=== PATIENT | female | born 1930 | race Caucasian/White ===

== ENCOUNTER 2016-10-28 16:36 | Inpatient (IN) ==
[2016-10-28] MEDS ORDERED: *HR* Morphine 2 MG/ML SYRINGE IVP ONE ×2 (16:44→17:18)
[2016-10-28] MEDS ORDERED: Ondansetron 4 MG/2 ML VIAL IVP ONE (16:45)
--- NOTE | 2016-10-28 17:52 | Emergency Department Note ---
Disposition Clinical Impression: Hip fracture Qualifiers: Encounter type: initial encounter Fracture type: closed Laterality: left Qualified Code(s): S72.002A - Fracture of unspecified part of neck of left femur , initial encounter for closed fracture Disposition: Admitted As Inpatient Condition: Fair Time of Disposition: 20:00 Lower Extremity Injury HPI - General Chief Complaint: ED Extremity Injury, Lower Stated Complaint: fall, left hip pain Time Seen by Provider: 10/28/16 16:38 Source: patient, EMS Mode of arrival: EMS Limitations: no limitations Nursing Notes Reviewed: Yes Vital Signs Reviewed: Yes - History of Present Illness HPI Narrative: 86 yo F on blood thinners with prior falls, s/p CABG x 2, Afib, fell earlier this afternoon from standing when picking somthing up from floor. Pt states she lost her balance and felt landing on her Left hip. She was in immediate 10/10 throbbing constant pain. She called for her daughter who she lives with to come help her, and was unable to stand or get up until EMS came and lifted her from the ground. Pt states she is unable to bear weight and cannot move Left hip in nay direction secondary to severe pain. Pt states she did not have any chest pain, dyspnea, palpitations, lightheaded or dizziness prior to falling and did not have any symptoms besides severe pain after falling. Pt denies LOC, syncope, current CP,SOB, palpitations, lightheaded, dizziness, headache, numbness/tingling. Pt Subjective Complaint: hip injury Injury location: Left hip Onset (ago): minute(s) Mechanism of Injury: fall Context: fall Place: home Pain Severity: severe Pain Scale: 9 Improves with: nothing Worsens with: weight bearing, movement, palpation Associated symptoms: Reports: unable to bear weight, deformity Treatments prior to arrival: other - Related Data Home Medications Medication Instructions Recorded Confirmed Aspirin 81 mg PO DAILY 08/23/15 10/28/16 Clopidogrel [Plavix] 75 mg PO DAILY 08/23/15 10/28/16 Isosorbide MONOnitrate (24 HR) 180 mg PO DAILY 08/23/15 10/28/16 [Imdur] Pantoprazole Sodium [Protonix] 40 mg PO DAILY #0 08/23/15 10/28/16 Potassium Chloride [K-Tab ER] 10 meq PO BID 08/23/15 10/28/16 Pravastatin Sodium [Pravachol] 80 mg PO DAILY 08/23/15 10/28/16 Carvedilol [Coreg] 12.5 mg PO BID 03/14/16 10/28/16 Cyanocobalamin (Vitamin B-12) 100 mcg PO DAILY 03/14/16 10/28/16 [Vitamin B-12] Docusate [Colace] 100 mg PO BID PRN 03/14/16 10/28/16 Ergocalciferol (VITAMIN D2) 800 unit PO DAILY 03/14/16 10/28/16 [Vitamin D] Loratadine [Claritin] 10 mg PO DAILY 03/14/16 10/28/16 Losartan/Hydrochlorothiazide 1 tab PO DAILY 03/14/16 10/28/16 [Losartan-Hctz 100-12.5 mg Tab] Nitroglycerin [Nitrostat] 0.4 mg SL AD PRN 03/31/16 10/28/16 Ranolazine [Ranexa] 1,000 mg PO BID 03/31/16 10/28/16 FluocinoLONE Acet 0.025% CRM 1 appl TP BID PRN 10/28/16 10/28/16 [Fluocinolone Acet 0.025% CRM] Sertraline [Zoloft] 50 mg PO DAILY 10/28/16 10/28/16 Allergies Allergy/AdvReac Type Severity Reaction Status Date / Time simvastatin [From Zocor] Allergy Anaphylaxis Verified 04/18/16 10:03 atorvastatin [From Lipitor] AdvReac Anxiety Verified 04/18/16 10:03 enalaprilat [From Vasotec] AdvReac Hives Verified 04/18/16 10:03 All systems ED: reviewed and negative except as stated. Constitutional: Denies: fever, chills, weakness, weight change Eyes: Denies: eye pain, eye discharge, vision change ENT ED: Denies: ear pain, throat pain, dental pain, hearing loss, epistaxis, congestion, dysphagia Cardiovascular: Denies: chest pain, palpitations, dyspnea on exertion, edema, syncope Respiratory: Denies: cough, dyspnea, wheezes, hemoptysis, stridor Gastrointestinal: Denies: abdominal pain, nausea, vomiting, diarrhea, constipation, hematemesis, melena, hematochezia Musculoskeletal: Reports: arthralgia. Denies: back pain, neck pain Integumentary: Denies: rash, abrasion, lesions Neurological: Denies: headache, weakness, numbness, confusion Psychiatric: Denies: anxiety, depression, suicidal thoughts, homicidal thoughts , auditory hallucinations, visual hallucinations Past Medical History - Past Medical History Attestation: Yes The following information was validated with the patient. 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 Absent: tenderness - Chest Chest inspection: Present: normal inspection, symmetric chest wall rise. Absent : tenderness - Respiratory Respiratory exam: Present: normal lung sounds bilaterally. Absent: respiratory distress, accessory muscle use - Cardiovascular Cardiovascular exam: Present: regular rate, normal rhythm, normal heart sounds, +S1, +S2 - Abdominal Exam Abdominal exam: Present: soft, Non-Tender. Absent: tenderness, distention, guarding, rebound, rigidity - Rectal Exam Rectal exam: Present: deferred - Extremities Exam Extremities exam: Present: tenderness, normal capillary refill. Absent: pedal edema, calf tenderness - Expanded Lower Extremity Exam Hip/Pelvis exam: Present: tenderness, swelling, deformity (Lhip), external rotation. Absent: abrasion, laceration, ecchymosis Knee exam: Present: knee extension intact. Absent: tenderness, swelling, abrasion, laceration, ecchymosis Lower leg exam: Present: full ROM, Achilles tendon intact. Absent: tenderness, swelling, abrasion, laceration, ecchymosis Ankle exam: Present: full ROM. Absent: tenderness, swelling, abrasion, laceration Foot/toe exam: Present: normal inspection, full ROM. Absent: tenderness, swelling, abrasion Neurovascular/Tendon exam: Present: normal capillary refill, significant pain with passive ROM of distal joint. Absent: pulse deficit, sensory deficit, extremity cold to touch, pallor Gait: not tested/not observed, unable to bear weight - Back Exam Back exam: Present: normal inspection, full ROM. Absent: tenderness - Neurological Exam Neurological exam: Present: alert, oriented X3, CN II-XII intact - Skin Skin exam: Present: warm, dry, intact, normal color Course Course Narrative: pt post fall with trauma to head hypertensive and tachycardic significant pain control pain and prevent nausea head CT L hip XR EKG electrolytes - Reevaluation(s) Reevaluation #1: pt remains in 04/15 pain after 4 of morphine tachycardic and hypertensive will give 4 more morphine ortho consulted Time: 18:30 Vital Signs Temperature 97.9 F 10/28/16 16:37 Pulse Rate 67 10/28/16 16:37 Respiratory Rate 18 10/28/16 16:37 Blood Pressure 192/93 10/28/16 16:37 O2 Sat by Pulse Oximetry 97 10/28/16 16:37 Temperature 98.5 F 10/29/16 06:32 Pulse Rate 60 10/29/16 06:32 Respiratory Rate 20 10/29/16 06:32 Blood Pressure 151/76 10/29/16 06:32 O2 Sat by Pulse Oximetry 94 10/29/16 06:32 Oxygen Delivery Oxygen Delivery Nasal Cannula Extremity Injury, Lower - MDM Narrative Medical decision making narrative: L hip XR with displaced transcervical femoral neck fracture without dislocation head CT with chronic small vessel changes, no acute process Left femur xr orthopedics consulted and plan for surgery jessee control pain and nausea NPO at MD for surgery will need admission - Differential Diagnosis Likely: acute internal derangement of knee, fracture, dislocation - Medical Records Medical records reviewed: Yes I reviewed the patient's medical records. - Lab Data Lab results reviewed: Yes I reviewed the patient's lab results. Result diagrams: 10/29/16 04:58 10/29/16 04:58 Lab Results 10/28/16 10/28/16 10/28/16 Range/Units 18:26 18:26 18:26 WBC 7.6 (4.3-11.1) K/mcL RBC 3.80 L (3.82-4.97) M/mcL Hgb 12.9 (11.5-15.4) g/dL Hct 37.5 (35.3-44.9) % MCV 98.7 (83.0-100.0) fL MCH 33.9 H (28.0-33.3) pg MCHC 34.4 (31.6-35.5) g/dL RDW 12.3 (11.5-14.5) % Plt Count 171 (140-400) K/mcL MPV 9.2 L (9.4-12.4) fL Immature Gran % 0.5 (0-4) % Seg Neutrophils % 69.0 % Lymphocytes % 23.8 % Monocytes % 4.9 % Eosinophils % 1.4 % Basophils % 0.4 % Neutrophils # 5.3 (1.6-8.9) K/mcL Lymphocytes # 1.8 (0.6-4.6) K/mcL Monocytes # 0.4 (0.0-1.3) K/mcL Eosinophils # 0.1 (0.0-0.6) K/mcL Basophils # 0.0 (0.0-0.2) K/mcL PT 10.8 (9.4-12.1) Seconds INR 1.0 APTT 29.9 (26.0-36.0) Seconds Sodium 139 (136-145) mEq/L Potassium 4.3 (3.5-4.5) mEq/L Chloride 106 (98-109) mEq/L Carbon Dioxide 22 (19-29) mEq/L BUN 15 (7-20) mg/dL Creatinine 0.96 (0.57-1.11) mg/dL Est GFR ( Amer) > 60 (> 60) Est GFR (Non-Af Amer) 55 L (> 60) BUN/Creatinine Ratio 16 (6-26) Glucose 99 (70-99) mg/dL Calculated Osmolality 289 (280-300) Calcium 9.4 (8.6-10.8) mg/dL Magnesium (1.6-2.6) mg/dL 10/28/16 Range/Units 18:26 WBC (4.3-11.1) K/mcL RBC (3.82-4.97) M/mcL Hgb (11.5-15.4) g/dL Hct (35.3-44.9) % MCV (83.0-100.0) fL MCH (28.0-33.3) pg MCHC (31.6-35.5) g/dL RDW (11.5-14.5) % Plt Count (140-400) K/mcL MPV (9.4-12.4) fL Immature Gran % (0-4) % Seg Neutrophils % % Lymphocytes % % Monocytes % % Eosinophils % % Basophils % % Neutrophils # (1.6-8.9) K/mcL Lymphocytes # (0.6-4.6) K/mcL Monocytes # (0.0-1.3) K/mcL Eosinophils # (0.0-0.6) K/mcL Basophils # (0.0-0.2) K/mcL PT (9.4-12.1) Seconds INR APTT (26.0-36.0) Seconds Sodium (136-145) mEq/L Potassium (3.5-4.5) mEq/L Chloride (98-109) mEq/L Carbon Dioxide (19-29) mEq/L BUN (7-20) mg/dL Creatinine (0.57-1.11) mg/dL Est GFR ( Amer) (> 60) Est GFR (Non-Af Amer) (> 60) BUN/Creatinine Ratio (6-26) Glucose (70-99) mg/dL Calculated Osmolality (280-300) Calcium (8.6-10.8) mg/dL Magnesium 1.8 (1.6-2.6) mg/dL - Radiology Data Radiology results reviewed: Yes I reviewed the patient's radiology results. - EKG Data EKG attestation: Yes I reviewed and interpreted this EKG. - Core Measures AMI Core Measures Followed: Yes Critical Care Time Critical Care Time: No Attestation Statement - Attestation Attestation: I examined this patient and my medical decision-making was reviewed with the DEFECT CUTTER/PA/Advanced Practice Nurse/Resident Physician. I agree with the documented findings, disposition and treatment plan as described except to the extent set forth below. Patient presents from home with a fall pain to the hip she denied any syncopal episode she completed a 10 out of 10 pain. She has shortened leg deformity on exam patient is in obvious pain. Her pain was controlled Dr. Martinez was consult at admitted to the hospitalist service
[2016-10-28] MEDS ORDERED: *HR* Morphine 2 MG/ML SYRINGE IV ONE (18:08)
[2016-10-28 18:47] LABS: Basophils % 0.4 %; Eosinophils # 0.1 K/mcL (0.0-0.6); Eosinophils % 1.4 %; Hematocrit 37.5 % (35.3-44.9); Hemoglobin 12.9 g/dL (11.5-15.4); Immature Granulocytes % 0.5 % (0-4); Lymphocytes # 1.8 K/mcL (0.6-4.6); Lymphocytes % 23.8 %; Mean Corpuscular HGB Conc 34.4 g/dL (31.6-35.5); Mean Corpuscular Hemoglobin 33.9 pg (28.0-33.3); Mean Corpuscular Volume 98.7 fL (83.0-100.0); Mean Platelet Volume 9.2 fL (9.4-12.4); Monocytes # 0.4 K/mcL (0.0-1.3); Monocytes % 4.9 %; Neutrophils # 5.3 K/mcL (1.6-8.9); Platelet Count 171 K/mcL (140-400); Red Cell Distribution Width 12.3 % (11.5-14.5)
[2016-10-28 18:53] LABS: Prothrombin Time 10.8 Seconds (9.4-12.1)
[2016-10-28 18:56] LABS: Activated Partial Thrombo Time 29.9 Seconds (26.0-36.0)
[2016-10-28 19:00] LABS: BUN/Creatinine Ratio 16 (6-26); Blood Urea Nitrogen 15 mg/dL (7-20); Calcium 9.4 mg/dL (8.6-10.8); Carbon Dioxide 22 mEq/L (19-29); Chloride 106 mEq/L (98-109); Glucose 99 mg/dL (70-99); Osmolality,Calculated 289 (280-300); Potassium 4.3 mEq/L (3.5-4.5); Sodium 139 mEq/L (136-145); eGFR For African Americans > 60 (> 60); eGFR For Non-African Americans 55 (> 60)
[2016-10-28] MEDS ORDERED: Naloxone 0.4 MG/ML INJ IVP PRN (21:20)
[2016-10-28] MEDS ORDERED: Nitroglycerin 0.4 MG TAB.SUBL SL PRN (21:26)
[2016-10-28 21:34] LABS: Bilirubin,Urine Negative (Negative); Blood,Urine Negative (Negative); Clarity,Urine Clear (Clear); Color,Urine Yellow (Yellow); Glucose,Urine (UA) Normal (Normal); Ketones,Urine Negative (Negative); Leukocyte Esterase,Urine Negative (Negative); Nitrite,Urine Negative (Negative); Protein,Urine Negative (Neg-Trace); Specific Gravity,Urine 1.017 (1.010-1.025); Urobilinogen,Urine Normal (Normal)
[2016-10-28] MEDS: 0.9 % Sodium Chloride 1,000 ML IVC SCH (23:03)
--- NOTE | 2016-10-28 23:17 | Internal Med History&Physical ---
<Talisha Ramirez - Last Filed: 10/28/16 23:45> Date of Encounter: 10/28/16 Time of Encounter: 23:12 Assessment and Plan (1) Hip fracture Current visit: Yes Status: Acute Patient with left hip pain s/p fall at home. Left hip xray shos displaced transcervical femoral neck fracture. Left femoral xray showed impacted femoral neck fracture. Orthopedic surgery consulted and plan surgery tomorrow. bed rest NPO after midnight for surgery Morphine IVP PRN for pain Zofran PRN for nausea Narcan PRN for respiratory depression. Qualifiers: Encounter type: initial encounter Fracture type: closed Laterality: left Qualified Code(s): S72.002A - Fracture of unspecified part of neck of left femur, initial encounter for closed fracture (2) CAD (coronary artery disease) Current visit: No Status: Chronic Patient with Coronary artery disease s/p CABG X 2 in 2000 and total of 8 stent placements. Most recent cardiac cath was 04/16/16 at [facility] and report is scanned into her record. She follows with [facility] as an outpatient. Holding aspirin and plavix for planned surgery. Continue home doses of Ranexa, Imdur, coreg. Cardiac cath 04/16/16 Impression reads: EDP 17, severe hypertension with SBP 170-180 despite sedation, patent stents in the distal RCA and mid circumflex, Patent stent in the proximal LAD, Patent BURTON to the distal LAD, overall unchanged from previous cath in 2014. Cardiac cath 09/10/14 Impression reads: estimated LVEF 55% with EVEDP of 12. BUROTN to LAD is widely patent. LMCA has 30% stenosis in the distal segment. LAD has 10% in stent stenosis in the proximal segment and 70% stenosis in the mid segment. LCX has minor atherosclerosis. OM1 has 85% stenosis in the proximal segment. RCA has 50% ostial stenosis and 40% in the mid segment. Two SVG grafts site occluded at the proximal segments. Successful PCI stent of proximal OM1 stenosis with BMS. Qualifiers: Coronary Disease-Associated Artery/Lesion type: [place] artery [place] vs. transplanted heart: [place] heart Associated angina: with stable angina Qualified Code(s): I25.118 - Atherosclerotic heart disease of [place] coronary artery with other forms of angina pectoris (3) HTN (hypertension) Current visit: No Status: Chronic Qualifiers: Hypertension type: essential hypertension Qualified Code(s): I10 - Essential (primary) hypertension (4) Pacemaker Current visit: No Status: Acute Patient with history of atrial fibrillation, now with pacemaker. EKG shows electronic atrial pacemaker with nonspecific ST and t-wave abnormality. (5) COPD (chronic obstructive pulmonary disease) Current visit: No Status: Chronic Patient denies any increased shortness of breath or cough titrate Oxygen to maintain O2 saturation > 92%. Qualifiers: COPD type: emphysema Emphysema type: unspecified Qualified Code(s): J43.9 - Emphysema, unspecified (6) DVT prophylaxis Current visit: Yes Status: Acute Sequential compression devices. Start Lovenox post op. Internal Medicine - H&P: HPI Chief complaint: leg pain Admitted From: Emergency Dept Plans for Post Hospital Care: [facility] History of present illness: Ms. Duke is a 86 year old female with COPD, hypertension, GERD, coronary artery disease status post CABG and stent placements, atrial fibrillation status post pacemaker who presented to emergency department today after suffering a fall at home and with left hip pain. 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 Patient does report that she hit her head as well. She denies any lightheadedness, dizziness , chest pain, palpitations, shortness of breath, nausea, vomiting, abdominal pain, numbness or tingling. Evaluation in emergency department included a CT of the head which showed no acute intercranial abnormality consistent with chronic small vessel ischemic disease. Left hip x-ray showed displaced transcervical femoral neck fracture, left femoral x-ray showed impacted femoral neck fracture. Chest x-ray showed no acute process. Labs are grossly normal. On exam, patient is alert and oriented, in no acute distress. She reports her pain was relieved with pain medicine given in the emergency department. Heart has regular rate and rhythm, lungs are clear bilaterally to auscultation. Left leg is shortened, she has good peripheral pulses bilaterally. Past Med Surg Social Fam HX - Past Medical History Medical history: arthritis, atrial fibrillation, COPD, coronary artery disease, GERD, hyperlipidemia, hypertension, myocardial infarction, syncope Psychiatric history: anxiety - Past Surgical History Surgical History: angioplasty/stent, appendectomy, cataract, cholecystectomy, coronary bypass (CABG), pacemaker - Social History Smoking Status: Former smoker Smokeless Tobacco Status: No Alcohol use: none Drug use: none - Family History Father History Unknown: Yes Living Status: Hx Family Cardiac Disorders: Yes (HEART PROBEMS, [place]) Mother History Unknown: Yes Living Status: Hx Family Respiratory Disorders: Yes ( of pneumonia) Internal Medicine - H&P: Meds Aspirin 81 mg PO DAILY 08/23/15 [History] Clopidogrel [Plavix] 75 mg PO DAILY 08/23/15 [History] Isosorbide MONOnitrate (24 HR) [Imdur] 180 mg PO DAILY 08/23/15 [History] Pantoprazole Sodium [Protonix] 40 mg PO DAILY #0 08/23/15 [History] Potassium Chloride [K-Tab ER] 10 meq PO BID 08/23/15 [History] Pravastatin Sodium [Pravachol] 80 mg PO DAILY 08/23/15 [History] Carvedilol [Coreg] 12.5 mg PO BID 03/14/16 [History] Cyanocobalamin (Vitamin B-12) [Vitamin B-12] 100 mcg PO DAILY 03/14/16 [History] Docusate [Colace] 100 mg PO BID PRN 03/14/16 [History] Ergocalciferol (VITAMIN D2) [Vitamin D] 800 unit PO DAILY 03/14/16 [History] Loratadine [Claritin] 10 mg PO DAILY 03/14/16 [History] Losartan/Hydrochlorothiazide [Losartan-Hctz 100-12.5 mg Tab] 1 tab PO DAILY 02/19 [History] Nitroglycerin [Nitrostat] 0.4 mg SL AD PRN 03/31/16 [History] Ranolazine [Ranexa] 1,000 mg PO BID 03/31/16 [History] FluocinoLONE Acet 0.025% CRM [Fluocinolone Acet 0.025% CRM] 1 appl TP BID PRN [History] Sertraline [Zoloft] 50 mg PO DAILY 10/28/16 [History] Allergies simvastatin [From Zocor] Allergy (Verified 04/18/16 10:03) Anaphylaxis atorvastatin [From Lipitor] Adverse Reaction (Verified 04/18/16 10:03) Anxiety enalaprilat [From Vasotec] Adverse Reaction (Verified 04/18/16 10:03) Hives All Systems PM: A 10-system review of systems was performed and is negative for pertinent findings except as documented above in the HPI. - Constitutional Vitals: Temp Pulse Resp BP Pulse Ox 99.0 F 59 16 124/59 97 10/28/16 21:08 10/28/16 21:08 10/28/16 21:08 10/28/16 21:08 10/28/16 21:08 General appearance: Present: A&O X 3, pleasant, no acute distress - Head Head exam: Present: atraumatic, normocephalic - Eye Eye exam: Present: PERRL, conjuntiva pink, sclera anicteric Pupils: Present: PERRL - Neck Neck exam general surgery: Present: supple, trachea midline. Absent: lymphadenopathy - Respiratory Respiratory exam: Present: CTAB. Absent: accessory muscle use, rales, rhonchi, wheezes - Cardiovascular Cardiovascular exam: Present: RRR, +S1, +S2. Absent: diastolic murmur, gallop, rubs, systolic murmur - GI/Abdominal GI/Abdominal exam: Present: normal bowel sounds, soft, no peritoneal signs. Absent: distended, tenderness - Extremities Exam Extremities exam: Present: warm, radial pulses palpable and symetrical. Absent : calf tenderness, cyanotic, pedal edema Additional comments: shortened left leg, Left hip tender to palpation. - Neurological Exam Neurological exam: Present: CN II-XII intact, oriented X3, no focal deficits. Absent: facial droop, speech deficit - Skin Skin exam: Present: dry, intact Internal Med - H&P Results - Labs CBC & Chem 7: 10/28/16 18:26 10/28/16 18:26 Labs: All Lab Results (24 Hours) 10/28/16 10/28/16 10/28/16 Range/Units 18:26 18:26 18:26 WBC 7.6 (4.3-11.1) K/mcL RBC 3.80 L (3.82-4.97) M/mcL Hgb 12.9 (11.5-15.4) g/dL Hct 37.5 (35.3-44.9) % MCV 98.7 (83.0-100.0) fL MCH 33.9 H (28.0-33.3) pg MCHC 34.4 (31.6-35.5) g/dL RDW 12.3 (11.5-14.5) % Plt Count 171 (140-400) K/mcL MPV 9.2 L (9.4-12.4) fL Immature Gran % 0.5 (0-4) % Seg Neutrophils % 69.0 % Lymphocytes % 23.8 % Monocytes % 4.9 % Eosinophils % 1.4 % Basophils % 0.4 % Neutrophils # 5.3 (1.6-8.9) K/mcL Lymphocytes # 1.8 (0.6-4.6) K/mcL Monocytes # 0.4 (0.0-1.3) K/mcL Eosinophils # 0.1 (0.0-0.6) K/mcL Basophils # 0.0 (0.0-0.2) K/mcL PT 10.8 (9.4-12.1) Seconds INR 1.0 APTT 29.9 (26.0-36.0) Seconds Sodium 139 (136-145) mEq/L Potassium 4.3 (3.5-4.5) mEq/L Chloride 106 (98-109) mEq/L Carbon Dioxide 22 (19-29) mEq/L BUN 15 (7-20) mg/dL Creatinine 0.96 (0.57-1.11) mg/dL Est GFR ( Amer) > 60 (> 60) Est GFR (Non-Af Amer) 55 L (> 60) BUN/Creatinine Ratio 16 (6-26) Glucose 99 (70-99) mg/dL Calculated Osmolality 289 (280-300) Calcium 9.4 (8.6-10.8) mg/dL Magnesium (1.6-2.6) mg/dL Urine Color (Yellow) Urine Clarity (Clear) Urine pH (5.0-8.0) pH Units Ur Specific Colon (1.010-1.025) Urine Protein (Neg-Trace) mg/dL Urine Glucose (UA) (Normal) mg/dL Urine Ketones (Negative) mg/dL Urine Blood (Negative) Urine Nitrite (Negative) Urine Bilirubin (Negative) Urine Urobilinogen (Normal) mg/dL Ur Leukocyte Esterase (Negative) 10/28/16 10/28/16 Range/Units 18:26 21:20 WBC (4.3-11.1) K/mcL RBC (3.82-4.97) M/mcL Hgb (11.5-15.4) g/dL Hct (35.3-44.9) % MCV (83.0-100.0) fL MCH (28.0-33.3) pg MCHC (31.6-35.5) g/dL RDW (11.5-14.5) % Plt Count (140-400) K/mcL MPV (9.4-12.4) fL Immature Gran % (0-4) % Seg Neutrophils % % Lymphocytes % % Monocytes % % Eosinophils % % Basophils % % Neutrophils # (1.6-8.9) K/mcL Lymphocytes # (0.6-4.6) K/mcL Monocytes # (0.0-1.3) K/mcL Eosinophils # (0.0-0.6) K/mcL Basophils # (0.0-0.2) K/mcL PT (9.4-12.1) Seconds INR APTT (26.0-36.0) Seconds Sodium (136-145) mEq/L Potassium (3.5-4.5) mEq/L Chloride (98-109) mEq/L Carbon Dioxide (19-29) mEq/L BUN (7-20) mg/dL Creatinine (0.57-1.11) mg/dL Est GFR ( Amer) (> 60) Est GFR (Non-Af Amer) (> 60) BUN/Creatinine Ratio (6-26) Glucose (70-99) mg/dL Calculated Osmolality (280-300) Calcium (8.6-10.8) mg/dL Magnesium 1.8 (1.6-2.6) mg/dL Urine Color Yellow (Yellow) Urine Clarity Clear (Clear) Urine pH 6.0 (5.0-8.0) pH Units Ur Specific Colon 1.017 (1.010-1.025) Urine Protein Negative (Neg-Trace) mg/dL Urine Glucose (UA) Normal (Normal) mg/dL Urine Ketones Negative (Negative) mg/dL Urine Blood Negative (Negative) Urine Nitrite Negative (Negative) Urine Bilirubin Negative (Negative) Urine Urobilinogen Normal (Normal) mg/dL Ur Leukocyte Esterase Negative (Negative) - Diagnostic Studies Chest x-ray Additional comments: Chest X-Ray 10/28/16 19:57 IMPRESSION: No acute process. D/ / Abdirizak Hoover MD / Abdirizak Hoover MD Interpreting Provider: Abdiirzak Hoover MD CT scan - head Additional comments: Head CT 10/28/16 17:24 IMPRESSION: No acute intracranial abnormality. Chronic small vessel ischemic disease. D/ / Griffin Stein MD / Griffin Stein MD Interpreting Provider: Griffin Stein MD Other Images Additional comments: Hip X-Ray 10/28/16 17:12 IMPRESSION: Displaced left transcervical femoral neck fracture. No evidence of dislocation. D/ / 10/28/2016 18:16:11 Chely Estrella MD / jose Interpreting Provider: Chely Estrella MD Femur X-Ray 10/28/16 18:41 IMPRESSION: Impacted left femoral neck fracture. Otherwise no acute osseous abnormality of the left femur. D/ / Earnest Page MD / Earnest Page MD Interpreting Provider: Earnest Page MD <Usha Goldstein R - Last Filed: 10/29/16 05:13> Date of Encounter: 10/28/16 Internal Medicine - H&P: HPI History of present illness: Ms. Duke is a 86 year old female All Systems PM: A 10-system review of systems was performed and is negative for pertinent findings except as documented above in the HPI. - Constitutional Vitals: Temp Pulse Resp BP Pulse Ox 98.3 F 50 15 113/55 97 10/29/16 04:15 10/29/16 04:15 10/29/16 04:15 10/29/16 04:15 10/29/16 04:15 Internal Med - H&P Results - Labs CBC & Chem 7: 10/28/16 18:26 10/28/16 18:26 - Attending Attestation I performed history and physical examination of the patient and discussed management with the ORDAINED MINISTER / ANP. I reviewed the ORDAINED MINISTER / ANPs note and agree with documented findings and plan of care. 86 year old female with COPD, hypertension, GERD, coronary artery disease status post CABG and stent placements, atrial fibrillation status post pacemaker - positive history of fall and was noted to have left femoral neck fracture. O/E: Not in acute distress at the time of my evaluation. Cardiac regular rate and rhythm. Lungs clear to auscultation. EKG personally reviewed by me shows paced rhythm. Reviewed imaging results. A/P: Left femoral neck fracture: Analgesia; Orthopedic consult. Will consult mold sheet cleaner for presurgical evaluation due to her cardiac premorbidities.
[2016-10-29 05:16] LABS: Basophils % 0.6 %; Eosinophils # 0.1 K/mcL (0.0-0.6); Eosinophils % 2.6 %; Hematocrit 34.4 % (35.3-44.9); Hemoglobin 11.9 g/dL (11.5-15.4); Immature Granulocytes % 0.4 % (0-4); Lymphocytes # 1.5 K/mcL (0.6-4.6); Lymphocytes % 28.2 %; Mean Corpuscular HGB Conc 34.6 g/dL (31.6-35.5); Mean Corpuscular Hemoglobin 34.5 pg (28.0-33.3); Mean Corpuscular Volume 99.7 fL (83.0-100.0); Mean Platelet Volume 9.8 fL (9.4-12.4); Monocytes # 0.4 K/mcL (0.0-1.3); Monocytes % 6.7 %; Neutrophils # 3.3 K/mcL (1.6-8.9); Platelet Count 126 K/mcL (140-400); Red Blood Count 3.45 M/mcL (3.82-4.97); Red Cell Distribution Width 12.6 % (11.5-14.5); Segmented Neutrophils % 61.5 %
[2016-10-29 05:35] LABS: BUN/Creatinine Ratio 13 (6-26); Blood Urea Nitrogen 11 mg/dL (7-20); Calcium 8.4 mg/dL (8.6-10.8); Carbon Dioxide 22 mEq/L (19-29); Chloride 105 mEq/L (98-109); Glucose 111 mg/dL (70-99); Osmolality,Calculated 280 (280-300); Potassium 3.4 mEq/L (3.5-4.5); Sodium 135 mEq/L (136-145); eGFR For African Americans > 60 (> 60); eGFR For Non-African Americans > 60 (> 60)
[2016-10-29] MEDS: *HR* Morphine 2 MG/ML SYRINGE IVP PRN ×4 (07:34→18:13)
[2016-10-29] MEDS: Isosorbide MONOnitrate (24 HR) 60 MG TAB.ER.24H PO SCH (07:41)
[2016-10-29] MEDS: Ranolazine 500 MG TAB.ER.12H PO SCH ×2 (07:41→21:36)
[2016-10-29] MEDS: Losartan/HCTZ 50-12.5 TABLET PO SCH (07:41)
--- NOTE | 2016-10-29 08:23 | Orthopedic Consult Note ---
Date of Encounter: 10/29/16 Time of Encounter: 08:21 Assessment and Plan (1) Hip fracture Current Visit: Yes Status: Acute I did explain the diagnosis in detail with the patient. She has a displaced left femoral neck fracture. I did discuss treatment options and my recommendation was for left hip hemiarthroplasty to provide pain control and help facilitate nursing care. The risks discussed included but were not limited to bleeding, infection, anesthesia risks, damage to neurovascular structures, tendons, ligaments, and bone. Also discussed was the risk of continued symptoms and possible need for further procedures. Also discussed were the risks of periprosthetic fracture, prosthetic loosening, prosthetic infection, and prosthetic dislocation. I did discuss the anesthesia risks with the patient including stroke, heart attack, and . I did discuss the reasonable forseeable postoperative course with the patient. The patient did wish to proceed and we will go ahead with surgery once medically cleared. Qualifiers: Encounter type: initial encounter Fracture type: closed Laterality: left Qualified Code(s): S72.002A - Fracture of unspecified part of neck of left femur, initial encounter for closed fracture History of Present Illness HPI: Ms. Duke is a 86 year old female with COPD, hypertension, GERD, coronary artery disease status post CABG and stent placements, atrial fibrillation status post pacemaker who presented to emergency department today after suffering a fall at home and with left hip pain. She was admitted to the hospitalist after being found to have a displaced left femoral neck fracture. The patient indicates she had an injury when leaning over to pick pulling machine tender her glasses. She did fall and land on her left hip but also thinks she did hit her head. CT scan of the brain did not show any intracranial abnormalities. The patient currently is complaining of isolated pain to the left groin. She denies any headaches, neck pain, chest pain, abdominal pain. She denies bilateral upper extremity pain and right lower extremity pain. She denies any numbness, tingling, or any other associated signs or symptoms. Pain is worse with movement and better at rest. No other modifying factors. The patient does live independently with her daughter and is a cane and walker assisted community ambulator. Past Med Surg Social Fam HX - Past Medical History Medical history: arthritis, atrial fibrillation, COPD, coronary artery disease, GERD, hyperlipidemia, hypertension, myocardial infarction, syncope Psychiatric history: anxiety - Past Surgical History Surgical History: angioplasty/stent, appendectomy, cataract, cholecystectomy, coronary bypass (CABG), pacemaker - Social History Smoking Status: Former smoker Smokeless Tobacco Status: No Alcohol use: none Drug use: none - Family History Father History Unknown: Yes Living Status: Hx Family Cardiac Disorders: Yes (HEART PROBEMS, [place]) Mother History Unknown: Yes Living Status: Hx Family Respiratory Disorders: Yes ( of pneumonia) Medications and Allergies Aspirin 81 mg PO DAILY 08/23/15 [History] Clopidogrel [Plavix] 75 mg PO DAILY 08/23/15 [History] Isosorbide MONOnitrate (24 HR) [Imdur] 180 mg PO DAILY 08/23/15 [History] Pantoprazole Sodium [Protonix] 40 mg PO DAILY #0 08/23/15 [History] Potassium Chloride [K-Tab ER] 10 meq PO BID 08/23/15 [History] Pravastatin Sodium [Pravachol] 80 mg PO DAILY 08/23/15 [History] Carvedilol [Coreg] 12.5 mg PO BID 03/14/16 [History] Cyanocobalamin (Vitamin B-12) [Vitamin B-12] 100 mcg PO DAILY 03/14/16 [History] Docusate [Colace] 100 mg PO BID PRN 03/14/16 [History] Ergocalciferol (VITAMIN D2) [Vitamin D] 800 unit PO DAILY 03/14/16 [History] Loratadine [Claritin] 10 mg PO DAILY 03/14/16 [History] Losartan/Hydrochlorothiazide [Losartan-Hctz 100-12.5 mg Tab] 1 tab PO DAILY 02/19 [History] Nitroglycerin [Nitrostat] 0.4 mg SL AD PRN 03/31/16 [History] Ranolazine [Ranexa] 1,000 mg PO BID 03/31/16 [History] FluocinoLONE Acet 0.025% CRM [Fluocinolone Acet 0.025% CRM] 1 appl TP BID PRN [History] Sertraline [Zoloft] 50 mg PO DAILY 10/28/16 [History] Allergies simvastatin [From Zocor] Allergy (Verified 04/18/16 10:03) Anaphylaxis atorvastatin [From Lipitor] Adverse Reaction (Verified 04/18/16 10:03) Anxiety enalaprilat [From Vasotec] Adverse Reaction (Verified 04/18/16 10:03) Hives All Systems Reviewed: Constitutional and musculoskeletal systems were reviewed and are negative unless otherwise stated in history of present illness. Physical Exam - Constitutional Vitals: Temp Pulse Resp BP Pulse Ox 98.5 F 60 20 151/76 94 10/29/16 06:32 10/29/16 06:32 10/29/16 06:32 10/29/16 06:32 10/29/16 06:32 Constitutional -Vitals reviewed -The patient is well developed and well nourished. -Mood is pleasant. -The patient is well groomed. Psychiatric -The patient is fully alert and oriented x 3. Respiratory: -Respiratory effort normal Abdomen: -Soft abdomen -Non tender -Non distended: Left upper extremity: -No deformities. The overlying skin is intact. No obvious signs of acute trauma. -No tenderness to palpation throughout. -No significant pain with passive motion of the shoulder, elbow, wrist, and fingers within the limits of the bed. -Able to make an "OK" sign, cross the index and long fingers, and extend the thumb. -Sensation grossly intact to light touch throughout the median, radial, and ulnar distributions. -Radial pulse is present; Fingers have good capillary refill. Right upper extremity: -No deformities. The overlying skin is intact. No obvious signs of acute trauma. -No tenderness to palpation throughout. -No significant pain with passive motion of the shoulder, elbow, wrist, and fingers within the limits of the bed. -Able to make an "OK" sign, cross the index and long fingers, and extend the thumb. -Sensation grossly intact to light touch throughout the median, radial, and ulnar distributions. -Radial pulse is present; Fingers have good capillary refill. Left lower extremity: -The extremity is shortened and externally rotated. The overlying skin is intact. -There is tenderness in the groin region as well as the proximal lateral thigh. -I did not range the hip due to the known fracture. -And a movement of the thigh does cause significant pain in the groin. -No tenderness along the distal thigh, leg, ankle, foot, or toes. -Able to dorsiflex and plantarflex the ankle and toes. -Sensation is grossly intact to light touch throughout the sural, saphenous, superficial peroneal, and deep peroneal distributions. -Toes have good capillary refill. Right lower extremity: -No deformities. The overlying skin is intact. No obvious signs of acute trauma. -No tenderness to palpation throughout. -No pain with passive motion of the hip, knee, ankle, and toes within the limits of the bed. -No pain with axial loading of the thigh. -Able to dorsiflex and plantarflex the ankle and toes. -Sensation is grossly intact to light touch throughout the sural, saphenous, superficial peroneal, and deep peroneal distributions. -Toes have good capillary refill. Diagnostic Imaging: I did personally review and interpret x-rays of the left hip and femur which show a displaced femoral neck fracture. CT scan of the brain does not show any intracranial abnormalities that are acute. Results - Labs Result Diagrams: 10/29/16 04:58 10/29/16 04:58 Labs: Abnormal lab results RBC 3.45 M/mcL (3.82-4.97) L 10/29/16 04:58 Hct 34.4 % (35.3-44.9) L 10/29/16 04:58 MCH 34.5 pg (28.0-33.3) H 10/29/16 04:58 Plt Count 126 K/mcL (140-400) L 10/29/16 04:58 Sodium 135 mEq/L (136-145) L 10/29/16 04:58 Potassium 3.4 mEq/L (3.5-4.5) L 10/29/16 04:58 Glucose 111 mg/dL (70-99) H 10/29/16 04:58 Calcium 8.4 mg/dL (8.6-10.8) L 10/29/16 04:58 H & H 10/29/16 Range/Units 04:58 Hgb 11.9 (11.5-15.4) g/dL Hct 34.4 L (35.3-44.9) % All other labs normal. Consult Discharge Plan - Plan Referrals: Chris Cooley CNP [Advanced Practice Nurse] - 11/14/16 3:15 pm Sukhi Prakash MD [Primary Care Provider] - 11/26/16 9:45 am
--- NOTE | 2016-10-29 08:30 | Cardiology Consult Note ---
Date of Encounter: 10/29/16 Time of Encounter: 08:29 Assessment and Plan Discussion w patient/family: The assessment and plan as outlined above was discussed with the patient and/or family members who expressed understanding and agreement. All questions were answered. Thank you for involving us in the care of your patient. Please call with any questions. History of Present Illness Consult date: 10/29/16 History of present illness: Ms. Duke is a 86 year old female Past Med Surg Social Fam HX - Past Medical History Medical history: arthritis, atrial fibrillation, COPD, coronary artery disease, GERD, hyperlipidemia, hypertension, myocardial infarction, syncope Psychiatric history: anxiety - Past Surgical History Surgical History: angioplasty/stent, appendectomy, cataract, cholecystectomy, coronary bypass (CABG), pacemaker - Social History Smoking Status: Former smoker Smokeless Tobacco Status: No Alcohol use: none Drug use: none - Family History Father History Unknown: Yes Living Status: Hx Family Cardiac Disorders: Yes (HEART PROBEMS, [place]) Mother History Unknown: Yes Living Status: Hx Family Respiratory Disorders: Yes ( of pneumonia) Medications and Allergies Aspirin 81 mg PO DAILY 08/23/15 [History] Clopidogrel [Plavix] 75 mg PO DAILY 08/23/15 [History] Isosorbide MONOnitrate (24 HR) [Imdur] 180 mg PO DAILY 08/23/15 [History] Pantoprazole Sodium [Protonix] 40 mg PO DAILY #0 08/23/15 [History] Potassium Chloride [K-Tab ER] 10 meq PO BID 08/23/15 [History] Pravastatin Sodium [Pravachol] 80 mg PO DAILY 08/23/15 [History] Carvedilol [Coreg] 12.5 mg PO BID 03/14/16 [History] Cyanocobalamin (Vitamin B-12) [Vitamin B-12] 100 mcg PO DAILY 03/14/16 [History] Docusate [Colace] 100 mg PO BID PRN 03/14/16 [History] Ergocalciferol (VITAMIN D2) [Vitamin D] 800 unit PO DAILY 03/14/16 [History] Loratadine [Claritin] 10 mg PO DAILY 03/14/16 [History] Losartan/Hydrochlorothiazide [Losartan-Hctz 100-12.5 mg Tab] 1 tab PO DAILY 02/19 [History] Nitroglycerin [Nitrostat] 0.4 mg SL AD PRN 03/31/16 [History] Ranolazine [Ranexa] 1,000 mg PO BID 03/31/16 [History] FluocinoLONE Acet 0.025% CRM [Fluocinolone Acet 0.025% CRM] 1 appl TP BID PRN [History] Sertraline [Zoloft] 50 mg PO DAILY 10/28/16 [History] Allergies simvastatin [From Zocor] Allergy (Verified 04/18/16 10:03) Anaphylaxis atorvastatin [From Lipitor] Adverse Reaction (Verified 04/18/16 10:03) Anxiety enalaprilat [From Vasotec] Adverse Reaction (Verified 04/18/16 10:03) Hives All Systems Review: A 10-system review of systems was performed and is negative for pertinent findings except as documented above in the HPI. Physical Examination Vital Signs, Last 4 Hours Temp Pulse Resp BP Pulse Ox 10/29/16 06:32 98.5 F 60 20 151/76 94 Results 10/29/16 04:58 10/29/16 04:58 Lab Results 10/29/16 10/29/16 04:58 04:58 WBC 5.4 Hgb 11.9 Hct 34.4 L Plt Count 126 L Sodium 135 L Potassium 3.4 L Chloride 105 Carbon Dioxide 22 BUN 11 Creatinine 0.83 Glucose 111 H Calcium 8.4 L Consult Discharge Plan - Plan Referrals: Chris Cooley CNP [Advanced Practice Nurse] - 11/14/16 3:15 pm Sukhi Prakash MD [Primary Care Provider] - 11/26/16 9:45 am
[2016-10-29] MEDS ORDERED: NON-FORMULARY MEDICATION 1 EACH EACH (Losartan/Hydrochlorothiazide [Losartan-Hctz 100-12.5 PO SCH (09:00)
[2016-10-29] MEDS ORDERED: Acetaminophen 325 MG TABLET PO PRN (11:28)
--- NOTE | 2016-10-29 11:28 | Internal Med Progress Note ---
Date of Encounter: 10/29/16 Time of Encounter: 11:24 - Assessment and plan (1) COPD (chronic obstructive pulmonary disease) Current Visit: Yes Status: Chronic Assessment and plan: Patient denies any increased shortness of breath or cough titrate Oxygen to maintain O2 saturation > 92%. Qualifiers: COPD type: emphysema Emphysema type: unspecified Qualified Code(s): J43.9 - Emphysema, unspecified (2) HTN (hypertension) Current Visit: Yes Status: Chronic Assessment and plan: Chronic, stable, controlled Qualifiers: Hypertension type: essential hypertension Qualified Code(s): I10 - Essential (primary) hypertension (3) Hyperlipemia Current Visit: Yes Status: Chronic Assessment and plan: Continue home meds Qualifiers: Hyperlipidemia type: unspecified Qualified Code(s): E78.5 - Hyperlipidemia , unspecified (4) CAD (coronary artery disease) Current Visit: Yes Status: Chronic Assessment and plan: Patient with Coronary artery disease s/p CABG X 2 in 2000 and total of 8 stent placements. Most recent cardiac cath was 04/16/16 at [facility] and report is scanned into her record. She follows with [place] [facility] as an outpatient. Holding aspirin and plavix for planned surgery. Continue home doses of Ranexa, Imdur, coreg. Cardiac cath 04/16/16 Impression reads: EDP 17, severe hypertension with SBP 170-180 despite sedation, patent stents in the distal RCA and mid circumflex, Patent stent in the proximal LAD, Patent BURTON to the distal LAD, overall unchanged from previous cath in 2015. Cardiac cath 09/10/14 Impression reads: estimated LVEF 55% with EVEDP of 12. BURTON to LAD is widely patent. LMCA has 30% stenosis in the distal segment. LAD has 10% in stent stenosis in the proximal segment and 70% stenosis in the mid segment. LCX has minor atherosclerosis. OM1 has 85% stenosis in the proximal segment. RCA has 50% ostial stenosis and 40% in the mid segment. Two SVG grafts site occluded at the proximal segments. Successful PCI stent of proximal OM1 stenosis with BMS. Patient with history of atrial fibrillation, now with pacemaker. EKG shows electronic atrial pacemaker with nonspecific ST and t-wave abnormality. Await cardiology clearance for surgery Qualifiers: Coronary Disease-Associated Artery/Lesion type: [place] artery [place] vs. transplanted heart: [place] heart Associated angina: with stable angina Qualified Code(s): I25.118 - Atherosclerotic heart disease of [place] coronary artery with other forms of angina pectoris (5) Hip fracture Current Visit: Yes Status: Acute Assessment and plan: management per ortho Ensure pain control and DVT prophylaxis Qualifiers: Encounter type: initial encounter Fracture type: closed Laterality: left Qualified Code(s): S72.002A - Fracture of unspecified part of neck of left femur, initial encounter for closed fracture - Subjective Interval history: 86 F with atrial fibrillation, COPD, coronary artery disease, GERD, hyperlipidemia, hypertension, myocardial infarction, syncope Seen at bedside with daughter Complains of breakthrough pains Awaiting cardiology clearance for surgery - Constitutional Vitals: Temp Pulse Resp BP Pulse Ox 99.0 F 60 18 128/79 95 10/29/16 10:34 10/29/16 10:34 10/29/16 10:34 10/29/16 10:34 10/29/16 10:34 General appearance: Present: A&O X 3, pleasant, no acute distress - Head Head exam: Present: atraumatic, normocephalic - Eye Eye exam: Present: PERRL, conjuntiva pink, sclera anicteric Pupils: Present: PERRL - Neck Neck exam general surgery: Present: supple, trachea midline. Absent: lymphadenopathy - Respiratory Respiratory exam: Present: CTAB. Absent: accessory muscle use, rales, rhonchi, wheezes Additional comments: PCM on left chest wall, not tender - Cardiovascular Cardiovascular exam: Present: RRR, +S1, +S2. Absent: diastolic murmur, gallop, rubs, systolic murmur - GI/Abdominal GI/Abdominal exam: Present: normal bowel sounds, soft, no peritoneal signs. Absent: distended, tenderness - Extremities Exam Extremities exam: Present: warm, radial pulses palpable and symetrical. Absent : calf tenderness, cyanotic, pedal edema - Neurological Exam Neurological exam: Present: alert, CN II-XII intact, oriented X3, no focal deficits. Absent: pronater drift, facial droop, speech deficit - Skin Skin exam: Present: dry, intact Internal Medicine: Result - Labs CBC & Chem 7: 10/29/16 04:58 10/29/16 04:58 Labs: Short CBC 10/29/16 Range/Units 04:58 WBC 5.4 (4.3-11.1) K/mcL Hgb 11.9 (11.5-15.4) g/dL Hct 34.4 L (35.3-44.9) % Plt Count 126 L (140-400) K/mcL Neutrophils # 3.3 (1.6-8.9) K/mcL BMP 10/29/16 04:58 Sodium 135 L Potassium 3.4 L Chloride 105 Carbon Dioxide 22 BUN 11 Creatinine 0.83 Glucose 111 H Calcium 8.4 L - ABG Interpretation ABG results: PT/INR, D-dimer PT 10.8 Seconds (9.4-12.1) 10/28/16 18:26 - VTE Documentation of Mechanical Device: Intermittent pneumatic compression device Consult Discharge Plan - Plan Referrals: Chris Cooley CNP [Advanced Practice Nurse] - 11/14/16 3:15 pm Sukhi Prakash MD [Primary Care Provider] - 11/26/16 9:45 am
[2016-10-29] MEDS: 0.9 % Sodium Chloride 1,000 ML IVC SCH (12:19)
--- NOTE | 2016-10-29 15:11 | Cardiology Consult Note ---
Date of Encounter: 10/29/16 Time of Encounter: 15:04 Assessment and Plan (1) Pre-operative cardiovascular examination Current Visit: Yes Status: Acute Known history of CAD. Describes chronic chest pain symptoms. Currently pain free and without heart failure symptoms. EKG with no concerning changes. Echocardiogram December 2015 showed EF 55-60%, mild diastolic dysfunction, mild to moderate RV hypokinesis, mild MR, moderate TR. Acceptable risk for surgery. No indication to do further cardiac testing that would delay surgery. Please call with questions. Continue asa, statin, and bb. Ok to hold pavix. Last PCI in 2014. (2) CAD (coronary artery disease) Current Visit: No Status: Chronic Catheterization from April 16, 2016 at [facility]-showed patent stents to distal RCA , mid circumflex, proximal LAD, and patent BURTON to distal LAD-- overall unchanged from previous catheterization in 2014. Continue asa, statin, and bb. Qualifiers: Coronary Disease-Associated Artery/Lesion type: [place] artery [place] vs. transplanted heart: [place] heart Associated angina: with stable angina Qualified Code(s): I25.118 - Atherosclerotic heart disease of [place] coronary artery with other forms of angina pectoris (3) Pacemaker Current Visit: No Status: Chronic PPM in place. Last device check 07/13/16. Normal functioning device. Battery longevity greater than 5 years. Discussion w patient/family: The assessment and plan as outlined above was discussed with the patient and/or family members who expressed understanding and agreement. All questions were answered. Thank you for involving us in the care of your patient. Please call with any questions. History of Present Illness Consult date: 10/29/16 Requesting physician: Usha Goldstein Consult reason: Pre-op Chief complaint: fall History of present illness: Ms. Duke is a 86 year old female with history of CAD s/p CABG and multiple PCI, paroxysmal atrial fibrillation, hypertension, PPM, and questionable COPD. She presents after fall at home and fractured her hip. Cardiology consulted for pre-operative eval. C/o intermittent chest pain that occurs at rest or with activity. Denies recent Use of NTG. Unable to tell me if symptoms increased from baseline. Reports chronic chest pain symptoms. Denies increased SOB or edema. Denies dizziness or syncope. C/o mechanical fall when trying to picket [employer] glasses off of her floor. Previous cardiac testing: Last catheterization at [facility] in September 2014 showed patent wanted to bypass grafts with occluded SVG to PDA and BURTON to LAD patent, however atretic. At that time had proximal LAD 95% torturous stenosis and 85% circumflex stenosis with unsuccessful PCI attempts. Received bare metal stenting to OM1 stenosis at [facility] after referral. Sent to [facility] for PCI. Negative stress test August 2015. Echocardiogram December 2015 showed EF 55-60%, mild diastolic dysfunction, mild to moderate RV hypokinesis, mild MR, moderate TR. Catheterization from April 16, 2016 at [facility]-showed patent stents to distal RCA , mid circumflex, proximal LAD, and patent BURTON to distal LAD-- overall unchanged from previous catheterization in 2014. Past Med Surg Social Fam HX - Past Medical History Medical history: arthritis, atrial fibrillation, COPD, coronary artery disease, GERD, hypertension, myocardial infarction, syncope Psychiatric history: anxiety - Past Surgical History Surgical History: angioplasty/stent, appendectomy, cataract, cholecystectomy, coronary bypass (CABG), pacemaker/AICD - Social History Smoking Status: Former smoker Smokeless Tobacco Status: No Alcohol use: none Drug use: none - Family History Father History Unknown: Yes Living Status: Hx Family Cardiac Disorders: Yes (HEART PROBEMS, [place]) Mother History Unknown: Yes Living Status: Hx Family Respiratory Disorders: Yes ( of pneumonia) Medications and Allergies Aspirin 81 mg PO DAILY 08/23/15 [History] Clopidogrel [Plavix] 75 mg PO DAILY 08/23/15 [History] Isosorbide MONOnitrate (24 HR) [Imdur] 180 mg PO DAILY 08/23/15 [History] Pantoprazole Sodium [Protonix] 40 mg PO DAILY #0 08/23/15 [History] Potassium Chloride [K-Tab ER] 10 meq PO BID 08/23/15 [History] Pravastatin Sodium [Pravachol] 80 mg PO DAILY 08/23/15 [History] Carvedilol [Coreg] 12.5 mg PO BID 03/14/16 [History] Cyanocobalamin (Vitamin B-12) [Vitamin B-12] 100 mcg PO DAILY 03/14/16 [History] Docusate [Colace] 100 mg PO BID PRN 03/14/16 [History] Ergocalciferol (VITAMIN D2) [Vitamin D] 800 unit PO DAILY 03/14/16 [History] Loratadine [Claritin] 10 mg PO DAILY 03/14/16 [History] Losartan/Hydrochlorothiazide [Losartan-Hctz 100-12.5 mg Tab] 1 tab PO DAILY 02/19 [History] Nitroglycerin [Nitrostat] 0.4 mg SL AD PRN 03/31/16 [History] Ranolazine [Ranexa] 1,000 mg PO BID 03/31/16 [History] FluocinoLONE Acet 0.025% CRM [Fluocinolone Acet 0.025% CRM] 1 appl TP BID PRN [History] Sertraline [Zoloft] 50 mg PO DAILY 10/28/16 [History] Allergies simvastatin [From Zocor] Allergy (Verified 04/18/16 10:03) Anaphylaxis atorvastatin [From Lipitor] Adverse Reaction (Verified 04/18/16 10:03) Anxiety enalaprilat [From Vasotec] Adverse Reaction (Verified 04/18/16 10:03) Hives All Systems Review: A 10-system review of systems was performed and is negative for pertinent findings except as documented above in the HPI. Physical Examination Vital Signs, Last 4 Hours Temp Pulse Resp BP Pulse Ox 10/29/16 15:01 98.7 F 64 20 150/59 94 General: Conversant, No Apparent Distress, Other (moaning and grimacing d/t pain ) HEENT: Atraumatic, Normocephaly, Mucus Membranes Moist Neck: No JVD, Normal carotid pulses Cardiac: Reg Rate and Rhythm, Normal S1 and S2, No Murmur, Other (PPM IVAN.) Lungs: Normal Breath Sounds, No Wheeze, Rales, Rhonchi Neuro: Alert and responsive, No focal deficits noted Abdomen: Soft, Non-Tender Skin: No rashes noted on visualized skin Musculoskeletal: No Chest Wall Tenderness Extremities: No Clubbing, No Cyanosis, No Edema, Normal Pulses Results 10/29/16 04:58 10/29/16 04:58 Lab Results 10/29/16 10/29/16 04:58 04:58 WBC 5.4 Hgb 11.9 Hct 34.4 L Plt Count 126 L Sodium 135 L Potassium 3.4 L Chloride 105 Carbon Dioxide 22 BUN 11 Creatinine 0.83 Glucose 111 H Calcium 8.4 L - EKG Interpretation EKG results cardiology: personally reviewed (atrial paced) Consult Discharge Plan - Plan Referrals: Chris Coloey CNP [Advanced Practice Nurse] - 11/14/16 3:15 pm Sukhi Prakash MD [Primary Care Provider] - 11/26/16 9:45 am
[2016-10-29] MEDS ORDERED: *HR* Heparin 5,000 UNIT/ML VIAL SQ ONE (16:49)
[2016-10-29] MEDS ORDERED: Naloxone 0.4 MG/ML INJ IVP ONE (17:09)
--- NOTE | 2016-10-29 18:57 | Orthopedics Progress Note ---
Date of Encounter: 10/29/16 Time of Encounter: 16:30 - Assessment and Plan (1) Hip fracture Current Visit: Yes Status: Acute Qualifiers: Encounter type: initial encounter Fracture type: closed Laterality: left Qualified Code(s): S72.002A - Fracture of unspecified part of neck of left femur, initial encounter for closed fracture Subjective Interval history: S: Resting in bed. Pain controlled at this time. O: Afebrile, VSS Left leg is shortened and externally rotated. Grossly motors toes. Foot is sensate and well perfused. A: Left displaced femoral neck fracture P: Recommend left hip hemiarthroplasty for pain control and to facilitate nursing care. She is medically cleared. Due to OR availability, the patient will not be able to have her surgery until late this evening/early in the morning. I did discuss this with her, and the patient wishes to proceed with surgery tomorrow during a scheduled time so that she can eat. Will plan on surgery tomorrow for left hip hemiarthroplasty. Objective Vital signs: Vital Signs Temp Pulse Resp BP Pulse Ox 10/29/16 15:01 98.7 F 64 20 150/59 94 10/29/16 10:34 99.0 F 60 18 128/79 95 10/29/16 06:32 98.5 F 60 20 151/76 94 10/29/16 04:15 98.3 F 50 15 113/55 97 10/28/16 23:51 99.0 F 61 16 121/59 97 Intake and Output 10/29/16 10/29/16 10/29/16 07:59 15:59 23:59 Intake Total 1000 / 1000 Output Total 500 / 500 Balance 500 / 500 Intake: IV Fluids 1000 / 1000 0.9 % Sodium Chloride 1, 1000 / 1000 000 ML @ 75 mls/hr IVC . [id number] ZAHRA Rx#: [id number] Output: Catheter 500 / 500 - Labs CBC & BMP: 10/29/16 04:58 10/29/16 04:58 Labs: Abnormal lab results RBC 3.45 M/mcL (3.82-4.97) L 10/29/16 04:58 Hct 34.4 % (35.3-44.9) L 10/29/16 04:58 MCH 34.5 pg (28.0-33.3) H 10/29/16 04:58 Plt Count 126 K/mcL (140-400) L 10/29/16 04:58 Sodium 135 mEq/L (136-145) L 10/29/16 04:58 Potassium 3.4 mEq/L (3.5-4.5) L 10/29/16 04:58 Glucose 111 mg/dL (70-99) H 10/29/16 04:58 Calcium 8.4 mg/dL (8.6-10.8) L 10/29/16 04:58 - VTE Documentation of Mechanical Device: Intermittent pneumatic compression device Consult Discharge Plan - Plan Referrals: Chris Cooley CNP [Advanced Practice Nurse] - 11/14/16 3:15 pm Sukhi Prakash MD [Primary Care Provider] - 11/26/16 9:45 am
[2016-10-29] MEDS: PRAVASTATIN 80 MG PO SCH (21:35)
[2016-10-30 00:26] LABS: Bilirubin,Urine Small (Negative); Blood,Urine Large (Negative); Clarity,Urine Cloudy (Clear); Color,Urine Dark Yellow (Yellow); Glucose,Urine (UA) Normal (Normal); Ketones,Urine Trace mg/dL (Negative); Leukocyte Esterase,Urine Trace (Negative); Nitrite,Urine Negative (Negative); Protein,Urine 30 mg/dL (Neg-Trace); Specific Gravity,Urine 1.022 (1.010-1.025); Urobilinogen,Urine Normal (Normal)
[2016-10-30 00:28] LABS: Hyaline Casts,Urine None Seen per lpf (None-Few); RBC,Urine 15-30 per hpf (0-3); Squamous Epithelial Cell,Urine Moderate per lpf (None-Few)
[2016-10-30] MEDS: 0.9 % Sodium Chloride 1,000 ML IVC SCH (00:36)
[2016-10-30] MEDS: *HR* Morphine 2 MG/ML SYRINGE IVP PRN ×2 (00:37→13:39)
[2016-10-30 00:38] LABS: Bacteria,Urine Few per hpf (None-Few); Calcium Oxalate Crystals,Urine Present; Mucus,Urine Few (Few)
[2016-10-30 01:21] LABS: Basophils % 0.3 %; Eosinophils # 0.2 K/mcL (0.0-0.6); Eosinophils % 3.4 %; Hematocrit 35.5 % (35.3-44.9); Hemoglobin 11.8 g/dL (11.5-15.4); Immature Granulocytes % 0.3 % (0-4); Immature Platelets 2.4 % (1.1-6.1); Lymphocytes # 1.6 K/mcL (0.6-4.6); Lymphocytes % 26.9 %; Mean Corpuscular HGB Conc 33.2 g/dL (31.6-35.5); Mean Corpuscular Hemoglobin 33.7 pg (28.0-33.3); Mean Corpuscular Volume 101.4 fL (83.0-100.0); Monocytes # 0.4 K/mcL (0.0-1.3); Monocytes % 7.2 %; Neutrophils # 3.7 K/mcL (1.6-8.9); Platelet Count 134 K/mcL (140-400); Red Cell Distribution Width 12.4 % (11.5-14.5); Segmented Neutrophils % 61.9 %
[2016-10-30 01:26] LABS: INR 1.2; Prothrombin Time 12.5 Seconds (9.4-12.1)
[2016-10-30 01:29] LABS: Activated Partial Thrombo Time 30.7 Seconds (26.0-36.0)
[2016-10-30 01:37] LABS: Alanine Aminotransferase 10 Units/L (0-55); Albumin 2.9 g/dL (3.5-5.0); Albumin/Globulin Ratio 1.2 (1.1-2.2); Alkaline Phosphatase 33 Units/L (38-126); Aspartate Amino Transferase 15 Units/L (5-34); BUN/Creatinine Ratio 12 (6-26); Bilirubin,Total 0.9 mg/dL (0.2-1.2); Blood Urea Nitrogen 10 mg/dL (7-20); Calcium 8.5 mg/dL (8.6-10.8); Carbon Dioxide 21 mEq/L (19-29); Chloride 107 mEq/L (98-109); Globulin 2.5 g/dL (2.4-3.5); Glucose 115 mg/dL (70-99); Magnesium 1.4 mg/dL (1.6-2.6); Osmolality,Calculated 280 (280-300); Phosphorous 2.6 mg/dL (2.3-4.7); Potassium 3.5 mEq/L (3.5-4.5); Sodium 135 mEq/L (136-145); Total Protein 5.4 g/dL (6.0-8.3); eGFR For African Americans > 60 (> 60); eGFR For Non-African Americans > 60 (> 60)
[2016-10-30] MEDS ORDERED: Magnesium Sulfate 2 GM in D5% in Water 100 ML IVPB ONE (01:53)
[2016-10-30] MEDS ORDERED: Calcium Gluconate 1,000 MG in D5% in Water 100 ML IVPB ONE (01:53)
[2016-10-30] MEDS ORDERED: Bumetanide 1 MG/4 ML VIAL IVP ONE (01:54)
[2016-10-30] MEDS ORDERED: *HR* Metoprolol 5 MG/5 ML VIAL IVP PRN (01:55)
[2016-10-30] MEDS ORDERED: Nitroglycerin 0.4 MG TAB.SUBL SL PRN (01:55)
[2016-10-30] MEDS ORDERED: Albuterol 2.5 MG/3 ML NEBULIZER IH PRN (01:55)
[2016-10-30 02:05] LABS: BUN/Creatinine Ratio 12 (6-26); Blood Urea Nitrogen 10 mg/dL (7-20); Calcium 8.4 mg/dL (8.6-10.8); Carbon Dioxide 17 mEq/L (19-29); Chloride 108 mEq/L (98-109); Glucose 113 mg/dL (70-99); Osmolality,Calculated 278 (280-300); Potassium 3.8 mEq/L (3.5-4.5); Sodium 134 mEq/L (136-145); eGFR For African Americans > 60 (> 60); eGFR For Non-African Americans > 60 (> 60)
[2016-10-30] MEDS: Ipratropium/Albuterol Neb 3 ML IH SCH ×4 (04:16→23:04)
[2016-10-30] MEDS ORDERED: Aspirin 81 MG TAB.CHEW PO SCH (09:00)
[2016-10-30] MEDS: Losartan/HCTZ 50-12.5 TABLET PO SCH (09:06)
[2016-10-30] MEDS: Isosorbide MONOnitrate (24 HR) 60 MG TAB.ER.24H PO SCH (09:06)
[2016-10-30] MEDS: Ranolazine 500 MG TAB.ER.12H PO SCH ×2 (09:06→21:25)
--- NOTE | 2016-10-30 11:39 | Cardiology Progress Note ---
Date of Encounter: 10/30/16 Time of Encounter: 11:39 Assessment and Plan (1) Pre-operative cardiovascular examination Current Visit: Yes Status: Acute Known history of CAD. Describes chronic chest pain symptoms. Currently pain free and without heart failure symptoms. EKG with no concerning changes. Echocardiogram December 2015 showed EF 55-60%, mild diastolic dysfunction, mild to moderate RV hypokinesis, mild MR, moderate TR. Acceptable risk for surgery. No indication to do further cardiac testing that would delay surgery. Please call with questions. Continue asa, statin, and bb. Ok to hold pavix. Last PCI in 2014. Asked to re-evaluate by hospitalist. Evaluated patient. No change in symptoms overnight. No change from assessment competed yesterday. Troponin ordered by hospitalist. Mild elevation at 0.05. EKG shows stral pacing with non-specific ST changes. Troponin elevation likely d/t demand ischemia d/t trauma to hip with known CAD. No acute CHF on exam. Pt laying flat and SPO2 100% on 2L. No distress noted. Euvolemic on exam. No indication for further cardiac testing prior to surgery. Discussed with Dr. Mcnulty. (2) CAD (coronary artery disease) Current Visit: No Status: Chronic Catheterization from April 16, 2016 at [facility]-showed patent stents to distal RCA , mid circumflex, proximal LAD, and patent BURTON to distal LAD-- overall unchanged from previous catheterization in 2014. Continue asa, statin, and bb. Qualifiers: Coronary Disease-Associated Artery/Lesion type: [place] artery [place] vs. transplanted heart: [place] heart Associated angina: with stable angina Qualified Code(s): I25.118 - Atherosclerotic heart disease of [place] coronary artery with other forms of angina pectoris (3) Pacemaker Current Visit: No Status: Chronic PPM in place. Last device check 07/13/16. Normal functioning device. Battery longevity greater than 5 years. Discussion w patient/family: The assessment and plan as outlined above was discussed with the patient and/or family members who expressed understanding and agreement. All questions were answered. Thank you for involving us in the care of your patient. Please call with any questions. Objective Vital Signs, Last 4 Hours Resp Pulse Ox 10/30/16 10:54 16 97 Results 10/30/16 01:12 10/30/16 01:12 Lab Results 10/30/16 10/30/16 10/30/16 01:12 01:12 01:12 WBC 6.0 Hgb 11.8 Hct 35.5 Plt Count 134 L INR APTT Sodium 134 L 135 L Potassium 3.8 3.5 Chloride 108 107 Carbon Dioxide 17 L 21 BUN 10 10 Creatinine 0.82 0.85 Glucose 113 H 115 H Calcium 8.4 L 8.5 L Magnesium 1.4 L Total Bilirubin 0.9 AST 15 ALT 10 Alkaline Phosphatase 33 L Troponin I B-Natriuretic Peptide 10/30/16 10/30/16 10/30/16 01:12 01:12 01:12 WBC Hgb Hct Plt Count INR 1.2 APTT 30.7 Sodium Potassium Chloride Carbon Dioxide BUN Creatinine Glucose Calcium Magnesium Total Bilirubin AST ALT Alkaline Phosphatase Troponin I 0.05 H* B-Natriuretic Peptide 542 H - VTE Documentation of Mechanical Device: Intermittent pneumatic compression device Consult Discharge Plan - Plan Referrals: Chris Cooley CNP [Advanced Practice Nurse] - 11/14/16 3:15 pm Sukhi Prakash MD [Primary Care Provider] - 11/26/16 9:45 am
--- NOTE | 2016-10-30 12:00 | Internal Med Progress Note ---
Date of Encounter: 10/30/16 Time of Encounter: 12:00 - Assessment and plan (1) COPD (chronic obstructive pulmonary disease) Current Visit: Yes Status: Chronic Assessment and plan: Patient denies any increased shortness of breath or cough titrate Oxygen to maintain O2 saturation > 92%. No wheezing at this time Qualifiers: COPD type: emphysema Emphysema type: unspecified Qualified Code(s): J43.9 - Emphysema, unspecified (2) HTN (hypertension) Current Visit: Yes Status: Chronic Assessment and plan: Chronic, stable, controlled Qualifiers: Hypertension type: essential hypertension Qualified Code(s): I10 - Essential (primary) hypertension (3) Hyperlipemia Current Visit: Yes Status: Chronic Assessment and plan: Continue home meds Qualifiers: Hyperlipidemia type: unspecified Qualified Code(s): E78.5 - Hyperlipidemia , unspecified (4) CAD (coronary artery disease) Current Visit: Yes Status: Chronic Assessment and plan: Patient with Coronary artery disease s/p CABG X 2 in 2000 and total of 8 stent placements. Most recent cardiac cath was 04/16/16 at [facility] and report is scanned into her record. She follows with [facility]ology as an outpatient. Continue Holding aspirin and plavix for planned surgery. Continue home doses of Ranexa, Imdur, coreg. Mild troponin elevation overnight without symptoms, possibly from fall, elevated BP Cardiology input appreciated Continue home meds, resume Plavix/ASA a.m after surgery Qualifiers: Coronary Disease-Associated Artery/Lesion type: [place] artery [place] vs. transplanted heart: hopi heart Associated angina: with stable angina Qualified Code(s): I25.118 - Atherosclerotic heart disease of [place] coronary artery with other forms of angina pectoris (5) Hip fracture Current Visit: Yes Status: Acute Assessment and plan: management per ortho Ensure pain control and DVT prophylaxis Qualifiers: Encounter type: initial encounter Fracture type: closed Laterality: left Qualified Code(s): S72.002A - Fracture of unspecified part of neck of left femur, initial encounter for closed fracture (6) Atrial fibrillation Current Visit: Yes Status: Chronic Assessment and plan: HR controlled Not on A/C Qualifiers: Atrial fibrillation type: chronic Qualified Code(s): I48.2 - Chronic atrial fibrillation (7) Abnormal urinalysis Current Visit: Yes Status: Acute Assessment and plan: Initial UA on admission-dipstic only Rpt UA done overnight with ketones, hematuria, LE, no nitrites Repeat UA this afternoon with urine bacteria, many casts, +LE Will continue patient on ceftriaxone empirically and discontinue if cultures return negative - Subjective Interval history: 86 F with atrial fibrillation, COPD, coronary artery disease, GERD, hyperlipidemia, hypertension, myocardial infarction, syncope Seen at bedside Denies new complains Patient denies any events overnight Blood work with some abnormalities, UA dirty, possibly contaminated - Constitutional Vitals: Temp Pulse Resp BP Pulse Ox 97.9 F 61 16 123/70 97 10/30/16 06:54 10/30/16 06:54 10/30/16 10:54 10/30/16 06:54 10/30/16 10:54 General appearance: Present: A&O X 3, pleasant, no acute distress - Head Head exam: Present: atraumatic, normocephalic - Eye Eye exam: Present: PERRL, conjuntiva pink, sclera anicteric Pupils: Present: PERRL - Neck Neck exam general surgery: Present: supple, trachea midline. Absent: lymphadenopathy - Respiratory Respiratory exam: Present: CTAB. Absent: accessory muscle use, rales, rhonchi, wheezes Additional comments: PCM on chest wall, not tender - Cardiovascular Cardiovascular exam: Present: irregular rhythm, +S1, +S2. Absent: diastolic murmur, gallop, rubs, systolic murmur - GI/Abdominal GI/Abdominal exam: Present: normal bowel sounds, soft, no peritoneal signs. Absent: distended, tenderness - Extremities Exam Extremities exam: Present: warm, radial pulses palpable and symetrical. Absent : calf tenderness, cyanotic, pedal edema - Neurological Exam Neurological exam: Present: alert, CN II-XII intact, oriented X3, no focal deficits. Absent: pronater drift, facial droop, speech deficit - Skin Skin exam: Present: dry, intact Internal Medicine: Result - Labs CBC & Chem 7: 10/30/16 01:12 10/30/16 01:12 Labs: Short CBC 10/30/16 Range/Units 01:12 WBC 6.0 (4.3-11.1) K/mcL Hgb 11.8 (11.5-15.4) g/dL Hct 35.5 (35.3-44.9) % Plt Count 134 L (140-400) K/mcL Neutrophils # 3.7 (1.6-8.9) K/mcL BMP 10/30/16 10/30/16 01:12 01:12 Sodium 134 L 135 L Potassium 3.8 3.5 Chloride 108 107 Carbon Dioxide 17 L 21 BUN 10 10 Creatinine 0.82 0.85 Glucose 113 H 115 H Calcium 8.4 L 8.5 L Cardiac Enzymes 10/30/16 Range/Units 01:12 Troponin I 0.05 H* (0-0.03) ng/mL Liver Function 10/30/16 Range/Units 01:12 Total Bilirubin 0.9 (0.2-1.2) mg/dL AST 15 (5-34) Units/L ALT 10 (0-55) Units/L Alkaline Phosphatase 33 L (38-126) Units/L Albumin 2.9 L (3.5-5.0) g/dL Urine 10/30/16 Range/Units 00:10 Urine Color Dark Yellow (Yellow) Urine Clarity Cloudy A (Clear) Urine pH 6.0 (5.0-8.0) pH Units Ur Specific [place] 1.022 (1.010-1.025) Urine Protein 30 H (Neg-Trace) mg/dL Urine Glucose (UA) Normal (Normal) mg/dL - ABG Interpretation ABG results: PT/INR, D-dimer PT 12.5 Seconds (9.4-12.1) H 10/30/16 01:12 - VTE Documentation of Mechanical Device: Intermittent pneumatic compression device Consult Discharge Plan - Plan Referrals: Chris Cooley CNP [Advanced Practice Nurse] - 11/14/16 3:15 pm Sukhi Prakash MD [Primary Care Provider] - 11/26/16 9:45 am
[2016-10-30 12:15] LABS: Bilirubin,Urine Negative (Negative); Blood,Urine Negative (Negative); Clarity,Urine Cloudy (Clear); Color,Urine Dark Yellow (Yellow); Glucose,Urine (UA) Normal (Normal); Ketones,Urine Negative (Negative); Leukocyte Esterase,Urine Trace (Negative); Nitrite,Urine Negative (Negative); Protein,Urine Trace mg/dL (Neg-Trace); Urobilinogen,Urine Normal (Normal)
[2016-10-30 12:17] LABS: Squamous Epithelial Cell,Urine Many per lpf (None-Few)
[2016-10-30 12:32] LABS: Hyaline Casts,Urine Many per lpf (None-Few)
[2016-10-30 12:34] LABS: Bacteria,Urine Moderate per hpf (None-Few)
--- NOTE | 2016-10-30 14:02 | Orthopedics Progress Note ---
Date of Encounter: 10/30/16 Time of Encounter: 14:00 - Assessment and Plan (1) Hip fracture Current Visit: Yes Status: Acute Qualifiers: Encounter type: initial encounter Fracture type: closed Laterality: left Qualified Code(s): S72.002A - Fracture of unspecified part of neck of left femur, initial encounter for closed fracture Subjective Interval history: S: Resting in bed. Pain controlled at this time. No new complaints. O: Afebrile, VSS Left leg is shortened and externally rotated. Grossly motors toes. Foot is sensate and well perfused. A: Left displaced femoral neck fracture P: Recommend left hip hemiarthroplasty for pain control and to facilitate nursing care. She is cleared by cardiology and medicine. Appreciate their input. Will proceed with surgery later today.. Objective Vital signs: Vital Signs Temp Pulse Resp BP Pulse Ox 10/30/16 12:24 99.1 F 60 16 133/56 99 10/30/16 10:54 16 97 10/30/16 06:54 97.9 F 61 16 123/70 96 10/30/16 06:50 95 10/30/16 04:46 98.7 F 64 16 123/57 96 10/30/16 04:19 18 93 10/30/16 01:13 98.8 F 60 16 158/72 94 10/29/16 21:22 99.3 F 61 15 148/83 94 10/29/16 15:01 98.7 F 64 20 150/59 94 Intake and Output 10/29/16 10/30/16 10/30/16 23:59 07:59 15:59 Intake Total 1204 / 1204 0 / 0 Output Total 250 / 250 1800 / 1800 Balance -250 / -250 1204 / 1204 -1800 / -1800 Intake: IV Fluids 1204 / 1204 0.9 % Sodium Chloride 1, 1000 / 1000 000 ML @ 75 mls/hr IVC . [id number] ZAHRA Rx#: [id number] Rocephin 1,000 MG In 100 / 100 Dextrose 5% (Minibag+) 100 ML 100 ML @ 200 mls/ hr IVPB Q12HR ZAHRA Rx#: [id number] Magnesium Sulfate 2 GM In 104 / 104 Dextrose 5% 100 ML @ 100 mls/hr IVPB ONCE ONE Rx# :[id number] Oral 0 / 0 Output: Urine 250 / 250 Catheter 1800 / 1800 - Labs CBC & BMP: 10/30/16 01:12 10/30/16 01:12 Labs: Abnormal lab results RBC 3.50 M/mcL (3.82-4.97) L 10/30/16 01:12 MCV 101.4 fL (83.0-100.0) H 10/30/16 01:12 MCH 33.7 pg (28.0-33.3) H 10/30/16 01:12 Plt Count 134 K/mcL (140-400) L 10/30/16 01:12 MPV 9.0 fL (9.4-12.4) L 10/30/16 01:12 PT 12.5 Seconds (9.4-12.1) H 10/30/16 01:12 Sodium 134 mEq/L (136-145) L 10/30/16 01:12 Carbon Dioxide 17 mEq/L (19-29) L 10/30/16 01:12 Glucose 113 mg/dL (70-99) H 10/30/16 01:12 Calculated Osmolality 278 (280-300) L 10/30/16 01:12 Calcium 8.4 mg/dL (8.6-10.8) L 10/30/16 01:12 Ionized Calcium 1.04 mmol/L (1.15-1.35) L 10/30/16 01:12 Magnesium 1.4 mg/dL (1.6-2.6) L 10/30/16 01:12 Alkaline Phosphatase 33 Units/L (38-126) L 10/30/16 01:12 Troponin I 0.05 ng/mL (0-0.03) H* 10/30/16 01:12 B-Natriuretic Peptide 542 pg/mL (0-100) H 10/30/16 01:12 Serum Total Protein 5.4 g/dL (6.0-8.3) L 10/30/16 01:12 Albumin 2.9 g/dL (3.5-5.0) L 10/30/16 01:12 Urine Clarity Cloudy (Clear) A 10/30/16 12:00 Ur Leukocyte Esterase Trace (Negative) H 10/30/16 12:00 Urine Microscopic RBC 5-15 per hpf (0-3) H 10/30/16 12:00 Urine Microscopic WBC 3-5 per hpf (0-3) H 10/30/16 12:00 Ur Squamous Epith Cells Many per lpf (None-Few) H 10/30/16 12:00 Urine Bacteria Moderate per hpf (None-Few) H 10/30/16 12:00 Hyaline Casts Many per lpf (None-Few) H 10/30/16 12:00 Ur Culture Indicated? YES (NO) A 10/30/16 00:10 - VTE Documentation of Mechanical Device: Intermittent pneumatic compression device Consult Discharge Plan - Plan Referrals: Chris Cooley CNP [Advanced Practice Nurse] - 11/14/16 3:15 pm uSkhi Prakash MD [Primary Care Provider] - 11/26/16 9:45 am
[2016-10-30] MEDS ORDERED: Vancomycin 1,000 MG VIAL ONE (15:49)
--- NOTE | 2016-10-30 16:22 | Anesthesia Evaluation PreOp ---
Date of Encounter: 10/30/16 Time of Encounter: 16:19 - Past History Planned Operation: Left Hip Hemiarthroplasty Cardiac History: [place], HTN, Arrhythmia (paroxysmal A-Fib), Cardiac Surgery (CABG x 2), Cardiac Stent (cath from 04/16/2016 at [facility] per cardiology note: patent stents to distal RCA, mid CX, proximal LAD and Patent BURTON to distal LAD, overall unchanged from previous cath in 2014), Pacemaker/ICD Pulmonary History: Former smoker, COPD FASHION MODEL History: Denies Any Significant HX Other Medical History: GERD Anesthesia History: No Prior Anesthetic Complications, Past Anesthesia Alcohol Use: none Drug use: none Medications and Allergies Aspirin 81 mg PO DAILY 08/23/15 [History] Clopidogrel [Plavix] 75 mg PO DAILY 08/23/15 [History] Isosorbide MONOnitrate (24 HR) [Imdur] 180 mg PO DAILY 08/23/15 [History] Pantoprazole Sodium [Protonix] 40 mg PO DAILY #0 08/23/15 [History] Potassium Chloride [K-Tab ER] 10 meq PO BID 08/23/15 [History] Pravastatin Sodium [Pravachol] 80 mg PO DAILY 08/23/15 [History] Carvedilol [Coreg] 12.5 mg PO BID 03/14/16 [History] Cyanocobalamin (Vitamin B-12) [Vitamin B-12] 100 mcg PO DAILY 03/14/16 [History] Docusate [Colace] 100 mg PO BID PRN 03/14/16 [History] Ergocalciferol (VITAMIN D2) [Vitamin D] 800 unit PO DAILY 03/14/16 [History] Loratadine [Claritin] 10 mg PO DAILY 03/14/16 [History] Losartan/Hydrochlorothiazide [Losartan-Hctz 100-12.5 mg Tab] 1 tab PO DAILY 02/19 [History] Nitroglycerin [Nitrostat] 0.4 mg SL AD PRN 03/31/16 [History] Ranolazine [Ranexa] 1,000 mg PO BID 03/31/16 [History] FluocinoLONE Acet 0.025% CRM [Fluocinolone Acet 0.025% CRM] 1 appl TP BID PRN [History] Sertraline [Zoloft] 50 mg PO DAILY 04/24/17 [History] Allergies simvastatin [From Zocor] Allergy (Verified 04/18/16 10:03) Anaphylaxis atorvastatin [From Lipitor] Adverse Reaction (Verified 04/18/16 10:03) Anxiety enalaprilat [From Vasotec] Adverse Reaction (Verified 04/18/16 10:03) Hives - Meds/Allergy Pre-op Review Medications Reviewed: Yes Allergies Reviewed: Yes Beta Blockers on Current Med List: Yes If Beta Blockers taken, Date/Time (Last Dose taken): 10/30/2016 at 0905 Anesthesia Results - Labs 10/30/16 01:12 10/30/16 01:12 - Imaging EKG: image reviewed (electronic atrial pacemaker, NSST abnormality) Additional studies: 03/15/2016 Echo LVEF 55-60% atypical septal motion c/w paced rhythm this was a limited study for LV function 12/07/2015 Echo LVEF 55-60% atypical septal motion c/w prior cardiac surgery mildly dilated LA aneurysmal interatrial septum is noted with intermittent bowing of the septum into the LA 08/24/2015 Stress perfusion imaging was negative for ischemia or infarct EF 69% 09/07/2014 Echo Impressions: Normal LV systolic function, LVEF 60%. There is atypical septal motion consistent with prior cardiac surgery. Mild left ventricular diastolic dysfunction. Normal right ventricular structure and function. There is a device lead seen in the right atrium and right ventricle. Mildly dilated left atrium. Mildly dilated right atrium. Severe tricuspid regurgitation. Mild pulmonary hypertension. Estimated RVSP = 41 mmHg. Anesthesia Exam Vital Signs/O2 Sat/Glucose, Most Recent Temp Pulse Resp BP Pulse Ox 98.0 F 61 16 150/58 98 10/30/16 16:17 10/30/16 16:17 10/30/16 16:17 10/30/16 16:17 10/30/16 16:17 Height: 5'2''/1.57 m Weight: 139 lbs/63.418 kg NPO (# of Hours): 8 Pain Scale: 0 (at rest) Pain Scale Used: Numeric (1 - 10) - HEENT Pupil (Motor): EOMI Mallampati: III Teeth: Normal Oral Opening: Greater than 3 - FASHION MODEL LOC: Oriented FASHION MODEL Motor: Normal RUE, Normal LUE, Normal RLE, Normal LLE, Normal Face FASHION MODEL Sensory: Normal: RUE, LUE, RLE, LLE, Face - Cardiac Rhythm: Regular Murmur: None - Pulmonary Breath Sounds: bilateral Clear Respiratory Effort: Symmetrical Anesthesia Assess/Plan ASA Score: 4 Modified Deyan[place] Scale for Level of Consciousness: Cooperative, oriented, and tranquil Anesthetic Plan: General Monitoring Plan: Standard Monitors Recovery Plan: PACU
[2016-10-30] MEDS ORDERED: *HR* Propofol 200 MG/20 ML VIAL IVP ONE (16:37)
[2016-10-30] MEDS ORDERED: *HR* FentaNYL (PF) 100 MCG/2 ML VIAL ONE (16:37)
[2016-10-30] MEDS ORDERED: Lidocaine -MPF 2% 2 ML VIAL ONE (16:38)
[2016-10-30] MEDS ORDERED: *HR* Phenylephrine 10 MG/ML VIAL ONE (16:38)
--- NOTE | 2016-10-30 18:05 | Electrocardiograph Report ---
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
[2016-10-30] MEDS ORDERED: *HR* Succinylcholine 200 MG/10 ML VIAL IVP ONE (18:33)
[2016-10-30] MEDS ORDERED: *HR* Labetalol 100 MG/20 ML MDV IVP PRN (18:38)
[2016-10-30] MEDS ORDERED: Ondansetron 4 MG/2 ML VIAL IVP PRN (18:38)
[2016-10-30] MEDS ORDERED: MOM Conc 10 ML UD.LIQ PO PRN (19:57)
[2016-10-30] MEDS ORDERED: Sennosides 8.6 MG TABLET PO PRN (19:57)
--- NOTE | 2016-10-30 20:05 | Orthopedic Operative Note ---
Date of procedure: 10/30/16 Procedure: OPERATIVE REPORT DATE OF PROCEDURE: 10/30/2016 SURGEON: Javier Mcnulty MD CALL CENTER RECRUITER(S): There were no assistants PREOPERATIVE DIAGNOSIS: Left displaced femoral neck fracture POSTOPERATIVE DIAGNOSIS: Left displaced femoral neck fracture PROCEDURE: Left hip hemiarthroplasty ANESTHESIA: General anesthesia PREOPERATIVE ANTIBIOTICS: 2 g of Ancef ESTIMATED BLOOD LOSS: 100 milliliters FLUIDS: 1000 mL URINE OUTPUT: 50 mL IMPLANTS: Biomet Echo Fracture Collared Stem, Standard Offset, 11m x 140 mm; 42 mm monopolar head; 0 taper PREOPERATIVE NOTE AND INDICATIONS: Martha is an 86-year-old female who sustained a left displaced femoral neck fracture. My recommendation was to proceed with a hip hemiarthroplasty. The goal of the procedure is for pain control in order to help facilitate nursing care. The surgical plan was discussed with the patient. The risks, benefits, alternatives, and potential complications of this procedure were discussed with the patient and power of energy attorney including injury to veins, arteries, nerves, tendons, ligaments, and bone. Also discussed were the risks of infection, bleeding, pain, blood clots, the possible need for a blood transfusion, the possible need for further procedures, heart attack, stroke, and . Specific risks for this surgery include prosthetic infection, periprosthetic fracture, and dislocation. All of this was explained in simple terms, and the patient verbalized understanding and wished to proceed. Consent was given to proceed with surgery. PROCEDURE: The patient was seen in the preoperative holding area where the identify and the consent were confirmed. The left hip was marked. Final questions were answered. The patient was brought back to the operating room and placed supine on the operating room table. A huddle was performed with the patient and all vital surgical team members confirming patient identity, the correct procedure, and the correct operative site. General anesthesia was administered. The patient was placed in the right lateral decubitus position. The left hip was prepped and draped in the usual sterile fashion. A surgical time out was performed immediately preceding the incision with all personnel in the operating room to confirm patient identity, the correct operative site and extremity, correct radiographic studies, availability of appropriate surgical equipment, and agreement on the planned procedure. A curvilinear incision was made and dissection proceeded through the subcutaneous tissue. The fascia was exposed and incised longitudinally in line with the femur curling back proximally and posteriorly while splitting the fibers of the gluteus brandon. The greater trochanteric bursa was debrided and the loose areolar tissue was dissected off the femur. A retractor was placed under the abductor musculature. The piriformis was taken down and tagged. The capsule and short external rotators were elevated in a full-thickness flap and tagged for later repair. The fracture was identified and a revision neck osteotomy performed 1 cm proximal to the lesser trochanter. Using a corkscrew, the fractured head was taken out and this did measure 42 mm in size. The acetabulum was debrided of pulvinar and the round ligament. There was good acetabular cartilage. The size 42 mm trial fit nicely within the acetabulum and had good suction. Attention was directed to the proximal femur. A box osteotome was used for lateralization followed by a canal finder and lateralizing reamer. The canal was reamed up to 11 mm. Broaching was performed starting with a size 7 and proceeding up to an 11 mm broach which felt to be quite stable rotationally though the stem was slightly proud. The calcar was planed. A standard offset trial neck and size 42 head trial were placed and the hip was articulated. The leg length felt to be excellent. The hip was taken through a functional range of motion and was felt to be quite stable throughout. The hip was then disarticulated and the trial components removed. 3 L of saline were irrigated through the joint and the definitive stem was impacted into the proximal femur. The definitive 42 mm femoral head was placed and impacted onto the trunnion of the stem. The hip was articulated and again leg lengths felt to be excellent and the hip was stable through a functional range of motion. The wound was irrigated a final time, dried, and 1 g of vancomycin powder was placed in the joint. The capsule was closed over this using drill tunnels through the greater trochanter and the piriformis was tied to the abductor insertion. The deep layer was closed with interrupted #1 Vicryl stitches and the skin was closed with 0 Vicryl, 3-0 Vicryl, and saeed. A sterile dressing was placed and the patient was placed in an abduction pillow supine on her regular bed. The instrument, sponge, and needle counts were correct after wound closure. POST OPERATIVE PLAN: Weight Bearing: As tolerated to the bilateral lower extremities. DVT Prophylaxis: Aspirin 325 mg PO BID Activity: As tolerated with assistance Wound Care: Daily dressing changes on postoperative day 2. Perioperative antibiotic prophylaxis: 2 doses of Ancef Social work for discharge planning Follow Up: 2 weeks
[2016-10-30] MEDS: *HR* HYDROmorphone (PF) 1 MG/ML SYRINGE IVP PRN ×2 (20:23→20:32)
--- NOTE | 2016-10-30 21:05 | Anesthesia Evaluation Post Op ---
Date of Encounter: 10/30/16 Time of Encounter: 21:04 - Vital Signs Vital Signs: Last Vital Signs Temp 99.2 F 10/30/16 20:50 Pulse 59 10/30/16 20:50 Resp 12 10/30/16 20:50 BP 126/49 10/30/16 20:50 Pulse Ox 94 10/30/16 20:50 - Lungs Lungs: Clear Ascult./Percussion - Airway Airway: Non-obstructed - Cardiovascular Regular Rate - Mental Status Mental Status: Alert & Oriented, Answers Appropriately - Pain Pain Scale: 2 - Nausea Vomiting Nausea Vomiting: Not Present - Hydration Hydration: Ice chips, Castillo catheter - Discharge PostOp Status: Transfer Patient to floor
[2016-10-30] MEDS: PRAVASTATIN 80 MG PO SCH (21:25)
[2016-10-31] MEDS: ceFAZolin 2,000 MG in D5% in Water 100 ML IVPB SCH ×2 (00:18→08:50)
[2016-10-31] MEDS: Ipratropium/Albuterol Neb 3 ML IH SCH ×4 (04:35→22:15)
[2016-10-31 06:58] LABS: BUN/Creatinine Ratio 16 (6-26); Blood Urea Nitrogen 12 mg/dL (7-20); Calcium 8.1 mg/dL (8.6-10.8); Carbon Dioxide 24 mEq/L (19-29); Chloride 103 mEq/L (98-109); Glucose 194 mg/dL (70-99); Magnesium 1.4 mg/dL (1.6-2.6); Osmolality,Calculated 285 (280-300); Potassium 3.4 mEq/L (3.5-4.5); Sodium 135 mEq/L (136-145); eGFR For African Americans > 60 (> 60); eGFR For Non-African Americans > 60 (> 60)
[2016-10-31 07:06] LABS: Hematocrit 30.6 % (35.3-44.9); Hemoglobin 10.5 g/dL (11.5-15.4)
[2016-10-31] MEDS ORDERED: Potassium Chloride Elixir 20 MEQ/15 ML UDC PO ONE (08:25)
[2016-10-31] MEDS: Isosorbide MONOnitrate (24 HR) 60 MG TAB.ER.24H PO SCH (08:50)
[2016-10-31] MEDS: Losartan/HCTZ 50-12.5 TABLET PO SCH (08:50)
[2016-10-31] MEDS: Ranolazine 500 MG TAB.ER.12H PO SCH ×2 (08:50→23:14)
[2016-10-31] MEDS: *HR* Morphine 2 MG/ML SYRINGE IVP PRN (09:52)
--- NOTE | 2016-10-31 12:16 | Internal Med Progress Note ---
Date of Encounter: 10/31/16 Time of Encounter: 12:16 - Assessment and plan (1) Hypotension Current Visit: Yes Status: Acute Assessment and plan: Possibly orthostatic, unlikley due to pain meds or bleed 2L IVF bolus stat Check HB, type and screen Monitor closely Hold BP meds Qualifiers: Hypotension type: unspecified hypotension type Qualified Code(s): I95.9 - Hypotension, unspecified (2) COPD (chronic obstructive pulmonary disease) Current Visit: Yes Status: Chronic Assessment and plan: Patient denies any increased shortness of breath or cough titrate Oxygen to maintain O2 saturation > 92%. No wheezing at this time Qualifiers: COPD type: emphysema Emphysema type: unspecified Qualified Code(s): J43.9 - Emphysema, unspecified (3) HTN (hypertension) Current Visit: Yes Status: Chronic Assessment and plan: Chronic, hypotensive now, hold BP meds Qualifiers: Hypertension type: essential hypertension Qualified Code(s): I10 - Essential (primary) hypertension (4) Hyperlipemia Current Visit: Yes Status: Chronic Assessment and plan: Continue home meds Qualifiers: Hyperlipidemia type: unspecified Qualified Code(s): E78.5 - Hyperlipidemia , unspecified (5) CAD (coronary artery disease) Current Visit: Yes Status: Chronic Assessment and plan: Patient with Coronary artery disease s/p CABG X 2 in 2000 and total of 8 stent placements. Most recent cardiac cath was 04/16/16 at [facility] and report is scanned into her record. She follows with [facility] as an outpatient. Continue Holding aspirin and plavix for planned surgery. Continue home doses of Ranexa, Imdur, coreg. Mild troponin elevation overnight without symptoms, possibly from fall, elevated BP Cardiology input appreciated Continue home meds, resume Plavix/ASA Qualifiers: Coronary Disease-Associated Artery/Lesion type: [place] artery [place] vs. transplanted heart: [place] heart Associated angina: with stable angina Qualified Code(s): I25.118 - Atherosclerotic heart disease of [place] coronary artery with other forms of angina pectoris (6) Hip fracture Current Visit: Yes Status: Acute Assessment and plan: management per ortho Ensure pain control and DVT prophylaxis Qualifiers: Encounter type: initial encounter Fracture type: closed Laterality: left Qualified Code(s): S72.002A - Fracture of unspecified part of neck of left femur, initial encounter for closed fracture (7) Atrial fibrillation Current Visit: Yes Status: Chronic Assessment and plan: HR controlled Not on A/C Qualifiers: Atrial fibrillation type: chronic Qualified Code(s): I48.2 - Chronic atrial fibrillation (8) Abnormal urinalysis Current Visit: Yes Status: Acute Assessment and plan: Initial UA on admission-dipstic only Rpt UA done overnight with ketones, hematuria, LE, no nitrites Repeat UA this afternoon with urine bacteria, many casts, +LE Will continue patient on ceftriaxone empirically and discontinue if cultures return negative - Subjective Interval history: POD1 86 F with atrial fibrillation, COPD, coronary artery disease, CHFpEF GERD, hyperlipidemia, hypertension, myocardial infarction, syncope Seen at bedside Complains of pain at op-site Patient deeloped hypotension while sitting in chair this afternoon second line established , IVF boluses 2L started BP medications held STAT Hb and type and screen ordered High risk for respiratory failure , patient made herself DNR-CC-A today - Constitutional Vitals: Temp Pulse Resp BP Pulse Ox 98.3 F 66 16 91/60 99 10/31/16 11:13 10/31/16 11:13 10/31/16 11:13 10/31/16 11:13 10/31/16 11:13 General appearance: Present: A&O X 3, pleasant, no acute distress - Head Head exam: Present: atraumatic, normocephalic - Eye Eye exam: Present: PERRL, conjuntiva pink, sclera anicteric Pupils: Present: PERRL - Neck Neck exam general surgery: Present: supple, trachea midline. Absent: lymphadenopathy - Respiratory Respiratory exam: Present: CTAB. Absent: accessory muscle use, rales, rhonchi, wheezes - Cardiovascular Cardiovascular exam: Present: irregular rhythm, +S1, +S2, systolic murmur. Absent: diastolic murmur, gallop, rubs - GI/Abdominal GI/Abdominal exam: Present: normal bowel sounds, soft, no peritoneal signs. Absent: distended, tenderness - Extremities Exam Extremities exam: Present: warm, radial pulses palpable and symetrical. Absent : calf tenderness, cyanotic, pedal edema Additional comments: Left hip wound dressing clean and dry, neurovascularly intact - Neurological Exam Neurological exam: Present: alert, CN II-XII intact, oriented X3, no focal deficits. Absent: pronater drift, facial droop, speech deficit - Skin Skin exam: Present: dry Internal Medicine: Result - Labs CBC & Chem 7: 10/31/16 06:20 10/31/16 06:20 Labs: Short CBC 10/31/16 Range/Units 06:20 Hgb 10.5 L (11.5-15.4) g/dL Hct 30.6 L (35.3-44.9) % BMP 10/31/16 06:20 Sodium 135 L Potassium 3.4 L Chloride 103 Carbon Dioxide 24 BUN 12 Creatinine 0.75 Glucose 194 H Calcium 8.1 L Urine 10/30/16 Range/Units 12:00 Urine Color Dark Yellow (Yellow) Urine Clarity Cloudy A (Clear) Urine pH 6.0 (5.0-8.0) pH Units Ur Specific [place] 1.020 (1.010-1.025) Urine Protein Trace (Neg-Trace) mg/dL Urine Glucose (UA) Normal (Normal) mg/dL - ABG Interpretation ABG results: PT/INR, D-dimer PT 12.5 Seconds (9.4-12.1) H 10/30/16 01:12 - Impressions Impressions Hip X-Ray 10/30/16 19:59 IMPRESSION: Baseline radiographs status post interval left hip bipolar hemiarthroplasty without complication. D/ / Abdirizak Hoover MD / Abdirizak Hoover MD Interpreting Provider: Abdirizak Hoover MD - VTE Documentation of Mechanical Device: Intermittent pneumatic compression device Consult Discharge Plan - Plan Referrals: Chris Cooley CNP [Advanced Practice Nurse] - 11/14/16 3:15 pm Sukhi Prakash MD [Primary Care Provider] - 11/26/16 9:45 am
[2016-10-31] MEDS: *HR* OxyCODONE/APAP 7.5/325 TABLET PO PRN (12:39)
[2016-10-31] MEDS ORDERED: 0.9 % Sodium Chloride 1,000 ML ONE (15:28)
[2016-10-31] MEDS: 0.9 % Sodium Chloride 1,000 ML ONE ×2 (15:43→18:56)
[2016-10-31 16:32] LABS: Hematocrit 25.4 % (35.3-44.9)
[2016-10-31 16:33] LABS: Hemoglobin 8.8 g/dL (11.5-15.4)
--- NOTE | 2016-10-31 17:14 | Orthopedics Progress Note ---
Date of Encounter: 10/31/16 Time of Encounter: 17:08 - Assessment and Plan (1) Hip fracture Current Visit: Yes Status: Acute Qualifiers: Encounter type: initial encounter Fracture type: closed Laterality: left Qualified Code(s): S72.002A - Fracture of unspecified part of neck of left femur, initial encounter for closed fracture Subjective Interval history: S: Resting in bed. Pain controlled. Low BPs earlier, received bolus of fluids and esteves replaced for monitoring of Is and Os, especially given her history of CHF. Being treated presumptively for UTI by hospitalist; O: Afebrile Leg lengths equal. No significant pain with passive hip motion on left. Grossly motors toes. Foot is sensate and well perfused. Dressing on left thigh is clean, dry, and intact. X-rays shows left hip hemiarthroplasty in good alignment. A: Post op day 1 after left hip hemiarthroplasty; Acute blood loss anemia from surgery P: Up with therapy when able. WBAT B/L LE Posterior hip precautions ASA 325 PO BID/ B/L Knee high teds and SCDs Esteves out when able per hospitalist Dressing change tomorrow. Discussed with hospitalist and will receive 1 unit transfusion due to low BPs and acute blood loss anemia. Urine cultures negative. Anticipate stopping ceftriaxone. Objective Vital signs: Vital Signs Temp Pulse Resp BP Pulse Ox 10/31/16 16:55 14 95 10/31/16 16:17 97.7 F 60 14 87/42 95 10/31/16 11:13 98.3 F 66 16 91/60 99 10/31/16 11:04 20 98 10/31/16 06:55 97.7 F 63 16 119/67 96 10/31/16 06:00 96 10/31/16 04:23 97.8 F 61 15 114/67 96 10/31/16 00:23 98.1 F 60 14 107/51 94 10/30/16 23:30 98 F 60 14 103/62 92 10/30/16 23:04 14 94 10/30/16 22:21 97.8 F 61 15 112/64 92 10/30/16 21:55 97.6 F 60 14 107/47 93 10/30/16 21:48 98.2 F 60 15 85/45 95 10/30/16 21:30 98.4 F 59 14 97/53 94 10/30/16 21:15 98.3 F 62 15 142/54 95 10/30/16 21:00 98 F 60 15 135/81 94 10/30/16 20:50 99.2 F 59 12 126/49 94 10/30/16 20:40 60 12 130/55 95 10/30/16 20:30 99.2 F 60 12 154/58 95 10/30/16 20:20 60 12 146/76 96 10/30/16 20:10 60 12 131/73 97 10/30/16 20:00 98.7 F 61 12 150/60 97 Intake and Output 10/31/16 10/31/16 10/31/16 07:59 15:59 23:59 Intake Total 300 / 300 580 / 580 Output Total 200 / 200 Balance 100 / 100 580 / 580 Intake: IV Fluids 200 / 200 Ancef 2,000 MG In 100 / 100 Dextrose 5% 100 ML @ 200 mls/hr IVPB Q8HR [facility] Rx#: [id number] Rocephin 1,000 MG In 100 / 100 Dextrose 5% (Minibag+) 100 ML 100 ML @ 200 mls/ hr IVPB Q12HR [facility] Rx#: [id number] Oral 100 / 100 580 / 580 Output: Catheter 200 / 200 Other: Meal Lunch Percent of Meal Consumed 45% - Labs CBC & BMP: 10/31/16 16:14 10/31/16 06:20 Labs: Abnormal lab results RBC 3.50 M/mcL (3.82-4.97) L 10/30/16 01:12 Hgb 8.8 g/dL (11.5-15.4) L D 10/31/16 16:14 Hct 25.4 % (35.3-44.9) L 10/31/16 16:14 MCV 101.4 fL (83.0-100.0) H 10/30/16 01:12 MCH 33.7 pg (28.0-33.3) H 10/30/16 01:12 Plt Count 134 K/mcL (140-400) L 10/30/16 01:12 MPV 9.0 fL (9.4-12.4) L 10/30/16 01:12 PT 12.5 Seconds (9.4-12.1) H 10/30/16 01:12 Sodium 135 mEq/L (136-145) L 10/31/16 06:20 Potassium 3.4 mEq/L (3.5-4.5) L 10/31/16 06:20 Glucose 194 mg/dL (70-99) H 10/31/16 06:20 Calcium 8.1 mg/dL (8.6-10.8) L 10/31/16 06:20 Ionized Calcium 1.04 mmol/L (1.15-1.35) L 10/30/16 01:12 Magnesium 1.4 mg/dL (1.6-2.6) L 10/31/16 06:20 Alkaline Phosphatase 33 Units/L (38-126) L 10/30/16 01:12 Troponin I 0.05 ng/mL (0-0.03) H* 10/30/16 01:12 B-Natriuretic Peptide 542 pg/mL (0-100) H 10/30/16 01:12 Serum Total Protein 5.4 g/dL (6.0-8.3) L 10/30/16 01:12 Albumin 2.9 g/dL (3.5-5.0) L 10/30/16 01:12 Urine Clarity Cloudy (Clear) A 10/30/16 12:00 Ur Leukocyte Esterase Trace (Negative) H 10/30/16 12:00 Urine Microscopic RBC 5-15 per hpf (0-3) H 10/30/16 12:00 Urine Microscopic WBC 3-5 per hpf (0-3) H 10/30/16 12:00 Ur Squamous Epith Cells Many per lpf (None-Few) H 10/30/16 12:00 Urine Bacteria Moderate per hpf (None-Few) H 10/30/16 12:00 Hyaline Casts Many per lpf (None-Few) H 10/30/16 12:00 Ur Culture Indicated? YES (NO) A 10/30/16 00:10 - VTE Documentation of Mechanical Device: Intermittent pneumatic compression device Consult Discharge Plan - Plan Referrals: Chris Cooley CNP [Advanced Practice Nurse] - 11/14/16 3:15 pm Sukhi Prakash MD [Primary Care Provider] - 11/26/16 9:45 am
--- NOTE | 2016-10-31 19:19 | Electrocardiograph Report ---
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
[2016-10-31] MEDS ORDERED: 0.9 % Sodium Chloride 250 ML ONE (20:25)
[2016-10-31] MEDS: Aspirin Enteric Coated 325 MG Tablet PO SCH (23:14)
[2016-10-31] MEDS: PRAVASTATIN 80 MG PO SCH (23:15)
[2016-11-01] MEDS: Aspirin Enteric Coated 325 MG Tablet PO SCH ×3 (00:22→21:34)
[2016-11-01] MEDS: Ipratropium/Albuterol Neb 3 ML IH SCH ×4 (03:50→22:37)
[2016-11-01] MEDS: *HR* OxyCODONE/APAP 7.5/325 TABLET PO PRN ×2 (05:24→21:34)
[2016-11-01 06:09] LABS: Basophils % 0.1 %; Hematocrit 30.3 % (35.3-44.9); Immature Granulocytes % 0.9 % (0-4); Immature Platelets 4.7 % (1.1-6.1); Lymphocytes # 1.1 K/mcL (0.6-4.6); Lymphocytes % 14.2 %; Mean Corpuscular HGB Conc 34.3 g/dL (31.6-35.5); Mean Corpuscular Hemoglobin 33.7 pg (28.0-33.3); Mean Corpuscular Volume 98.1 fL (83.0-100.0); Mean Platelet Volume 10.8 fL (9.4-12.4); Monocytes # 0.3 K/mcL (0.0-1.3); Monocytes % 4.3 %; Neutrophils # 6.1 K/mcL (1.6-8.9); Platelet Count 109 K/mcL (140-400); Red Blood Count 3.09 M/mcL (3.82-4.97); Red Cell Distribution Width 13.5 % (11.5-14.5); Segmented Neutrophils % 80.5 %
[2016-11-01 06:10] LABS: Hemoglobin 10.4 g/dL (11.5-15.4)
[2016-11-01 06:39] LABS: BUN/Creatinine Ratio 23 (6-26); Blood Urea Nitrogen 21 mg/dL (7-20); Calcium 8.1 mg/dL (8.6-10.8); Carbon Dioxide 20 mEq/L (19-29); Chloride 109 mEq/L (98-109); Glucose 115 mg/dL (70-99); Osmolality,Calculated 288 (280-300); Sodium 137 mEq/L (136-145); eGFR For African Americans > 60 (> 60); eGFR For Non-African Americans 59 (> 60)
[2016-11-01 06:40] LABS: Potassium 4.7 mEq/L (3.5-4.5)
[2016-11-01] MEDS: Losartan/HCTZ 50-12.5 TABLET PO SCH (09:09)
[2016-11-01] MEDS: Ranolazine 500 MG TAB.ER.12H PO SCH ×2 (09:09→21:33)
--- NOTE | 2016-11-01 13:47 | Internal Med Progress Note ---
Date of Encounter: 11/01/16 Time of Encounter: 13:39 - Assessment and plan (1) Fracture of femoral neck, left, closed Current Visit: Yes Status: Acute Assessment and plan: Continue physical therapy, pain control with oral analgesics. DVT prophylaxis. Qualifiers: Encounter type: subsequent encounter Fracture healing: with routine healing Qualified Code(s): S72.002D - Fracture of unspecified part of neck of left femur, subsequent encounter for closed fracture with routine healing (2) Anemia due to acute blood loss Current Visit: Yes Status: Acute Assessment and plan: Monitor hemoglobin and hematocrit. Currently not symptomatic. We will transfuse if hemoglobin below 7.0. (3) COPD (chronic obstructive pulmonary disease) Current Visit: Yes Status: Chronic Assessment and plan: Patient denies any increased shortness of breath or cough titrate Oxygen to maintain O2 saturation > 92%. No wheezing at this time Qualifiers: COPD type: emphysema Emphysema type: unspecified Qualified Code(s): J43.9 - Emphysema, unspecified (4) HTN (hypertension) Current Visit: Yes Status: Chronic Assessment and plan: Hold antihypertensive medication due to hypotension yesterday. Qualifiers: Hypertension type: essential hypertension Qualified Code(s): I10 - Essential (primary) hypertension (5) DVT prophylaxis Current Visit: Yes Status: Acute Assessment and plan: Orthopedic service aspirin 325 mg oral twice a day. (6) Pacemaker Current Visit: No Status: Chronic (7) Atrial fibrillation Current Visit: Yes Status: Chronic Assessment and plan: HR controlled Not on A/C Qualifiers: Atrial fibrillation type: chronic Qualified Code(s): I48.2 - Chronic atrial fibrillation - Subjective Interval history: Reports 0/10 L hip pain, was mild earlier today w/ mobilization by PT. no associated weakness. no fever chills abd pain cough or SOB - Constitutional Vitals: Temp Pulse Resp BP Pulse Ox 98.7 F 64 16 147/83 97 11/01/16 10:38 11/01/16 10:38 11/01/16 11:46 11/01/16 10:38 11/01/16 11:46 General appearance: Present: A&O X 3, pleasant, no acute distress - Eye Eye exam: Present: PERRL, conjuntiva pink, sclera anicteric Pupils: Present: PERRL - Neck Neck exam general surgery: Present: supple, trachea midline. Absent: lymphadenopathy - Respiratory Respiratory exam: Present: CTAB. Absent: accessory muscle use, rales, rhonchi, wheezes Additional comments: fine bibasilar crackles - Cardiovascular Cardiovascular exam: Present: RRR, +S1, +S2. Absent: diastolic murmur, gallop, rubs, systolic murmur - GI/Abdominal GI/Abdominal exam: Present: normal bowel sounds, soft, no peritoneal signs. Absent: distended, tenderness - Extremities Exam Extremities exam: Present: warm, radial pulses palpable and symetrical. Absent : calf tenderness, cyanotic, pedal edema - Neurological Exam Neurological exam: Present: CN II-XII intact, oriented X3, no focal deficits. Absent: pronater drift, facial droop, speech deficit - Skin Skin exam: Present: dry, intact Internal Medicine: Result - Labs CBC & Chem 7: 11/01/16 05:32 11/01/16 05:32 Labs: Short CBC 10/31/16 11/01/16 Range/Units 16:14 05:32 WBC 7.6 (4.3-11.1) K/mcL Hgb 8.8 L D 10.4 L D (11.5-15.4) g/dL Hct 25.4 L 30.3 L (35.3-44.9) % Plt Count 109 L (140-400) K/mcL Neutrophils # 6.1 (1.6-8.9) K/mcL BMP 11/01/16 05:32 Sodium 137 Potassium 4.7 H D Chloride 109 Carbon Dioxide 20 BUN 21 H Creatinine 0.90 Glucose 115 H Calcium 8.1 L - ABG Interpretation ABG results: PT/INR, D-dimer PT 12.5 Seconds (9.4-12.1) H 10/30/16 01:12 - VTE Documentation of Mechanical Device: Intermittent pneumatic compression device Consult Discharge Plan - Plan Additional Instructions: DISCHARGE INSTRUCTIONS Dr. Mcnulty Total Hip Replacement/Hip Hemiarthroplasty Wound Care -Keep wound / incision area clean and dry. -Dressing to remain in place until post-operative day 7, then change dressing daily with dry gauze and paper tape. -No baths or swimming until otherwise instructed. -After 14 days, you may begin to shower only if no drainage is present. No submerging the wound under standing water until cleared by your physician (no baths, hot tubs, swimming pools, etc). Sponge baths are the best way to perform personal hygiene while at the same time protecting the wound from moisture. -No scrubbing the wound. You may "pad dry" the wound, but do not rub, as this may open up he wound and pre-dispose to wound infection. -Do not apply lotions or creams to incision site, unless instructed otherwise. -Observe for redness, swelling, or drainage. Please call the clinic immediately if you have fevers, chills with warmth/redness surrounding wound site or if you notice pus drainage from the wound site Activity -No heavy lifting objects greater than 10 pounds. -No driving while on narcotic pain medication. -You may be weight-bear as tolerated on both of your lower extremities. -Use crutches or a walker for ambulation. -Posterior hip precautions for 6 weeks: No bending the hip past 90 degrees. Do not allow the leg to cross the midline of your body (adduction). No twisting motions. Ask your physical therapist to review these precautions with you. Reducing the Risk of Blood Clots -You will need to complete a total 4 week course of enteric coated aspirin 325 mg twice daily. -Wear knee high compression hose 23 hours per day. Discharge Pain Medications -You will be given a prescription for pain medication. Wean off as tolerated. Do not wait to take the pain medication until the pain is severe, as it will be difficult to "catch up" once this occurs. The pain medication usually reaches its full effect ~1 hour after ingesting. -Your prescribed pain medication may contain Tylenol. You must be careful not to exceed 4,000 mg (4 g) of Tylenol (or generic equivalent), from all sources, within a single 24-hour period. -Some common side effects of the narcotic pain medications (Percocet, Oxycodone , Vicodin, etc) include nausea and itching. Benadryl is a great over the counter medication that helps calm your stomach, decreases your anxiety levels, and minimizes the itching. You can easily purchase this at your local pharmacy as an [id number] medication. Please abide by the instructions as printed on t-he bottle. If your nausea persists, make sure to take small amounts of crackers or other door puller foods. Follow-Up -Follow-up with Dr. Mcnulty office in 2 weeks from the surgery date for a post- operative evaluation. -Call the office at [phone] to schedule or confirm your appointment. -Follow up with your primary care physician to discuss testing for bone mineral density. Referrals: Chris Cooley CNP [Advanced Practice Nurse] - 11/14/16 3:15 pm Sukhi Prakash MD [Primary Care Provider] - 11/26/16 9:45 am
--- NOTE | 2016-11-01 18:44 | Orthopedics Progress Note ---
Date of Encounter: 11/01/16 Time of Encounter: 18:42 - Assessment and Plan (1) Hip fracture Current Visit: Yes Status: Acute I did explain the diagnosis in detail with the patient. She has a displaced left femoral neck fracture. I did discuss treatment options and my recommendation was for left hip hemiarthroplasty to provide pain control and help facilitate nursing care. The risks discussed included but were not limited to bleeding, infection, anesthesia risks, damage to neurovascular structures, tendons, ligaments, and bone. Also discussed was the risk of continued symptoms and possible need for further procedures. Also discussed were the risks of periprosthetic fracture, prosthetic loosening, prosthetic infection, and prosthetic dislocation. I did discuss the anesthesia risks with the patient including stroke, heart attack, and . I did discuss the reasonable forseeable postoperative course with the patient. The patient did wish to proceed and we will go ahead with surgery once medically cleared. Qualifiers: Encounter type: initial encounter Fracture type: closed Laterality: left Qualified Code(s): S72.002A - Fracture of unspecified part of neck of left femur, initial encounter for closed fracture Subjective Interval history: S: Pain very well controlled to the left hip. Slow to mobilize with therapy; O: Afebrile Leg lengths equal. No significant pain with passive hip motion on left. Grossly motors toes. Foot is sensate and well perfused. Dressing changed. Wound is clean, dry, and intact. X-rays shows left hip hemiarthroplasty in good alignment. A: Post op day 2 after left hip hemiarthroplasty P: PT/OT WBAT B/L LE Posterior hip precautions ASA 325 PO BID/ B/L Knee high teds and SCDs Orthpoedically stable. Follow up in the office in 2 weeks. Objective Vital signs: Vital Signs Temp Pulse Resp BP Pulse Ox 11/01/16 16:56 61 111/52 97 11/01/16 16:36 16 97 11/01/16 11:46 16 97 11/01/16 10:38 98.7 F 64 16 147/83 95 11/01/16 09:08 60 162/89 97 11/01/16 06:44 98.3 F 64 16 129/68 95 11/01/16 04:00 98.4 F 59 17 131/66 98 11/01/16 02:13 61 122/72 11/01/16 00:03 60 112/65 10/31/16 23:08 97.8 F 61 16 94/54 95 10/31/16 22:17 18 94 10/31/16 20:55 97.8 F 64 16 93/55 95 10/31/16 20:51 98.3 F 64 16 79/45 94 10/31/16 20:36 97.8 F 70 16 61/30 94 10/31/16 19:05 97.9 F 107 16 74/38 98 Intake and Output 11/01/16 11/01/16 11/01/16 07:59 15:59 23:59 Intake Total 200 / 200 100 / 100 100 / 100 Output Total 450 / 450 400 / 400 Balance -250 / -250 -300 / -300 100 / 100 Intake: IV Fluids 100 / 100 100 / 100 Rocephin 1,000 MG In 100 / 100 100 / 100 Dextrose 5% (Minibag+) 100 ML 100 ML @ 200 mls/ hr IVPB Q12HR [facility] Rx#: [id number] Oral 200 / 200 Output: Catheter 450 / 450 400 / 400 - Labs CBC & BMP: 11/01/16 05:32 11/01/16 05:32 Labs: Abnormal lab results RBC 3.09 M/mcL (3.82-4.97) L 11/01/16 05:32 Hgb 10.4 g/dL (11.5-15.4) L D 11/01/16 05:32 Hct 30.3 % (35.3-44.9) L 11/01/16 05:32 MCH 33.7 pg (28.0-33.3) H 11/01/16 05:32 Plt Count 109 K/mcL (140-400) L 11/01/16 05:32 PT 12.5 Seconds (9.4-12.1) H 10/30/16 01:12 Potassium 4.7 mEq/L (3.5-4.5) H D 11/01/16 05:32 BUN 21 mg/dL (7-20) H 11/01/16 05:32 Est GFR (Non-Af Amer) 59 (> 60) L 11/01/16 05:32 Glucose 115 mg/dL (70-99) H 11/01/16 05:32 Calcium 8.1 mg/dL (8.6-10.8) L 11/01/16 05:32 Ionized Calcium 1.04 mmol/L (1.15-1.35) L 10/30/16 01:12 Magnesium 1.4 mg/dL (1.6-2.6) L 10/31/16 06:20 Alkaline Phosphatase 33 Units/L (38-126) L 10/30/16 01:12 Troponin I 0.05 ng/mL (0-0.03) H* 10/30/16 01:12 B-Natriuretic Peptide 542 pg/mL (0-100) H 10/30/16 01:12 Serum Total Protein 5.4 g/dL (6.0-8.3) L 10/30/16 01:12 Albumin 2.9 g/dL (3.5-5.0) L 10/30/16 01:12 Urine Clarity Cloudy (Clear) A 10/30/16 12:00 Ur Leukocyte Esterase Trace (Negative) H 10/30/16 12:00 Urine Microscopic RBC 5-15 per hpf (0-3) H 10/30/16 12:00 Urine Microscopic WBC 3-5 per hpf (0-3) H 10/30/16 12:00 Ur Squamous Epith Cells Many per lpf (None-Few) H 10/30/16 12:00 Urine Bacteria Moderate per hpf (None-Few) H 10/30/16 12:00 Hyaline Casts Many per lpf (None-Few) H 10/30/16 12:00 Ur Culture Indicated? YES (NO) A 10/30/16 00:10 - VTE Documentation of Mechanical Device: Intermittent pneumatic compression device Consult Discharge Plan - Plan Additional Instructions: DISCHARGE INSTRUCTIONS Dr. Mcnulty Total Hip Replacement/Hip Hemiarthroplasty Wound Care -Keep wound / incision area clean and dry. -Dressing to remain in place until post-operative day 7, then change dressing daily with dry gauze and paper tape. -No baths or swimming until otherwise instructed. -After 14 days, you may begin to shower only if no drainage is present. No submerging the wound under standing water until cleared by your physician (no baths, hot tubs, swimming pools, etc). Sponge baths are the best way to perform personal hygiene while at the same time protecting the wound from moisture. -No scrubbing the wound. You may "pad dry" the wound, but do not rub, as this may open up he wound and pre-dispose to wound infection. -Do not apply lotions or creams to incision site, unless instructed otherwise. -Observe for redness, swelling, or drainage. Please call the clinic immediately if you have fevers, chills with warmth/redness surrounding wound site or if you notice pus drainage from the wound site Activity -No heavy lifting objects greater than 10 pounds. -No driving while on narcotic pain medication. -You may be weight-bear as tolerated on both of your lower extremities. -Use crutches or a walker for ambulation. -Posterior hip precautions for 6 weeks: No bending the hip past 90 degrees. Do not allow the leg to cross the midline of your body (adduction). No twisting motions. Ask your physical therapist to review these precautions with you. Reducing the Risk of Blood Clots -You will need to complete a total 4 week course of enteric coated aspirin 325 mg twice daily. -Wear knee high compression hose 23 hours per day. Discharge Pain Medications -You will be given a prescription for pain medication. Wean off as tolerated. Do not wait to take the pain medication until the pain is severe, as it will be difficult to "catch up" once this occurs. The pain medication usually reaches its full effect ~1 hour after ingesting. -Your prescribed pain medication may contain Tylenol. You must be careful not to exceed 4,000 mg (4 g) of Tylenol (or generic equivalent), from all sources, within a single 24-hour period. -Some common side effects of the narcotic pain medications (Percocet, Oxycodone , Vicodin, etc) include nausea and itching. Benadryl is a great over the counter medication that helps calm your stomach, decreases your anxiety levels, and minimizes the itching. You can easily purchase this at your local pharmacy as an zkwu-uad-nhzohvz medication. Please abide by the instructions as printed on t-he bottle. If your nausea persists, make sure to take small amounts of crackers or other oil winterizer foods. Follow-Up -Follow-up with Dr. Mcnulty office in 2 weeks from the surgery date for a post- operative evaluation. -Call the office at [phone] to schedule or confirm your appointment. -Follow up with your primary care physician to discuss testing for bone mineral density. Referrals: Chris Cooley CNP [Advanced Practice Nurse] - 11/14/16 3:15 pm Sukhi Prakash MD [Primary Care Provider] - 11/26/16 9:45 am
[2016-11-01] MEDS: PRAVASTATIN 80 MG PO SCH (21:34)
[2016-11-02 03:25] LABS: Basophils % 0.3 %; Eosinophils # 0.3 K/mcL (0.0-0.6); Eosinophils % 4.1 %; Hematocrit 29.8 % (35.3-44.9); Hemoglobin 10.4 g/dL (11.5-15.4); Immature Granulocytes % 0.7 % (0-4); Immature Platelets 3.4 % (1.1-6.1); Lymphocytes # 1.3 K/mcL (0.6-4.6); Lymphocytes % 20.8 %; Mean Corpuscular HGB Conc 34.9 g/dL (31.6-35.5); Mean Corpuscular Hemoglobin 33.4 pg (28.0-33.3); Mean Corpuscular Volume 95.8 fL (83.0-100.0); Monocytes # 0.5 K/mcL (0.0-1.3); Monocytes % 7.9 %; Platelet Count 123 K/mcL (140-400); Red Blood Count 3.11 M/mcL (3.82-4.97); Red Cell Distribution Width 13.5 % (11.5-14.5); Segmented Neutrophils % 66.2 %
[2016-11-02 03:36] LABS: BUN/Creatinine Ratio 32 (6-26); Blood Urea Nitrogen 28 mg/dL (7-20); Calcium 8.5 mg/dL (8.6-10.8); Carbon Dioxide 23 mEq/L (19-29); Chloride 107 mEq/L (98-109); Glucose 109 mg/dL (70-99); Osmolality,Calculated 288 (280-300); Potassium 4.3 mEq/L (3.5-4.5); Sodium 136 mEq/L (136-145); eGFR For African Americans > 60 (> 60); eGFR For Non-African Americans > 60 (> 60)
[2016-11-02] MEDS: Ipratropium/Albuterol Neb 3 ML IH SCH ×2 (04:59→11:29)
[2016-11-02] MEDS: Losartan/HCTZ 50-12.5 TABLET PO SCH (08:49)
[2016-11-02] MEDS: Ranolazine 500 MG TAB.ER.12H PO SCH (08:49)
[2016-11-02] MEDS: Aspirin Enteric Coated 325 MG Tablet PO SCH (08:50)
--- NOTE | 2016-11-02 11:02 | Discharge Summary ---
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: unspecified Qualified Code(s): J43.9 - Emphysema, unspecified (3) HTN (hypertension) Priority: Secondary Status: Chronic Qualifiers: Hypertension type: essential hypertension Qualified Code(s): I10 - Essential (primary) hypertension (4) History of coronary artery bypass graft x 2 Priority: Secondary Status: Chronic (5) Pacemaker Priority: Secondary Status: Acute - Discharge Medications Prescriptions: OxyCODONE/APAP 7.5/325 [Percocet 7.5/325 MG] 1 each PO Q4HR PRN #20 tablet PRN Reason: Moderate Pain Home Medications: Aspirin 81 mg PO DAILY 08/23/15 [History] Clopidogrel [Plavix] 75 mg PO DAILY 08/23/15 [History] Isosorbide MONOnitrate (24 HR) [Imdur] 180 mg PO DAILY 08/23/15 [History] Pantoprazole Sodium [Protonix] 40 mg PO DAILY #0 08/23/15 [History] Potassium Chloride [K-Tab ER] 10 meq PO BID 08/23/15 [History] Pravastatin Sodium [Pravachol] 80 mg PO DAILY 08/23/15 [History] Carvedilol [Coreg] 12.5 mg PO BID 03/14/16 [History] Cyanocobalamin (Vitamin B-12) [Vitamin B-12] 100 mcg PO DAILY 03/14/16 [History] Docusate [Colace] 100 mg PO BID PRN 03/14/16 [History] Ergocalciferol (VITAMIN D2) [Vitamin D] 800 unit PO DAILY 03/14/16 [History] Loratadine [Claritin] 10 mg PO DAILY 03/14/16 [History] Losartan/Hydrochlorothiazide [Losartan-Hctz 100-12.5 mg Tab] 1 tab PO DAILY 02/19 [History] Nitroglycerin [Nitrostat] 0.4 mg SL AD PRN 03/31/16 [History] Ranolazine [Ranexa] 1,000 mg PO BID 03/31/16 [History] FluocinoLONE Acet 0.025% CRM [Fluocinolone Acet 0.025% CRM] 1 appl TP BID PRN [History] Sertraline [Zoloft] 50 mg PO DAILY 10/28/16 [History] Aspirin Enteric Coated [Aspirin EC] 325 mg PO BID tablet. 11/02/16 [Rx] OxyCODONE/APAP 7.5/325 [Percocet 7.5/325 MG] 1 each PO Q4HR PRN #20 tablet 11/02 [Rx] Allergies/Adverse Reactions: Allergies simvastatin [From Zocor] Allergy (Verified 04/18/16 10:03) Anaphylaxis atorvastatin [From Lipitor] Adverse Reaction (Verified 04/18/16 10:03) Anxiety enalaprilat [From Vasotec] Adverse Reaction (Verified 04/18/16 10:03) Hives Date of admission: 10/28/16 21:20 Primary care physician: Sukhi Prakash MD Consults: 10/29/16 05:08 Consult to Cardiology [CONS] Routine Comment: Consulting Provider: Angelica Ansari Reason for Consult: Presurgical evaluation Call Completed: No 10/29/16 11:[address] Control Technician [CONS] Routine Reason for SW Consult: D/C planning 10/30/16 01:56 Consult to Nurse Navigator [CONS] Routine Comment: Consult to Nurse Navigator [CONS] Routine Comment: 10/30/16 07:00 Consult to Cardiology [CONS] Routine Comment: Consulting Provider: Angelica Ansari Reason for Consult: Preoperative clearance: ACS type II NSTEMI +CHF exac in patient w/CAD/PTCAstents x8 and acute hip fracture. Please eval and advise.... Time Notified: 01:59 Call Completed: No 10/30/16 19:57 Consult to Occupational Therapy [CONS] Routine Comment: Evaluate, develop and implement POC Consult to Physical Therapy [CONS] Routine Comment: Evaluate, develop and implement POC RT Post Op Consult [CONS] Routine - Patient Status Disposition: Transfer SNF Condition: Fair Overall status at discharge: patient is back to baseline - Discharge Instructions Follow Up With: Chris Cooley CNP [Advanced Practice Nurse] - 11/14/16 3:15 pm Sukhi Prakash MD [Primary Care Provider] - 11/26/16 9:45 am Additional Instructions: Follow with primary care physician in [address] Mcnulty Total Hip Replacement/Hip Hemiarthroplasty Wound Care -Keep wound / incision area clean and dry. -Dressing to remain in place until post-operative day 7, then change dressing daily with dry gauze and paper tape. -No baths or swimming until otherwise instructed. -After 14 days, you may begin to shower only if no drainage is present. No submerging the wound under standing water until cleared by your physician (no baths, hot tubs, swimming pools, etc). Sponge baths are the best way to perform personal hygiene while at the same time protecting the wound from moisture. -No scrubbing the wound. You may "pad dry" the wound, but do not rub, as this may open up he wound and pre-dispose to wound infection. -Do not apply lotions or creams to incision site, unless instructed otherwise. -Observe for redness, swelling, or drainage. Please call the clinic immediately if you have fevers, chills with warmth/redness surrounding wound site or if you notice pus drainage from the wound site Activity -No heavy lifting objects greater than 10 pounds. -No driving while on narcotic pain medication. -You may be weight-bear as tolerated on both of your lower extremities. -Use crutches or a walker for ambulation. -Posterior hip precautions for 6 weeks: No bending the hip past 90 degrees. Do not allow the leg to cross the midline of your body (adduction). No twisting motions. Ask your physical therapist to review these precautions with you. Reducing the Risk of Blood Clots -You will need to complete a total 4 week course of enteric coated aspirin 325 mg twice daily. -Wear knee high compression hose 23 hours per day. Discharge Pain Medications -You will be given a prescription for pain medication. Wean off as tolerated. Do not wait to take the pain medication until the pain is severe, as it will be difficult to "catch up" once this occurs. The pain medication usually reaches its full effect ~1 hour after ingesting. -Your prescribed pain medication may contain Tylenol. You must be careful not to exceed 4,000 mg (4 g) of Tylenol (or generic equivalent), from all sources, within a single 24-hour period. -Some common side effects of the narcotic pain medications (Percocet, Oxycodone , Vicodin, etc) include nausea and itching. Benadryl is a great over the counter medication that helps calm your stomach, decreases your anxiety levels, and minimizes the itching. You can easily purchase this at your local pharmacy as an clfz-ygo-miiwesg medication. Please abide by the instructions as printed on t-he bottle. If your nausea persists, make sure to take small amounts of crackers or other fast food restaurant manager foods. Follow-Up -Follow-up with Dr. Mcnulty office in 2 weeks from the surgery date for a post- operative evaluation. -Call the office at [phone] to schedule or confirm your appointment. -Follow up with your primary care physician to discuss testing for bone mineral density. - Diet and Activity Activity: as per physical therapy Diet: low fat, low cholesterol Hospital course: Ms. Duke is a 86 year old female with COPD, hypertension, GERD, Coronary artery disease s/p CABG X 2 in 2000 and total of 8 stent placements, atrial fibrillation on ASA, status post pacemaker who presented to emergency department after suffering a fall at home and with left hip pain. 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 She denied any lightheadedness, dizziness, chest pain, palpitations, shortness of breath, nausea, vomiting, abdominal pain, numbness or tingling. CT of the head which showed no acute intercranial abnormality consistent with chronic small vessel ischemic disease. Left hip x-ray showed displaced transcervical femoral neck fracture, left femoral x-ray showed impacted femoral neck fracture. received Rocephin for 3 days , discontinued as there was no growth on culture , the patient is not symptomatic. Underwent left hip hemiarthroplasty on 10/30/16. - Time Spent with Patient Total time spent providing and/or coordinating discharge services: Greater than 30 minutes (40 min) - Constitutional Vitals: Temp Pulse Resp BP Pulse Ox 98.2 F 72 18 148/75 94 11/02/16 07:02 11/02/16 07:02 11/02/16 07:02 11/02/16 07:02 11/02/16 08:20 General appearance: Present: A&O X 3, pleasant, no acute distress - Head Head exam: Present: atraumatic, normocephalic - Eye Eye exam: Present: PERRL, conjuntiva pink, sclera anicteric Pupils: Present: PERRL - Neck Neck exam general surgery: Present: supple, trachea midline. Absent: lymphadenopathy - Respiratory Respiratory exam: Present: CTAB. Absent: accessory muscle use, rales, rhonchi, wheezes - Cardiovascular Cardiovascular exam: Present: RRR, +S1, +S2. Absent: diastolic murmur, gallop, rubs, systolic murmur - GI/Abdominal GI/Abdominal exam: Present: normal bowel sounds, soft, no peritoneal signs. Absent: distended, tenderness - Extremities Exam Extremities exam: Present: warm, radial pulses palpable and symetrical. Absent : calf tenderness, cyanotic, pedal edema - Neurological Exam Neurological exam: Present: CN II-XII intact, oriented X3, no focal deficits. Absent: pronater drift, facial droop, speech deficit - Skin Skin exam: Present: dry. Absent: intact (left hip surgical wound without signs of infection ) - VTE Documentation of Mechanical Device: Intermittent pneumatic compression device
--- NOTE | 2016-11-02 11:13 | Physician Discharge Referral ---
[facility] Referral Info Provider in Charge after Transfer: PCP Institutional Level of Care: Skilled - Diagnosis (1) Hip fracture Status: Acute (2) COPD (chronic obstructive pulmonary disease) Status: Chronic (3) HTN (hypertension) Status: Chronic (4) History of coronary artery bypass graft x 2 Status: Chronic (5) Pacemaker Status: Acute - Transfer Medications Prescriptions: OxyCODONE/APAP 7.5/325 [Percocet 7.5/325 MG] 1 each PO Q4HR PRN #20 tablet PRN Reason: Moderate Pain Home Medications: Aspirin 81 mg PO DAILY 08/23/15 [History] Clopidogrel [Plavix] 75 mg PO DAILY 08/23/15 [History] Isosorbide MONOnitrate (24 HR) [Imdur] 180 mg PO DAILY 08/23/15 [History] Pantoprazole Sodium [Protonix] 40 mg PO DAILY #0 08/23/15 [History] Potassium Chloride [K-Tab ER] 10 meq PO BID 08/23/15 [History] Pravastatin Sodium [Pravachol] 80 mg PO DAILY 08/23/15 [History] Carvedilol [Coreg] 12.5 mg PO BID 03/14/16 [History] Cyanocobalamin (Vitamin B-12) [Vitamin B-12] 100 mcg PO DAILY 03/14/16 [History] Docusate [Colace] 100 mg PO BID PRN 03/14/16 [History] Ergocalciferol (VITAMIN D2) [Vitamin D] 800 unit PO DAILY 03/14/16 [History] Loratadine [Claritin] 10 mg PO DAILY 03/14/16 [History] Losartan/Hydrochlorothiazide [Losartan-Hctz 100-12.5 mg Tab] 1 tab PO DAILY 02/19 [History] Nitroglycerin [Nitrostat] 0.4 mg SL AD PRN 03/31/16 [History] Ranolazine [Ranexa] 1,000 mg PO BID 03/31/16 [History] FluocinoLONE Acet 0.025% CRM [Fluocinolone Acet 0.025% CRM] 1 appl TP BID PRN [History] Sertraline [Zoloft] 50 mg PO DAILY 10/28/16 [History] Aspirin Enteric Coated [Aspirin EC] 325 mg PO BID tablet. 11/02/16 [Rx] OxyCODONE/APAP 7.5/325 [Percocet 7.5/325 MG] 1 each PO Q4HR PRN #20 tablet 11/02 [Rx] Allergies/Adverse Reactions: Allergies simvastatin [From Zocor] Allergy (Verified 04/18/16 10:03) Anaphylaxis atorvastatin [From Lipitor] Adverse Reaction (Verified 04/18/16 10:03) Anxiety enalaprilat [From Vasotec] Adverse Reaction (Verified 04/18/16 10:03) Hives - Respiratory Orders Smoking Cessation: Smoking cessation has been advised. For more information, call the [place] Tobacco Quit Line at 4-558-UITB-NOW. - Advance Directives Code Status: DNR-Arrest - Treatments List/Other: Follow with primary care physician in [address] Mcnulty Total Hip Replacement/Hip Hemiarthroplasty Wound Care -Keep wound / incision area clean and dry. -Dressing to remain in place until post-operative day 7, then change dressing daily with dry gauze and paper tape. -No baths or swimming until otherwise instructed. -After 14 days, you may begin to shower only if no drainage is present. No submerging the wound under standing water until cleared by your physician (no baths, hot tubs, swimming pools, etc). Sponge baths are the best way to perform personal hygiene while at the same time protecting the wound from moisture. -No scrubbing the wound. You may "pad dry" the wound, but do not rub, as this may open up he wound and pre-dispose to wound infection. -Do not apply lotions or creams to incision site, unless instructed otherwise. -Observe for redness, swelling, or drainage. Please call the clinic immediately if you have fevers, chills with warmth/redness surrounding wound site or if you notice pus drainage from the wound site Activity -No heavy lifting objects greater than 10 pounds. -No driving while on narcotic pain medication. -You may be weight-bear as tolerated on both of your lower extremities. -Use crutches or a walker for ambulation. -Posterior hip precautions for 6 weeks: No bending the hip past 90 degrees. Do not allow the leg to cross the midline of your body (adduction). No twisting motions. Ask your physical therapist to review these precautions with you. Reducing the Risk of Blood Clots -You will need to complete a total 4 week course of enteric coated aspirin 325 mg twice daily. -Wear knee high compression hose 23 hours per day. Discharge Pain Medications -You will be given a prescription for pain medication. Wean off as tolerated. Do not wait to take the pain medication until the pain is severe, as it will be difficult to "catch up" once this occurs. The pain medication usually reaches its full effect ~1 hour after ingesting. -Your prescribed pain medication may contain Tylenol. You must be careful not to exceed 4,000 mg (4 g) of Tylenol (or generic equivalent), from all sources, within a single 24-hour period. -Some common side effects of the narcotic pain medications (Percocet, Oxycodone , Vicodin, etc) include nausea and itching. Benadryl is a great over the counter medication that helps calm your stomach, decreases your anxiety levels, and minimizes the itching. You can easily purchase this at your local pharmacy as an paul-fwe-pefnmay medication. Please abide by the instructions as printed on t-he bottle. If your nausea persists, make sure to take small amounts of crackers or other city sanitarian foods. Follow-Up -Follow-up with Dr. Mcnulty office in 2 weeks from the surgery date for a post- operative evaluation. -Call the office at [phone] to schedule or confirm your appointment. -Follow up with your primary care physician to discuss testing for bone mineral density. - Diet Orders No Added Salt (CHIOMA) CERTIFICATION: I certify that the transfer of the above named patient to an Extended Care Facility is necessary for the continuing treatment of the diagnosis listed. The above information is true and accurate reflection of patient's current condition. Confidential - Redisclosure prohibited without a patient's written consent.
[2016-11-02 11:42] VITALS: BP 140/76
== END 2016-11-02 13:14 | DRG 470 ==
LOC: EMEROO 16:36 → 3NENU 16:36 → SUATTDRO 21:20
PROVIDERS: ADMIT Internal Medicine; ATTEND Internal Medicine

== ENCOUNTER 2016-11-16 04:38 | Observation (INO) ==
--- NOTE | 2016-11-16 04:56 | Emergency Department Note ---
Disposition Clinical Impression: Tremor Altered mental status Qualifiers: Altered mental status type: somnolence Qualified Code(s): R40.0 - Somnolence Disposition: Admitted As Inpatient Condition: Fair Referrals: Joe Berkowitz MD [Primary Care Provider] - Forms: ED Satisfaction Letter Altered Mental Status HPI - General Chief Complaint: ED Altered Mental Status Stated Complaint: AMS Time Seen by Provider: 11/16/16 04:40 Source: patient, EMS, other (prison) Limitations: altered mental status Nursing Notes Reviewed: Yes Vital Signs Reviewed: Yes - History of Present Illness HPI Narrative: Patient is an 86-year-old female who is currently in a alf for rehabilitation after her hip surgery. prison staff reports that at 4 AM they checked on the patient and she was clenching both fists with some twitching and jerking of both upper extremities and would not talk. She was less alert than usual. Her last known normal was about 10 PM last evening. On arrival here the patient is still having some twitching and jerking of both upper extremities with no involvement of the lower extremities. She does open eyes to verbal and follows commands. She talks and answers questions appropriately but her speech is very weak and soft. She denies any headache or chest pain or shortness of breath and states that she feels fine. complaint: altered mental status, decreased responsiveness Onset (ago): unknown Consistency of Symptoms: constant Associated symptoms: Denies: chest pain, cough, headaches, nausea/vomiting - Related Data Home Medications Medication Instructions Recorded Confirmed Aspirin 81 mg PO DAILY 08/23/15 10/28/16 Clopidogrel [Plavix] 75 mg PO DAILY 08/23/15 10/28/16 Isosorbide MONOnitrate (24 HR) 180 mg PO DAILY 08/23/15 10/28/16 [Imdur] Pantoprazole Sodium [Protonix] 40 mg PO DAILY #0 08/23/15 10/28/16 Potassium Chloride [K-Tab ER] 10 meq PO BID 08/23/15 10/28/16 Pravastatin Sodium [Pravachol] 80 mg PO DAILY 08/23/15 10/28/16 Carvedilol [Coreg] 12.5 mg PO BID 03/14/16 10/28/16 Cyanocobalamin (Vitamin B-12) 100 mcg PO DAILY 03/14/16 10/28/16 [Vitamin B-12] Docusate [Colace] 100 mg PO BID PRN 03/14/16 10/28/16 Ergocalciferol (VITAMIN D2) 800 unit PO DAILY 03/14/16 10/28/16 [Vitamin D] Loratadine [Claritin] 10 mg PO DAILY 03/14/16 10/28/16 Losartan/Hydrochlorothiazide 1 tab PO DAILY 03/14/16 10/28/16 [Losartan-Hctz 100-12.5 mg Tab] Nitroglycerin [Nitrostat] 0.4 mg SL AD PRN 03/31/16 10/28/16 Ranolazine [Ranexa] 1,000 mg PO BID 03/31/16 10/28/16 FluocinoLONE Acet 0.025% CRM 1 appl TP BID PRN 10/28/16 10/28/16 [Fluocinolone Acet 0.025% CRM] Sertraline [Zoloft] 50 mg PO DAILY 10/28/16 10/28/16 Previous Rx's Medication Instructions Recorded Aspirin Enteric Coated [Aspirin EC] 325 mg PO BID tablet. 11/02/16 OxyCODONE/APAP 7.5/325 [Percocet 1 each PO Q4HR PRN #20 tablet 11/02/16 7.5/325 MG] Allergies Allergy/AdvReac Type Severity Reaction Status Date / Time simvastatin [From Zocor] Allergy Anaphylaxis Verified 04/18/16 10:03 atorvastatin [From Lipitor] AdvReac Anxiety Verified 04/18/16 10:03 enalaprilat [From Vasotec] AdvReac Hives Verified 04/18/16 10:03 Constitutional: Denies: fever Cardiovascular: Denies: chest pain Respiratory: Denies: cough, dyspnea Gastrointestinal: Denies: abdominal pain, nausea, vomiting Musculoskeletal: Denies: back pain Neurological: Denies: headache Past Medical History - Past Medical History Medical history: Reports: arthritis, atrial fibrillation, COPD, coronary artery disease, DVT, GERD, hyperlipidemia, hypertension, myocardial infarction, syncope Surgical history: Reports: angioplasty/stent, appendectomy, cataract, cholecystectomy, coronary bypass (CABG), pacemaker/AICD Psychiatric history: Reports: anxiety, depression [employer] history: Reports: non-contributory - Social History Smoking Status: Unknown if ever smoked Smokeless Tobacco Status: No Alcohol use: Reports: none Drug use: Reports: none Physical Exam - General Limitations: altered mental status General appearance: alert, in no apparent distress - Head Head exam: atraumatic, normocephalic, normal inspection - Eye Eye exam: Present: normal appearance, PERRL, EOMI. Absent: scleral icterus, conjunctival injection, nystagmus - ENT ENT exam: normal exam, normal oropharynx, mucous membranes moist, TM's normal bilaterally, normal external ear exam - Neck Neck exam: Present: normal inspection, trachea midline. Absent: tenderness, meningismus, lymphadenopathy - Chest Chest inspection: Present: normal inspection, symmetric chest wall rise. Absent : tenderness - Respiratory Respiratory exam: Present: normal lung sounds bilaterally. Absent: respiratory distress, wheezes, stridor, accessory muscle use - Cardiovascular Cardiovascular exam: Present: regular rate, normal rhythm, normal heart sounds - Abdominal Exam Abdominal exam: Present: soft, Non-Tender, normal bowel sounds - Extremities Exam Extremities exam: Present: other (There is some spasticity of both upper extremities with a slowed jerky-like tremor. No tremor of the lower extremities. Patient is clutching her hands however will open them and has equal broom stitcher strengths.) - Back Exam Back exam: Present: normal inspection. Absent: CVA tenderness (R), CVA tenderness (L) - Neurological Exam Neurological exam: Absent: motor sensory deficit - Skin Skin exam: Present: warm, dry, intact, normal color. Absent: cyanosis, diaphoresis Course - Consultations Consultation #1: The hospitalist was consulted and Dr. Osei accepted admission of the patient. Time: 06:45 Vital Signs Temperature 98.9 F 11/16/16 04:41 Pulse Rate 61 11/16/16 04:41 Respiratory Rate 19 11/16/16 04:41 Blood Pressure 140/74 11/16/16 04:41 O2 Sat by Pulse Oximetry 100 11/16/16 04:41 Temperature 98.9 F 11/16/16 04:41 Pulse Rate 61 11/16/16 07:16 Respiratory Rate 16 11/16/16 07:16 Blood Pressure 112/86 11/16/16 07:16 O2 Sat by Pulse Oximetry 98 11/16/16 07:16 Oxygen Delivery Oxygen Delivery Room Air Altered Mental Status - Medical Records Medical records reviewed: Yes I reviewed the patient's medical records. - Lab Data Lab results reviewed: Yes I reviewed the patient's lab results. Result diagrams: 11/16/16 04:59 11/16/16 04:59 Lab Results 11/16/16 11/16/16 11/16/16 Range/Units 04:59 04:59 04:59 WBC 8.9 D (4.3-11.1) K/mcL RBC 3.41 L (3.82-4.97) M/mcL Hgb 11.3 L D (11.5-15.4) g/dL Hct 33.9 L (35.3-44.9) % MCV 99.4 (83.0-100.0) fL MCH 33.1 (28.0-33.3) pg MCHC 33.3 (31.6-35.5) g/dL RDW 13.8 (11.5-14.5) % Plt Count 271 (140-400) K/mcL MPV 8.8 L (9.4-12.4) fL Immature Gran % 0.7 (0-4) % Seg Neutrophils % 75.6 % Lymphocytes % 15.2 % Monocytes % 5.4 % Eosinophils % 2.7 % Basophils % 0.4 % Neutrophils # 6.7 (1.6-8.9) K/mcL Lymphocytes # 1.4 (0.6-4.6) K/mcL Monocytes # 0.5 (0.0-1.3) K/mcL Eosinophils # 0.2 (0.0-0.6) K/mcL Basophils # 0.0 (0.0-0.2) K/mcL PT 11.0 (9.4-12.1) Seconds INR 1.0 APTT 29.2 (26.0-36.0) Seconds Sodium 135 L (136-145) mEq/L Potassium 5.3 H D (3.5-4.5) mEq/L Chloride 101 (98-109) mEq/L Carbon Dioxide 25 (19-29) mEq/L BUN 22 H (7-20) mg/dL Creatinine 0.91 (0.57-1.11) mg/dL Est GFR ( Amer) > 60 (> 60) Est GFR (Non-Af Amer) 59 L (> 60) BUN/Creatinine Ratio 24 (6-26) Glucose 116 H (70-99) mg/dL Calculated Osmolality 284 (280-300) Calcium 9.2 (8.6-10.8) mg/dL Total Bilirubin 0.8 (0.2-1.2) mg/dL Direct Bilirubin 0.4 (0.0-0.5) mg/dL Indirect Bilirubin 0.4 (0.0-1.2) mg/dL AST 21 (5-34) Units/L ALT 21 (0-55) Units/L Alkaline Phosphatase 81 (38-126) Units/L Troponin I (0-0.03) ng/mL Serum Total Protein 5.6 L (6.0-8.3) g/dL Albumin 2.8 L (3.5-5.0) g/dL Globulin 2.8 (2.4-3.5) g/dL Albumin/Globulin Ratio 1.0 L (1.1-2.2) Urine Color (Yellow) Urine Clarity (Clear) Urine pH (5.0-8.0) pH Units Ur Specific [place] (1.010-1.025) Urine Protein (Neg-Trace) mg/dL Urine Glucose (UA) (Normal) mg/dL Urine Ketones (Negative) mg/dL Urine Blood (Negative) Urine Nitrite (Negative) Urine Bilirubin (Negative) Urine Urobilinogen (Normal) mg/dL Ur Leukocyte Esterase (Negative) Ur Culture Indicated? (NO) Urine Opiates Screen (Jjecyg=273) ng/mL Ur Barbiturates Screen (Npztoe=390) ng/mL Ur Phencyclidine Scrn (Cutoff=25) ng/mL Ur Amphetamines Screen (Xcrbaf=7149) ng/mL U Benzodiazepines Scrn (Loaitk=242) ng/mL Urine Cocaine Screen (Cutoff= 300) ng/mL U Marijuana (THC) Screen (Cutoff = 50) ng/mL 11/16/16 11/16/16 11/16/16 Range/Units 04:59 05:51 05:51 WBC (4.3-11.1) K/mcL RBC (3.82-4.97) M/mcL Hgb (11.5-15.4) g/dL Hct (35.3-44.9) % MCV (83.0-100.0) fL MCH (28.0-33.3) pg MCHC (31.6-35.5) g/dL RDW (11.5-14.5) % Plt Count (140-400) K/mcL MPV (9.4-12.4) fL Immature Gran % (0-4) % Seg Neutrophils % % Lymphocytes % % Monocytes % % Eosinophils % % Basophils % % Neutrophils # (1.6-8.9) K/mcL Lymphocytes # (0.6-4.6) K/mcL Monocytes # (0.0-1.3) K/mcL Eosinophils # (0.0-0.6) K/mcL Basophils # (0.0-0.2) K/mcL PT (9.4-12.1) Seconds INR APTT (26.0-36.0) Seconds Sodium (136-145) mEq/L Potassium (3.5-4.5) mEq/L Chloride (98-109) mEq/L Carbon Dioxide (19-29) mEq/L BUN (7-20) mg/dL Creatinine (0.57-1.11) mg/dL Est GFR ( Amer) (> 60) Est GFR (Non-Af Amer) (> 60) BUN/Creatinine Ratio (6-26) Glucose (70-99) mg/dL Calculated Osmolality (280-300) Calcium (8.6-10.8) mg/dL Total Bilirubin (0.2-1.2) mg/dL Direct Bilirubin (0.0-0.5) mg/dL Indirect Bilirubin (0.0-1.2) mg/dL AST (5-34) Units/L ALT (0-55) Units/L Alkaline Phosphatase (38-126) Units/L Troponin I 0.00 (0-0.03) ng/mL Serum Total Protein (6.0-8.3) g/dL Albumin (3.5-5.0) g/dL Globulin (2.4-3.5) g/dL Albumin/Globulin Ratio (1.1-2.2) Urine Color Dark Yellow (Yellow) Urine Clarity Clear (Clear) Urine pH 6.5 (5.0-8.0) pH Units Ur Specific [place] 1.016 (1.010-1.025) Urine Protein Negative (Neg-Trace) mg/dL Urine Glucose (UA) Normal (Normal) mg/dL Urine Ketones Negative (Negative) mg/dL Urine Blood Negative (Negative) Urine Nitrite Negative (Negative) Urine Bilirubin Small H (Negative) Urine Urobilinogen 2.0 H (Normal) mg/dL Ur Leukocyte Esterase Negative (Negative) Ur Culture Indicated? NO (NO) Urine Opiates Screen Positive H (Rwsdmo=137) ng/mL Ur Barbiturates Screen Negative (Lbtbvb=180) ng/mL Ur Phencyclidine Scrn Negative (Cutoff=25) ng/mL Ur Amphetamines Screen Negative (Xewrnm=7981) ng/mL U Benzodiazepines Scrn Negative (Wcnmwl=414) ng/mL Urine Cocaine Screen Negative (Cutoff= 300) ng/mL U Marijuana (THC) Screen Negative (Cutoff = 50) ng/mL - Radiology Data Radiology results reviewed: Yes I reviewed the patient's radiology results. Chest X-Ray 11/16/16 04:53 IMPRESSION: Left basilar atelectasis versus pneumonia. D/ / Edmundo Martini MD / Edmundo Martini MD Interpreting Provider: Edmundo Martini MD Head CT 11/16/16 04:54 IMPRESSION: No acute intracranial abnormality. D/ / Kat Coe MD / Kat Coe MD Interpreting Provider: Kat Coe MD - EKG Data EKG attestation: Yes I reviewed and interpreted this EKG. EKG results narrative: Electronic atrial pacemaker with a heart rate of 60. TPA Checklist - LKW: 3-4.5 hrs Add. Contraindications Patient/family understanding: The patient/family members have been counseled and understood the risk, benefit , and alternatives of treatment. Critical Care Time Critical Care Time: Yes Total Critical Care Time: 45 Attestation: Critical care performed: Time is exclusive of separately billable procedures. Time includes: direct patient care, patient reassessment, coordination of patient care, interpretation of data (laboratory data, radiology data, and respiratory data), review of patient's medical records, medical consultation and documentation of patient care. Procedures included in critical care time: Procedures excluded from critical care time:
[2016-11-16 05:09] LABS: Basophils % 0.4 %; Eosinophils # 0.2 K/mcL (0.0-0.6); Eosinophils % 2.7 %; Hematocrit 33.9 % (35.3-44.9); Immature Granulocytes % 0.7 % (0-4); Lymphocytes # 1.4 K/mcL (0.6-4.6); Lymphocytes % 15.2 %; Mean Corpuscular HGB Conc 33.3 g/dL (31.6-35.5); Mean Corpuscular Hemoglobin 33.1 pg (28.0-33.3); Mean Corpuscular Volume 99.4 fL (83.0-100.0); Mean Platelet Volume 8.8 fL (9.4-12.4); Monocytes # 0.5 K/mcL (0.0-1.3); Monocytes % 5.4 %; Neutrophils # 6.7 K/mcL (1.6-8.9); Platelet Count 271 K/mcL (140-400); Red Blood Count 3.41 M/mcL (3.82-4.97); Red Cell Distribution Width 13.8 % (11.5-14.5); Segmented Neutrophils % 75.6 %
[2016-11-16 05:16] LABS: Hemoglobin 11.3 g/dL (11.5-15.4)
[2016-11-16 05:17] LABS: Activated Partial Thrombo Time 29.2 Seconds (26.0-36.0)
[2016-11-16 05:23] LABS: Alanine Aminotransferase 21 Units/L (0-55); Albumin 2.8 g/dL (3.5-5.0); Alkaline Phosphatase 81 Units/L (38-126); Aspartate Amino Transferase 21 Units/L (5-34); BUN/Creatinine Ratio 24 (6-26); Bilirubin,Direct 0.4 mg/dL (0.0-0.5); Bilirubin,Indirect 0.4 mg/dL (0.0-1.2); Bilirubin,Total 0.8 mg/dL (0.2-1.2); Blood Urea Nitrogen 22 mg/dL (7-20); Calcium 9.2 mg/dL (8.6-10.8); Carbon Dioxide 25 mEq/L (19-29); Chloride 101 mEq/L (98-109); Globulin 2.8 g/dL (2.4-3.5); Glucose 116 mg/dL (70-99); Osmolality,Calculated 284 (280-300); Sodium 135 mEq/L (136-145); Total Protein 5.6 g/dL (6.0-8.3); eGFR For African Americans > 60 (> 60); eGFR For Non-African Americans 59 (> 60)
[2016-11-16 05:25] LABS: Potassium 5.3 mEq/L (3.5-4.5)
[2016-11-16 06:04] LABS: Bilirubin,Urine Small (Negative); Blood,Urine Negative (Negative); Clarity,Urine Clear (Clear); Color,Urine Dark Yellow (Yellow); Glucose,Urine (UA) Normal (Normal); Ketones,Urine Negative (Negative); Leukocyte Esterase,Urine Negative (Negative); Nitrite,Urine Negative (Negative); PH,Urine 6.5 pH Units (5.0-8.0); Protein,Urine Negative (Neg-Trace); Specific Gravity,Urine 1.016 (1.010-1.025)
[2016-11-16 06:12] LABS: Amphetamine Screen,Urine Negative ng/mL (Cutoff=1000); Barbiturate Screen,Urine Negative ng/mL (Cutoff=200); Benzodiazepines Screen,Urine Negative ng/mL (Cutoff=200); Cannabinoid Screen,Urine Negative ng/mL (Cutoff = 50); Cocaine Screen,Urine Negative ng/mL (Cutoff= 300); Opiate Screen,Urine Positive ng/mL (Cutoff=300); Phencyclidine Screen,Urine Negative ng/mL (Cutoff=25)
[2016-11-16] MEDS ORDERED: Naloxone 0.4 MG/ML INJ IVP PRN (07:37)
[2016-11-16] MEDS ORDERED: Acetaminophen 325 MG TABLET PO PRN (07:37)
--- NOTE | 2016-11-16 09:09 | Internal Med History&Physical ---
Date of Encounter: 11/16/16 Time of Encounter: 09:00 Assessment and Plan (1) Altered mental status Current visit: Yes Status: Acute Patient with altered mental status that is now improving. Likely related to opiate use. Will monitor overnight in the hospital. Reevaluate in the morning and patient may be discharged if she continues to improve. Does not have any underlying signs of infection. Chest x-ray shows left basilar atelectasis versus pneumonia. However patient does not have any fever or chills or cough. Will hold off on starting antibiotics at this time. If she does develop fever, or other signs of infection we will start antibiotics to cover for pneumonia. Qualifiers: Altered mental status type: somnolence Qualified Code(s): R40.0 - Somnolence (2) Chronic hyponatremia Current visit: Yes Status: Chronic Stable chronic hyponatremia. Will follow sodium levels. (3) Atrial fibrillation Current visit: No Status: Chronic rate controlled and with atrial pacemaker. Not on anticoagulation Qualifiers: Atrial fibrillation type: chronic Qualified Code(s): I48.2 - Chronic atrial fibrillation (4) CAD (coronary artery disease) Current visit: No Status: Chronic No chest pain and this time. Continue home medications for this condition. Qualifiers: Coronary Disease-Associated Artery/Lesion type: [place] artery [place] vs. transplanted heart: [place] heart Associated angina: without angina Qualified Code(s): I25.10 - Atherosclerotic heart disease of [place] coronary artery without angina pectoris (5) COPD (chronic obstructive pulmonary disease) Current visit: No Status: Chronic We will use bronchodilator nebs as needed. Not in acute exacerbation. Qualifiers: COPD type: emphysema Emphysema type: unspecified Qualified Code(s): J43.9 - Emphysema, unspecified (6) HTN (hypertension) Current visit: No Status: Chronic Continue home medications. Monitor blood pressure closely. Qualifiers: Hypertension type: essential hypertension Qualified Code(s): I10 - Essential (primary) hypertension Internal Medicine - H&P: HPI Chief complaint: Conclusion Admitted From: Emergency Dept Plans for Post Hospital Care: Transfer [facility] History of present illness: Ms. Duke is a 86 year old female patient who is attentive care home for skilled rehabilitation following recent left hip fracture status post hemiarthroplasty, coronary artery disease, hypertension was brought into the ER after she was found to be confused and drowsy this morning that was unusual for her. Patient is currently awake and alert and does not remember the events prior to her being brought in. She does report eating breakfast afterwards. She remembers that she did Friday today and she is at [facility]. Denies any pain anywhere. No nausea or vomiting. No fever or chills reported. Denies any weakness or numbness. According to the ED records, patient has some slowed speech earlier. She also has tremors which are chronic bilaterally in upper extremities. Past Med Surg Social Fam HX - Past Medical History Attestation: Yes The following information was validated with the patient. Source: old records reviewed, obtained from family Medical history: arthritis, atrial fibrillation, COPD, coronary artery disease, DVT, GERD, hyperlipidemia, hypertension, myocardial infarction, syncope Psychiatric history: anxiety, depression - Past Surgical History Surgical History: angioplasty/stent, appendectomy, cataract, cholecystectomy, coronary bypass (CABG), pacemaker/AICD - Social History Smoking Status: Unknown if ever smoked Smokeless Tobacco Status: No Alcohol use: none Drug use: none - Family History Father Living Status: Hx Family Cardiac Disorders: Yes (HEART PROBEMS, [place]) Mother Living Status: Hx Family Respiratory Disorders: Yes ( of pneumonia) Internal Medicine - H&P: Meds Aspirin 81 mg PO DAILY 08/23/15 [History] Clopidogrel [Plavix] 75 mg PO DAILY 08/23/15 [History] Isosorbide MONOnitrate (24 HR) [Imdur] 180 mg PO DAILY 08/23/15 [History] Pantoprazole Sodium [Protonix] 40 mg PO DAILY #0 08/23/15 [History] Potassium Chloride [K-Tab ER] 10 meq PO BID 08/23/15 [History] Pravastatin Sodium [Pravachol] 80 mg PO DAILY 08/23/15 [History] Carvedilol [Coreg] 12.5 mg PO BID 03/14/16 [History] Cyanocobalamin (Vitamin B-12) [Vitamin B-12] 100 mcg PO DAILY 03/14/16 [History] Docusate [Colace] 100 mg PO BID PRN 03/14/16 [History] Ergocalciferol (VITAMIN D2) [Vitamin D] 800 unit PO DAILY 03/14/16 [History] Loratadine [Claritin] 10 mg PO DAILY 03/14/16 [History] Losartan/Hydrochlorothiazide [Losartan-Hctz 100-12.5 mg Tab] 1 tab PO DAILY 02/19 [History] Nitroglycerin [Nitrostat] 0.4 mg SL AD PRN 03/31/16 [History] Ranolazine [Ranexa] 1,000 mg PO BID 03/31/16 [History] FluocinoLONE Acet 0.025% CRM [Fluocinolone Acet 0.025% CRM] 1 appl TP BID PRN [History] Sertraline [Zoloft] 50 mg PO DAILY 10/28/16 [History] Aspirin Enteric Coated [Aspirin EC] 325 mg PO BID tablet. 11/02/16 [Rx] OxyCODONE/APAP 7.5/325 [Percocet 7.5/325 MG] 1 each PO Q4HR PRN #20 tablet 11/02 [Rx] Allergies simvastatin [From Zocor] Allergy (Verified 04/18/16 10:03) Anaphylaxis atorvastatin [From Lipitor] Adverse Reaction (Verified 04/18/16 10:03) Anxiety enalaprilat [From Vasotec] Adverse Reaction (Verified 04/18/16 10:03) Hives All Systems PM: A 10-system review of systems was performed and is negative for pertinent findings except as documented above in the HPI. - Constitutional Constitutional: no chills, no fever(s), no night sweats - EENT Eyes: no change in vision, no discharge, no pain, no photophobia Ears: no ear discharge, no ear pain, no tinnitus Nose, mouth and throat: no dysphagia, no nasal discharge, no neck pain, no sore throat - Cardiovascular Cardiovascular ROS IM: no chest pain, no diaphoresis, no dyspnea, no lightheadedness, no palpitations, no syncope - Respiratory Respiratory: no cough, no dyspnea, no wheezing, no excessive phlegm production - Gastrointestinal Gastrointestinal: no abdominal pain, no diarrhea, no hematemesis, no hematochezia, no melena, no nausea, no vomiting - Genitourinary Genitourinary: no change in urinary stream, no dysuria, no flank pain, no hematuria - Musculoskeletal Musculoskeletal ROS IM: no numbness, no tingling - Integumentary Integumentary IM: no rash, no unusual bruising - Neurological Neurological ROS: confusion, no convulsions, no focal weakness, no numbness, no tingling, no tremor(s) - Hematologic/Lymphatic Hematologic/Lymphatic: no easy bruising - Constitutional Vitals: Temp Pulse Resp BP Pulse Ox 98.9 F 61 16 114/51 98 11/16/16 04:41 11/16/16 07:16 11/16/16 08:12 11/16/16 08:12 11/16/16 07:16 General appearance: Present: cooperative, A&O X 2, pleasant, no acute distress, answers questions appropriately - Eye Eye exam: Present: EOMI, PERRL, conjuntiva pink, sclera anicteric - Neck Neck exam general surgery: Present: supple, trachea midline. Absent: lymphadenopathy - Respiratory Respiratory exam: Present: CTAB. Absent: accessory muscle use, rales, rhonchi, wheezes - Cardiovascular Cardiovascular exam: Present: RRR, +S1, +S2. Absent: diastolic murmur, gallop, rubs, systolic murmur - GI/Abdominal GI/Abdominal exam: Present: normal bowel sounds, soft, no peritoneal signs. Absent: distended, tenderness - Extremities Exam Extremities exam: Present: warm, radial pulses palpable and symetrical. Absent : calf tenderness, cyanotic, pedal edema - Neurological Exam Neurological exam: Present: alert, CN II-XII intact, no focal deficits, strengths equal and symetr throughout. Absent: facial droop, speech deficit - Skin Skin exam: Present: dry, intact Internal Med - H&P Results - Labs CBC & Chem 7: 11/16/16 04:59 11/16/16 04:59 - Impressions Impressions Chest X-Ray 11/16/16 04:53 IMPRESSION: Left basilar atelectasis versus pneumonia. D/ / Edmundo Martini MD / Edmundo Martini MD Interpreting Provider: Edmundo Martini MD Head CT 11/16/16 04:54 IMPRESSION: No acute intracranial abnormality. D/ / Kat Coe MD / Kat Coe MD Interpreting Provider: Kat Coe MD - Attending Attestation This document has been at least partially created by [email or web address] recognition technology by Dr. Osei. Errors in grammar, wording or other phrases may exist. If errors are found after the documentation is signed, they will be addressed individually in the addendum section of this document when appropriate.
[2016-11-16] MEDS ORDERED: Ipratropium/Albuterol Neb 3 ML IH PRN (09:18)
[2016-11-16] MEDS ORDERED: 0.9 % Sodium Chloride 1,000 ML IVC SCH (09:30)
[2016-11-16] MEDS ORDERED: Nitroglycerin 0.4 MG TAB.SUBL SL PRN (17:37)
[2016-11-16] MEDS ORDERED: FluocinoLONE Acet 0.025% CRM 15 GM TUBE TP PRN (17:37)
[2016-11-16] MEDS: *HR* Heparin 5,000 UNIT/ML VIAL SQ SCH (18:33)
[2016-11-16] MEDS: Ranolazine 500 MG TAB.ER.12H PO SCH (20:06)
[2016-11-16] MEDS: Aspirin Enteric Coated 325 MG Tablet PO SCH (20:07)
[2016-11-17 01:48] LABS: Adenovirus Not Detected (Not Detect); Coronavirus 229E Not Detected (Not Detect); Coronavirus HKU1 Not Detected (Not Detect); Coronavirus NL63 Not Detected (Not Detect); Coronavirus OC43 Not Detected (Not Detect); Human Metapneumovirus Not Detected (Not Detect); Human Rhinovirus/Enterovirus Not Detected (Not Detect); Influenza A Subtype 2009 H1 Not Detected (Not Detect); Influenza A Untypeable Not Detected (Not Detect); Influenza B Not Detected (Not Detect); Parainfluenza Virus 1 Not Detected (Not Detect); Parainfluenza Virus 2 Not Detected (Not Detect); Parainfluenza Virus 3 Not Detected (Not Detect); Parainfluenza Virus 4 Not Detected (Not Detect); Respiratory Syncytial Virus Not Detected (Not Detect)
[2016-11-17 01:49] LABS: Bordetella Pertussis Not Detected (Not Detect); Chlamydophila pneumoniae Not Detected (Not Detect); Mycoplasma pneumoniae Not Detected (Not Detect)
[2016-11-17] MEDS: *HR* Heparin 5,000 UNIT/ML VIAL SQ SCH ×2 (05:37→17:16)
[2016-11-17 05:43] LABS: Basophils % 0.6 %; Eosinophils # 0.1 K/mcL (0.0-0.6); Eosinophils % 2.6 %; Hematocrit 30.4 % (35.3-44.9); Immature Granulocytes % 0.6 % (0-4); Lymphocytes # 1.4 K/mcL (0.6-4.6); Lymphocytes % 25.8 %; Mean Corpuscular HGB Conc 32.9 g/dL (31.6-35.5); Mean Corpuscular Hemoglobin 32.1 pg (28.0-33.3); Mean Corpuscular Volume 97.4 fL (83.0-100.0); Mean Platelet Volume 9.2 fL (9.4-12.4); Monocytes # 0.3 K/mcL (0.0-1.3); Monocytes % 5.6 %; Neutrophils # 3.5 K/mcL (1.6-8.9); Platelet Count 222 K/mcL (140-400); Red Blood Count 3.12 M/mcL (3.82-4.97); Red Cell Distribution Width 13.7 % (11.5-14.5); Segmented Neutrophils % 64.8 %
[2016-11-17 05:56] LABS: BUN/Creatinine Ratio 22 (6-26); Blood Urea Nitrogen 17 mg/dL (7-20); Calcium 8.7 mg/dL (8.6-10.8); Carbon Dioxide 22 mEq/L (19-29); Chloride 105 mEq/L (98-109); Glucose 102 mg/dL (70-99); Osmolality,Calculated 282 (280-300); Sodium 135 mEq/L (136-145); eGFR For African Americans > 60 (> 60); eGFR For Non-African Americans > 60 (> 60)
[2016-11-17] MEDS: Losartan/HCTZ 50-12.5 TABLET PO SCH (07:35)
[2016-11-17] MEDS: Ranolazine 500 MG TAB.ER.12H PO SCH ×2 (07:36→21:35)
[2016-11-17] MEDS: Isosorbide MONOnitrate (24 HR) 60 MG TAB.ER.24H PO SCH (07:36)
[2016-11-17] MEDS: Aspirin Enteric Coated 325 MG Tablet PO SCH ×2 (07:36→21:35)
[2016-11-17] MEDS: Cyanocobalamin (B-12) 1,000 MCG TABLET PO SCH (07:36)
[2016-11-17] MEDS: Loratadine 10 MG TABLET PO SCH (07:37)
[2016-11-17] MEDS: Cholecalciferol (D-3) 1,000 UNIT TABLET PO SCH (07:37)
[2016-11-17] MEDS: (Pravastatin Sodium [Pravachol] 80 MG) PO SCH (07:44)
--- NOTE | 2016-11-17 12:40 | Electrocardiograph Report ---
[address] [address] Test Date: 2016-11-16 Pat Name: Martha Duke Department: 102 Room: 3A13 Gender: F Behavioral Health Technician: : 1930 Requested By: Nathaniel Scruggs Order Number: [id number] Reading MD: Gold Pritchard Measurements Intervals [place] Rate: 60 P: -79 NM: 257 QRS: 17 QRSD: 98 T: -6 QT: 429 QTc: 429 Interpretive Statements ELECTRONIC ATRIAL PACEMAKER POSSIBLE INFERIOR MYOCARDIAL INFARCTION, PROBABLY OLD ABNORMAL RHYTHM ECG Electronically Signed On 11-17-2016 12:38:55 EDT by Gold Pritchard
--- NOTE | 2016-11-17 16:25 | Internal Med Progress Note ---
Date of Encounter: 11/17/16 Time of Encounter: 10:45 - Assessment and plan (1) COPD (chronic obstructive pulmonary disease) Current Visit: No Status: Chronic Assessment and plan: No acute exacerbation. Will continue home medications. Qualifiers: COPD type: emphysema Emphysema type: unspecified Qualified Code(s): J43.9 - Emphysema, unspecified (2) HTN (hypertension) Current Visit: No Status: Chronic Assessment and plan: Chronic. Continue home medications. Qualifiers: Hypertension type: essential hypertension Qualified Code(s): I10 - Essential (primary) hypertension (3) CAD (coronary artery disease) Current Visit: No Status: Chronic Assessment and plan: Chronic. Continue home medications. Patient takes statin, aspirin, beta miranda. Qualifiers: Coronary Disease-Associated Artery/Lesion type: [place] artery [place] vs. transplanted heart: [place] heart Associated angina: without angina Qualified Code(s): I25.10 - Atherosclerotic heart disease of [place] coronary artery without angina pectoris (4) Atrial fibrillation Current Visit: No Status: Chronic Assessment and plan: Patient has atrial pacemaker. Is not on anticoagulation. Qualifiers: Atrial fibrillation type: chronic Qualified Code(s): I48.2 - Chronic atrial fibrillation (5) Altered mental status Current Visit: Yes Status: Acute Assessment and plan: Patient lives in a long term and is therefore rehabilitation for hip surgery. She was brought in last night her altered mental status, jerking and twitching of her upper extremities. There is no jerking or twitching today. There is little change this morning in what was described in the ER note. Patient does arouse easily to verbal, however, she does not open her eyes. She does answer questions appropriately but then tells me very faintly in a soft voice that she is too sleepy and needs to go to sleep. Chest x-ray shows left basilar atelectasis versus pneumonia. She does have COPD. She has no fever or tachycardia, no leukocytosis, no hypoxia. Legionella and strep pneumo are negative, RIP is also negative. Urine is negative as well. Head CT shows no acute intracranial abnormality. EKG shows a paced rhythm. Rate of 60, AK interval 257, QTC 429. Primary nurse states the patient is alert and awake for her, however, patient makes inappropriate comments after appearing to be alert and oriented. She has conversations with people who are not in the room and makes comments about pretty flags on the wall when there is nothing there. I will order an MRI and we will continue to monitor the patient. Qualifiers: Altered mental status type: somnolence Qualified Code(s): R40.0 - Somnolence (6) Chronic hyponatremia Current Visit: Yes Status: Chronic Assessment and plan: Chronic. Sodium 135 today. We will continue to monitor. - Time Spent With Patient less than 15 minutes - Constitutional Vitals: Temp Pulse Resp BP Pulse Ox 98.2 F 60 14 114/57 97 11/17/16 14:51 11/17/16 14:51 11/17/16 14:51 11/17/16 14:51 11/17/16 14:51 General appearance: Present: pleasant, no acute distress, answers questions appropriately - Head Head exam: Present: normal inspection - Eye Eye exam: Present: normal appearance, conjuntiva pink - ENT ENT exam: Present: mucous membranes moist, normal exam, normal external ear exam - Neck Neck exam general surgery: Present: normal inspection. Absent: lymphadenopathy , tenderness - Respiratory Respiratory exam: Present: CTAB. Absent: rhonchi, wheezes - Cardiovascular Cardiovascular exam: Present: RRR, +S1, +S2. Absent: diastolic murmur, systolic murmur - GI/Abdominal GI/Abdominal exam: Present: normal bowel sounds, soft. Absent: hepatomegaly, tenderness - Neurological Exam Neurological exam: Present: alert, altered, no focal deficits. Absent: facial droop, speech deficit Internal Medicine: Result - Labs CBC & Chem 7: 11/17/16 05:02 11/17/16 05:02 Labs: Short CBC 11/17/16 Range/Units 05:02 WBC 5.4 (4.3-11.1) K/mcL Hgb 10.0 L (11.5-15.4) g/dL Hct 30.4 L (35.3-44.9) % Plt Count 222 (140-400) K/mcL Neutrophils # 3.5 (1.6-8.9) K/mcL BMP 11/17/16 05:02 Sodium 135 L Potassium 4.0 D Chloride 105 Carbon Dioxide 22 BUN 17 Creatinine 0.77 Glucose 102 H Calcium 8.7 - ABG Interpretation ABG results: PT/INR, D-dimer PT 11.0 Seconds (9.4-12.1) 11/16/16 04:59 Consult Discharge Plan - Plan Referrals: Joe Berkowitz MD [Primary Care Provider] -
[2016-11-18 03:31] LABS: Basophils % 0.4 %; Eosinophils # 0.1 K/mcL (0.0-0.6); Hematocrit 25.5 % (35.3-44.9); Hemoglobin 8.5 g/dL (11.5-15.4); Immature Granulocytes % 0.3 % (0-4); Lymphocytes # 1.7 K/mcL (0.6-4.6); Lymphocytes % 24.2 %; Mean Corpuscular HGB Conc 33.3 g/dL (31.6-35.5); Mean Corpuscular Hemoglobin 32.1 pg (28.0-33.3); Mean Corpuscular Volume 96.2 fL (83.0-100.0); Mean Platelet Volume 9.2 fL (9.4-12.4); Monocytes # 0.4 K/mcL (0.0-1.3); Monocytes % 5.6 %; Neutrophils # 4.7 K/mcL (1.6-8.9); Platelet Count 220 K/mcL (140-400); Red Blood Count 2.65 M/mcL (3.82-4.97); Red Cell Distribution Width 13.9 % (11.5-14.5); Segmented Neutrophils % 68.5 %
[2016-11-18 03:43] LABS: BUN/Creatinine Ratio 23 (6-26); Blood Urea Nitrogen 16 mg/dL (7-20); Calcium 8.5 mg/dL (8.6-10.8); Carbon Dioxide 22 mEq/L (19-29); Chloride 104 mEq/L (98-109); Glucose 111 mg/dL (70-99); Osmolality,Calculated 282 (280-300); Potassium 3.1 mEq/L (3.5-4.5); Sodium 135 mEq/L (136-145); eGFR For African Americans > 60 (> 60); eGFR For Non-African Americans > 60 (> 60)
[2016-11-18] MEDS: *HR* Heparin 5,000 UNIT/ML VIAL SQ SCH ×2 (06:07→17:16)
[2016-11-18] MEDS: Aspirin Enteric Coated 325 MG Tablet PO SCH ×2 (07:32→20:57)
[2016-11-18] MEDS: Loratadine 10 MG TABLET PO SCH (07:32)
[2016-11-18] MEDS: Isosorbide MONOnitrate (24 HR) 60 MG TAB.ER.24H PO SCH (07:33)
[2016-11-18] MEDS: Cyanocobalamin (B-12) 1,000 MCG TABLET PO SCH (07:33)
[2016-11-18] MEDS: Ranolazine 500 MG TAB.ER.12H PO SCH ×2 (07:33→20:57)
[2016-11-18] MEDS: Losartan/HCTZ 50-12.5 TABLET PO SCH (07:33)
[2016-11-18] MEDS: (Pravastatin Sodium [Pravachol] 80 MG) PO SCH (07:33)
[2016-11-18] MEDS: Cholecalciferol (D-3) 1,000 UNIT TABLET PO SCH (07:34)
[2016-11-18 11:49] LABS: % Iron Saturation 48 % (15-50); Iron 106 mcg/dL (50-170); Transferrin 157 mg/dL (180-382)
[2016-11-18] MEDS: 0.9 % Sodium Chloride 1,000 ML IVC SCH (11:51)
[2016-11-18 12:29] LABS: Folate 14.1 ng/mL (7.0-31.4)
--- NOTE | 2016-11-18 15:34 | Internal Med History&Physical ---
Date of Encounter: 11/18/16 Assessment and Plan (1) COPD (chronic obstructive pulmonary disease) Current visit: No Status: Chronic Qualifiers: COPD type: emphysema Emphysema type: unspecified Qualified Code(s): J43.9 - Emphysema, unspecified (2) HTN (hypertension) Current visit: No Status: Chronic Qualifiers: Hypertension type: essential hypertension Qualified Code(s): I10 - Essential (primary) hypertension (3) CAD (coronary artery disease) Current visit: No Status: Chronic Qualifiers: Coronary Disease-Associated Artery/Lesion type: [place] artery [place] vs. transplanted heart: [place] heart Associated angina: without angina Qualified Code(s): I25.10 - Atherosclerotic heart disease of [place] coronary artery without angina pectoris (4) Atrial fibrillation Current visit: No Status: Chronic Qualifiers: Atrial fibrillation type: chronic Qualified Code(s): I48.2 - Chronic atrial fibrillation (5) Altered mental status Current visit: Yes Status: Acute Qualifiers: Altered mental status type: somnolence Qualified Code(s): R40.0 - Somnolence (6) Chronic hyponatremia Current visit: Yes Status: Chronic Internal Medicine - H&P: HPI History of present illness: Ms. Duke is a 86 year old female Past Med Surg Social Fam HX - Past Medical History Medical history: arthritis, atrial fibrillation, COPD, coronary artery disease, DVT, GERD, hyperlipidemia, hypertension, myocardial infarction, syncope Psychiatric history: anxiety, depression - Past Surgical History Surgical History: angioplasty/stent, appendectomy, cataract, cholecystectomy, coronary bypass (CABG), pacemaker/AICD - Social History Smoking Status: Unknown if ever smoked Smokeless Tobacco Status: No Alcohol use: none Drug use: none - Family History Father Living Status: Hx Family Cardiac Disorders: Yes (HEART PROBEMS, [place]) Mother Living Status: Hx Family Respiratory Disorders: Yes ( of pneumonia) Internal Medicine - H&P: Meds Clopidogrel [Plavix] 75 mg PO DAILY 08/23/15 [History] Isosorbide MONOnitrate (24 HR) [Imdur] 180 mg PO DAILY 08/23/15 [History] Pantoprazole Sodium [Protonix] 40 mg PO DAILY #0 08/23/15 [History] Potassium Chloride [K-Tab ER] 10 meq PO BID 08/23/15 [History] Pravastatin Sodium [Pravachol] 80 mg PO DAILY 08/23/15 [History] Carvedilol [Coreg] 12.5 mg PO BID 03/14/16 [History] Cyanocobalamin (Vitamin B-12) [Vitamin B-12] 100 mcg PO DAILY 03/14/16 [History] Docusate [Colace] 100 mg PO BID PRN 03/14/16 [History] Ergocalciferol (VITAMIN D2) [Vitamin D] 800 unit PO DAILY 03/14/16 [History] Loratadine [Claritin] 10 mg PO DAILY 03/14/16 [History] Losartan/Hydrochlorothiazide [Losartan-Hctz 100-12.5 mg Tab] 1 tab PO DAILY 02/19 [History] Nitroglycerin [Nitrostat] 0.4 mg SL AD PRN 03/31/16 [History] Ranolazine [Ranexa] 1,000 mg PO BID 03/31/16 [History] FluocinoLONE Acet 0.025% CRM [Fluocinolone Acet 0.025% CRM] 1 appl TP BID PRN [History] Sertraline [Zoloft] 75 mg PO DAILY 10/28/16 [History] Aspirin Enteric Coated [Aspirin EC] 325 mg PO BID tablet. 11/02/16 [Rx] OxyCODONE/APAP 7.5/325 [Percocet 7.5/325 MG] 1 tab PO Q4HR PRN 11/16/16 [History ] Allergies simvastatin [From Zocor] Allergy (Verified 04/18/16 10:03) Anaphylaxis atorvastatin [From Lipitor] Adverse Reaction (Verified 04/18/16 10:03) Anxiety enalaprilat [From Vasotec] Adverse Reaction (Verified 04/18/16 10:03) Hives All Systems PM: A 10-system review of systems was performed and is negative for pertinent findings except as documented above in the HPI. - Constitutional Vitals: Temp Pulse Resp BP Pulse Ox 99.8 F H 61 14 112/59 97 11/18/16 14:40 11/18/16 14:40 11/18/16 14:40 11/18/16 14:40 11/18/16 14:40 General appearance: Present: pleasant, no acute distress, answers questions appropriately Internal Med - H&P Results - Labs CBC & Chem 7: 05/15/17 02:32 11/18/16 02:32 Labs: Short CBC 11/18/16 Range/Units 02:32 WBC 6.8 (4.3-11.1) K/mcL Hgb 8.5 L D (11.5-15.4) g/dL Hct 25.5 L (35.3-44.9) % Plt Count 220 (140-400) K/mcL Neutrophils # 4.7 (1.6-8.9) K/mcL BMP 11/18/16 02:32 Sodium 135 L Potassium 3.1 L Chloride 104 Carbon Dioxide 22 BUN 16 Creatinine 0.71 Glucose 111 H Calcium 8.5 L
--- NOTE | 2016-11-18 15:44 | Internal Med Progress Note ---
Date of Encounter: 11/18/16 Time of Encounter: 11:00 - Assessment and plan (1) Altered mental status Current Visit: Yes Status: Acute Assessment and plan: Pt is alert today and oriented to name and place, but states that she lives with her daughter and does not live in an ECF. Pt is still drowsy today, but is considerably better than yesterday. There is no jerking or twitching today. Her speech is clear. She answers questions appropriately. I had ordered an MRI brain, which I cancelled this a.m. due to her improvement. She does have a pacer that will require a [employer] player services representative to set if it needs to be reordered. construction technician has the settings that were set by Dr. Pritchard. Patient is not taking any sedating medications. Chest x-ray shows left basilar atelectasis versus pneumonia. She does have COPD. She has no fever or tachycardia, no leukocytosis, no hypoxia. Legionella and strep pneumo are negative, RIP is also negative. Urine is negative as well. Head CT shows no acute intracranial abnormality. EKG shows a paced rhythm. Rate of 60, ME interval 257, QTC 429. Primary nurse states the patient is alert and awake for her, however, patient makes inappropriate comments after appearing to be alert and oriented. She has conversations with people who are not in the room and makes comments about pretty flags on the wall when there is nothing there. I will order an MRI and we will continue to monitor the patient. Qualifiers: Altered mental status type: somnolence Qualified Code(s): R40.0 - Somnolence (2) COPD (chronic obstructive pulmonary disease) Current Visit: No Status: Chronic Assessment and plan: No acute exacerbation. Will continue home medications. Qualifiers: COPD type: emphysema Emphysema type: unspecified Qualified Code(s): J43.9 - Emphysema, unspecified (3) HTN (hypertension) Current Visit: No Status: Chronic Assessment and plan: Chronic. Continue home medications. Well controlled in inpt setting. Qualifiers: Hypertension type: essential hypertension Qualified Code(s): I10 - Essential (primary) hypertension (4) CAD (coronary artery disease) Current Visit: No Status: Chronic Assessment and plan: Chronic. Continue home medications. Patient takes statin, aspirin, beta miranda. Continue at discharge. Pt denies pain. Qualifiers: Coronary Disease-Associated Artery/Lesion type: [place] artery [place] vs. transplanted heart: [place] heart Associated angina: without angina Qualified Code(s): I25.10 - Atherosclerotic heart disease of [place] coronary artery without angina pectoris (5) Atrial fibrillation Current Visit: No Status: Chronic Assessment and plan: Patient has atrial pacemaker. Is not on anticoagulation. Telemetry. Monitor Pt and vitals Qualifiers: Atrial fibrillation type: chronic Qualified Code(s): I48.2 - Chronic atrial fibrillation (6) Chronic hyponatremia Current Visit: Yes Status: Chronic Assessment and plan: Remains stable at 135. Continue to monitor. - Constitutional Vitals: Temp Pulse Resp BP Pulse Ox 99.8 F H 61 14 112/59 97 11/18/16 14:40 11/18/16 14:40 11/18/16 14:40 11/18/16 14:40 11/18/16 14:40 General appearance: Present: A&O X 2, pleasant, no acute distress, answers questions appropriately - Head Head exam: Present: normal inspection - Eye Eye exam: Present: normal appearance, conjuntiva pink - ENT ENT exam: Present: mucous membranes moist, normal exam, normal external ear exam - Neck Neck exam general surgery: Present: normal inspection. Absent: lymphadenopathy , tenderness - Respiratory Respiratory exam: Present: decreased breath sounds, CTAB. Absent: rales, respiratory distress, rhonchi, wheezes - Cardiovascular Cardiovascular exam: Present: RRR, +S1, +S2. Absent: diastolic murmur, systolic murmur - GI/Abdominal GI/Abdominal exam: Present: normal bowel sounds, soft. Absent: distended, firm , hepatomegaly, tenderness - Extremities Exam Extremities exam: Present: normal capillary refill, normal inspection, warm, radial pulses palpable and symetrical. Absent: mottling, pedal edema, tenderness - Neurological Exam Neurological exam: Present: alert, altered, no focal deficits, strengths equal and symetr throughout. Absent: pronater drift, facial droop, speech deficit Internal Medicine: Result - Labs CBC & Chem 7: 11/18/16 02:32 11/18/16 02:32 Labs: Short CBC 11/18/16 Range/Units 02:32 WBC 6.8 (4.3-11.1) K/mcL Hgb 8.5 L D (11.5-15.4) g/dL Hct 25.5 L (35.3-44.9) % Plt Count 220 (140-400) K/mcL Neutrophils # 4.7 (1.6-8.9) K/mcL BMP 11/18/16 02:32 Sodium 135 L Potassium 3.1 L Chloride 104 Carbon Dioxide 22 BUN 16 Creatinine 0.71 Glucose 111 H Calcium 8.5 L - ABG Interpretation ABG results: PT/INR, D-dimer PT 11.0 Seconds (9.4-12.1) 11/16/16 04:59 Consult Discharge Plan - Plan Referrals: Joe Berkowitz MD [Primary Care Provider] -
[2016-11-18 17:35] LABS: Basophils % 0.4 %; Eosinophils # 0.1 K/mcL (0.0-0.6); Eosinophils % 2.1 %; Hematocrit 23.1 % (35.3-44.9); Immature Granulocytes % 0.4 % (0-4); Lymphocytes # 1.2 K/mcL (0.6-4.6); Lymphocytes % 26.1 %; Mean Corpuscular HGB Conc 34.6 g/dL (31.6-35.5); Mean Corpuscular Hemoglobin 33.2 pg (28.0-33.3); Mean Corpuscular Volume 95.9 fL (83.0-100.0); Mean Platelet Volume 9.1 fL (9.4-12.4); Monocytes # 0.3 K/mcL (0.0-1.3); Monocytes % 6.6 %; Platelet Count 203 K/mcL (140-400); Red Blood Count 2.41 M/mcL (3.82-4.97); Red Cell Distribution Width 14.1 % (11.5-14.5); Segmented Neutrophils % 64.4 %
[2016-11-18 17:46] LABS: BUN/Creatinine Ratio 21 (6-26); Blood Urea Nitrogen 15 mg/dL (7-20); Calcium 8.2 mg/dL (8.6-10.8); Carbon Dioxide 19 mEq/L (19-29); Chloride 106 mEq/L (98-109); Glucose 109 mg/dL (70-99); Osmolality,Calculated 281 (280-300); Potassium 3.3 mEq/L (3.5-4.5); Sodium 135 mEq/L (136-145); eGFR For African Americans > 60 (> 60); eGFR For Non-African Americans > 60 (> 60)
[2016-11-19] MEDS: *HR* Heparin 5,000 UNIT/ML VIAL SQ SCH ×2 (05:50→17:27)
[2016-11-19] MEDS: 0.9 % Sodium Chloride 1,000 ML IVC SCH (07:00)
[2016-11-19] MEDS: Loratadine 10 MG TABLET PO SCH (07:36)
[2016-11-19] MEDS: Aspirin Enteric Coated 325 MG Tablet PO SCH (07:36)
[2016-11-19] MEDS: Losartan/HCTZ 50-12.5 TABLET PO SCH (07:37)
[2016-11-19] MEDS: Ranolazine 500 MG TAB.ER.12H PO SCH ×2 (07:37→22:43)
[2016-11-19] MEDS: Isosorbide MONOnitrate (24 HR) 60 MG TAB.ER.24H PO SCH (07:37)
[2016-11-19] MEDS: (Pravastatin Sodium [Pravachol] 80 MG) PO SCH (07:37)
[2016-11-19] MEDS: Cyanocobalamin (B-12) 1,000 MCG TABLET PO SCH (07:38)
[2016-11-19] MEDS: Cholecalciferol (D-3) 1,000 UNIT TABLET PO SCH (07:38)
[2016-11-19] MEDS: Ondansetron 4 MG/2 ML VIAL IVP PRN ×2 (08:15→23:02)
[2016-11-19 09:33] LABS: Hematocrit 25.7 % (35.3-44.9); Hemoglobin 8.6 g/dL (11.5-15.4); Mean Corpuscular HGB Conc 33.5 g/dL (31.6-35.5); Mean Corpuscular Volume 98.5 fL (83.0-100.0); Mean Platelet Volume 8.8 fL (9.4-12.4); Platelet Count 182 K/mcL (140-400); Red Blood Count 2.61 M/mcL (3.82-4.97); Red Cell Distribution Width 14.5 % (11.5-14.5)
--- NOTE | 2016-11-19 12:15 | Gastroenterology Consult Note ---
<Fransisco Thorne - Last Filed: 11/19/16 12:13> Date of Encounter: 11/19/16 Time of Encounter: 11:00 - Assessment and plan (1) Anemia Current Visit: Yes Status: Acute Assessment and plan: Continue to monitor CBC and transfuse PRBC as needed. Hgb 11.3 on admission and 8 yesterday and today is Hgb 8.6. Iron is 106. EGD today to r/o esophagitis, gastritis, duodenitis, PUD, MW tear, or AVM. Qualifiers: Anemia type: unspecified type Qualified Code(s): D64.9 - Anemia, unspecified (2) Atrial fibrillation Current Visit: No Status: Chronic Assessment and plan: Management per primary team. Qualifiers: Atrial fibrillation type: chronic Qualified Code(s): I48.2 - Chronic atrial fibrillation (3) Altered mental status Current Visit: Yes Status: Acute Assessment and plan: Resolved. Qualifiers: Altered mental status type: somnolence Qualified Code(s): R40.0 - Somnolence - Time Spent With Patient Total time spent is greater than 50% in coordination of care (as documented) at patient's floor/unit and/or counseling patient: GI History of Present Illness - Data of Consult Patient: known to practice within the last 3 years Consult date: 11/19/16 Requesting Physician: Forrest Osei MD - Consult Narrative Reason for consult: anemia History of present illness: Ms. Duke is a 86 year old female with PMHx of Afib on Plavix, pacemaker, COPD, CAD, DVT, GERD, HLD, HTN, [place], and syncope who was brought to the ED from SNF after she was found confused and drowsy. Her mental status has improved since admission. We have been consulted for her anemia. Hgb 11.3 on admission and dropped to 8 yesterday. Iron WNL and FOBT ordered yesterday. She denies fever, chills, chest pain, abdominal pain, nausea, vomiting, melena, or hematochezia. Today, the patient is alert and oriented x3. She answers all my questions appropriately. Procedures: Colonoscopy 08/10/2014 Dr. Porter: Diverticulosis and hyperplastic polyp. ERCP 10/16/2011 Dr. Porter: Choledocholithiasis NSAIDs: ASA Anticoagulation: Plavix Past Med Surg Social Fam HX - Past Medical History Medical history: arthritis, atrial fibrillation, COPD, coronary artery disease, DVT, GERD, hyperlipidemia, hypertension, myocardial infarction, syncope Psychiatric history: anxiety, depression - Past Surgical History Surgical History: angioplasty/stent, appendectomy, cataract, cholecystectomy, coronary bypass (CABG), pacemaker/AICD - Social History Smoking Status: Unknown if ever smoked Smokeless Tobacco Status: No Alcohol use: none Drug use: none - Family History Father Living Status: Hx Family Cardiac Disorders: Yes (HEART PROBEMS, [place]) Mother Living Status: Hx Family Respiratory Disorders: Yes ( of pneumonia) - Gastrointestinal Gastrointestinal: Present: as per HPI - Constitutional Constitutional: as per HPI - EENT Eyes: as per HPI Ears: Present: as per HPI Nose, mouth and throat: Present: as per HPI - Cardiovascular Cardiovascular ROS: Present: as per HPI - Respiratory Respiratory IM: Present: as per HPI - Genitourinary Genitourinary: Absent: change in color, Urinary frequency - Neurological ROS Neurological GI: Present: as per HPI - Hematologic/Lymphatic Hematologic/Lymphatic pediatric: Present: as per HPI - Musculoskeletal Musculoskeletal ROS GI: Present: as per HPI - Integumentary Integumentary GI: Present: as per HPI - Psychiatric ROS Psychiatric GI: Present: as per HPI - Endocrine Endocrine IM: Present: as per HPI - Constitutional Vitals: Temp Pulse Resp BP Pulse Ox 97.8 F 65 14 111/64 96 11/19/16 11:17 11/19/16 11:17 11/19/16 11:17 11/19/16 11:17 11/19/16 11:17 General appearance: Present: cooperative, A&O X 3, no acute distress, answers questions appropriately - Head Head exam: Present: atraumatic, normocephalic - Eye Eye exam: Present: normal appearance, sclera anicteric - ENT ENT exam: Present: mucous membranes dry - Neck Neck exam general surgery: Present: normal inspection, trachea midline - Respiratory Respiratory exam: Present: decreased breath sounds, CTAB. Absent: rales, rhonchi - Cardiovascular Cardiovascular exam: Present: RRR, +S1, +S2 - GI/Abdominal GI/Abdominal exam: Present: soft, no peritoneal signs. Absent: distended, firm , guarding, tenderness - Rectal Rectal exam: Present: deferred - Extremities Exam Extremities exam: Present: warm - Neurological Exam Neurological exam: Present: no focal deficits - Psychiatric Psychiatric exam: Present: normal affect, normal mood - Skin Skin exam: Present: dry, intact, normal color, warm Results - Labs CBC & Chem 7: 11/19/16 09:26 11/18/16 17:12 Labs: Last Result Calcium 8.2 mg/dL (8.6-10.8) L 11/18/16 17:12 Iron 106 mcg/dL (50-170) 11/18/16 11:28 % Saturation 48 % (15-50) 11/18/16 11:28 Transferrin 157 mg/dL (180-382) L 11/18/16 11:28 Troponin I 0.00 ng/mL (0-0.03) 11/16/16 04:59 Vitamin B12 1485 pg/mL (213-816) H 11/18/16 11:28 Folate 14.1 ng/mL (7.0-31.4) 11/18/16 11:28 Urine Opiates Screen Positive ng/mL (Gofwcq=874) H 11/16/16 05:51 Entire Visit Hgb 8.6 g/dL (11.5-15.4) L 11/19/16 09:26 Hct 25.7 % (35.3-44.9) L 11/19/16 09:26 PT 11.0 Seconds (9.4-12.1) 11/16/16 04:59 Total Bilirubin 0.8 mg/dL (0.2-1.2) 11/16/16 04:59 AST 21 Units/L (5-34) 11/16/16 04:59 ALT 21 Units/L (0-55) 11/16/16 04:59 Folate 14.1 ng/mL (7.0-31.4) 11/18/16 11:28 - ABG ABG results: PT/INR, D-dimer PT 11.0 Seconds (9.4-12.1) 11/16/16 04:59 Consult Discharge Plan - Plan Referrals: Joe Berkowitz MD [Primary Care Provider] - <Solitario Porter - Last Filed: 11/19/16 14:48> Date of Encounter: 11/19/16 Time of Encounter: 14:30 - Time Spent With Patient Total time spent is greater than 50% in coordination of care (as documented) at patient's floor/unit and/or counseling patient: GI History of Present Illness - Data of Consult Requesting Physician: Forrest Osei MD - Consult Narrative History of present illness: Ms. Duke is a 86 year old female - Constitutional Vitals: Temp Pulse Resp BP Pulse Ox 98.7 F 61 14 148/58 93 11/19/16 14:44 11/19/16 14:44 11/19/16 11:17 11/19/16 14:44 11/19/16 14:44 Results - Labs CBC & Chem 7: 11/19/16 09:26 11/18/16 17:12 Labs: Last Result Calcium 8.2 mg/dL (8.6-10.8) L 11/18/16 17:12 Iron 106 mcg/dL (50-170) 11/18/16 11:28 % Saturation 48 % (15-50) 11/18/16 11:28 Transferrin 157 mg/dL (180-382) L 11/18/16 11:28 Troponin I 0.00 ng/mL (0-0.03) 11/16/16 04:59 Vitamin B12 1485 pg/mL (213-816) H 11/18/16 11:28 Folate 14.1 ng/mL (7.0-31.4) 11/18/16 11:28 Urine Opiates Screen Positive ng/mL (Bzmncl=130) H 11/16/16 05:51 Entire Visit Hgb 8.6 g/dL (11.5-15.4) L 11/19/16 09:26 Hct 25.7 % (35.3-44.9) L 11/19/16 09:26 PT 11.0 Seconds (9.4-12.1) 11/16/16 04:59 Total Bilirubin 0.8 mg/dL (0.2-1.2) 11/16/16 04:59 AST 21 Units/L (5-34) 11/16/16 04:59 ALT 21 Units/L (0-55) 11/16/16 04:59 Folate 14.1 ng/mL (7.0-31.4) 11/18/16 11:28 - ABG ABG results: PT/INR, D-dimer PT 11.0 Seconds (9.4-12.1) 11/16/16 04:59 - Attending Attestation I examined this patient and my medical decision-making was reviewed with the ONLINE PROJECT MANAGER/PA/Advanced Practice Nurse/Resident Physician. I agree with the documented findings, disposition and treatment plan as described except to the extent set forth below. Pt with anemia but no overt GI bleeding. Did have a significant drop in hemoglobin while in the hospital. Had last colonoscopy in 2013. Recommendation is an EGD to rule out peptic ulcer disease and other reason for her anemia and if negative then she will need a colonoscopy
--- NOTE | 2016-11-19 14:05 | Internal Med Progress Note ---
Date of Encounter: 11/19/16 Time of Encounter: 09:15 - Assessment and plan (1) Anemia Current Visit: Yes Status: Acute Assessment and plan: Hold aspirin, Plavix. Hemoglobin levels have stabilized compared to yesterday. GI has been consulted. Plan for upper GI endoscopy today. Moderate risk for complications. Qualifiers: Anemia type: unspecified type Qualified Code(s): D64.9 - Anemia, unspecified (2) Altered mental status Current Visit: Yes Status: Resolved Assessment and plan: This has now resolved. We will continue to monitor closely. Likely due to multi-factors including narcotic medication use Qualifiers: Altered mental status type: somnolence Qualified Code(s): R40.0 - Somnolence (3) Chronic hyponatremia Current Visit: Yes Status: Chronic Assessment and plan: This is chronic and stable (4) Atrial fibrillation Current Visit: No Status: Chronic Assessment and plan: Rate controlled. On aspirin twice daily for anticoagulation. Also having anemia with possible GI source of bleeding. We will hold aspirin for now. Awaiting upper GI endoscopy today. Qualifiers: Atrial fibrillation type: chronic Qualified Code(s): I48.2 - Chronic atrial fibrillation (5) CAD (coronary artery disease) Current Visit: No Status: Chronic Assessment and plan: Continue home medications but hold aspirin and Plavix for now. Qualifiers: Coronary Disease-Associated Artery/Lesion type: [place] artery [place] vs. transplanted heart: [place] heart Associated angina: without angina Qualified Code(s): I25.10 - Atherosclerotic heart disease of [place] coronary artery without angina pectoris (6) COPD (chronic obstructive pulmonary disease) Current Visit: No Status: Chronic Assessment and plan: Continue bronchodilator nebs as needed. Qualifiers: COPD type: emphysema Emphysema type: unspecified Qualified Code(s): J43.9 - Emphysema, unspecified (7) HTN (hypertension) Current Visit: No Status: Chronic Assessment and plan: Well-controlled. Qualifiers: Hypertension type: essential hypertension Qualified Code(s): I10 - Essential (primary) hypertension - Subjective Interval history: Patient is awake and alert. Feels nauseated. Denies any cough or shortness of breath at this time. No chest pain. - Constitutional Vitals: Temp Pulse Resp BP Pulse Ox 97.8 F 65 14 111/64 96 11/19/16 11:17 11/19/16 11:17 11/19/16 11:17 11/19/16 11:17 11/19/16 11:17 General appearance: Present: A&O X 2, pleasant, no acute distress, answers questions appropriately - Respiratory Respiratory exam: Present: CTAB. Absent: accessory muscle use, rales, rhonchi, wheezes - Cardiovascular Cardiovascular exam: Present: RRR, +S1, +S2. Absent: diastolic murmur, gallop, rubs, systolic murmur - GI/Abdominal GI/Abdominal exam: Present: normal bowel sounds, soft, no peritoneal signs. Absent: distended, tenderness - Extremities Exam Extremities exam: Present: warm, radial pulses palpable and symetrical. Absent : calf tenderness, cyanotic, pedal edema - Neurological Exam Neurological exam: Present: alert, oriented X3, no focal deficits. Absent: facial droop, speech deficit Internal Medicine: Result - Labs CBC & Chem 7: 11/19/16 09:26 11/18/16 17:12 Labs: Short CBC 11/18/16 11/19/16 Range/Units 17:12 09:26 WBC 4.7 4.4 (4.3-11.1) K/mcL Hgb 8.0 L 8.6 L (11.5-15.4) g/dL Hct 23.1 L 25.7 L (35.3-44.9) % Plt Count 203 182 (140-400) K/mcL Neutrophils # 3.0 (1.6-8.9) K/mcL BMP 11/18/16 17:12 Sodium 135 L Potassium 3.3 L Chloride 106 Carbon Dioxide 19 BUN 15 Creatinine 0.73 Glucose 109 H Calcium 8.2 L - ABG Interpretation ABG results: PT/INR, D-dimer PT 11.0 Seconds (9.4-12.1) 11/16/16 04:59 Consult Discharge Plan - Plan Referrals: Joe Berkowitz MD [Primary Care Provider] - - Attending Attestation This document has been at least partially created by adicate timeads recognition technology by Dr. Osei. Errors in grammar, wording or other phrases may exist. If errors are found after the documentation is signed, they will be addressed individually in the addendum section of this document when appropriate.
[2016-11-19] MEDS ORDERED: *HR* Midazolam HCl 5 MG/5 ML VIAL IVP ONE (14:21)
[2016-11-19] MEDS ORDERED: *HR* FentaNYL (PF) 100 MCG/2 ML VIAL ONE (14:21)
[2016-11-19] MEDS ORDERED: Simethicone 40 MG/0.6 ML MLS IR ONE (14:50)
[2016-11-19] MEDS ORDERED: Tetracaine/Benzocaine/Butamben 200MG/SPRAY (100SPY/BOT) MM ONE (14:50)
--- NOTE | 2016-11-19 14:51 | Pre-Sedation Evaluation ---
Pre-sedation evaluation - Pre-sedation checklist Date of procedure: 11/19/16 Recent Vitals: Last Vital Signs Temp 98.7 F 11/19/16 14:44 Pulse 60 11/19/16 14:45 Resp 16 11/19/16 14:45 BP 145/66 11/19/16 14:45 Pulse Ox 97 11/19/16 14:45 H&P (including ROS) documented in medical record: Yes Previous reaction to sedatives/anesthetics: No Dietary Status: Clear fluids after Midnight Dentition: No loose teeth or bridges ASA Classification *see protocol: CLASS III-Severe systemic disease Plan of Care: Pt appropriate candidate for procedure/moderate/conscious sedation , Risks/benefits of procedure/sedation discussed w/ patient/family
[2016-11-19] MEDS: *HR* FentaNYL (PF) 100 MCG/2 ML VIAL IVP PRN ×2 (14:59→15:02)
[2016-11-19] MEDS: *HR* Midazolam HCl 5 MG/5 ML VIAL IVP PRN ×2 (15:00→15:03)
[2016-11-19] MEDS: Sucralfate 1 GM TABLET PO SCH ×2 (16:57→22:42)
[2016-11-20] MEDS: 0.9 % Sodium Chloride 1,000 ML IVC SCH (05:09)
[2016-11-20] MEDS: *HR* Heparin 5,000 UNIT/ML VIAL SQ SCH ×2 (05:09→18:24)
[2016-11-20] MEDS: Pantoprazole 40 MG VIAL IVP SCH (08:07)
[2016-11-20] MEDS: Ranolazine 500 MG TAB.ER.12H PO SCH ×2 (08:08→21:06)
[2016-11-20] MEDS: Cyanocobalamin (B-12) 1,000 MCG TABLET PO SCH (08:08)
[2016-11-20] MEDS: Sucralfate 1 GM TABLET PO SCH ×4 (08:09→21:07)
[2016-11-20] MEDS: Cholecalciferol (D-3) 1,000 UNIT TABLET PO SCH (08:09)
[2016-11-20] MEDS: Isosorbide MONOnitrate (24 HR) 60 MG TAB.ER.24H PO SCH (08:09)
[2016-11-20] MEDS: Losartan/HCTZ 50-12.5 TABLET PO SCH (08:09)
[2016-11-20] MEDS: Loratadine 10 MG TABLET PO SCH (08:10)
[2016-11-20] MEDS: (Pravastatin Sodium [Pravachol] 80 MG) PO SCH (08:10)
--- NOTE | 2016-11-20 12:02 | Discharge Summary ---
Date of Encounter: 11/20/16 Time of Encounter: 12:02 - Discharge Medications Home Medications: Clopidogrel [Plavix] 75 mg PO DAILY 08/23/15 [History] Isosorbide MONOnitrate (24 HR) [Imdur] 180 mg PO DAILY 08/23/15 [History] Pantoprazole Sodium [Protonix] 40 mg PO DAILY #0 08/23/15 [History] Potassium Chloride [K-Tab ER] 10 meq PO BID 08/23/15 [History] Pravastatin Sodium [Pravachol] 80 mg PO DAILY 08/23/15 [History] Carvedilol [Coreg] 12.5 mg PO BID 03/14/16 [History] Cyanocobalamin (Vitamin B-12) [Vitamin B-12] 100 mcg PO DAILY 03/14/16 [History] Docusate [Colace] 100 mg PO BID PRN 03/14/16 [History] Ergocalciferol (VITAMIN D2) [Vitamin D] 800 unit PO DAILY 03/14/16 [History] Loratadine [Claritin] 10 mg PO DAILY 03/14/16 [History] Losartan/Hydrochlorothiazide [Losartan-Hctz 100-12.5 mg Tab] 1 tab PO DAILY 02/19 [History] Nitroglycerin [Nitrostat] 0.4 mg SL AD PRN 03/31/16 [History] Ranolazine [Ranexa] 1,000 mg PO BID 03/31/16 [History] FluocinoLONE Acet 0.025% CRM [Fluocinolone Acet 0.025% CRM] 1 appl TP BID PRN [History] Sertraline [Zoloft] 75 mg PO DAILY 10/28/16 [History] Aspirin Enteric Coated [Aspirin EC] 325 mg PO BID tablet. 11/02/16 [Rx] OxyCODONE/APAP 7.5/325 [Percocet 7.5/325 MG] 1 tab PO Q4HR PRN 11/16/16 [History ] Allergies/Adverse Reactions: Allergies simvastatin [From Zocor] Allergy (Verified 04/18/16 10:03) Anaphylaxis atorvastatin [From Lipitor] Adverse Reaction (Verified 04/18/16 10:03) Anxiety enalaprilat [From Vasotec] Adverse Reaction (Verified 04/18/16 10:03) Hives Date of admission: 11/16/16 07:45 Primary care physician: Joe Berkowitz MD Consults: 11/16/16 08:47 Consult to Package Drier [CONS] Routine Reason for SW Consult: From [facility], discharge planning 11/16/16 09:18 Consult to Occupational Therapy [CONS] Routine Comment: Evaluate, develop and implement POC Reason for Consult: Recent left hip fracture 11/16/16 09:19 Consult to Physical Therapy [CONS] Routine Comment: Evaluate, develop and implement POC Reason for Consult: Recent left hip fracture 11/18/16 11:10 Consult to Gastroenterology [CONS] Routine Consulting Provider: [facility] [place] Reason for Consult: Anemia, recurrent. Urine negative for blood, stool ordered. Call Completed: No - Patient Status Condition: Fair - Discharge Instructions Follow Up With: Joe Berkowitz MD [Primary Care Provider] - Hospital course: Ms. Duke is a 86 year old female - Time Spent with Patient Total time spent providing and/or coordinating discharge services: - Constitutional Vitals: Temp Pulse Resp BP Pulse Ox 98.1 F 60 16 115/62 97 11/20/16 11:15 11/20/16 11:15 11/20/16 11:15 11/20/16 11:15 11/20/16 11:15 General appearance: Present: A&O X 2, pleasant, no acute distress, answers questions appropriately
[2016-11-20 12:29] LABS: Basophils % 0.5 %; Eosinophils # 0.1 K/mcL (0.0-0.6); Eosinophils % 2.2 %; Hematocrit 23.3 % (35.3-44.9); Hemoglobin 7.8 g/dL (11.5-15.4); Immature Granulocytes % 0.5 % (0-4); Lymphocytes # 1.1 K/mcL (0.6-4.6); Lymphocytes % 27.3 %; Mean Corpuscular HGB Conc 33.5 g/dL (31.6-35.5); Mean Corpuscular Hemoglobin 33.3 pg (28.0-33.3); Mean Corpuscular Volume 99.6 fL (83.0-100.0); Monocytes # 0.3 K/mcL (0.0-1.3); Monocytes % 7.3 %; Neutrophils # 2.6 K/mcL (1.6-8.9); Platelet Count 169 K/mcL (140-400); Red Blood Count 2.34 M/mcL (3.82-4.97); Red Cell Distribution Width 14.7 % (11.5-14.5); Segmented Neutrophils % 62.2 %
[2016-11-20 12:41] LABS: Blood Urea Nitrogen 13 mg/dL (7-20); Carbon Dioxide 21 mEq/L (19-29); Chloride 108 mEq/L (98-109); Potassium 3.6 mEq/L (3.5-4.5); Sodium 136 mEq/L (136-145)
[2016-11-20 12:42] LABS: BUN/Creatinine Ratio 16 (6-26); Calcium 8.3 mg/dL (8.6-10.8); Glucose 107 mg/dL (70-99); Osmolality,Calculated 283 (280-300); eGFR For African Americans > 60 (> 60); eGFR For Non-African Americans > 60 (> 60)
--- NOTE | 2016-11-20 14:10 | Internal Med Progress Note ---
Date of Encounter: 11/20/16 Time of Encounter: 14:10 - Assessment and plan (1) COPD (chronic obstructive pulmonary disease) Current Visit: Yes Status: Chronic Assessment and plan: Continue bronchodilator nebs as needed. Qualifiers: COPD type: emphysema Emphysema type: unspecified Qualified Code(s): J43.9 - Emphysema, unspecified (2) HTN (hypertension) Current Visit: Yes Status: Chronic Assessment and plan: Well-controlled., continue current meds Qualifiers: Hypertension type: essential hypertension Qualified Code(s): I10 - Essential (primary) hypertension (3) Hyperlipemia Current Visit: Yes Status: Chronic Assessment and plan: Resume home meds Qualifiers: Hyperlipidemia type: unspecified Qualified Code(s): E78.5 - Hyperlipidemia , unspecified (4) CAD (coronary artery disease) Current Visit: Yes Status: Chronic Assessment and plan: Continue home medications , continue ASA, hold Plavix. Monitor Hb patient has no CP Qualifiers: Coronary Disease-Associated Artery/Lesion type: [place] artery [place] vs. transplanted heart: [place] heart Associated angina: without angina Qualified Code(s): I25.10 - Atherosclerotic heart disease of [place] coronary artery without angina pectoris (5) Atrial fibrillation Current Visit: Yes Status: Chronic Assessment and plan: with PCM, Rate controlled. Continue ASA at 81mg daily until HB stable Qualifiers: Atrial fibrillation type: chronic Qualified Code(s): I48.2 - Chronic atrial fibrillation (6) Altered mental status Current Visit: Yes Status: Resolved Assessment and plan: This has now resolved. We will continue to monitor closely. Likely due to multi-factors including narcotic medication use Qualifiers: Altered mental status type: somnolence Qualified Code(s): R40.0 - Somnolence (7) Chronic hyponatremia Current Visit: Yes Status: Resolved Assessment and plan: This is chronic and stable (8) Anemia Current Visit: Yes Status: Acute Assessment and plan: Suspected chair platelet EGD with gastric ulcer, nonbleeding. Hemoglobin today is her lower done yesterday. Patient is hemodynamically stable , nonreactive leukocytosis or thrombocytosis. Repeat hemoglobin in the morning if hemoglobin continues to drop patient may need repeat EGD. GI following. Qualifiers: Anemia type: unspecified type Qualified Code(s): D64.9 - Anemia, unspecified - Subjective Interval history: 86-year-old female was admitted for altered mental status. She is seen and evaluated at the bedside with no new complaints. Hospital stay reveals patient with acute on chronic anemia, she status post EGD which shows crated gastric ulcer, nonbleeding. Hemoglobin today noted to be lower at 7.8. Patient's baseline ranges around 9- 10. Patient is having bowel movement Brown per chart She has no hematemesis or hematochezia she is hemodynamically stable. We will monitor hemoglobin patient may require repeat EGD if hemoglobin continues to drop. Meanwhile, Iron, Vit B12 and Folate are WNL - Constitutional Vitals: Temp Pulse Resp BP Pulse Ox 98.1 F 60 16 115/62 97 11/20/16 11:15 11/20/16 11:15 11/20/16 11:15 11/20/16 11:15 11/20/16 11:15 General appearance: Present: A&O X 2, pleasant, no acute distress, answers questions appropriately - Head Head exam: Present: atraumatic, normocephalic - Eye Eye exam: Present: PERRL, conjuntiva pink, sclera anicteric Pupils: Present: PERRL - Neck Neck exam general surgery: Present: supple, trachea midline. Absent: lymphadenopathy - Respiratory Respiratory exam: Present: CTAB. Absent: accessory muscle use, rales, rhonchi, wheezes - Cardiovascular Cardiovascular exam: Present: RRR, +S1, +S2. Absent: diastolic murmur, gallop, rubs, systolic murmur - GI/Abdominal GI/Abdominal exam: Present: normal bowel sounds, soft, no peritoneal signs. Absent: distended, tenderness - Extremities Exam Extremities exam: Present: warm, radial pulses palpable and symetrical. Absent : calf tenderness, cyanotic, pedal edema - Neurological Exam Neurological exam: Present: alert, CN II-XII intact, no focal deficits. Absent : oriented X3, pronater drift, facial droop, speech deficit - Skin Skin exam: Present: dry, intact Internal Medicine: Result - Labs CBC & Chem 7: 11/20/16 12:15 11/20/16 12:15 Labs: Short CBC 11/20/16 Range/Units 12:15 WBC 4.1 L (4.3-11.1) K/mcL Hgb 7.8 L (11.5-15.4) g/dL Hct 23.3 L (35.3-44.9) % Plt Count 169 (140-400) K/mcL Neutrophils # 2.6 (1.6-8.9) K/mcL BMP 11/20/16 12:15 Sodium 136 Potassium 3.6 Chloride 108 Carbon Dioxide 21 BUN 13 Creatinine 0.80 Glucose 107 H Calcium 8.3 L - ABG Interpretation ABG results: PT/INR, D-dimer PT 11.0 Seconds (9.4-12.1) 11/16/16 04:59 Consult Discharge Plan - Plan Referrals: Joe Berkowitz MD [Primary Care Provider] -
[2016-11-21] MEDS: *HR* Heparin 5,000 UNIT/ML VIAL SQ SCH (06:00)
[2016-11-21 06:47] LABS: Basophils % 0.7 %; Eosinophils # 0.2 K/mcL (0.0-0.6); Eosinophils % 4.5 %; Hematocrit 24.9 % (35.3-44.9); Hemoglobin 8.3 g/dL (11.5-15.4); Immature Granulocytes % 0.2 % (0-4); Lymphocytes # 1.6 K/mcL (0.6-4.6); Lymphocytes % 37.4 %; Mean Corpuscular HGB Conc 33.3 g/dL (31.6-35.5); Mean Corpuscular Hemoglobin 32.4 pg (28.0-33.3); Mean Corpuscular Volume 97.3 fL (83.0-100.0); Mean Platelet Volume 8.9 fL (9.4-12.4); Monocytes # 0.3 K/mcL (0.0-1.3); Monocytes % 7.6 %; Neutrophils # 2.1 K/mcL (1.6-8.9); Platelet Count 190 K/mcL (140-400); Red Blood Count 2.56 M/mcL (3.82-4.97); Red Cell Distribution Width 14.7 % (11.5-14.5); Segmented Neutrophils % 49.6 %
[2016-11-21 07:29] LABS: Platelet Estimate Normal (Normal)
[2016-11-21] MEDS: Losartan/HCTZ 50-12.5 TABLET PO SCH (08:07)
[2016-11-21] MEDS: Ranolazine 500 MG TAB.ER.12H PO SCH (08:08)
[2016-11-21] MEDS: Sucralfate 1 GM TABLET PO SCH ×2 (08:09→12:36)
[2016-11-21] MEDS: Isosorbide MONOnitrate (24 HR) 60 MG TAB.ER.24H PO SCH (08:09)
[2016-11-21] MEDS: Pantoprazole 40 MG VIAL IVP SCH (08:09)
[2016-11-21] MEDS: Cyanocobalamin (B-12) 1,000 MCG TABLET PO SCH (08:10)
[2016-11-21] MEDS: Loratadine 10 MG TABLET PO SCH (08:10)
[2016-11-21] MEDS: Cholecalciferol (D-3) 1,000 UNIT TABLET PO SCH (08:10)
[2016-11-21] MEDS: (Pravastatin Sodium [Pravachol] 80 MG) PO SCH (08:12)
[2016-11-21] MEDS ORDERED: Aspirin Enteric Coated 81 MG Tablet PO SCH (09:00)
--- NOTE | 2016-11-21 09:40 | Discharge Summary ---
Date of Encounter: 11/21/16 Time of Encounter: 09:40 - Discharge Diagnosis (1) COPD (chronic obstructive pulmonary disease) Priority: Secondary Status: Chronic Qualifiers: COPD type: emphysema Emphysema type: unspecified Qualified Code(s): J43.9 - Emphysema, unspecified (2) HTN (hypertension) Priority: Secondary Status: Chronic Qualifiers: Hypertension type: essential hypertension Qualified Code(s): I10 - Essential (primary) hypertension (3) Hyperlipemia Priority: Secondary Status: Chronic Qualifiers: Hyperlipidemia type: unspecified Qualified Code(s): E78.5 - Hyperlipidemia , unspecified (4) CAD (coronary artery disease) Priority: Secondary Status: Chronic Qualifiers: Coronary Disease-Associated Artery/Lesion type: [place] artery [place] vs. transplanted heart: [place] heart Associated angina: without angina Qualified Code(s): I25.10 - Atherosclerotic heart disease of [place] coronary artery without angina pectoris (5) Atrial fibrillation Priority: Secondary Status: Chronic Qualifiers: Atrial fibrillation type: chronic Qualified Code(s): I48.2 - Chronic atrial fibrillation (6) Altered mental status Priority: Primary Status: Resolved Qualifiers: Altered mental status type: somnolence Qualified Code(s): R40.0 - Somnolence (7) Chronic hyponatremia Priority: Primary Status: Resolved (8) Anemia Priority: Primary Status: Acute Qualifiers: Anemia type: unspecified type Qualified Code(s): D64.9 - Anemia, unspecified - Discharge Medications Home Medications: Clopidogrel [Plavix] 75 mg PO DAILY 08/23/15 [History] Isosorbide MONOnitrate (24 HR) [Imdur] 180 mg PO DAILY 08/23/15 [History] Potassium Chloride [K-Tab ER] 10 meq PO BID 08/23/15 [History] Pravastatin Sodium [Pravachol] 80 mg PO DAILY 08/23/15 [History] Carvedilol [Coreg] 12.5 mg PO BID 03/14/16 [History] Cyanocobalamin (Vitamin B-12) [Vitamin B-12] 100 mcg PO DAILY 03/14/16 [History] Docusate [Colace] 100 mg PO BID PRN 03/14/16 [History] Ergocalciferol (VITAMIN D2) [Vitamin D] 800 unit PO DAILY 03/14/16 [History] Loratadine [Claritin] 10 mg PO DAILY 03/14/16 [History] Losartan/Hydrochlorothiazide [Losartan-Hctz 100-12.5 mg Tab] 1 tab PO DAILY 02/19 [History] Nitroglycerin [Nitrostat] 0.4 mg SL AD PRN 03/31/16 [History] Ranolazine [Ranexa] 1,000 mg PO BID 03/31/16 [History] FluocinoLONE Acet 0.025% CRM [Fluocinolone Acet 0.025% CRM] 1 appl TP BID PRN [History] Sertraline [Zoloft] 75 mg PO DAILY 10/28/16 [History] Aspirin Enteric Coated [Aspirin EC] 325 mg PO BID tablet. 11/02/16 [Rx] Pantoprazole Sodium [Protonix] 40 mg PO BID #0 11/21/16 [Rx] Sucralfate [Carafate] 1 gm PO QIDAC #0 tablet 11/21/16 [Rx] Allergies/Adverse Reactions: Allergies simvastatin [From Zocor] Allergy (Verified 04/18/16 10:03) Anaphylaxis atorvastatin [From Lipitor] Adverse Reaction (Verified 04/18/16 10:03) Anxiety enalaprilat [From Vasotec] Adverse Reaction (Verified 04/18/16 10:03) Hives Date of admission: 11/16/16 07:45 Primary care physician: Joe Berkowitz MD Consults: 11/16/16 08:47 Consult to Bill Recapitulation Clerk [CONS] Routine Reason for SW Consult: From [facility], discharge planning 11/16/16 09:18 Consult to Occupational Therapy [CONS] Routine Comment: Evaluate, develop and implement POC Reason for Consult: Recent left hip fracture 11/16/16 09:19 Consult to Physical Therapy [CONS] Routine Comment: Evaluate, develop and implement POC Reason for Consult: Recent left hip fracture 11/18/16 11:10 Consult to Gastroenterology [CONS] Routine Consulting Provider: [facility] [place] Reason for Consult: Anemia, recurrent. Urine negative for blood, stool ordered. Call Completed: No Discharging clinician: Flo Boles Anticipated date of discharge: 11/21/16 - Patient Status Disposition: Transfer SNF Condition: Fair Functional capacity at discharge: independent ambulation Overall status at discharge: patient is back to baseline - Discharge Instructions Follow Up With: Solitario Porter MD [Partnered Physician] - - Diet and Activity Activity: resume usual activities as tolerated Diet: low fat, low cholesterol, low salt diet Interval History: Ms. Duke is a 86 year old female patient who is attentive fci for skilled rehabilitation following recent left hip fracture status post hemiarthroplasty, coronary artery disease, hypertension was brought into the ER after she was found to be confused and drowsy on the day of admission. Patient was awake and alert at time of evaluation on admission and does not remember the events prior to her being brought in. She does report eating breakfast afterwards. Physical examination and workup during was unremarkable except for acute on chronic anemia. FOBT was positive.Chest x-ray shows left basilar atelectasis versus pneumonia. She does have COPD. She has no fever or tachycardia, no leukocytosis, no hypoxia. Legionella and strep pneumo are negative, RIP is also negative. Urine is negative as well. Head CT shows no acute intracranial abnormality. EKG shows a paced rhythm. since also administer status was tr to be possibly due to use of opiates Patient was scheduled for EGD which revealed cratered gastric ulcer, non- bleeding. Patient's baseline hemoglobin ranges from 9-10 Patient's hemoglobin today 8.4. Patient is hemodynamically stable. Anemia workup including iron, vits B12 and Folate were WNL Patient with coronary artery disease on ASA and Plavix, these medications have been resumed and patient has been started on PPI twice a day and sucralfate 4 times a day. It is recommended that patient continues this lifelong and or until she has gastroenterology follow-up for the biopsies that were taken. Patient is clinically stable for d Her opiates were not required thr have been discontinued. Her chronic medical conditions remained stable. Hospital course: Ms. Duke is a 86 year old female - Time Spent with Patient Total time spent providing and/or coordinating discharge services: Less than 30 minutes - Constitutional Vitals: Temp Pulse Resp BP Pulse Ox 98.0 F 60 16 143/63 95 11/21/16 07:26 11/21/16 07:26 11/21/16 07:26 11/21/16 07:26 11/21/16 07:26 General appearance: Present: A&O X 2, pleasant, no acute distress, answers questions appropriately - Head Head exam: Present: atraumatic, normocephalic - Eye Eye exam: Present: PERRL, conjuntiva pink, sclera anicteric Pupils: Present: PERRL - Neck Neck exam general surgery: Present: supple, trachea midline. Absent: lymphadenopathy - Respiratory Respiratory exam: Present: CTAB. Absent: accessory muscle use, rales, rhonchi, wheezes - Cardiovascular Cardiovascular exam: Present: RRR, +S1, +S2. Absent: diastolic murmur, gallop, rubs, systolic murmur - GI/Abdominal GI/Abdominal exam: Present: normal bowel sounds, soft, no peritoneal signs. Absent: distended, tenderness - Extremities Exam Extremities exam: Present: warm, radial pulses palpable and symetrical. Absent : calf tenderness, cyanotic, pedal edema - Neurological Exam Neurological exam: Present: alert, CN II-XII intact, no focal deficits. Absent : oriented X3, pronater drift, facial droop, speech deficit - Skin Skin exam: Present: dry, intact
--- NOTE | 2016-11-21 09:40 | Physician Discharge Referral ---
[facility] Referral Info Transfer To: [facility] Provider in Charge: Dr. Boles Provider in Charge after Transfer: PCP Institutional Level of Care: Skilled - Diagnosis (1) COPD (chronic obstructive pulmonary disease) Priority: Secondary Status: Chronic (2) HTN (hypertension) Priority: Secondary Status: Chronic (3) Hyperlipemia Priority: Secondary Status: Chronic (4) CAD (coronary artery disease) Priority: Secondary Status: Chronic (5) Atrial fibrillation Priority: Secondary Status: Chronic (6) Altered mental status Priority: Primary Status: Resolved (7) Chronic hyponatremia Priority: Primary Status: Resolved (8) Anemia Priority: Primary Status: Acute Prognosis: Fair Aware of Diagnosis: Patient Aware of Prognosis: Patient - Transfer Medications Home Medications: Clopidogrel [Plavix] 75 mg PO DAILY 08/23/15 [History] Isosorbide MONOnitrate (24 HR) [Imdur] 180 mg PO DAILY 08/23/15 [History] Potassium Chloride [K-Tab ER] 10 meq PO BID 08/23/15 [History] Pravastatin Sodium [Pravachol] 80 mg PO DAILY 08/23/15 [History] Carvedilol [Coreg] 12.5 mg PO BID 03/14/16 [History] Cyanocobalamin (Vitamin B-12) [Vitamin B-12] 100 mcg PO DAILY 03/14/16 [History] Docusate [Colace] 100 mg PO BID PRN 03/14/16 [History] Ergocalciferol (VITAMIN D2) [Vitamin D] 800 unit PO DAILY 03/14/16 [History] Loratadine [Claritin] 10 mg PO DAILY 03/14/16 [History] Losartan/Hydrochlorothiazide [Losartan-Hctz 100-12.5 mg Tab] 1 tab PO DAILY 02/19 [History] Nitroglycerin [Nitrostat] 0.4 mg SL AD PRN 03/31/16 [History] Ranolazine [Ranexa] 1,000 mg PO BID 03/31/16 [History] FluocinoLONE Acet 0.025% CRM [Fluocinolone Acet 0.025% CRM] 1 appl TP BID PRN [History] Sertraline [Zoloft] 75 mg PO DAILY 10/28/16 [History] Aspirin Enteric Coated [Aspirin EC] 325 mg PO BID tablet. 11/02/16 [Rx] Pantoprazole Sodium [Protonix] 40 mg PO BID #0 11/21/16 [Rx] Sucralfate [Carafate] 1 gm PO QIDAC #0 tablet 11/21/16 [Rx] Allergies/Adverse Reactions: Allergies simvastatin [From Zocor] Allergy (Verified 04/18/16 10:03) Anaphylaxis atorvastatin [From Lipitor] Adverse Reaction (Verified 04/18/16 10:03) Anxiety enalaprilat [From Vasotec] Adverse Reaction (Verified 04/18/16 10:03) Hives - Respiratory Orders Smoking Cessation: Smoking cessation has been advised. For more information, call the [employer] Quit Line at 7-406-KTFR-NOW. - Lab Orders Lab Orders: CBC (in one week, monitor Hb) - Advance Directives Code Status: DNR-Arrest/Don't Intubate - Mobility Orders Ambulate - Rehabiliation Orders Rehab Potential: Fair - Diet Orders Cardiac CERTIFICATION: I certify that the transfer of the above named patient to an Extended Care Facility is necessary for the continuing treatment of the diagnosis listed. The above information is true and accurate reflection of patient's current condition. Confidential - Redisclosure prohibited without a patient's written consent.
[2016-11-21 11:07] VITALS: BP 122/56
== END 2016-11-21 12:58 ==
LOC: EMEROO 04:38 → 3ANU 04:38 → SUATTDRO 07:45 → 3ANU 08:25
PROVIDERS: ADMIT Internal Medicine; ATTEND Internal Medicine
PROC: ENDOEBX (2016-11-19 14:00)

== ENCOUNTER 2017-01-10 16:32 | Observation (INO) ==
--- NOTE | 2017-01-10 18:12 | Emergency Department Note ---
Disposition Clinical Impression: Fall, Chest pain Disposition: Still a Patient Condition: Fair Forms: ED Satisfaction Letter Time of Disposition: 18:48 Lower Extremity Injury HPI - General Chief Complaint: ED Extremity Injury, Lower Stated Complaint: L hip pain Time Seen by Provider: 01/10/17 16:59 Source: patient Mode of arrival: private vehicle Limitations: no limitations Nursing Notes Reviewed: Yes Vital Signs Reviewed: Yes - History of Present Illness HPI Narrative: 86-year-old female presents to the emergency department with complaint of left hip and leg pain. Patient states that she had a fall while at the correction earlier today. Patient was being released from the correction today and states that while she was "washing out" and she tripped and fell. She denies any head injury or loss of consciousness. She denies any neck pain. Patient states that she did not have any chest pain, shortness of breath, dizziness or lightheadedness prior to the fall. She denies any recent fever, chills, nausea or vomiting. Pt Subjective Complaint: hip injury Injury location: Left hip, Left Leg Onset (ago): hour(s) Mechanism of Injury: fall Context: fall Place: other (SNF) Improves with: rest Worsens with: weight bearing, movement, palpation Associated symptoms: Reports: able to partially bear weight Treatments prior to arrival: cold therapy, other (Percocet) - Related Data Home Medications Medication Instructions Recorded Confirmed Clopidogrel [Plavix] 75 mg PO DAILY 08/23/15 11/16/16 Isosorbide MONOnitrate (24 HR) 180 mg PO DAILY 08/23/15 11/16/16 [Imdur] Potassium Chloride [K-Tab ER] 10 meq PO BID 08/23/15 11/16/16 Pravastatin Sodium [Pravachol] 80 mg PO DAILY 08/23/15 11/16/16 Carvedilol [Coreg] 12.5 mg PO BID 03/14/16 11/16/16 Cyanocobalamin (Vitamin B-12) 100 mcg PO DAILY 03/14/16 11/16/16 [Vitamin B-12] Docusate [Colace] 100 mg PO BID PRN 03/14/16 11/16/16 Ergocalciferol (VITAMIN D2) 800 unit PO DAILY 03/14/16 11/16/16 [Vitamin D] Loratadine [Claritin] 10 mg PO DAILY 03/14/16 11/16/16 Losartan/Hydrochlorothiazide 1 tab PO DAILY 03/14/16 11/16/16 [Losartan-Hctz 100-12.5 mg Tab] Nitroglycerin [Nitrostat] 0.4 mg SL AD PRN 03/31/16 11/16/16 Ranolazine [Ranexa] 1,000 mg PO BID 03/31/16 11/16/16 FluocinoLONE Acet 0.025% CRM 1 appl TP BID PRN 10/28/16 11/16/16 [Fluocinolone Acet 0.025% CRM] Sertraline [Zoloft] 75 mg PO DAILY 10/28/16 11/16/16 Previous Rx's Medication Instructions Recorded Aspirin Enteric Coated [Aspirin EC] 325 mg PO BID tablet. 11/02/16 Pantoprazole Sodium [Protonix] 40 mg PO BID #0 11/21/16 Sucralfate [Carafate] 1 gm PO QIDAC #0 tablet 11/21/16 Allergies Allergy/AdvReac Type Severity Reaction Status Date / Time simvastatin [From Zocor] Allergy Anaphylaxis Verified 01/10/17 16:51 atorvastatin [From Lipitor] AdvReac Anxiety Verified 01/10/17 16:51 enalaprilat [From Vasotec] AdvReac Hives Verified 01/10/17 16:51 All systems ED: reviewed and negative except as stated. Constitutional: Denies: fever, chills Cardiovascular: Denies: chest pain Respiratory: Denies: dyspnea Gastrointestinal: Denies: abdominal pain, nausea, vomiting Musculoskeletal: Reports: arthralgia. 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 Patient was initially seen in fast track but was moved to a medical bed. ACS orders and chest pain rule out were put in. Aspirin, morphine and Zofran were ordered. Additionally patient had distal femur discomfort that was not seen on the initial left hip x-ray so an additional x- ray was ordered. Report was given to Dr. Hays, patient was moved from bed 22 bed 10 for further evaluation and cardiac monitoring. Time: 18:46 Vital Signs Temperature 98.2 F 01/10/17 16:46 Pulse Rate 62 01/10/17 16:46 Respiratory Rate 16 01/10/17 16:46 Blood Pressure 109/66 01/10/17 16:46 O2 Sat by Pulse Oximetry 93 01/10/17 16:46 Temperature 98.2 F 01/10/17 16:46 Pulse Rate 62 01/10/17 16:46 Respiratory Rate 16 01/10/17 16:46 Blood Pressure 109/66 01/10/17 16:46 O2 Sat by Pulse Oximetry 93 01/10/17 16:46 Oxygen Delivery Oxygen Delivery Room Air
[2017-01-10] MEDS ORDERED: 0.9 % Sodium Chloride 500 ML IVC ONE (18:38)
[2017-01-10] MEDS ORDERED: Aspirin 81 MG TAB.CHEW PO ONE (18:38)
[2017-01-10] MEDS ORDERED: Ondansetron 4 MG/2 ML VIAL IVP ONE (18:39)
[2017-01-10] MEDS ORDERED: *HR* Morphine 2 MG/ML SYRINGE IVP ONE (18:39)
[2017-01-10 19:47] LABS: Basophils % 0.4 %; Eosinophils # 0.1 K/mcL (0.0-0.6); Eosinophils % 1.9 %; Hematocrit 31.6 % (35.3-44.9); Hemoglobin 10.9 g/dL (11.5-15.4); Immature Granulocytes % 0.3 % (0-4); Lymphocytes # 2.4 K/mcL (0.6-4.6); Lymphocytes % 33.5 %; Mean Corpuscular HGB Conc 34.5 g/dL (31.6-35.5); Mean Corpuscular Hemoglobin 33.9 pg (28.0-33.3); Mean Corpuscular Volume 98.1 fL (83.0-100.0); Mean Platelet Volume 9.3 fL (9.4-12.4); Monocytes # 0.6 K/mcL (0.0-1.3); Monocytes % 7.9 %; Neutrophils # 4.1 K/mcL (1.6-8.9); Platelet Count 179 K/mcL (140-400); Red Blood Count 3.22 M/mcL (3.82-4.97); Red Cell Distribution Width 13.3 % (11.5-14.5)
[2017-01-10 19:52] LABS: INR 1.1; Prothrombin Time 11.8 Seconds (9.4-12.1)
[2017-01-10 19:55] LABS: Activated Partial Thrombo Time 29.6 Seconds (26.0-36.0)
[2017-01-10 20:08] LABS: Alanine Aminotransferase 20 Units/L (0-55); Albumin 3.1 g/dL (3.5-5.0); Albumin/Globulin Ratio 1.1 (1.1-2.2); Alkaline Phosphatase 64 Units/L (38-126); Aspartate Amino Transferase 19 Units/L (5-34); BUN/Creatinine Ratio 22 (6-26); Bilirubin,Direct 0.2 mg/dL (0.0-0.5); Bilirubin,Indirect 0.3 mg/dL (0.0-1.2); Bilirubin,Total 0.5 mg/dL (0.2-1.2); Blood Urea Nitrogen 19 mg/dL (7-20); Calcium 9.1 mg/dL (8.6-10.8); Carbon Dioxide 24 mEq/L (19-29); Chloride 102 mEq/L (98-109); Globulin 2.9 g/dL (2.4-3.5); Glucose 112 mg/dL (70-99); Osmolality,Calculated 277 (280-300); Sodium 132 mEq/L (136-145); eGFR For African Americans > 60 (> 60); eGFR For Non-African Americans > 60 (> 60)
--- NOTE | 2017-01-10 21:08 | Emergency Department Note ---
Disposition Clinical Impression: Left hip pain, Chest pain, rule out acute myocardial infarction Fall Qualifiers: Encounter type: initial encounter Qualified Code(s): W19.XXXA - Unspecified fall, initial encounter Chest pain Qualifiers: Chest pain type: unspecified Qualified Code(s): R07.9 - Chest pain, unspecified Disposition: Admitted As Inpatient Condition: Fair Time of Disposition: 21:15 General Adult HPI - General Chief complaint: ED Extremity Injury, Lower Stated complaint: L hip pain Time Seen by Provider: 01/10/17 16:59 Source: patient Mode of arrival: private vehicle Limitations: no limitations Nursing Notes Reviewed: Yes Vital Signs Reviewed: Yes - History of Present Illness HPI Narrative: 86-year-old female received in sign out pending further evaluation of chest pain after a fall. Pain Scale: 4 - Related Data Home Medications Medication Instructions Recorded Confirmed Clopidogrel [Plavix] 75 mg PO DAILY 08/23/15 01/10/17 Isosorbide MONOnitrate (24 HR) 180 mg PO DAILY 08/23/15 01/10/17 [Imdur] Potassium Chloride [K-Tab ER] 10 meq PO BID 08/23/15 01/10/17 Pravastatin Sodium [Pravachol] 80 mg PO HS 08/23/15 01/10/17 Cyanocobalamin (Vitamin B-12) 100 mcg PO DAILY 03/14/16 01/10/17 [Vitamin B-12] Docusate [Colace] 100 mg PO BID PRN 03/14/16 01/10/17 Ergocalciferol (VITAMIN D2) 800 unit PO DAILY 03/14/16 01/10/17 [Vitamin D] Loratadine [Claritin] 10 mg PO DAILY 03/14/16 01/10/17 Losartan/Hydrochlorothiazide 1 tab PO DAILY 03/14/16 01/10/17 [Losartan-Hctz 100-12.5 mg Tab] Nitroglycerin [Nitrostat] 0.4 mg SL Q5M PRN 03/31/16 01/10/17 Ranolazine [Ranexa] 1,000 mg PO BID 03/31/16 01/10/17 FluocinoLONE Acet 0.025% CRM 1 appl TP BID PRN 10/28/16 01/10/17 [Fluocinolone Acet 0.025% CRM] Sertraline [Zoloft] 75 mg PO DAILY 10/28/16 01/10/17 Carvedilol 12.5 mg PO BID 01/10/17 01/10/17 Loperamide [Imodium] 2 mg PO QID PRN 01/10/17 01/10/17 Mag Hydrox/Al Hydrox/Simeth 30 ml PO ACHS 01/10/17 01/10/17 [Antacid Suspension] Oxycodone HCl/Acetaminophen 1 each PO Q4H PRN 01/10/17 01/10/17 [Percocet 5-325 mg Tablet] Pantoprazole Sodium [Protonix] 40 mg PO DAILY 01/10/17 01/10/17 Ranitidine HCl [Zantac] 150 mg PO HS 01/10/17 01/10/17 Sucralfate [Carafate] 1 gm PO BID 01/10/17 01/10/17 Previous Rx's Medication Instructions Recorded Aspirin Enteric Coated [Aspirin EC] 325 mg PO BID tablet. 11/02/16 Allergies Allergy/AdvReac Type Severity Reaction Status Date / Time simvastatin [From Zocor] Allergy Anaphylaxis Verified 01/10/17 16:51 atorvastatin [From Lipitor] AdvReac Anxiety Verified 01/10/17 16:51 enalaprilat [From Vasotec] AdvReac Hives Verified 01/10/17 16:51 Constitutional: Denies: fever, chills Cardiovascular: Denies: chest pain Respiratory: Denies: dyspnea Gastrointestinal: Denies: abdominal pain, nausea, vomiting Musculoskeletal: Reports: arthralgia. 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 - Social History Smoking Status: Former smoker Smokeless Tobacco Status: No Alcohol use: Reports: none Drug use: Reports: none Physical Exam - General Limitations: no limitations General appearance: alert, in no apparent distress Course Vital Signs Temperature 98.2 F 01/10/17 16:46 Pulse Rate 62 01/10/17 16:46 Respiratory Rate 16 01/10/17 16:46 Blood Pressure 109/66 01/10/17 16:46 O2 Sat by Pulse Oximetry 93 01/10/17 16:46 Temperature 98.2 F 01/10/17 16:46 Pulse Rate 60 01/10/17 20:41 Respiratory Rate 16 01/10/17 22:33 Blood Pressure 152/62 01/10/17 22:33 O2 Sat by Pulse Oximetry 99 01/10/17 18:52 Oxygen Delivery Oxygen Delivery Room Air Medical Decision Making - MDM Narrative Medical decision making narrative: Patient received in sign out pending further evaluation of chest pain. Patient apparently sustained a mechanical fall after using the restroom as she tried to turn around and was unable to grab support structure. Patient had pain to the left hip however x-rays of the hip and chest were negative. Patient denies hitting her head or having loss of consciousness. While in the emergency Department she developed acute onset of chest pain which was in the left sided chest and radiated to the left shoulder. She states it was associated with nausea and mild shortness of breath. This lasted about 5-10 minutes before improving. Initial EKG showed a rate of 60 and was atrially paced without evidence of ischemia. Initial troponin was negative. Patient states that this felt like her previous [place]. She has a history of CABG 2 [address] Colon. Unable to recall when her last stress test to place. Family states the patient has had increasing episodes of chest pain similar to today over the past 2-3 weeks. Patient will be admitted to the hospital for further care and evaluation of acute chest pain to rule out ACS. - Medical Records Medical records reviewed: Yes I reviewed the patient's medical records. - Lab Data Lab results reviewed: Yes I reviewed the patient's lab results. Result diagrams: 01/10/17 19:43 01/10/17 19:43 Lab Results 01/10/17 01/10/17 01/10/17 Range/Units 19:43 19:43 19:43 WBC 7.3 (4.3-11.1) K/mcL RBC 3.22 L (3.82-4.97) M/mcL Hgb 10.9 L (11.5-15.4) g/dL Hct 31.6 L (35.3-44.9) % MCV 98.1 (83.0-100.0) fL MCH 33.9 H (28.0-33.3) pg MCHC 34.5 (31.6-35.5) g/dL RDW 13.3 (11.5-14.5) % Plt Count 179 (140-400) K/mcL MPV 9.3 L (9.4-12.4) fL Immature Gran % 0.3 (0-4) % Seg Neutrophils % 56.0 % Lymphocytes % 33.5 % Monocytes % 7.9 % Eosinophils % 1.9 % Basophils % 0.4 % Neutrophils # 4.1 (1.6-8.9) K/mcL Lymphocytes # 2.4 (0.6-4.6) K/mcL Monocytes # 0.6 (0.0-1.3) K/mcL Eosinophils # 0.1 (0.0-0.6) K/mcL Basophils # 0.0 (0.0-0.2) K/mcL PT 11.8 (9.4-12.1) Seconds INR 1.1 APTT 29.6 (26.0-36.0) Seconds Sodium (136-145) mEq/L Potassium (3.5-4.5) mEq/L Chloride (98-109) mEq/L Carbon Dioxide (19-29) mEq/L BUN (7-20) mg/dL Creatinine (0.57-1.11) mg/dL Est GFR ( Amer) (> 60) Est GFR (Non-Af Amer) (> 60) BUN/Creatinine Ratio (6-26) Glucose (70-99) mg/dL Calculated Osmolality (280-300) Calcium (8.6-10.8) mg/dL Total Bilirubin (0.2-1.2) mg/dL Direct Bilirubin (0.0-0.5) mg/dL Indirect Bilirubin (0.0-1.2) mg/dL AST (5-34) Units/L ALT (0-55) Units/L Alkaline Phosphatase (38-126) Units/L Troponin I (0-0.03) ng/mL B-Natriuretic Peptide 856 H (0-100) pg/mL Serum Total Protein (6.0-8.3) g/dL Albumin (3.5-5.0) g/dL Globulin (2.4-3.5) g/dL Albumin/Globulin Ratio (1.1-2.2) 01/10/17 01/10/17 Range/Units 19:43 19:43 WBC (4.3-11.1) K/mcL RBC (3.82-4.97) M/mcL Hgb (11.5-15.4) g/dL Hct (35.3-44.9) % MCV (83.0-100.0) fL MCH (28.0-33.3) pg MCHC (31.6-35.5) g/dL RDW (11.5-14.5) % Plt Count (140-400) K/mcL MPV (9.4-12.4) fL Immature Gran % (0-4) % Seg Neutrophils % % Lymphocytes % % Monocytes % % Eosinophils % % Basophils % % Neutrophils # (1.6-8.9) K/mcL Lymphocytes # (0.6-4.6) K/mcL Monocytes # (0.0-1.3) K/mcL Eosinophils # (0.0-0.6) K/mcL Basophils # (0.0-0.2) K/mcL PT (9.4-12.1) Seconds INR APTT (26.0-36.0) Seconds Sodium 132 L (136-145) mEq/L Potassium 4.0 (3.5-4.5) mEq/L Chloride 102 (98-109) mEq/L Carbon Dioxide 24 (19-29) mEq/L BUN 19 (7-20) mg/dL Creatinine 0.88 (0.57-1.11) mg/dL Est GFR ( Amer) > 60 (> 60) Est GFR (Non-Af Amer) > 60 (> 60) BUN/Creatinine Ratio 22 (6-26) Glucose 112 H (70-99) mg/dL Calculated Osmolality 277 L (280-300) Calcium 9.1 (8.6-10.8) mg/dL Total Bilirubin 0.5 (0.2-1.2) mg/dL Direct Bilirubin 0.2 (0.0-0.5) mg/dL Indirect Bilirubin 0.3 (0.0-1.2) mg/dL AST 19 (5-34) Units/L ALT 20 (0-55) Units/L Alkaline Phosphatase 64 (38-126) Units/L Troponin I 0.00 (0-0.03) ng/mL B-Natriuretic Peptide (0-100) pg/mL Serum Total Protein 6.0 (6.0-8.3) g/dL Albumin 3.1 L (3.5-5.0) g/dL Globulin 2.9 (2.4-3.5) g/dL Albumin/Globulin Ratio 1.1 (1.1-2.2) - Radiology Data Radiology results reviewed: Yes I reviewed the patient's radiology results. - EKG Data EKG #1 EKG attestation: Yes I reviewed and interpreted this EKG. EKG results narrative: ECG - interpreted by ED physician. Rate 60 atrial paced. No evidence of STEMI. Attestation Statement - Attestation Attestation: I, Gold Hays, examined this patient and my medical decision-making was reviewed with the [employer] LAYOUT DESIGNER/PA/Advanced Practice Nurse/Resident Physician. I agree with the documented findings, disposition and treatment plan as described except to the extent set forth below.
--- NOTE | 2017-01-11 00:24 | Internal Med History&Physical ---
Date of Encounter: 01/11/17 Time of Encounter: 00:22 Assessment and Plan (1) Chest pain Current visit: No Status: Resolved Chest pain-free at this time. She says that it was probably anxiety related, she had brief chest pain while she was at ED however does not have any chest pain now. Initial troponin is negative, no EKG changes. Had cardiac catheter done last year with no intervention. Follows with Dr. Colon, will observe for tonight. May have a musculoskeletal component given recent fall today morning. Trending troponin 3, patient is high risk given history of CABG and 8 stents placement. monitor for chestpain, tele monitoring. Qualifiers: Chest pain type: unspecified Qualified Code(s): R07.9 - Chest pain, unspecified (2) COPD (chronic obstructive pulmonary disease) Current visit: No Status: Chronic not in exacerbation. Will continue home breathing treatments. Qualifiers: COPD type: emphysema Emphysema type: unspecified Qualified Code(s): J43.9 - Emphysema, unspecified (3) HTN (hypertension) Current visit: No Status: Chronic Blood pressure is stable. Will continue home medication Qualifiers: Hypertension type: essential hypertension Qualified Code(s): I10 - Essential (primary) hypertension (4) History of coronary artery bypass graft x 2 Current visit: No Status: Chronic (5) Hyperlipemia Current visit: No Status: Chronic Continue home medication Qualifiers: Hyperlipidemia type: unspecified Qualified Code(s): E78.5 - Hyperlipidemia , unspecified (6) CAD (coronary artery disease) Current visit: No Status: Chronic Continue home medications. Echocardiogram December 2015 showed EF 55-60%, mild diastolic dysfunction, mild to moderate RV hypokinesis, mild MR, moderate TR. Qualifiers: Coronary Disease-Associated Artery/Lesion type: sioux artery [place] vs. transplanted heart: sioux heart Associated angina: without angina Qualified Code(s): I25.10 - Atherosclerotic heart disease of sioux coronary artery without angina pectoris (7) Fall Current visit: Yes Status: Acute mechanical fall, denies LOC no fractures. Qualifiers: Encounter type: initial encounter Qualified Code(s): W19.XXXA - Unspecified fall, initial encounter Internal Medicine - H&P: HPI Chief complaint: chest pain Admitted From: Home Plans for Post Hospital Care: Home History of present illness: Ms. Duke is a 86 year old female with PMH of CAD s/p CABG and 8 stents placement. Patient apparently sustained a mechanical fall after using the restroom as she tried to turn around and was unable to grab support structure. Patient had pain to the left hip however x-rays of the hip and chest were negative. Patient denies hitting her head or having loss of consciousness. While in the emergency Department she developed acute onset of chest pain which was in the left sided chest and radiated to the left shoulder. She states it was associated with nausea and mild shortness of breath. This lasted about 5- 10 minutes before improving. Initial EKG showed a rate of 60 and was atrially paced without evidence of ischemia. Initial troponin was negative. Patient states that this felt like her previous [place]. She has a history of CABG 2 and [address] Colon. She says she had cardiac catheter done last year but did not need any intervention. Family states the patient has had increasing episodes of chest pain similar to today over the past 2-3 weeks. Past Med Surg Social Fam HX - Past Medical History Medical history: arthritis, atrial fibrillation, COPD, coronary artery disease, DVT, GERD, hyperlipidemia, hypertension, myocardial infarction, syncope Psychiatric history: anxiety, depression - Past Surgical History Surgical History: angioplasty/stent, appendectomy, cataract, cholecystectomy, coronary bypass (CABG), orthopedic, other, pacemaker/AICD - Social History Smoking Status: Former smoker Smokeless Tobacco Status: No Alcohol use: none Drug use: none - Family History Father Living Status: Hx Family Cardiac Disorders: Yes (HEART PROBEMS, OR) Mother Living Status: Hx Family Respiratory Disorders: Yes ( of pneumonia) Internal Medicine - H&P: Meds Clopidogrel [Plavix] 75 mg PO DAILY 08/23/15 [History] Isosorbide MONOnitrate (24 HR) [Imdur] 180 mg PO DAILY 08/23/15 [History] Potassium Chloride [K-Tab ER] 10 meq PO BID 08/23/15 [History] Pravastatin Sodium [Pravachol] 80 mg PO HS 08/23/15 [History] Cyanocobalamin (Vitamin B-12) [Vitamin B-12] 100 mcg PO DAILY 03/14/16 [History] Docusate [Colace] 100 mg PO BID PRN 03/14/16 [History] Ergocalciferol (VITAMIN D2) [Vitamin D] 800 unit PO DAILY 03/14/16 [History] Loratadine [Claritin] 10 mg PO DAILY 03/14/16 [History] Losartan/Hydrochlorothiazide [Losartan-Hctz 100-12.5 mg Tab] 1 tab PO DAILY 02/19 [History] Nitroglycerin [Nitrostat] 0.4 mg SL Q5M PRN 03/31/16 [History] Ranolazine [Ranexa] 1,000 mg PO BID 03/31/16 [History] FluocinoLONE Acet 0.025% CRM [Fluocinolone Acet 0.025% CRM] 1 appl TP BID PRN [History] Sertraline [Zoloft] 75 mg PO DAILY 10/28/16 [History] Aspirin Enteric Coated [Aspirin EC] 325 mg PO BID tablet. 11/02/16 [Rx] Carvedilol 12.5 mg PO BID 01/10/17 [History] Loperamide [Imodium] 2 mg PO QID PRN 01/10/17 [History] Mag Hydrox/Al Hydrox/Simeth [Antacid Suspension] 30 ml PO ACHS 01/10/17 [History ] Oxycodone HCl/Acetaminophen [Percocet 5-325 mg Tablet] 1 each PO Q4H PRN [History] Pantoprazole Sodium [Protonix] 40 mg PO DAILY 01/10/17 [History] Ranitidine HCl [Zantac] 150 mg PO HS 01/10/17 [History] Sucralfate [Carafate] 1 gm PO BID 01/10/17 [History] Allergies simvastatin [From Zocor] Allergy (Verified 01/10/17 16:51) Anaphylaxis atorvastatin [From Lipitor] Adverse Reaction (Verified 01/10/17 16:51) Anxiety enalaprilat [From Vasotec] Adverse Reaction (Verified 01/10/17 16:51) Hives All Systems PM: A 10-system review of systems was performed and is negative for pertinent findings except as documented above in the HPI. - Constitutional Constitutional: no chills, no fever(s), no night sweats - EENT Eyes: no change in vision, no discharge, no pain, no photophobia Ears: no ear discharge, no ear pain, no tinnitus Nose, mouth and throat: as per HPI - Cardiovascular Cardiovascular ROS IM: chest pain, no diaphoresis, no dyspnea, no lightheadedness, no palpitations, no syncope - Respiratory Respiratory: no cough, no dyspnea, no wheezing, no excessive phlegm production - Gastrointestinal Gastrointestinal: no abdominal pain, no diarrhea, no hematemesis, no hematochezia, no melena, no nausea, no vomiting - Constitutional Vitals: Temp Pulse Resp BP Pulse Ox 98.1 F 60 20 100/44 97 01/10/17 23:06 01/10/17 23:06 01/10/17 23:06 01/10/17 23:06 01/10/17 23:06 General appearance: Present: A&O X 3, no acute distress Exam: Neck supple. Chest bilaterally clear, no added sounds. CVS S1 and S2, no murmurs rubs or gallops. Abdomen soft, nontender bowel sounds are present. Extremities no edema. Neuro alert and awake, no focal neuro deficits Internal Med - H&P Results - Labs CBC & Chem 7: 01/11/17 01:49 01/11/17 01:49
[2017-01-11] MEDS ORDERED: *HR* OxyCODONE Immed Rel 5 MG TABLET PO PRN (00:27)
[2017-01-11] MEDS ORDERED: Naloxone 0.4 MG/ML INJ IVP PRN (00:27)
[2017-01-11 01:58] LABS: Basophils % 0.3 %; Eosinophils # 0.2 K/mcL (0.0-0.6); Eosinophils % 2.9 %; Hematocrit 31.6 % (35.3-44.9); Hemoglobin 10.6 g/dL (11.5-15.4); Immature Granulocytes % 0.2 % (0-4); Lymphocytes # 2.6 K/mcL (0.6-4.6); Lymphocytes % 44.3 %; Mean Corpuscular HGB Conc 33.5 g/dL (31.6-35.5); Mean Corpuscular Hemoglobin 33.5 pg (28.0-33.3); Mean Platelet Volume 9.4 fL (9.4-12.4); Monocytes # 0.5 K/mcL (0.0-1.3); Monocytes % 8.4 %; Neutrophils # 2.6 K/mcL (1.6-8.9); Platelet Count 164 K/mcL (140-400); Red Blood Count 3.16 M/mcL (3.82-4.97); Red Cell Distribution Width 13.4 % (11.5-14.5); Segmented Neutrophils % 43.9 %
[2017-01-11 02:10] LABS: BUN/Creatinine Ratio 19 (6-26); Blood Urea Nitrogen 18 mg/dL (7-20); Calcium 8.7 mg/dL (8.6-10.8); Carbon Dioxide 26 mEq/L (19-29); Chloride 106 mEq/L (98-109); Glucose 107 mg/dL (70-99); Magnesium 1.9 mg/dL (1.6-2.6); Osmolality,Calculated 286 (280-300); Potassium 3.9 mEq/L (3.5-4.5); Sodium 137 mEq/L (136-145); eGFR For African Americans > 60 (> 60); eGFR For Non-African Americans 55 (> 60)
[2017-01-11] MEDS: *HR* Heparin 5,000 UNIT/ML VIAL SQ SCH ×2 (06:21→18:46)
[2017-01-11] MEDS: Aspirin Enteric Coated 325 MG Tablet PO SCH ×2 (08:24→20:48)
[2017-01-11] MEDS: Sucralfate 1 GM TABLET PO SCH ×2 (08:24→20:47)
[2017-01-11] MEDS: Isosorbide MONOnitrate (24 HR) 60 MG TAB.ER.24H PO SCH (08:24)
[2017-01-11] MEDS: Ranolazine 500 MG TAB.ER.12H PO SCH ×2 (08:24→20:47)
[2017-01-11] MEDS: ERGOCALCIFEROL 800 UNIT PO SCH (08:25)
[2017-01-11] MEDS: Cyanocobalamin (B-12) 1,000 MCG TABLET PO SCH (08:25)
[2017-01-11] MEDS: hydroCHLOROthiazide 25 MG TABLET PO SCH (13:58)
[2017-01-11] MEDS ORDERED: Acetaminophen 325 MG TABLET PO PRN (14:17)
--- NOTE | 2017-01-11 17:20 | Event Note ---
Date of Encounter: 01/11/17 Time of Encounter: 09:30 Patient is exceptionally pleasant 86-year-old female here she was seen and assessed at about 9:30 AM. Patient was using the bedside commode. She is exceptionally weak and had difficulty holding herself up even with assistance to prevent to sit down on the bed. She was unable to assist with moving herself in the bed. She presented to the emergency department and was admitted today with complaint of chest pain. She has been chest pain-free since she arrived on this unit. She did however have left-sided chest pain in the emergency department. She said it radiated to her left shoulder and she had nausea, shortness of breath. It lasted about 5-10 minutes before improving spontaneously. She said it was most likely anxiety related. EKG showed a rate of 60 and was paced, no evidence of ischemia. Troponins were negative. Chest x -ray was negative. Patient had a stress test in August, was negative for ischemia or infarct. Gated EF 69%. Patient had a limited echo in March that showed LVEF 55-60% with normal LV chamber size, wall thickness and function. She had atypical septal wall motion consistent with paced rhythm. He has a history of CABG 2 with 8 stents and did see cardiology, Dr. Colon. Patient was being discharged from her rehabilitation facility when she had a mechanical fall in the bathroom, prompting her visit to the emergency room. She is complained of left hip pain, however the x-rays of the hip were negative. Since I assisted her from the bedside commode to the bed I was able to view the hip. There are no abrasions, there is no bruising or deformity noted. She does appear to have difficulty bearing weight on that extremity. Physical therapy and occupational therapy consults that most likely will not happen until Friday. She will remain on fall precautions with bed alarm. Patient has a history of COPD without exacerbation. Continue home breathing treatments and medications. We will also continue her normal home anti- hypertensive medications, as well as her statin. We will get a wound care evaluation for left foot ulcer. She also is anemic, hemoglobin is 10.6 which is the high end of her baseline. We will continue to monitor this. Patient denies nausea, vomiting, abdominal pain, headache, vision changes, shortness of breath. She does report left foot pain Physical exam revealed lower extremity weakness, difficulty bearing weight in assisting with bed mobility. Her lungs are clear anteriorly and posteriorly without wheezing, rhonchi, Rales, respiratory difficulties, S1-S2 with regular rate and rhythm without gallops, clicks, murmurs. Her abdomen is soft, and slightly rounded, nontender to palpation, bowel sounds are present. She does have a wound to her left heel that has been addressed by staff it was present prior to arrival. She does wear michele boots bilaterally. She is a patient of Dr. Cordova. Monitor labs in the morning. Patient will require social service consult on Friday for placement.
[2017-01-11] MEDS: (Pravastatin Sodium [Pravachol] 80 MG) PO SCH (20:48)
[2017-01-11] MEDS: Nitroglycerin 0.4 MG TAB.SUBL SL PRN ×3 (22:32→22:50)
[2017-01-11] MEDS ORDERED: *HR* Enoxaparin 60 MG/0.6 ML SYRINGE SQ ONE (22:53)
[2017-01-11] MEDS ORDERED: Pantoprazole 40 MG VIAL IVP ONE (23:15)
[2017-01-11] MEDS: Mag Hydrox/Al Hydrox/Simeth 30 ML UDC PO SCH (23:34)
[2017-01-12 05:23] LABS: Basophils % 0.5 %; Eosinophils # 0.2 K/mcL (0.0-0.6); Eosinophils % 3.1 %; Hematocrit 28.5 % (35.3-44.9); Hemoglobin 9.5 g/dL (11.5-15.4); Immature Granulocytes % 0.2 % (0-4); Lymphocytes # 2.6 K/mcL (0.6-4.6); Lymphocytes % 41.3 %; Mean Corpuscular HGB Conc 33.3 g/dL (31.6-35.5); Mean Corpuscular Hemoglobin 33.6 pg (28.0-33.3); Mean Corpuscular Volume 100.7 fL (83.0-100.0); Mean Platelet Volume 9.3 fL (9.4-12.4); Monocytes # 0.5 K/mcL (0.0-1.3); Monocytes % 7.7 %; Neutrophils # 2.9 K/mcL (1.6-8.9); Platelet Count 165 K/mcL (140-400); Red Blood Count 2.83 M/mcL (3.82-4.97); Red Cell Distribution Width 13.4 % (11.5-14.5); Segmented Neutrophils % 47.2 %
[2017-01-12 05:49] LABS: Calcium 8.6 mg/dL (8.6-10.8); Potassium 3.9 mEq/L (3.5-4.5)
[2017-01-12] MEDS ORDERED: 0.9 % Sodium Chloride 1,000 ML IVC SCH (07:45)
[2017-01-12] MEDS: Cyanocobalamin (B-12) 1,000 MCG TABLET PO SCH (08:47)
[2017-01-12] MEDS: Mag Hydrox/Al Hydrox/Simeth 30 ML UDC PO SCH ×3 (08:47→21:03)
[2017-01-12] MEDS: Aspirin Enteric Coated 325 MG Tablet PO SCH ×2 (08:47→21:02)
[2017-01-12] MEDS: ERGOCALCIFEROL 800 UNIT PO SCH (08:48)
[2017-01-12] MEDS: Sucralfate 1 GM TABLET PO SCH ×2 (08:49→21:02)
[2017-01-12] MEDS: Isosorbide MONOnitrate (24 HR) 60 MG TAB.ER.24H PO SCH (08:50)
[2017-01-12] MEDS: Ranolazine 500 MG TAB.ER.12H PO SCH ×2 (08:53→21:03)
--- NOTE | 2017-01-12 10:11 | Internal Med Progress Note ---
Date of Encounter: 01/12/17 Time of Encounter: 09:00 - Assessment and plan (1) Chest pain Current Visit: No Status: Resolved Assessment and plan: Patient denies chest pain today and yesterday. She reported to the admitting physician at the chest pain was probably anxiety related. Troponins were negative. EKG was normal sinus rhythm with no ST changes. Cardiac catheter was done last year with no intervention. Echocardiogram was done in December,. EF 55-60%, mild diastolic dysfunction, mild to moderate RV hypokinesis, mild MR, moderate TR. Patient sees cardiology here at this hospital. 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 D/ / 01/10/2017 21:18:52 Amadou Baker MD / maya Interpreting Provider: Amadou aBker MD Qualifiers: Chest pain type: unspecified Qualified Code(s): R07.9 - Chest pain, unspecified (2) COPD (chronic obstructive pulmonary disease) Current Visit: No Status: Chronic Assessment and plan: No acute exacerbation. Patient is wearing O2 and maintaining her sats greater than 92%. Will wean today. Continue home medications and breathing treatments. Qualifiers: COPD type: emphysema Emphysema type: unspecified Qualified Code(s): J43.9 - Emphysema, unspecified (3) HTN (hypertension) Current Visit: No Status: Chronic Assessment and plan: Remains well controlled in inpatient setting. Continue home medications. Continue monitor vitals as ordered. Qualifiers: Hypertension type: essential hypertension Qualified Code(s): I10 - Essential (primary) hypertension (4) History of coronary artery bypass graft x 2 Current Visit: Yes Status: Chronic (5) Hyperlipemia Current Visit: No Status: Chronic Assessment and plan: Chronic. Continue home medications. Qualifiers: Hyperlipidemia type: unspecified Qualified Code(s): E78.5 - Hyperlipidemia , unspecified (6) CAD (coronary artery disease) Current Visit: No Status: Chronic Assessment and plan: Patient denies chest pain. Continue home medications. Patient has pacemaker. Echocardiogram results as above. Qualifiers: Coronary Disease-Associated Artery/Lesion type: [place] artery [place] vs. transplanted heart: [place] heart Associated angina: without angina Qualified Code(s): I25.10 - Atherosclerotic heart disease of [place] coronary artery without angina pectoris (7) Fall Current Visit: Yes Status: Acute Assessment and plan: Patient fell 1 day of admission. She was being discharged from her rehabilitation facility and fell in the bathroom as she was being discharged. Patient is weak and has difficulty even pivoting from bedside commode to bed. Patient will be evaluated by physical therapy and occupational therapy tomorrow. Prior to admission to [facility], patient was going to adult day program while daughter works during the day. Patient is not stable enough nor does she have enough strength to go home. We will wait for PT OT evaluation tomorrow. X-rays in the emergency department were negative and patient has no obvious injuries or deformities. She denies pain. She is on fall precautions and has a bed alarm. Hip X-Ray 01/10/17 16:59 IMPRESSION: Stable appearance and positioning of the left hip prosthesis. Otherwise no acute fracture or subluxation. D/ / 01/10/2017 17:52:35 Louis iKtchen MD / Hemalatha Motta Interpreting Provider: Louis Kitchen MD Femur X-Ray 01/10/17 18:39 IMPRESSION: Left hip prosthesis in place, which is in near anatomic position. Otherwise no acute fracture or subluxation of the femur. D/ / 01/10/2017 19:18:48 Louis Kitchen MD / maya Interpreting Provider: Louis Kitchen MD Qualifiers: Encounter type: initial encounter Qualified Code(s): W19.XXXA - Unspecified fall, initial encounter - Time Spent With Patient less than 15 minutes - Subjective Interval history: Patient was seen and examined at 9 AM. She was sitting up in her bed taking her medications and eating breakfast. Patient states that she wants to go home. She is very weak and frail and had difficulty yesterday getting from bedside commode to bed. Physical therapy and occupational therapy have not examined her yet. Prior to admission and prior to being at [facility], patient was going to adult day program while daughter whom she lived was at work. Will wait for PT/OT evaluation and recommendation. Patient denies chest pain or difficulty breathing. She is wearing oxygen. We will try to wean. - Constitutional Vitals: Temp Pulse Resp BP Pulse Ox 98.2 F 64 17 138/74 95 01/12/17 08:17 01/12/17 08:17 01/12/17 08:17 01/12/17 08:17 01/12/17 08:17 General appearance: Present: cooperative, A&O X 3, pleasant, no acute distress - Head Head exam: Present: normal inspection - Eye Eye exam: Present: normal appearance, conjuntiva pink - ENT ENT exam: Present: mucous membranes moist, normal exam, normal external ear exam - Respiratory Respiratory exam: Present: decreased breath sounds, CTAB. Absent: rales, respiratory distress, rhonchi, stridor, wheezes - Cardiovascular Cardiovascular exam: Present: RRR, +S1, +S2. Absent: diastolic murmur, systolic murmur - GI/Abdominal GI/Abdominal exam: Present: distended, normal bowel sounds, soft. Absent: hepatomegaly, tenderness - Extremities Exam Extremities exam: Present: normal capillary refill, pedal edema, tenderness. Absent: warm, radial pulses palpable and symetrical - Neurological Exam Neurological exam: Present: alert, oriented X3, no focal deficits. Absent: facial droop, speech deficit - Skin Skin exam: Present: dry, normal color, warm. Absent: rash Internal Medicine: Result - Labs CBC & Chem 7: 01/12/17 05:12 01/12/17 05:12 Labs: Short CBC 01/12/17 Range/Units 05:12 WBC 6.2 (4.3-11.1) K/mcL Hgb 9.5 L (11.5-15.4) g/dL Hct 28.5 L (35.3-44.9) % Plt Count 165 (140-400) K/mcL Neutrophils # 2.9 (1.6-8.9) K/mcL BMP 01/12/17 05:12 Sodium 137 Potassium 3.9 Chloride 105 Carbon Dioxide 23 BUN 22 H Creatinine 1.15 H Glucose 99 Calcium 8.6 Cardiac Enzymes 01/11/17 01/12/17 Range/Units 23:25 05:12 Troponin I 0.00 0.01 (0-0.03) ng/mL - ABG Interpretation ABG results: PT/INR, D-dimer PT 11.8 Seconds (9.4-12.1) 01/10/17 19:43 Consult Discharge Plan - Plan Referrals: Sukhi Prakash MD [Primary Care Provider] -
[2017-01-12] MEDS: hydroCHLOROthiazide 25 MG TABLET PO SCH (12:52)
[2017-01-12 13:07] LABS: Bilirubin,Urine Negative (Negative); Blood,Urine Negative (Negative); Clarity,Urine Cloudy (Clear); Color,Urine Yellow (Yellow); Glucose,Urine (UA) Normal (Normal); Ketones,Urine Negative (Negative); Leukocyte Esterase,Urine Large (Negative); Nitrite,Urine Positive (Negative); Protein,Urine Negative (Neg-Trace); Specific Gravity,Urine 1.015 (1.010-1.025); Urobilinogen,Urine Normal (Normal)
[2017-01-12 13:09] LABS: Bacteria,Urine Many per hpf (None-Few); Hyaline Casts,Urine None Seen per lpf (None-Few); Squamous Epithelial Cell,Urine Moderate per lpf (None-Few); WBC,Urine 15-30 per hpf (0-3)
[2017-01-12] MEDS: (Pravastatin Sodium [Pravachol] 80 MG) PO SCH (20:58)
[2017-01-13] MEDS: Ranolazine 500 MG TAB.ER.12H PO SCH ×2 (09:24→21:08)
[2017-01-13] MEDS: Cyanocobalamin (B-12) 1,000 MCG TABLET PO SCH (09:25)
[2017-01-13] MEDS: Isosorbide MONOnitrate (24 HR) 60 MG TAB.ER.24H PO SCH (09:26)
[2017-01-13] MEDS: Sucralfate 1 GM TABLET PO SCH ×2 (09:27→21:07)
[2017-01-13] MEDS: Mag Hydrox/Al Hydrox/Simeth 30 ML UDC PO SCH ×3 (09:27→21:08)
[2017-01-13] MEDS: Aspirin Enteric Coated 325 MG Tablet PO SCH ×2 (09:27→21:07)
[2017-01-13] MEDS: ERGOCALCIFEROL 800 UNIT PO SCH (09:35)
--- NOTE | 2017-01-13 09:44 | Electrocardiograph Report ---
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
[2017-01-13 10:12] LABS: Basophils % 0.6 %; Eosinophils # 0.2 K/mcL (0.0-0.6); Eosinophils % 3.3 %; Hematocrit 30.2 % (35.3-44.9); Hemoglobin 9.8 g/dL (11.5-15.4); Immature Granulocytes % 0.4 % (0-4); Lymphocytes # 1.4 K/mcL (0.6-4.6); Lymphocytes % 29.4 %; Mean Corpuscular HGB Conc 32.5 g/dL (31.6-35.5); Mean Corpuscular Volume 101.7 fL (83.0-100.0); Mean Platelet Volume 9.7 fL (9.4-12.4); Monocytes # 0.4 K/mcL (0.0-1.3); Monocytes % 7.7 %; Neutrophils # 2.8 K/mcL (1.6-8.9); Platelet Count 168 K/mcL (140-400); Red Blood Count 2.97 M/mcL (3.82-4.97); Red Cell Distribution Width 13.4 % (11.5-14.5); Segmented Neutrophils % 58.6 %
[2017-01-13 10:13] LABS: Calcium 8.6 mg/dL (8.6-10.8); Potassium 3.7 mEq/L (3.5-4.5)
--- NOTE | 2017-01-13 12:05 | Internal Med Progress Note ---
Date of Encounter: 01/13/17 Time of Encounter: 09:40 - Assessment and plan (1) Chest pain Current Visit: Yes Status: Resolved Assessment and plan: Patient denies chest since arrival. She reported to the admitting physician at the chest pain was probably anxiety related. Troponins were negative. EKG was normal sinus rhythm with no ST changes. Cardiac catheter was done last year with no intervention. Echocardiogram was done in December,. EF 55-60%, mild diastolic dysfunction, mild to moderate RV hypokinesis, mild MR, moderate TR. Patient sees cardiology here at this hospital. Continue machine dyer labs Treat chest pain when necessary Chest X-Ray 01/10/17 18:38 IMPRESSION: No acute process. D/ / 01/10/2017 21:18:52 Amadou Baker MD / maya Interpreting Provider: Amadou Baker MD Qualifiers: Chest pain type: unspecified Qualified Code(s): R07.9 - Chest pain, unspecified (2) COPD (chronic obstructive pulmonary disease) Current Visit: No Status: Chronic Assessment and plan: No acute exacerbation. Patient maintaining 02 sats >92% without supplemental oxygen. Continue home medications and breathing treatments. Qualifiers: COPD type: emphysema Emphysema type: unspecified Qualified Code(s): J43.9 - Emphysema, unspecified (3) HTN (hypertension) Current Visit: No Status: Chronic Assessment and plan: Remains well controlled in inpatient setting. Continue home medications. Continue monitor vitals as ordered. Qualifiers: Hypertension type: essential hypertension Qualified Code(s): I10 - Essential (primary) hypertension (4) History of coronary artery bypass graft x 2 Current Visit: Yes Status: Chronic Assessment and plan: History. (5) Hyperlipemia Current Visit: No Status: Chronic Assessment and plan: Chronic. Continue home medications. Qualifiers: Hyperlipidemia type: unspecified Qualified Code(s): E78.5 - Hyperlipidemia , unspecified (6) CAD (coronary artery disease) Current Visit: No Status: Chronic Assessment and plan: Patient denies chest pain. Continue home medications. Patient has pacemaker. Echocardiogram results as above. Qualifiers: Coronary Disease-Associated Artery/Lesion type: [place] artery [place] vs. transplanted heart: [place] heart Associated angina: without angina Qualified Code(s): I25.10 - Atherosclerotic heart disease of [place] coronary artery without angina pectoris (7) Fall Current Visit: Yes Status: Acute Assessment and plan: Patient fell day of admission. She was being discharged from her rehabilitation facility and fell in the bathroom as she was being discharged. Patient is weak and has difficulty even pivoting from bedside commode to bed. Prior to admission to [facility], patient was going to adult day program while daughter works during the day. Patient is not stable enough nor does she have enough strength to go home. X-rays in the emergency department were negative and patient has no obvious injuries or deformities. She denies pain. She is on fall precautions and has a bed alarm. Physical therapy has recommended intermediate facility. Social work is on board. Hip X-Ray 01/10/17 16:59 IMPRESSION: Stable appearance and positioning of the left hip prosthesis. Otherwise no acute fracture or subluxation. D/ / 01/10/2017 17:52:35 Louis Kitchen MD / Hemalatha Motta Interpreting Provider: Louis Kitchen MD Femur X-Ray 01/10/17 18:39 IMPRESSION: Left hip prosthesis in place, which is in near anatomic position. Otherwise no acute fracture or subluxation of the femur. D/ / 01/10/2017 19:18:48 Louis Kitchen MD / bcagenoveva Interpreting Provider: Louis Kitchen MD Qualifiers: Encounter type: initial encounter Qualified Code(s): W19.XXXA - Unspecified fall, initial encounter - Time Spent With Patient less than 15 minutes - Subjective Interval history: Pt was seen and assessed about 9:40 AM. She was requiring assistance of 2 nurses to get up to scale at bedside. Patient is very weak. She has been evaluated by physical therapy and found that she needs SNF. He is alert and oriented. She is pleasant. She denies chest pain. Physical exam is unremarkable. still worker helper is on board to attempt placement. Per primary nurse, family does not want her to go back to [facility]. - Constitutional Vitals: Temp Pulse Resp BP Pulse Ox 97.5 F L 61 16 142/58 97 01/13/17 08:43 01/13/17 08:43 01/13/17 08:43 01/13/17 08:43 01/13/17 08:43 General appearance: Present: cooperative, A&O X 3, pleasant, no acute distress - Head Head exam: Present: normal inspection - Eye Eye exam: Present: normal appearance, conjuntiva pink - ENT ENT exam: Present: mucous membranes moist, normal exam - Neck Neck exam general surgery: Present: normal inspection. Absent: lymphadenopathy , tenderness - Respiratory Respiratory exam: Present: decreased breath sounds. Absent: rales, rhonchi, stridor, wheezes - Cardiovascular Cardiovascular exam: Present: RRR, +S1, +S2. Absent: diastolic murmur, systolic murmur - GI/Abdominal GI/Abdominal exam: Present: normal bowel sounds, soft. Absent: hepatomegaly, tenderness - Extremities Exam Extremities exam: Present: normal inspection, pedal edema, tenderness, warm - Neurological Exam Neurological exam: Present: alert, oriented X3. Absent: facial droop, speech deficit - Skin Skin exam: Present: dry, normal color, warm. Absent: rash Internal Medicine: Result - Labs CBC & Chem 7: 01/13/17 09:34 01/13/17 09:34 Labs: Short CBC 01/13/17 Range/Units 09:34 WBC 4.8 (4.3-11.1) K/mcL Hgb 9.8 L (11.5-15.4) g/dL Hct 30.2 L (35.3-44.9) % Plt Count 168 (140-400) K/mcL Neutrophils # 2.8 (1.6-8.9) K/mcL BMP 01/13/17 09:34 Sodium 138 Potassium 3.7 Chloride 108 Carbon Dioxide 21 BUN 18 Creatinine 1.10 Glucose 140 H Calcium 8.6 Urine 01/12/17 Range/Units 12:55 Urine Color Yellow (Yellow) Urine Clarity Cloudy A (Clear) Urine pH 7.0 (5.0-8.0) pH Units Ur Specific [place] 1.015 (1.010-1.025) Urine Protein Negative (Neg-Trace) mg/dL Urine Glucose (UA) Normal (Normal) mg/dL - ABG Interpretation ABG results: PT/INR, D-dimer PT 11.8 Seconds (9.4-12.1) 01/10/17 19:43 Consult Discharge Plan - Plan Referrals: Sukhi Prakash MD [Primary Care Provider] -
[2017-01-13] MEDS: hydroCHLOROthiazide 25 MG TABLET PO SCH (12:13)
--- NOTE | 2017-01-13 15:59 | Electrocardiograph Report ---
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
[2017-01-13] MEDS: (Pravastatin Sodium [Pravachol] 80 MG) PO SCH (21:11)
[2017-01-14 06:03] LABS: Basophils % 0.7 %; Eosinophils # 0.2 K/mcL (0.0-0.6); Eosinophils % 3.8 %; Hematocrit 27.8 % (35.3-44.9); Hemoglobin 9.2 g/dL (11.5-15.4); Immature Granulocytes % 0.2 % (0-4); Lymphocytes # 2.4 K/mcL (0.6-4.6); Lymphocytes % 38.7 %; Mean Corpuscular HGB Conc 33.1 g/dL (31.6-35.5); Mean Corpuscular Hemoglobin 32.9 pg (28.0-33.3); Mean Corpuscular Volume 99.3 fL (83.0-100.0); Mean Platelet Volume 9.7 fL (9.4-12.4); Monocytes # 0.5 K/mcL (0.0-1.3); Monocytes % 8.4 %; Neutrophils # 2.9 K/mcL (1.6-8.9); Platelet Count 185 K/mcL (140-400); Red Cell Distribution Width 13.2 % (11.5-14.5); Segmented Neutrophils % 48.2 %
[2017-01-14 06:11] LABS: BUN/Creatinine Ratio 22 (6-26); Blood Urea Nitrogen 21 mg/dL (7-20); Calcium 8.7 mg/dL (8.6-10.8); Carbon Dioxide 20 mEq/L (19-29); Chloride 107 mEq/L (98-109); Glucose 97 mg/dL (70-99); Osmolality,Calculated 285 (280-300); Potassium 4.1 mEq/L (3.5-4.5); Sodium 136 mEq/L (136-145); eGFR For African Americans > 60 (> 60); eGFR For Non-African Americans 54 (> 60)
[2017-01-14] MEDS: Aspirin Enteric Coated 325 MG Tablet PO SCH (08:05)
[2017-01-14] MEDS: Sucralfate 1 GM TABLET PO SCH (08:05)
[2017-01-14] MEDS: Mag Hydrox/Al Hydrox/Simeth 30 ML UDC PO SCH (08:05)
[2017-01-14] MEDS: Ranolazine 500 MG TAB.ER.12H PO SCH (08:05)
[2017-01-14] MEDS: Cyanocobalamin (B-12) 1,000 MCG TABLET PO SCH (08:05)
[2017-01-14] MEDS: Isosorbide MONOnitrate (24 HR) 60 MG TAB.ER.24H PO SCH (08:06)
[2017-01-14] MEDS: ERGOCALCIFEROL 800 UNIT PO SCH (09:43)
[2017-01-14 11:39] VITALS: BP 129/58
[2017-01-14] MEDS: hydroCHLOROthiazide 25 MG TABLET PO SCH (11:44)
--- NOTE | 2017-01-14 13:12 | Discharge Summary ---
Date of Encounter: 01/14/17 Time of Encounter: 10:30 - Discharge Diagnosis (1) Fall Priority: Primary Status: Acute Comments: Consistent with mechanical fall. Hip x-ray, chest x-ray, femur x-ray all unremarkable for acute processes. Sending him to inpatient rehabilitation. Qualifiers: Encounter type: initial encounter Qualified Code(s): W19.XXXA - Unspecified fall, initial encounter (2) Left hip pain Priority: Primary Status: Acute Comments: Plain films of the hip and femur negative for acute processes (3) Chest pain Priority: Primary Status: Resolved Comments: Patient had developed chest pain after her presentation while she was in the emergency department. Chest x-ray negative. Troponins negative 5. Patient stating on day of discharge and she felt as if her chest pain was secondary to anxiety. ACS ruled out. Qualifiers: Chest pain type: unspecified Qualified Code(s): R07.9 - Chest pain, unspecified (4) Klebsiella cystitis Priority: Primary Status: Acute Comments: Urine culture consistent with Klebsiella oxytoca appropriately treated with ceftriaxone and admitted, no antibiotic allergies, will send on Bactrim (5) COPD (chronic obstructive pulmonary disease) Priority: Secondary Status: Chronic Comments: No acute exacerbation. Patient denies shortness of breath above her norm. Qualifiers: COPD type: emphysema Emphysema type: unspecified Qualified Code(s): J43.9 - Emphysema, unspecified (6) HTN (hypertension) Priority: Secondary Status: Chronic Comments: Controlled, follow-up outpatient Qualifiers: Hypertension type: essential hypertension Qualified Code(s): I10 - Essential (primary) hypertension (7) History of coronary artery bypass graft x 2 Priority: Secondary Status: Chronic (8) CAD (coronary artery disease) Priority: Secondary Status: Chronic Qualifiers: Coronary Disease-Associated Artery/Lesion type: bypass graft [place] vs. 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 pectoris (9) GHADA (acute kidney injury) Priority: Primary Status: Acute Comments: Steady throughout this admission. Creatinine normal on day of discharge. Follow-up outpatient. (10) Pacemaker Priority: Secondary Status: Chronic (11) Atrial fibrillation Priority: Secondary Status: Chronic Qualifiers: Atrial fibrillation type: unspecified Qualified Code(s): I48.91 - Unspecified atrial fibrillation (12) Anemia Priority: Secondary Status: Chronic Comments: Remained stable throughout this admission, follow-up outpatient Qualifiers: Anemia type: unspecified type Qualified Code(s): D64.9 - Anemia, unspecified (13) Pressure ulcer, heel, left, unstageable Priority: Secondary Status: Chronic Comments: Present on admission, follow-up outpatient (14) DVT prophylaxis Priority: Primary Status: Acute Comments: Observation patient - Discharge Medications Prescriptions: Collagenase Oint [Santyl] 1 appl TP BID #1 tube Oxycodone HCl/Acetaminophen [Percocet 5-325 mg Tablet] 1 each PO Q4H PRN #12 tablet PRN Reason: Pain Sulfamethoxazole/Trimeth DS [Bactrim DS] 1 each PO BID #16 tablet Home Medications: Clopidogrel [Plavix] 75 mg PO DAILY 08/23/15 [History] Isosorbide MONOnitrate (24 HR) [Imdur] 180 mg PO DAILY 08/23/15 [History] Potassium Chloride [K-Tab ER] 10 meq PO BID 08/23/15 [History] Pravastatin Sodium [Pravachol] 80 mg PO HS 08/23/15 [History] Cyanocobalamin (Vitamin B-12) [Vitamin B-12] 100 mcg PO DAILY 03/14/16 [History] Docusate [Colace] 100 mg PO BID PRN 03/14/16 [History] Ergocalciferol (VITAMIN D2) [Vitamin D] 800 unit PO DAILY 03/14/16 [History] Loratadine [Claritin] 10 mg PO DAILY 03/14/16 [History] Losartan/Hydrochlorothiazide [Losartan-Hctz 100-12.5 mg Tab] 1 tab PO DAILY 02/19 [History] Nitroglycerin [Nitrostat] 0.4 mg SL Q5M PRN 03/31/16 [History] Ranolazine [Ranexa] 1,000 mg PO BID 03/31/16 [History] FluocinoLONE Acet 0.025% CRM [Fluocinolone Acet 0.025% CRM] 1 appl TP BID PRN [History] Sertraline [Zoloft] 75 mg PO DAILY 10/28/16 [History] Aspirin Enteric Coated [Aspirin EC] 325 mg PO BID tablet. 11/02/16 [Rx] Carvedilol 12.5 mg PO BID 01/10/17 [History] Loperamide [Imodium] 2 mg PO QID PRN 01/10/17 [History] Mag Hydrox/Al Hydrox/Simeth [Antacid Suspension] 30 ml PO ACHS 01/10/17 [History ] Pantoprazole Sodium [Protonix] 40 mg PO DAILY 01/10/17 [History] Ranitidine HCl [Zantac] 150 mg PO HS 01/10/17 [History] Sucralfate [Carafate] 1 gm PO BID 01/10/17 [History] Collagenase Oint [Santyl] 1 appl TP BID #1 tube 01/14/17 [Rx] Oxycodone HCl/Acetaminophen [Percocet 5-325 mg Tablet] 1 each PO Q4H PRN #12 tablet 01/14/17 [Rx] Sulfamethoxazole/Trimeth DS [Bactrim DS] 1 each PO BID #16 tablet 01/14/17 [Rx] Allergies/Adverse Reactions: Allergies simvastatin [From Zocor] Allergy (Verified 01/10/17 16:51) Anaphylaxis atorvastatin [From Lipitor] Adverse Reaction (Verified 01/10/17 16:51) Anxiety enalaprilat [From Vasotec] Adverse Reaction (Verified 01/10/17 16:51) Hives Procedures/tests Complete & Pending: Procedures Performed prior 72 hours Category Date Time Status ECG 12 lead ECG [ECG] Routine Y 01/11/17 22:45 Completed Date of admission: 01/10/17 21:57 Primary care physician: Sukhi Prakash MD Consults: 01/10/17 23:35 Consult to Tube Buffer [CONS] Routine Reason for SW Consult: Discharge planning 01/11/17 11:53 Consult to Physical Therapy [CONS] Routine Comment: Evaluate, develop and implement POC Reason for Consult: limited mobility R/T recent L hip surgery 01/11/17 11:55 Consult to Occupational Therapy [CONS] Routine Comment: Evaluate, develop and implement POC Reason for Consult: limited mobility R/T reccent L hip surgery 01/11/17 17:33 Consult to Wound Care [CONS] Routine Reason for Consult: L heel wound Call Completed: No Discharging clinician: Leslie Claire Anticipated date of discharge: 01/14/17 (approved at [place]) - Patient Status Disposition: Transfer Inpatient Rehab Fac Condition: Fair Functional capacity at discharge: uses cane/walker Overall status at discharge: patient is progressing back to baseline - Discharge Instructions Follow Up With: Sukhi Prakash MD [Primary Care Provider] - Additional Instructions: Follow-up with primary care provider in one to 2 weeks - Diet and Activity Activity: increase activity as tolerated Diet: low fat, low cholesterol, low salt diet Hospital course: Ms. Duke is a 86 year old female with past medical issues CAD status post CABG and stent 8, atrial fibrillation, COPD, DVT, GERD, hyperlipidemia, hypertension, pacemaker, former tobacco abuse. Patient was brought to the emergency department after she sustained a mechanical fall after using the bathroom and as she attempted to turn around, she was unable to grab the support structure. She complained of left hip pain. She denies hitting her head or losing consciousness. While she was in the emergency department, she developed acute onset of chest pain that was on the left side of her chest and radiated to her left shoulder and was associated with nausea and mild shortness of breath and lasted approximately 5-10 minutes before improving. No ECG changes. Plain films of her hip, chest, and femur were negative for acute processes. Patient was admitted to the hospitalist service for further evaluation and management. Troponins were trended and were negative 5. Patient had no further bouts of chest pain while admitted. She stated she felt as if it was more of an anxiety attack. Patient was noted to have a urinary tract infection. She was appropriately treated with ceftriaxone while admitted and her urine culture was consistent with Klebsiella oxytoca and she was discharged on Bactrim. She was seen and evaluated by occupational and physical therapy both of whom recommended inpatient rehabilitation. She was transferred to [facility] in stable condition with close outpatient follow-up recommended. ITS Impressions Hip X-Ray 01/10/17 16:59 IMPRESSION: Stable appearance and positioning of the left hip prosthesis. Otherwise no acute fracture or subluxation. D/ /10/2017 17:52:35 Louis Kitchen MD / Hemalatha Motta Interpreting Provider: Louis Kitchen MD Chest X-Ray 01/10/17 18:38 IMPRESSION: No acute process. D/ / 01/10/2017 21:18:52 Amadou Baker MD / maya Interpreting Provider: Amadou Baker MD Femur X-Ray 01/10/17 18:39 IMPRESSION: Left hip prosthesis in place, which is in near anatomic position. Otherwise no acute fracture or subluxation of the femur. D/ / 01/10/2017 19:18:48 Louis Kitchen MD / maya Interpreting Provider: Louis Kitchen MD - Time Spent with Patient Total time spent providing and/or coordinating discharge services: - Constitutional Vitals: Temp Pulse Resp BP Pulse Ox 98.0 F 61 16 129/58 97 01/14/17 11:37 01/14/17 11:37 01/14/17 11:37 01/14/17 11:37 01/14/17 11:37 General appearance: Present: cooperative, A&O X 3, pleasant, no acute distress, answers questions appropriately - Head Head exam: Present: atraumatic, normocephalic - Eye Eye exam: Present: PERRL, conjuntiva pink, sclera anicteric Pupils: Present: PERRL - Neck Neck exam general surgery: Present: supple, trachea midline. Absent: lymphadenopathy - Respiratory Respiratory exam: Present: CTAB. Absent: accessory muscle use, rales, respiratory distress, rhonchi, wheezes - Cardiovascular Cardiovascular exam: Present: RRR, +S1, +S2. Absent: diastolic murmur, gallop, rubs, systolic murmur - GI/Abdominal GI/Abdominal exam: Present: normal bowel sounds, soft, no peritoneal signs. Absent: distended, tenderness - Extremities Exam Extremities exam: Present: warm, radial pulses palpable and symetrical. Absent : calf tenderness, cyanotic, pedal edema - Neurological Exam Neurological exam: Present: alert, CN II-XII intact, oriented X3, no focal deficits. Absent: pronater drift, facial droop, speech deficit - Skin Skin exam: Present: dry, intact, normal color, warm
--- NOTE | 2017-01-14 13:45 | Physician Discharge Referral ---
ExtendedCare Referral Info Transfer To: [place] Provider in Charge: Laila Claire CNP Provider in Charge after Transfer: PCP Institutional Level of Care: Skilled - Diagnosis (1) Fall Priority: Primary Status: Acute (2) Left hip pain Priority: Primary Status: Acute (3) Chest pain Priority: Primary Status: Resolved (4) Klebsiella cystitis Priority: Primary Status: Acute (5) COPD (chronic obstructive pulmonary disease) Priority: Secondary Status: Chronic (6) HTN (hypertension) Priority: Secondary Status: Chronic (7) History of coronary artery bypass graft x 2 Priority: Secondary Status: Chronic (8) CAD (coronary artery disease) Priority: Secondary Status: Chronic (9) GHADA (acute kidney injury) Priority: Primary Status: Acute (10) Pacemaker Priority: Secondary Status: Chronic (11) Atrial fibrillation Priority: Secondary Status: Chronic (12) Anemia Priority: Secondary Status: Chronic (13) Pressure ulcer, heel, left, unstageable Priority: Secondary Status: Chronic (14) DVT prophylaxis Priority: Primary Status: Acute Prognosis: Good Aware of Diagnosis: Patient Aware of Prognosis: Patient - Transfer Medications Prescriptions: Collagenase Oint [Santyl] 1 appl TP BID #1 tube Oxycodone HCl/Acetaminophen [Percocet 5-325 mg Tablet] 1 each PO Q4H PRN #12 tablet PRN Reason: Pain Sulfamethoxazole/Trimeth DS [Bactrim DS] 1 each PO BID #16 tablet Home Medications: Clopidogrel [Plavix] 75 mg PO DAILY 08/23/15 [History] Isosorbide MONOnitrate (24 HR) [Imdur] 180 mg PO DAILY 08/23/15 [History] Potassium Chloride [K-Tab ER] 10 meq PO BID 08/23/15 [History] Pravastatin Sodium [Pravachol] 80 mg PO HS 08/23/15 [History] Cyanocobalamin (Vitamin B-12) [Vitamin B-12] 100 mcg PO DAILY 03/14/16 [History] Docusate [Colace] 100 mg PO BID PRN 03/14/16 [History] Ergocalciferol (VITAMIN D2) [Vitamin D] 800 unit PO DAILY 03/14/16 [History] Loratadine [Claritin] 10 mg PO DAILY 03/14/16 [History] Losartan/Hydrochlorothiazide [Losartan-Hctz 100-12.5 mg Tab] 1 tab PO DAILY 02/19 [History] Nitroglycerin [Nitrostat] 0.4 mg SL Q5M PRN 03/31/16 [History] Ranolazine [Ranexa] 1,000 mg PO BID 03/31/16 [History] FluocinoLONE Acet 0.025% CRM [Fluocinolone Acet 0.025% CRM] 1 appl TP BID PRN [History] Sertraline [Zoloft] 75 mg PO DAILY 10/28/16 [History] Aspirin Enteric Coated [Aspirin EC] 325 mg PO BID tablet. 11/02/16 [Rx] Carvedilol 12.5 mg PO BID 01/10/17 [History] Loperamide [Imodium] 2 mg PO QID PRN 01/10/17 [History] Mag Hydrox/Al Hydrox/Simeth [Antacid Suspension] 30 ml PO ACHS 01/10/17 [History ] Pantoprazole Sodium [Protonix] 40 mg PO DAILY 01/10/17 [History] Ranitidine HCl [Zantac] 150 mg PO HS 01/10/17 [History] Sucralfate [Carafate] 1 gm PO BID 01/10/17 [History] Collagenase Oint [Santyl] 1 appl TP BID #1 tube 01/14/17 [Rx] Oxycodone HCl/Acetaminophen [Percocet 5-325 mg Tablet] 1 each PO Q4H PRN #12 tablet 01/14/17 [Rx] Sulfamethoxazole/Trimeth DS [Bactrim DS] 1 each PO BID #16 tablet 01/14/17 [Rx] Allergies/Adverse Reactions: Allergies simvastatin [From Zocor] Allergy (Verified 01/10/17 16:51) Anaphylaxis atorvastatin [From Lipitor] Adverse Reaction (Verified 01/10/17 16:51) Anxiety enalaprilat [From Vasotec] Adverse Reaction (Verified 01/10/17 16:51) Hives - Respiratory Orders Smoking Cessation: Smoking cessation has been advised. For more information, call the [place] Tobacco Quit Line at 8-706-QMAC-NOW. - Ancillary Orders May use pressure relief devices daily prn, May go on KWAME w/family/respon constitution party w /meds at nurse discretion PRN, May have alcoholic beverages, May consult with Dentist, Denture Packer, Gun Profiler PRN - Advance Directives Living Will: Yes Power of Pipe Puller: Yes Code Status: Full Code - Mobility Orders Ambulate (per PT) - Rehabiliation Orders Rehab Potential: Good Rehab Orders: ROM Exercises, Evaluation for Physical Therapy, Evaluation for Occupational Therapy - Treatments Skin tear care topically daily PRN per policy, May check for fecal impaction rectally daily PRN, Fleet enema rectally every other day PRN cleansing purposes - Diet Orders No Added Salt (CHIOMA) CERTIFICATION: I certify that the transfer of the above named patient to an Extended Care Facility is necessary for the continuing treatment of the diagnosis listed. The above information is true and accurate reflection of patient's current condition. Confidential - Redisclosure prohibited without a patient's written consent.
[2017-01-15 07:52] LABS: CK Total (Ck Isoenzymes) 17 U/L (20-180)
[2017-01-15 07:53] LABS: CK Total (Ck Isoenzymes) 20 U/L (20-180)
== END 2017-01-14 15:30 ==
LOC: EDBD 16:32 → 3BNU 16:32 → EMEROO 16:32 → SUATTDRO 21:57 → 3BNU 22:37
PROVIDERS: ADMIT Internal Medicine Endocrinology, Diabetes & Metabolism; ATTEND Nurse Practitioner Family

== ENCOUNTER 2017-07-29 16:26 | Observation (INO) ==
[2017-07-29] MEDS ORDERED: Piperacillin/Tazobactam 3.375 GM in Water for inj. (sterile) 20 ML IVP ONE (16:50)
[2017-07-29] MEDS ORDERED: Vancomycin 750 MG in D5% in Water 250 ML IVPB ONE (16:50)
[2017-07-29] MEDS ORDERED: Norepinephrine 4 MG in D5% in Water 250 ML IVC SCH (17:00)
[2017-07-29] MEDS ORDERED: 0.9 % Sodium Chloride 1,000 ML ONE (17:03)
[2017-07-29] MEDS: 0.9 % Sodium Chloride 1,000 ML IVC SCH ×3 (17:11→21:49)
[2017-07-29 17:20] LABS: Basophils % 0.7 %; Hematocrit 39.4 % (35.3-44.9); Hemoglobin 13.1 g/dL (11.5-15.4); Immature Granulocytes % 0.2 % (0-4); Lymphocytes # 1.6 K/mcL (0.6-4.6); Mean Corpuscular HGB Conc 33.2 g/dL (31.6-35.5); Mean Corpuscular Hemoglobin 34.2 pg (28.0-33.3); Mean Corpuscular Volume 102.9 fL (83.0-100.0); Mean Platelet Volume 10.1 fL (9.4-12.4); Monocytes # 0.3 K/mcL (0.0-1.3); Monocytes % 6.6 %; Neutrophils # 2.3 K/mcL (1.6-8.9); Platelet Count 144 K/mcL (140-400); Red Blood Count 3.83 M/mcL (3.82-4.97); Red Cell Distribution Width 12.6 % (11.5-14.5); Segmented Neutrophils % 54.5 %
[2017-07-29 17:25] LABS: Prothrombin Time 11.2 Seconds (9.4-12.1)
[2017-07-29 17:27] LABS: Activated Partial Thrombo Time 27.2 Seconds (26.0-36.0)
[2017-07-29 17:47] LABS: Albumin 4.1 g/dL (3.5-5.7); Albumin/Globulin Ratio 1.7 (1.1-2.2); Bilirubin,Direct 0.2 mg/dL (0.0-0.2); Bilirubin,Indirect 0.6 mg/dL (0.0-1.2); Bilirubin,Total 0.8 mg/dL (0.3-1.0); Globulin 2.4 g/dL (2.4-3.5); Magnesium 2.3 mg/dL (1.6-2.6); Phosphorous 4.6 mg/dL (2.7-4.5); Potassium 4.2 mEq/L (3.5-5.1); Total Protein 6.5 g/dL (6.4-8.9)
--- NOTE | 2017-07-29 18:47 | Emergency Department Note ---
Disposition Clinical Impression: Compression fracture Altered mental status Qualifiers: Altered mental status type: unspecified Qualified Code(s): R41.82 - Altered mental status, unspecified Disposition: Admitted As Inpatient Condition: Good Referrals: Sukhi Prakash MD [Primary Care Provider] - Forms: ED Satisfaction Letter Altered Mental Status HPI - General Chief Complaint: ED Altered Mental Status Stated Complaint: generalized weakness, fall last week, confusion Time Seen by Provider: 07/29/17 16:49 Source: family Limitations: no limitations Nursing Notes Reviewed: Yes Vital Signs Reviewed: Yes - History of Present Illness HPI Narrative: This is a 86-year-old female who has had frequent falls. She presents from EMS. There is concern about fall today. She is not on anticoagulation. She is a small bruise on her left zygomatic arch. She has no neurological deficits. She was found to be hypotensive in triage and brought straight back. She has no complaints of abdominal pain or fever. She has no sick or ill contacts. Her family is concerned that she is acting somewhat confused. - Related Data Home Medications Medication Instructions Recorded Confirmed Clopidogrel [Plavix] 75 mg PO DAILY 08/23/15 01/10/17 Isosorbide MONOnitrate (24 HR) 180 mg PO DAILY 08/23/15 01/10/17 [Imdur] Potassium Chloride [K-Tab ER] 10 meq PO BID 08/23/15 01/10/17 Pravastatin Sodium [Pravachol] 80 mg PO HS 08/23/15 01/10/17 Cyanocobalamin (Vitamin B-12) 100 mcg PO DAILY 03/14/16 01/10/17 [Vitamin B-12] Docusate [Colace] 100 mg PO BID PRN 03/14/16 01/10/17 Ergocalciferol (VITAMIN D2) 800 unit PO DAILY 03/14/16 01/10/17 [Vitamin D] Loratadine [Claritin] 10 mg PO DAILY 03/14/16 01/10/17 Losartan/Hydrochlorothiazide 1 tab PO DAILY 03/14/16 01/10/17 [Losartan-Hctz 100-12.5 mg Tab] Nitroglycerin [Nitrostat] 0.4 mg SL Q5M PRN 03/31/16 01/10/17 Ranolazine [Ranexa] 1,000 mg PO BID 03/31/16 01/10/17 FluocinoLONE Acet 0.025% CRM 1 appl TP BID PRN 10/28/16 01/10/17 [Fluocinolone Acet 0.025% CRM] Sertraline [Zoloft] 75 mg PO DAILY 10/28/16 01/10/17 Carvedilol 12.5 mg PO BID 01/10/17 01/10/17 Loperamide [Imodium] 2 mg PO QID PRN 01/10/17 01/10/17 Mag Hydrox/Al Hydrox/Simeth 30 ml PO ACHS 01/10/17 01/10/17 [Antacid Suspension] Pantoprazole Sodium [Protonix] 40 mg PO DAILY 01/10/17 01/10/17 Ranitidine HCl [Zantac] 150 mg PO HS 01/10/17 01/10/17 Sucralfate [Carafate] 1 gm PO BID 01/10/17 01/10/17 Previous Rx's Medication Instructions Recorded Aspirin Enteric Coated [Aspirin EC] 325 mg PO BID tablet. 11/02/16 Collagenase Oint [Santyl] 1 appl TP BID #1 tube 01/14/17 Oxycodone HCl/Acetaminophen 1 each PO Q4H PRN #12 tablet 01/14/17 [Percocet 5-325 mg Tablet] Sulfamethoxazole/Trimeth DS 1 each PO BID #16 tablet 01/14/17 [Bactrim DS] Lidocaine Patch [Lidoderm 5% patch] 1 each TP DAILY PRN #3 adh..patch 03/25/17 Allergies Allergy/AdvReac Type Severity Reaction Status Date / Time simvastatin [From Zocor] Allergy Anaphylaxis Verified 01/10/17 16:51 atorvastatin [From Lipitor] AdvReac Anxiety Verified 01/10/17 16:51 enalaprilat [From Vasotec] AdvReac Hives Verified 01/10/17 16:51 All systems ED: reviewed and negative except as stated. Review of Systems: As Per HPI Past Medical History - Past Medical History Medical history: Reports: arthritis, atrial fibrillation, COPD, coronary artery disease, DVT, GERD, hyperlipidemia, hypertension, myocardial infarction, syncope Surgical history: Reports: angioplasty/stent, appendectomy, cataract, cholecystectomy, coronary bypass (CABG), orthopedic, other, pacemaker/AICD Psychiatric history: Reports: anxiety, depression PROCESS SAFETY SPECIALIST history: Reports: non-contributory - Social History Smoking Status: Former smoker Smokeless Tobacco Status: No Alcohol use: Reports: none Drug use: Reports: none Physical Exam Bruising over the left eye Trachea midline Regular rate and rhythm Abdomen soft and nontender Extremities are perfused Skin pink warm and dry Moves all extremities Confused to time however not to person or place - General Limitations: no limitations General appearance: alert, in no apparent distress Course Vital Signs Temperature 98.0 F 07/29/17 16:40 Pulse Rate 60 07/29/17 16:40 Respiratory Rate 16 07/29/17 16:40 Blood Pressure 64/38 07/29/17 16:40 O2 Sat by Pulse Oximetry 97 07/29/17 16:40 Temperature 98.0 F 07/29/17 16:40 Pulse Rate 59 07/29/17 18:04 Respiratory Rate 18 07/29/17 18:04 Blood Pressure 102/54 07/29/17 18:04 O2 Sat by Pulse Oximetry 96 07/29/17 18:04 Oxygen Delivery Oxygen Delivery Room Air Altered Mental Status - MDM Narrative Medical decision making narrative: The patient has had multiple falls. She has findings of T11 age-indeterminate compression fracture. I spoke with Dr. Chicas and spine surgery. He will provide inpatient consult. The patient had hypotension which is now resolved. Given her degree of hypotension I would continue with broad spectrum antibiotics until cultures are available. She has no fever. She has no tachycardia. She has no significant metabolic derangements. I am still waiting for urinalysis. I request a straight catheter. She has no other findings of acute fracture or injury. Plan to admit to the hospitalist service for further evaluation of altered mental status in the setting of hypotension and frequent falls. - Lab Data Result diagrams: 07/29/17 17:00 07/29/17 17:00 Lab Results 07/29/17 07/29/17 07/29/17 Range/Units 17:00 17:00 17:00 WBC 4.3 (4.3-11.1) K/mcL RBC 3.83 (3.82-4.97) M/mcL Hgb 13.1 (11.5-15.4) g/dL Hct 39.4 (35.3-44.9) % MCV 102.9 H (83.0-100.0) fL MCH 34.2 H (28.0-33.3) pg MCHC 33.2 (31.6-35.5) g/dL RDW 12.6 (11.5-14.5) % Plt Count 144 (140-400) K/mcL MPV 10.1 (9.4-12.4) fL Immature Gran % 0.2 (0-4) % Seg Neutrophils % 54.5 % Lymphocytes % 38.0 % Monocytes % 6.6 % Eosinophils % 0.0 % Basophils % 0.7 % Neutrophils # 2.3 (1.6-8.9) K/mcL Lymphocytes # 1.6 (0.6-4.6) K/mcL Monocytes # 0.3 (0.0-1.3) K/mcL Eosinophils # 0.0 (0.0-0.6) K/mcL Basophils # 0.0 (0.0-0.2) K/mcL PT 11.2 (9.4-12.1) Seconds INR 1.0 APTT 27.2 (26.0-36.0) Seconds Sodium 138 (136-145) mEq/L Potassium 4.2 (3.5-5.1) mEq/L Chloride 103 (98-107) mEq/L Carbon Dioxide 26 (23-29) mEq/L BUN 27 H (8-23) mg/dL Creatinine 1.81 H (0.60-1.20) mg/dL Est GFR ( Amer) 32 L (> 60) Est GFR (Non-Af Amer) 27 L (> 60) BUN/Creatinine Ratio 15 (6-26) Glucose 132 H (70-105) mg/dL Calculated Osmolality 293 (280-300) Lactic Acid (0.5-2.2) mmol/L Calcium 9.0 (8.6-10.3) mg/dL Phosphorus 4.6 H (2.7-4.5) mg/dL Magnesium 2.3 (1.6-2.6) mg/dL Total Bilirubin 0.8 (0.3-1.0) mg/dL Direct Bilirubin 0.2 (0.0-0.2) mg/dL Indirect Bilirubin 0.6 (0.0-1.2) mg/dL AST 23 (13-39) Units/L ALT 14 (7-52) Units/L Alkaline Phosphatase 41 (34-104) Units/L Troponin I (< 0.04) ng/mL B-Natriuretic Peptide (Less than 100) pg/mL Serum Total Protein 6.5 (6.4-8.9) g/dL Albumin 4.1 (3.5-5.7) g/dL Globulin 2.4 (2.4-3.5) g/dL Albumin/Globulin Ratio 1.7 (1.1-2.2) Lipase 19 (11-82) Units/L 07/29/17 07/29/17 07/29/17 Range/Units 17:00 17:00 17:00 WBC (4.3-11.1) K/mcL RBC (3.82-4.97) M/mcL Hgb (11.5-15.4) g/dL Hct (35.3-44.9) % MCV (83.0-100.0) fL MCH (28.0-33.3) pg MCHC (31.6-35.5) g/dL RDW (11.5-14.5) % Plt Count (140-400) K/mcL MPV (9.4-12.4) fL Immature Gran % (0-4) % Seg Neutrophils % % Lymphocytes % % Monocytes % % Eosinophils % % Basophils % % Neutrophils # (1.6-8.9) K/mcL Lymphocytes # (0.6-4.6) K/mcL Monocytes # (0.0-1.3) K/mcL Eosinophils # (0.0-0.6) K/mcL Basophils # (0.0-0.2) K/mcL PT (9.4-12.1) Seconds INR APTT (26.0-36.0) Seconds Sodium (136-145) mEq/L Potassium (3.5-5.1) mEq/L Chloride (98-107) mEq/L Carbon Dioxide (23-29) mEq/L BUN (8-23) mg/dL Creatinine (0.60-1.20) mg/dL Est GFR ( Amer) (> 60) Est GFR (Non-Af Amer) (> 60) BUN/Creatinine Ratio (6-26) Glucose (70-105) mg/dL Calculated Osmolality (280-300) Lactic Acid 2.0 (0.5-2.2) mmol/L Calcium (8.6-10.3) mg/dL Phosphorus (2.7-4.5) mg/dL Magnesium (1.6-2.6) mg/dL Total Bilirubin (0.3-1.0) mg/dL Direct Bilirubin (0.0-0.2) mg/dL Indirect Bilirubin (0.0-1.2) mg/dL AST (13-39) Units/L ALT (7-52) Units/L Alkaline Phosphatase (34-104) Units/L Troponin I 0.03 (< 0.04) ng/mL B-Natriuretic Peptide 837 H (Less than 100) pg/mL Serum Total Protein (6.4-8.9) g/dL Albumin (3.5-5.7) g/dL Globulin (2.4-3.5) g/dL Albumin/Globulin Ratio (1.1-2.2) Lipase (11-82) Units/L TPA Checklist - LKW: 3-4.5 hrs Add. Warnings/Precautions Patient/family understanding: The patient/family members have been counseled and understood the risk, benefit , and alternatives of treatment.
[2017-07-29 18:58] LABS: Bilirubin,Urine Small (Negative); Blood,Urine Negative (Negative); Clarity,Urine Cloudy (Clear); Color,Urine Red (Yellow); Glucose,Urine (UA) Normal (Normal); Ketones,Urine Trace mg/dL (Negative); Leukocyte Esterase,Urine Small (Negative); Nitrite,Urine Positive (Negative); PH,Urine 5.5 pH Units (5.0-8.0); Protein,Urine Trace mg/dL (Neg-Trace); Specific Gravity,Urine 1.027 (1.010-1.025); Urobilinogen,Urine Normal (Normal)
[2017-07-29 18:59] LABS: Bacteria,Urine None Seen per hpf (None-Few); Squamous Epithelial Cell,Urine Many per lpf (None-Few)
[2017-07-29 19:20] LABS: Hyaline Casts,Urine Many per lpf (None-Few)
[2017-07-29 19:21] LABS: Renal Epithelial Cells,Urine Few per hpf (None-Few)
[2017-07-29] MEDS ORDERED: *HR* FentaNYL (PF) 100 MCG/2 ML VIAL IVP STA (19:33)
[2017-07-29] MEDS ORDERED: *HR* OxyCODONE Immed Rel 5 MG TABLET PO ONE (19:38)
[2017-07-29] MEDS ORDERED: Ipratropium/Albuterol Neb 3 ML IH STA (19:58)
--- NOTE | 2017-07-29 20:10 | Emergency Department Note ---
START Narrative - START START: Patient signed out by Dr. Perrin. The patient was admitted to the hospitalist , Dr. Main. Patient has been given pain medication. Patient did not receive any Levophed during her stay. Improved with 1 L of fluids. Antibiotics have been given.
[2017-07-29] MEDS ORDERED: Nitroglycerin 0.4 MG TAB.SUBL SL PRN (20:23)
[2017-07-29] MEDS ORDERED: Naloxone 0.4 MG/ML INJ IVP PRN (20:45)
--- NOTE | 2017-07-29 20:58 | Internal Med History&Physical ---
<Mumtaz Taveras - Last Filed: 07/29/17 20:55> Date of Encounter: 07/29/17 Time of Encounter: 20:56 Assessment and Plan (1) UTI (urinary tract infection) Current visit: Yes Status: Acute Presents today s/p with c/o suprapubic pain and dysuria. Family notes she appears more confused than normal. Urinalysis reveals positive nitrates and leukocyte esterase -ATB Ceftriaxone 1gm daily -urine sent for culture; follow cultures and narrow ATB as clinically appropriate -Gentle IVF 0.9% NS at 60ml/hr -CBC, BMP in the am Qualifiers: Urinary tract infection type: acute cystitis Hematuria presence: without hematuria Qualified Code(s): N30.00 - Acute cystitis without hematuria (2) Compression fracture Current visit: Yes Status: Acute Presents today s/p fall. History of frequent falls due to bilateral extremity weakness. Patient is wheelchair-bound and unable to ambulate. Workup in the ED reveals compression fractures at T-11. Consults orthopedics-Dr. Chicas called and agreed to see the patient Maintain strict bed rest Pain management with [place] 5/325 every 6hrs PRN (3) Fall Current visit: Yes Status: Acute H/O frequent falls. Most recent fall today, resulting in T-11 compression fracture. She was noted to be hypotensive upon arrival. Etiology unclear, may be r/t medication or UTI. Dr. Lopez has been consulted. Hold off on PT/OT consult until further recommendations from Dr. Lopez. Qualifiers: Encounter type: initial encounter Qualified Code(s): W19.XXXA - Unspecified fall, initial encounter (4) Hypotension Current visit: Yes Status: Acute Initially hypotensive on arrival. Etiology unclear, improved with fluid resuscitation. Continue to closely monitor. Hold losartan/hydrachlorothiazide , continue coreg with parameters to hold for SBP less than 100 Qualifiers: Hypotension type: unspecified hypotension type Qualified Code(s): I95.9 - Hypotension, unspecified (5) GHADA (acute kidney injury) Current visit: Yes Status: Acute I suspect is secondary to hypoperfusion due to hypotension. She presented today with hypotension systolic blood pressure in the 60s. She has an underlying history of chronic kidney disease stage II. Continue to monitor serum creatinine, avoid nephrotoxins. Gentle IV hydration with 60 mL per hour 0.9% normal saline (6) Altered mental status Current visit: Yes Status: Acute Presents today with confusion. Family is concerned as it appears patient is more confused than baseline. I suspect this is secondary to UTI. Urinalysis positive for leukocyte esterase and nitrates. Qualifiers: Altered mental status type: unspecified Qualified Code(s): R41.82 - Altered mental status, unspecified (7) Hyperlipemia Current visit: Yes Status: Chronic Qualifiers: Hyperlipidemia type: unspecified Qualified Code(s): E78.5 - Hyperlipidemia , unspecified (8) CAD (coronary artery disease) Current visit: Yes Status: Chronic ASA, Statin, and BB Qualifiers: Coronary Disease-Associated Artery/Lesion type: bypass graft [place] vs. transplanted heart: [place] heart Associated angina: without angina Qualified Code(s): I25.810 - Atherosclerosis of coronary artery bypass graft(s) without angina pectoris (9) DVT prophylaxis Current visit: Yes Status: Acute heparin 5000 units SC BID Internal Medicine - H&P: HPI Chief complaint: FREQUENT FALLS, T-11 FRACTURES, UTI Admitted From: Home Plans for Post Hospital Care: Home History of present illness: Ms. Duke is a 86 year old female with PMH of arthritis, A. fib, COPD, CAD, GERD, HLD, HTN, NH, syncope, anxiety and depression. She presents today S/P fall. In triage was found to be hypotensive which I suspect is etiology of the fall. A thorough workup was obtained and found that she had a T11 fracture. The patient denies any recent fevers, chills, nausea, vomiting, diarrhea, chest pain, shortness of breath, cough. She does report some suprapubic pain as well as dysuria. Family is at bedside is concerned that she has been acting more confused than baseline. She will be noted the patient is not on any anticoagulation. Also of note, she has a history of frequent falls. Urinalysis obtained and was positive for nitrates and leukocyte esterase Past Med Surg Social Fam HX - Past Medical History Medical history: arthritis, atrial fibrillation, COPD, coronary artery disease, DVT, GERD, hyperlipidemia, hypertension, myocardial infarction, syncope Psychiatric history: anxiety, depression - Past Surgical History Surgical History: angioplasty/stent, appendectomy, cataract, cholecystectomy, coronary bypass (CABG), orthopedic, other, pacemaker/AICD - Social History Smoking Status: Former smoker Smokeless Tobacco Status: No Alcohol use: none Drug use: none - Family History Father Living Status: Hx Family Cardiac Disorders: Yes (HEART PROBEMS, NH) Mother Living Status: Hx Family Respiratory Disorders: Yes ( of pneumonia) Internal Medicine - H&P: Meds Clopidogrel [Plavix] 75 mg PO DAILY 08/23/15 [History] Isosorbide MONOnitrate (24 HR) [Imdur] 180 mg PO DAILY 08/23/15 [History] Potassium Chloride [K-Tab ER] 10 meq PO BID 08/23/15 [History] Pravastatin Sodium [Pravachol] 80 mg PO HS 08/23/15 [History] Cyanocobalamin (Vitamin B-12) [Vitamin B-12] 100 mcg PO DAILY 03/14/16 [History] Docusate [Colace] 100 mg PO BID PRN 03/14/16 [History] Ergocalciferol (VITAMIN D2) [Vitamin D] 800 unit PO DAILY 03/14/16 [History] Loratadine [Claritin] 10 mg PO DAILY 03/14/16 [History] Losartan/Hydrochlorothiazide [Losartan-Hctz 100-12.5 mg Tab] 1 tab PO DAILY 02/19 [History] Nitroglycerin [Nitrostat] 0.4 mg SL Q5M PRN 03/31/16 [History] Ranolazine [Ranexa] 1,000 mg PO BID 03/31/16 [History] Sertraline [Zoloft] 75 mg PO DAILY 10/28/16 [History] Aspirin Enteric Coated [Aspirin EC] 325 mg PO BID tablet. 11/02/16 [Rx] Carvedilol 12.5 mg PO BID 01/10/17 [History] Loperamide [Imodium] 2 mg PO QID PRN 01/10/17 [History] Mag Hydrox/Al Hydrox/Simeth [Antacid Suspension] 30 ml PO ACHS 01/10/17 [History ] Ranitidine HCl [Zantac] 150 mg PO HS 01/10/17 [History] Sucralfate [Carafate] 1 gm PO BID 01/10/17 [History] Collagenase Oint [Santyl] 1 appl TP BID #1 tube 01/14/17 [Rx] Oxycodone HCl/Acetaminophen [Percocet 5-325 mg Tablet] 1 each PO Q4H PRN #12 tablet 01/14/17 [Rx] Lidocaine Patch [Lidoderm 5% patch] 1 each TP DAILY PRN #3 adh..patch 03/25/17 [ Rx] Pantoprazole Sodium [Protonix] 20 mg PO DAILY 07/29/17 [History] 3 Allergy/AdvReac Type Severity Reaction Status Date / Time simvastatin [From Zocor] Allergy Anaphylaxis Verified 01/10/17 16:51 atorvastatin [From Lipitor] AdvReac Anxiety Verified 01/10/17 16:51 enalaprilat [From Vasotec] AdvReac Hives Verified 01/10/17 16:51 All Systems PM: A 10-system review of systems was performed and is negative for pertinent findings except as documented above in the HPI. Review of systems: ROS limited d/t confusion. She was able to somewhat participate in the exam but she is confused. Only alert to self, and place, disoriented to date, and situation. - Constitutional Constitutional: fatigue (s), falls, weakness, no chills, no fever(s) - EENT Ears: no ear discharge, no ear pain, no tinnitus Nose, mouth and throat: no dysphagia, no nasal discharge, no neck pain, no sore throat - Cardiovascular Cardiovascular ROS IM: no chest pain, no diaphoresis, no dyspnea, no lightheadedness, no palpitations, no syncope - Respiratory Respiratory: no cough, no dyspnea, no wheezing, no excessive phlegm production - Gastrointestinal Gastrointestinal: abdominal pain (suprapubic pain) - Genitourinary Genitourinary: dysuria, no flank pain - Musculoskeletal Musculoskeletal ROS IM: back pain (s/p fall; new T-11 [address]) - Integumentary Integumentary IM: no rash, no unusual bruising - Neurological Neurological ROS: confusion, frequent falls, memory loss, no dizziness - Constitutional Vitals: Temp Pulse Resp BP Pulse Ox 98.2 F 59 18 136/57 98 07/29/17 20:39 07/29/17 18:04 07/29/17 20:39 07/29/17 20:39 07/29/17 19:38 General appearance: Present: A&O X 2, no acute distress Exam: difficulty with answering questions; not able to stay on topic, pleasantly confused. - Head Head exam: Present: atraumatic, normocephalic - Eye Eye exam: Present: PERRL, conjuntiva pink, sclera anicteric Pupils: Present: PERRL - Neck Neck exam general surgery: Present: supple, trachea midline. Absent: lymphadenopathy - Respiratory Respiratory exam: Present: CTAB. Absent: accessory muscle use, rales, rhonchi, wheezes - Cardiovascular Cardiovascular exam: Present: RRR, +S1, +S2. Absent: diastolic murmur, gallop, rubs, systolic murmur - GI/Abdominal GI/Abdominal exam: Present: normal bowel sounds, soft, no peritoneal signs. Absent: distended, tenderness - Extremities Exam Extremities exam: Present: normal inspection, warm, radial pulses palpable and symmetrical. Absent: calf tenderness, cyanotic, pedal edema, tenderness - Neurological Exam Neurological exam: Present: alert (disoriented, mild confusion). Absent: oriented X3, facial droop, speech deficit - Skin Skin exam: Present: dry, intact Internal Med - H&P Results - Labs CBC & Chem 7: 07/29/17 17:00 07/29/17 17:00 - Impressions Impressions Abdomen/Pelvis CT 07/29/17 16:49 IMPRESSION: 1. No acute abnormalities seen in the abdomen or pelvis. 2. Status post cholecystectomy. 3. Colonic diverticulosis. 4. Atherosclerotic changes. 5. Previous left hip arthroplasty. D/ / 07/29/2017 17:59:50 Fransisco Sharma MD / [email or web address] Interpreting Provider: Fransisco Sharma MD Cervical Spine CT 07/29/17 16:49 IMPRESSION: No acute abnormality of the cervical spine. D/ / 07/29/2017 17:59:43 Griffin Stein MD / [email or web address] Interpreting Provider: Griffin Stein MD Chest CT 07/29/17 16:49 IMPRESSION: 1. No acute abnormality detected within the chest. D/ / Federico Kwan MD / Federico Kwan MD Interpreting Provider: Federico Kwan MD Head CT 07/29/17 16:49 IMPRESSION: Atrophy and small vessel ischemic disease. Sphenoid sinusitis. D/ / Gabriel Wall MD / Gabriel Wall MD Interpreting Provider: Gabriel Wall MD Lumbar Spine CT 07/29/17 16:49 IMPRESSION: Compression fracture T11 with loss of approximately 40% vertebral height. Findings are new since the 2011 study. D/ / Francisca Fowler MD / Francisca Fowler MD Interpreting Provider: Francisca Fowler MD Thoracic Spine CT 07/29/17 16:49 IMPRESSION: Compression fracture involving the superior endplate of T11, age indeterminate, but probably acute to subacute. No significant retropulsion. No involvement of the posterior elements. D/ / Federico Kwan MD / Federico Kwan MD Interpreting Provider: Federico Kwan MD <Forrest Osei - Last Filed: 07/29/17 22:04> Date of Encounter: 07/29/17 Time of Encounter: 21:58 Internal Medicine - H&P: HPI History of present illness: Ms. Duke is a 86 year old female All Systems PM: A 10-system review of systems was performed and is negative for pertinent findings except as documented above in the HPI. - Constitutional Vitals: Temp Pulse Resp BP Pulse Ox 97.6 F 60 16 126/74 97 07/29/17 20:55 07/29/17 20:55 07/29/17 20:55 07/29/17 20:55 07/29/17 20:55 Internal Med - H&P Results - Labs CBC & Chem 7: 07/29/17 17:00 01/23/18 17:00 - Attending Attestation I examined this patient and my medical decision-making was reviewed with the Nurse Practioner, Mumtaz Taveras. I agree with the documented findings, disposition and treatment plan as described except to the extent set forth below. 86-year-old female patient with history of atrial fibrillation, COPD, CAD, DVT, hyperlipidemia, hypertension, anxiety and depression presented to the ER after a fall. Patient does appear to have a history of dementia and is not able to recollect exactly when she fell. She reports falling 2 weeks back onto her side. She does not recollect what side. She does have a bruise over her left zygomatic arch. She also complained of suprapubic tenderness and dysuria. In the ER she underwent CT scan of her spine which showed compression fracture at T11. She was also found to be hypotensive but has responded well to IV fluids. She denies any dizziness or lightheadedness. Lab work shows normal WBC count. Patient does have acute kidney injury with creatinine of 1.81. On examination, patient is awake and alert. Disoriented. Heart sounds and breath sounds are normal. No abdominal tenderness. Neuro exam is essentially normal with no focal deficits. CT of the spine shows compression fractures involving T11 superior endplate age indeterminate. Acute urinary tract infection: Will treat with empiric ceftriaxone. Urine culture. T11 compression fracture: Spine surgery consult. Fall precautions. PT OT when cleared by spine surgery. Recurrent falls: Could be due to hypotension. Monitor blood pressure. Gentle hydration. Fall precautions. Acute kidney injury: Treat with IV hydration. Acute encephalopathy: Metabolic versus infectious etiology. May have underlying dementia. According to ED records and family, patient more confused than baseline. Will treat underlying causes. Hyperlipidemia: Patient on pravastatin at home. Listed as being allergic to simvastatin and atorvastatin. DVT prophylaxis with subcutaneous heparin
[2017-07-29] MEDS ORDERED: Famotidine 20 MG TABLET PO SCH (21:00)
[2017-07-29] MEDS ORDERED: Sucralfate 1 GM TABLET PO SCH (21:00)
[2017-07-29] MEDS: Mag Hydrox/Al Hydrox/Simeth 30 ML UDC PO SCH (21:49)
[2017-07-29] MEDS: Aspirin Enteric Coated 325 MG Tablet PO SCH (21:50)
[2017-07-29] MEDS: Ranolazine 500 MG TAB.ER.12H PO SCH (21:51)
[2017-07-30] MEDS ORDERED: *HR* LORazepam 2 MG/ML VIAL IVP ONE (04:01)
[2017-07-30 05:31] LABS: Eosinophils % 0.3 %; Hematocrit 30.9 % (35.3-44.9); Lymphocytes % 27.7 %; Mean Corpuscular HGB Conc 32.7 g/dL (31.6-35.5); Mean Corpuscular Hemoglobin 33.6 pg (28.0-33.3); Mean Corpuscular Volume 102.7 fL (83.0-100.0); Mean Platelet Volume 10.1 fL (9.4-12.4); Monocytes % 5.8 %; Platelet Count 106 K/mcL (140-400); Red Blood Count 3.01 M/mcL (3.82-4.97); Red Cell Distribution Width 12.6 % (11.5-14.5); Segmented Neutrophils % 65.6 %
[2017-07-30 05:32] LABS: Basophils % 0.6 %; Lymphocytes # 0.9 K/mcL (0.6-4.6); Monocytes # 0.2 K/mcL (0.0-1.3); Neutrophils # 2.1 K/mcL (1.6-8.9)
[2017-07-30 05:35] LABS: Hemoglobin 10.1 g/dL (11.5-15.4)
[2017-07-30 05:59] LABS: Calcium 7.8 mg/dL (8.6-10.3); Potassium 3.2 mEq/L (3.5-5.1)
[2017-07-30] MEDS: *HR* Heparin 5,000 UNIT/ML VIAL SQ SCH ×2 (06:05→17:24)
[2017-07-30] MEDS ORDERED: Potassium Chloride Elixir 20 MEQ/15 ML UDC PO ONE (08:23)
--- NOTE | 2017-07-30 08:24 | Electrocardiograph Report ---
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
[2017-07-30] MEDS ORDERED: (Cyanocobalamin (Vitamin B-12) [Vitamin B-12] 100 MCG PO SCH (09:00)
[2017-07-30 09:01] LABS: Magnesium 1.8 mg/dL (1.6-2.6)
[2017-07-30] MEDS: Aspirin Enteric Coated 325 MG Tablet PO SCH ×2 (09:05→22:05)
[2017-07-30] MEDS: Loratadine 10 MG TABLET PO SCH (09:05)
[2017-07-30] MEDS: Ranolazine 500 MG TAB.ER.12H PO SCH ×2 (09:05→22:05)
[2017-07-30] MEDS: Cholecalciferol (D-3) 1,000 UNIT TABLET PO SCH (09:05)
[2017-07-30] MEDS: Cyanocobalamin (B-12) 1,000 MCG TABLET PO SCH (09:05)
[2017-07-30] MEDS: Mag Hydrox/Al Hydrox/Simeth 30 ML UDC PO SCH ×4 (09:06→22:05)
[2017-07-30] MEDS: cefTRIAXone 1,000 MG in Water for inj. (sterile) 20 ML 10 ML IVP SCH (09:06)
[2017-07-30] MEDS: Isosorbide MONOnitrate (24 HR) 60 MG TAB.ER.24H PO SCH (09:06)
[2017-07-30] MEDS: Sucralfate 1 GM TABLET PO SCH ×2 (10:45→17:23)
[2017-07-30] MEDS: 0.9 % Sodium Chloride 1,000 ML IVC SCH (14:12)
--- NOTE | 2017-07-30 16:36 | Internal Med Progress Note ---
Date of Encounter: 07/30/17 Time of Encounter: 09:10 - Assessment and plan (1) Fall Current Visit: Yes Status: Acute Assessment and plan: Patient with recurrent falls. Likely deconditioning. Physical and occupational therapy evaluation. Supportive care, fall precautions. Qualifiers: Encounter type: initial encounter Qualified Code(s): W19.XXXA - Unspecified fall, initial encounter (2) Compression fracture Current Visit: Yes Status: Acute Assessment and plan: CT thoracic and lumbar spine shows superior endplate fracture of T11. Case discussed with . patient will be seen by , who is health information managers; continue pain control, supportive care, P evaluation when stable; (3) UTI (urinary tract infection) Current Visit: Yes Status: Acute Assessment and plan: Urinalysis does not show any bacteria, does show pyuria with positive nitrite. Continue IV Rocephin and follow up final urine culture. Qualifiers: Urinary tract infection type: acute cystitis Hematuria presence: without hematuria Qualified Code(s): N30.00 - Acute cystitis without hematuria (4) [id number] renal failure Current Visit: Yes Status: Acute Assessment and plan: Likely related to dehydration. Serum creatinine improved to 1.37 with IV hydration. Continue to monitor closely, avoid nephrotoxic agents. Noted to have hypokalemia, supplement with oral potassium chloride. Check magnesium level. Qualifiers: Acute renal failure type: unspecified Chronic kidney disease stage: stage 3 (moderate) Qualified Code(s): N17.9 - Acute kidney failure, unspecified; N18.3 - Chronic kidney disease, stage 3 (moderate); N18.3 - Chronic kidney disease, stage 3 (moderate) (5) Acute encephalopathy Current Visit: Yes Status: Resolved Assessment and plan: Probably metabolic, related to dehydration and underlying UTI. Currently at baseline mental status, alert and oriented. (6) COPD (chronic obstructive pulmonary disease) Current Visit: Yes Status: Chronic Assessment and plan: Not in acute exacerbation. Continue when necessary bronchodilators and supplemental oxygen. Qualifiers: COPD type: emphysema Emphysema type: unspecified Qualified Code(s): J43.9 - Emphysema, unspecified (7) HTN (hypertension) Current Visit: Yes Status: Chronic Qualifiers: Hypertension type: essential hypertension Qualified Code(s): I10 - Essential (primary) hypertension (8) CAD (coronary artery disease) Current Visit: Yes Status: Chronic Qualifiers: Coronary Disease-Associated Artery/Lesion type: bypass graft [place] vs. transplanted heart: [place] heart Associated angina: without angina Qualified Code(s): I25.810 - Atherosclerosis of coronary artery bypass graft(s) without angina pectoris (9) Atrial fibrillation Current Visit: Yes Status: Chronic Assessment and plan: Not noted to be on anticoagulation as outpatient, probably due to fall risk. Continue full dose aspirin. Currently rate controlled. Qualifiers: Atrial fibrillation type: unspecified Qualified Code(s): I48.91 - Unspecified atrial fibrillation - Subjective Interval history: Reports feeling well. Has been having recurrent falls at home, lives with her daughter. No fever, chills, chest pain, dyspnea, vomiting or diarrhea. Reports dark-colored urine, denies suprapubic pain, dysuria. - Constitutional Vitals: Temp Pulse Resp BP Pulse Ox 99.2 F 61 14 112/55 95 07/30/17 15:43 07/30/17 15:43 07/30/17 15:43 07/30/17 15:43 07/30/17 15:43 General appearance: Present: A&O X 2, answers questions appropriately - Respiratory Respiratory exam: Present: CTAB. Absent: accessory muscle use, rales, rhonchi, wheezes - Cardiovascular Cardiovascular exam: Present: irregular rhythm, +S1, +S2. Absent: diastolic murmur, gallop, rubs, systolic murmur - GI/Abdominal GI/Abdominal exam: Present: normal bowel sounds, soft, no peritoneal signs. Absent: distended, tenderness - Extremities Exam Extremities exam: Present: full ROM, pedal edema, warm, radial pulses palpable and symmetrical. Absent: calf tenderness, cyanotic - Neurological Exam Neurological exam: Present: CN II-XII intact, oriented X3, no focal deficits. Absent: pronater drift, facial droop, speech deficit Internal Medicine: Result - Labs CBC & Chem 7: 07/30/17 05:12 07/30/17 05:12 Labs: Short CBC 07/30/17 Range/Units 05:12 WBC 3.3 L (4.3-11.1) K/mcL Hgb 10.1 L D (11.5-15.4) g/dL Hct 30.9 L (35.3-44.9) % Plt Count 106 L (140-400) K/mcL Neutrophils # 2.1 (1.6-8.9) K/mcL BMP 07/30/17 05:12 Sodium 139 Potassium 3.2 L Chloride 111 H Carbon Dioxide 21 L BUN 21 Creatinine 1.37 H Glucose 96 Calcium 7.8 L - ABG Interpretation ABG results: PT/INR, D-dimer PT 11.2 Seconds (9.4-12.1) 07/29/17 17:00 Consult Discharge Plan - Plan Referrals: Sukhi Prakash MD [Primary Care Provider] - 08/04/17 10:00 am ([phone] follow up as schedule...)
[2017-07-30] MEDS: Acetaminophen 325 MG TABLET PO PRN (17:23)
[2017-07-31] MEDS: *HR* Heparin 5,000 UNIT/ML VIAL SQ SCH ×2 (05:01→16:57)
--- NOTE | 2017-07-31 07:29 | Pain Management Consultation ---
Date of Encounter: 07/30/17 Time of Encounter: 17:00 Assessment and Plan (1) Compression fracture of body of thoracic vertebra Current Visit: Yes Status: Acute There is a new T11 compression fracture by history and CT data. 1. Due to the patient's comorbidities, anticoagulation and neutropenia, recommend conservative care for the next 1-2 weeks. 2. Physical therapy evaluation pending 3. Recommend incentive spirometry while in bed now. 4. Recommend low-dose oral opioid therapy. If side effects are occurring with oxycodone preparations, consider switching to hydrocodone or Tylenol with codeine preparations. 5. Will have back bracing specialist evaluate the patient for a TLSO brace. TLSO brace recommended while out of bed. Patient does not have to wear brace while in bed or sitting. 6. I have scheduled the patient for a follow-up visit in 10-14 days with myself in our clinic. We will monitor her progress and decide if kyphoplasty repair should be an option. The assessment and plan as outlined above was discussed with the patient and/or family members who expressed understanding and agreement. All questions were answered. History of Present Illness Chief complaint: back pain HPI: Ms. Duke is a 86 year old female who experienced a fall approximately 3-4 days ago. The patient had been having minor aches and pains in her back up until the time of the fall, but after the fall, she is then and now experiencing 10/10 pain in the middle back that does not radiate into her chest or her legs. The pain is described as sharp and stabbing and had an immediate onset with the fall. A extensive history of falls. She fell approximately one year ago and fractured her femur which required surgical stabilization. The patient is anticoagulated with Plavix secondary to coronary stenting. She is comfortable when in bed and sitting. Pain increases drastically with standing to walk. Able to sleep comfortably. Past Med Surg Social Fam HX - Past Medical History Medical history: arthritis, atrial fibrillation, COPD, coronary artery disease, DVT, GERD, hyperlipidemia, hypertension, myocardial infarction, syncope Psychiatric history: anxiety, depression - Past Surgical History Surgical History: angioplasty/stent, appendectomy, cataract, cholecystectomy, coronary bypass (CABG), orthopedic, other, pacemaker/AICD - Social History Smoking Status: Former smoker Smokeless Tobacco Status: No Alcohol use: none Drug use: none - Family History Father Living Status: Hx Family Cardiac Disorders: Yes (HEART PROBEMS, [place]) Mother Living Status: Hx Family Respiratory Disorders: Yes ( of pneumonia) Medications and Allergies Clopidogrel [Plavix] 75 mg PO DAILY 08/23/15 [History] Isosorbide MONOnitrate (24 HR) [Imdur] 180 mg PO DAILY 08/23/15 [History] Potassium Chloride [K-Tab ER] 10 meq PO BID 08/23/15 [History] Pravastatin Sodium [Pravachol] 80 mg PO HS 08/23/15 [History] Cyanocobalamin (Vitamin B-12) [Vitamin B-12] 100 mcg PO DAILY 03/14/16 [History] Docusate [Colace] 100 mg PO BID PRN 03/14/16 [History] Ergocalciferol (VITAMIN D2) [Vitamin D] 800 unit PO DAILY 03/14/16 [History] Loratadine [Claritin] 10 mg PO DAILY 03/14/16 [History] Losartan/Hydrochlorothiazide [Losartan-Hctz 100-12.5 mg Tab] 1 tab PO DAILY 02/19 [History] Nitroglycerin [Nitrostat] 0.4 mg SL Q5M PRN 03/31/16 [History] Ranolazine [Ranexa] 1,000 mg PO BID 03/31/16 [History] Sertraline [Zoloft] 75 mg PO DAILY 10/28/16 [History] Aspirin Enteric Coated [Aspirin EC] 325 mg PO BID tablet. 11/02/16 [Rx] Carvedilol 12.5 mg PO BID 01/10/17 [History] Loperamide [Imodium] 2 mg PO QID PRN 01/10/17 [History] Mag Hydrox/Al Hydrox/Simeth [Antacid Suspension] 30 ml PO ACHS 01/10/17 [History ] Ranitidine HCl [Zantac] 150 mg PO HS 01/10/17 [History] Sucralfate [Carafate] 1 gm PO BID 01/10/17 [History] Collagenase Oint [Santyl] 1 appl TP BID #1 tube 01/14/17 [Rx] Oxycodone HCl/Acetaminophen [Percocet 5-325 mg Tablet] 1 each PO Q4H PRN #12 tablet 07/11/17 [Rx] Lidocaine Patch [Lidoderm 5% patch] 1 each TP DAILY PRN #3 adh..patch 03/25/17 [ Rx] Pantoprazole Sodium [Protonix] 20 mg PO DAILY 07/29/17 [History] 3 Allergy/AdvReac Type Severity Reaction Status Date / Time simvastatin [From Zocor] Allergy Anaphylaxis Verified 01/10/17 16:51 atorvastatin [From Lipitor] AdvReac Anxiety Verified 01/10/17 16:51 enalaprilat [From Vasotec] AdvReac Hives Verified 01/10/17 16:51 Review of Systems - Constitutional Constitutional ROS IM: no photophobia, no phonophobia, no daytime sleepiness, no fever(s), no stops breathing during sleep - EENT Nose, mouth and throat: no headache(s), no neck pain, no neck trauma - Cardiovascular Cardiovascular ROS: no chest pain, no leg edema, no lightheadedness - Respiratory Respiratory: no pain on inspiration, no pain with cough - Gastrointestinal Gastrointestinal: no abdominal pain, no constipation, no diarrhea, no heartburn - Genitourinary Genitourinary ROS: no difficulty urinating, no flank pain, no urinary hesitancy - Musculoskeletal Musculoskeletal ROS: no muscle weakness, no numbness, no radiating pain into limb, no tingling - Integumentary Integumentary: no erythema, no lesions, no swelling - Neurological Neurological ROS: no abnormal gait, no behavioral changes, no focal weakness, no radicular pain - Psychiatric Psychiatric general: no anxiety, no confusion, no depression - Hematologic/Lymphatic Hematologic/Lymphatic pediatric: no easy bleeding, no easy bruising Physical Exam Initial Vital Signs Temp Pulse Resp BP Pulse Ox 98.0 F 60 16 64/38 97 07/29/17 16:40 07/29/17 16:40 07/29/17 16:40 07/29/17 16:40 07/29/17 16:40 - General physical appearance General physical appearance: awake & oriented, no distress, no pain - Eyes Eye exam: normal ocular movement - ENT normal pinna, normal nares - Neck no masses - Respiratory normal respiratory effort - Abdomen Abdomen: soft, non tender, bowel sounds - Integumentary Integumentary general surgery: no rash - Neurologic normal coordination - Musculoskeletal Musculoskeletal: normal gait, normal posture - Psychiatric Psychiatric: oriented to time, oriented to person, oriented to place - Additional Findings EYES:: pupils equal and round, no myosis. SKIN:: no areas of echymoses or petechiae CARDIOVASCULAR:: regular rate and rhythm. midline sternum incision c/w prior CABG PULMONARY:: lung harrell clear to auscultation bilaterally. Quiet, normal respiratory pattern. GASTROINTESTINAL:: active bowel sounds. MUSCULOSKELETAL INSPECTION:: no surgical scarring in lumbar area. PALPATION:: Tender to palpation in the mid thoracic neuraxis. No tenderness in the upper thoracic, cervical, and lumbar areas. ROM:: Active flexion and extension are reduced in the lumbar area. Active Rotation is reduced in the lumbar area. STRENGTH:: RIGHT hip flexors: 5/5 :: LEFT hip flexors: 5/5 RIGHT hip adduction 5/5 :: LEFT hip adduction 5/5 RIGHT hip abduction 5/5 :: LEFT hip abduction 5/5 RIGHT knee extension 5/5 :: LEFT knee extension 5/5 RIGHT knee flexion 5/5 :: LEFT knee flexion 5/5 RIGHT ankle dorsiflexion 5/5 :: LEFT ankle dorsiflexion 5/5 RIGHT ankle plantarflexion 5/5 :: LEFT ankle plantarflexion 5/5 RIGHT great toe dorsiflexion 5/5 :: LEFT great toe dorsiflexion 5/5 RIGHT great toe plantarflexion 5/5 :: LEFT great toe plantarflexion 5/5 NEUROLOGIC DEEP TENDON REFLEXES:: RIGHT pateller 1/4 :: LEFT pateller 1/4 RIGHT achilles 1/4 :: LEFT achilles 1/4 SENSATION:: hypesthesia is not noted in lower extremity dermatomes. SIGNS OF NEUROVASCULAR COMPRESSION Clonus: none found bilateral with passive ROM at ankle joint Spasticity:: none Atrophy:: not present in UE or LE musculature Fasciculation:: not present in UE or LE musculature PSYCHIATRIC:: ORIENTATION:: awake and alert. INSIGHT:: good awareness of illness. AFFECT:: pleasant. Radiology Images Viewed By Me:: July 2017 CT scan of the thoracic spine shows an anterior wedge deformity of the T11 vertebral body. There is a radio-opaque body in the vertebral body of T11. Radiology reports viewed by me:: July 2017 CT scan of the lumbar spine shows severe degenerative disc disease and neuroforaminal stenosis left and right thoracolumbar neuraxis. Labs:: White blood cell count is low. I have reviewed and agree with information documented in the scribed documentation, ROS, patient medications, allergies, medical history, surgical history, social history, and family history. Results - Labs 07/30/17 05:12 07/30/17 05:12 Abnormal lab results WBC 3.3 K/mcL (4.3-11.1) L 07/30/17 05:12 RBC 3.01 M/mcL (3.82-4.97) L 07/30/17 05:12 Hgb 10.1 g/dL (11.5-15.4) L D 07/30/17 05:12 Hct 30.9 % (35.3-44.9) L 07/30/17 05:12 MCV 102.7 fL (83.0-100.0) H 07/30/17 05:12 MCH 33.6 pg (28.0-33.3) H 07/30/17 05:12 Plt Count 106 K/mcL (140-400) L 07/30/17 05:12 Potassium 3.2 mEq/L (3.5-5.1) L 07/30/17 05:12 Chloride 111 mEq/L (98-107) H 07/30/17 05:12 Carbon Dioxide 21 mEq/L (23-29) L 07/30/17 05:12 Creatinine 1.37 mg/dL (0.60-1.20) H 07/30/17 05:12 Est GFR ( Amer) 44 (> 60) L 07/30/17 05:12 Est GFR (Non-Af Amer) 37 (> 60) L 07/30/17 05:12 Calcium 7.8 mg/dL (8.6-10.3) L 07/30/17 05:12 Phosphorus 4.6 mg/dL (2.7-4.5) H 07/29/17 17:00 B-Natriuretic Peptide 837 pg/mL (Less than 100) H 07/29/17 17:00 Urine Color Red (Yellow) A 07/29/17 18:45 Urine Clarity Cloudy (Clear) A 07/29/17 18:45 Ur Specific [place] 1.027 (1.010-1.025) H 07/29/17 18:45 Urine Ketones Trace mg/dL (Negative) H 07/29/17 18:45 Urine Nitrite Positive (Negative) A 07/29/17 18:45 Urine Bilirubin Small (Negative) H 07/29/17 18:45 Ur Leukocyte Esterase Small (Negative) H 07/29/17 18:45 Urine Microscopic RBC 3-5 per hpf (0-3) H 07/29/17 18:45 Urine Microscopic WBC 5-15 per hpf (0-3) H 07/29/17 18:45 Ur Squamous Epith Cells Many per lpf (None-Few) H 07/29/17 18:45 Hyaline Casts Many per lpf (None-Few) H 07/29/17 18:45 Diabetes panel 07/30/17 Range/Units 05:12 Sodium 139 (136-145) mEq/L Potassium 3.2 L (3.5-5.1) mEq/L Chloride 111 H (98-107) mEq/L Carbon Dioxide 21 L (23-29) mEq/L BUN 21 (8-23) mg/dL Creatinine 1.37 H (0.60-1.20) mg/dL Glucose 96 (70-105) mg/dL Calcium 7.8 L (8.6-10.3) mg/dL Calcium panel 07/30/17 Range/Units 05:12 Calcium 7.8 L (8.6-10.3) mg/dL Pituitary panel 07/30/17 Range/Units 05:12 Sodium 139 (136-145) mEq/L Potassium 3.2 L (3.5-5.1) mEq/L Chloride 111 H (98-107) mEq/L Carbon Dioxide 21 L (23-29) mEq/L BUN 21 (8-23) mg/dL Creatinine 1.37 H (0.60-1.20) mg/dL Glucose 96 (70-105) mg/dL Calcium 7.8 L (8.6-10.3) mg/dL Adrenal panel 07/30/17 Range/Units 05:12 Sodium 139 (136-145) mEq/L Potassium 3.2 L (3.5-5.1) mEq/L Chloride 111 H (98-107) mEq/L Carbon Dioxide 21 L (23-29) mEq/L BUN 21 (8-23) mg/dL Creatinine 1.37 H (0.60-1.20) mg/dL Glucose 96 (70-105) mg/dL Calcium 7.8 L (8.6-10.3) mg/dL All other labs normal. Consult Discharge Plan - Plan Referrals: Sukhi Prakash MD [Primary Care Provider] - 08/04/17 10:00 am ([phone] follow up as schedule...)
[2017-07-31] MEDS: cefTRIAXone 1,000 MG in Water for inj. (sterile) 20 ML 10 ML IVP SCH (08:05)
[2017-07-31] MEDS: Isosorbide MONOnitrate (24 HR) 60 MG TAB.ER.24H PO SCH (08:07)
[2017-07-31] MEDS: Ranolazine 500 MG TAB.ER.12H PO SCH ×2 (08:08→20:55)
[2017-07-31] MEDS: Loratadine 10 MG TABLET PO SCH (08:09)
[2017-07-31] MEDS: Sucralfate 1 GM TABLET PO SCH ×2 (08:11→16:56)
[2017-07-31] MEDS: Cholecalciferol (D-3) 1,000 UNIT TABLET PO SCH (08:11)
[2017-07-31] MEDS: Aspirin Enteric Coated 325 MG Tablet PO SCH ×2 (08:12→20:55)
[2017-07-31] MEDS: Cyanocobalamin (B-12) 1,000 MCG TABLET PO SCH (08:12)
[2017-07-31] MEDS: Mag Hydrox/Al Hydrox/Simeth 30 ML UDC PO SCH ×4 (08:13→20:55)
[2017-07-31 09:08] LABS: Calcium 7.9 mg/dL (8.6-10.3)
[2017-07-31] MEDS: Potassium Chloride Elixir 20 MEQ/15 ML UDC PO SCH ×2 (12:28→15:28)
[2017-07-31] MEDS: *HR* OxyCODONE Immed Rel 5 MG TABLET PO PRN (12:31)
[2017-07-31] MEDS: Acetaminophen 325 MG TABLET PO PRN (18:02)
--- NOTE | 2017-07-31 18:35 | Internal Med Progress Note ---
Date of Encounter: 07/31/17 Time of Encounter: 10:00 - Assessment and plan (1) Fall Current Visit: Yes Status: Acute Assessment and plan: Patient with recurrent falls. Likely deconditioning. Physical and occupational therapy evaluation pending. Supportive care, fall precautions. Qualifiers: Encounter type: initial encounter Qualified Code(s): W19.XXXA - Unspecified fall, initial encounter (2) Compression fracture Current Visit: Yes Status: Acute Assessment and plan: CT thoracic and lumbar spine shows superior endplate fracture of T11. Appreciate Spine surgery/pain management consult; recommend TLSO brace when out of bed; pain control as needed, patient has not needed narcotics; continue supportive care, PT evaluation pending; (3) UTI (urinary tract infection) Current Visit: Yes Status: Ruled-out Assessment and plan: Urinalysis does not show any bacteria, does show pyuria with positive nitrite. Blood an durine cultures negative. Will disContinue IV Rocephin. Qualifiers: Urinary tract infection type: acute cystitis Hematuria presence: without hematuria Qualified Code(s): N30.00 - Acute cystitis without hematuria (4) [id number] renal failure Current Visit: Yes Status: Resolved Assessment and plan: Likely related to dehydration. Serum creatinine improved to 1.16 with IV hydration. Continue to monitor closely, avoid nephrotoxic agents. Qualifiers: Acute renal failure type: unspecified Chronic kidney disease stage: stage 3 (moderate) Qualified Code(s): N17.9 - Acute kidney failure, unspecified; N18.3 - Chronic kidney disease, stage 3 (moderate); N18.3 - Chronic kidney disease, stage 3 (moderate) (5) Acute encephalopathy Current Visit: Yes Status: Resolved (6) COPD (chronic obstructive pulmonary disease) Current Visit: Yes Status: Chronic Assessment and plan: Not in acute exacerbation. Continue when necessary bronchodilators and supplemental oxygen. Qualifiers: COPD type: emphysema Emphysema type: unspecified Qualified Code(s): J43.9 - Emphysema, unspecified (7) HTN (hypertension) Current Visit: Yes Status: Chronic Qualifiers: Hypertension type: essential hypertension Qualified Code(s): I10 - Essential (primary) hypertension (8) CAD (coronary artery disease) Current Visit: Yes Status: Chronic Qualifiers: Coronary Disease-Associated Artery/Lesion type: bypass graft [place] vs. transplanted heart: [place] heart Associated angina: without angina Qualified Code(s): I25.810 - Atherosclerosis of coronary artery bypass graft(s) without angina pectoris (9) Atrial fibrillation Current Visit: Yes Status: Chronic Assessment and plan: Not noted to be on anticoagulation as outpatient, probably due to fall risk. Continue full dose aspirin. Currently rate controlled. Qualifiers: Atrial fibrillation type: unspecified Qualified Code(s): I48.91 - Unspecified atrial fibrillation - Subjective Interval history: Noted to be confused and disoriented today, thinks she is in [place]; denies back pain, chest pain, dyspnea, good appetite; - Constitutional Vitals: Temp Pulse Resp BP Pulse Ox 98.3 F 59 16 108/67 96 07/31/17 16:40 07/31/17 16:40 07/31/17 16:40 07/31/17 16:40 07/31/17 16:40 General appearance: Present: A&O X 1. Absent: answers questions appropriately - Respiratory Respiratory exam: Present: CTAB (anterolaterally). Absent: accessory muscle use , rales, rhonchi, wheezes - Cardiovascular Cardiovascular exam: Present: RRR, +S1, +S2. Absent: diastolic murmur, gallop, rubs, systolic murmur - GI/Abdominal GI/Abdominal exam: Present: normal bowel sounds, soft, no peritoneal signs. Absent: distended, tenderness - Extremities Exam Extremities exam: Present: warm, radial pulses palpable and symmetrical. Absent : calf tenderness, cyanotic, pedal edema Internal Medicine: Result - Labs CBC & Chem 7: 08/01/17 03:06 08/01/17 03:06 Labs: BMP 07/31/17 08:44 Sodium 139 Potassium 3.0 L Chloride 112 H Carbon Dioxide 20 L BUN 19 Creatinine 1.16 Glucose 108 H Calcium 7.9 L - ABG Interpretation ABG results: PT/INR, D-dimer PT 11.2 Seconds (9.4-12.1) 07/29/17 17:00 Consult Discharge Plan - Plan Referrals: Sukhi Prakash MD [Primary Care Provider] - 08/04/17 10:00 am ([phone] follow up as schedule...)
[2017-08-01] MEDS: *HR* OxyCODONE Immed Rel 5 MG TABLET PO PRN (01:18)
[2017-08-01 03:16] LABS: Basophils % 0.4 %; Eosinophils % 1.1 %; Hemoglobin 10.4 g/dL (11.5-15.4); Immature Granulocytes % 0.4 % (0-4); Red Cell Distribution Width 12.8 % (11.5-14.5)
[2017-08-01 03:18] LABS: Immature Platelets 4.1 % (1.1-6.1); Lymphocytes % 38.2 %; Mean Corpuscular HGB Conc 32.5 g/dL (31.6-35.5); Mean Corpuscular Hemoglobin 33.4 pg (28.0-33.3); Mean Corpuscular Volume 102.9 fL (83.0-100.0); Mean Platelet Volume 10.7 fL (9.4-12.4); Monocytes # 0.1 K/mcL (0.0-1.3); Monocytes % 3.7 %; Neutrophils # 1.5 K/mcL (1.6-8.9); Red Blood Count 3.11 M/mcL (3.82-4.97); Segmented Neutrophils % 56.2 %
[2017-08-01 03:19] LABS: Platelet Count 87 K/mcL (140-400)
[2017-08-01 03:46] LABS: Calcium 8.5 mg/dL (8.6-10.3); Magnesium 1.8 mg/dL (1.6-2.6); Potassium 4.9 mEq/L (3.5-5.1)
[2017-08-01] MEDS: *HR* Heparin 5,000 UNIT/ML VIAL SQ SCH ×2 (05:30→16:59)
[2017-08-01] MEDS: Ranolazine 500 MG TAB.ER.12H PO SCH ×2 (08:22→20:06)
[2017-08-01] MEDS: Isosorbide MONOnitrate (24 HR) 60 MG TAB.ER.24H PO SCH (08:23)
[2017-08-01] MEDS: Loratadine 10 MG TABLET PO SCH (08:24)
[2017-08-01] MEDS: Aspirin Enteric Coated 325 MG Tablet PO SCH ×2 (08:24→20:06)
[2017-08-01] MEDS: Mag Hydrox/Al Hydrox/Simeth 30 ML UDC PO SCH ×5 (08:25→20:29)
[2017-08-01] MEDS: Cholecalciferol (D-3) 1,000 UNIT TABLET PO SCH (08:25)
[2017-08-01] MEDS: Cyanocobalamin (B-12) 1,000 MCG TABLET PO SCH (08:25)
[2017-08-01] MEDS: Sucralfate 1 GM TABLET PO SCH ×2 (08:25→16:58)
[2017-08-01] MEDS ORDERED: Naloxone 0.4 MG/ML INJ IVP PRN (12:30)
--- NOTE | 2017-08-01 17:47 | Internal Med Progress Note ---
Date of Encounter: 08/01/17 Time of Encounter: 10:00 - Assessment and plan (1) Fall Current Visit: Yes Status: Acute Assessment and plan: Patient with recurrent falls. Likely deconditioning. Physical and occupational therapy evaluation noted, recommended ECF placement. marketing services vice president on board. Supportive care, fall precautions. Qualifiers: Encounter type: initial encounter Qualified Code(s): W19.XXXA - Unspecified fall, initial encounter (2) Compression fracture Current Visit: Yes Status: Acute Assessment and plan: CT thoracic and lumbar spine shows superior endplate fracture of T11. Appreciate Spine surgery/pain management consult; patient received TLSO brace when out of bed; pain control as needed, patient has not needed narcotics; continue supportive care, PT; (3) UTI (urinary tract infection) Current Visit: Yes Status: Ruled-out Qualifiers: Urinary tract infection type: acute cystitis Hematuria presence: without hematuria Qualified Code(s): N30.00 - Acute cystitis without hematuria (4) Aruve-pc-erktdec renal failure Current Visit: Yes Status: Resolved Qualifiers: Acute renal failure type: unspecified Chronic kidney disease stage: stage 3 (moderate) Qualified Code(s): N17.9 - Acute kidney failure, unspecified; N18.3 - Chronic kidney disease, stage 3 (moderate); N18.3 - Chronic kidney disease, stage 3 (moderate) (5) Acute encephalopathy Current Visit: Yes Status: Resolved (6) COPD (chronic obstructive pulmonary disease) Current Visit: Yes Status: Chronic Assessment and plan: Not in acute exacerbation. Continue when necessary bronchodilators and supplemental oxygen. Qualifiers: COPD type: emphysema Emphysema type: unspecified Qualified Code(s): J43.9 - Emphysema, unspecified (7) HTN (hypertension) Current Visit: Yes Status: Chronic Qualifiers: Hypertension type: essential hypertension Qualified Code(s): I10 - Essential (primary) hypertension (8) CAD (coronary artery disease) Current Visit: Yes Status: Chronic Qualifiers: Coronary Disease-Associated Artery/Lesion type: bypass graft [place] vs. transplanted heart: [place] heart Associated angina: without angina Qualified Code(s): I25.810 - Atherosclerosis of coronary artery bypass graft(s) without angina pectoris (9) Atrial fibrillation Current Visit: Yes Status: Chronic Assessment and plan: Not noted to be on anticoagulation as outpatient, probably due to fall risk. Continue full dose aspirin. Currently rate controlled. Qualifiers: Atrial fibrillation type: unspecified Qualified Code(s): I48.91 - Unspecified atrial fibrillation - Subjective Interval history: Noted to be more alert and oriented today. Reports no chest pain, shortness of breath, palpitations. Discussed about possible rehabilitation placement, patient agreeable. - Constitutional Vitals: Temp Pulse Resp BP Pulse Ox 97.5 F L 64 18 119/67 94 08/01/17 16:00 08/01/17 16:00 08/01/17 16:00 08/01/17 16:00 08/01/17 16:00 General appearance: Present: A&O X 2, answers questions appropriately - Respiratory Respiratory exam: Present: CTAB. Absent: accessory muscle use, rales, rhonchi, wheezes - Cardiovascular Cardiovascular exam: Present: RRR, +S1, +S2. Absent: diastolic murmur, gallop, rubs, systolic murmur - GI/Abdominal GI/Abdominal exam: Present: normal bowel sounds, soft, no peritoneal signs. Absent: distended, tenderness - Extremities Exam Extremities exam: Present: full ROM, warm, radial pulses palpable and symmetrical. Absent: calf tenderness, cyanotic, pedal edema Internal Medicine: Result - Labs CBC & Chem 7: 08/01/17 03:06 08/01/17 03:06 Labs: Short CBC 08/01/17 Range/Units 03:06 WBC 2.7 L (4.3-11.1) K/mcL Hgb 10.4 L (11.5-15.4) g/dL Hct 32.0 L (35.3-44.9) % Plt Count 87 L (140-400) K/mcL Neutrophils # 1.5 L (1.6-8.9) K/mcL BMP 08/01/17 03:06 Sodium 137 Potassium 4.9 D Chloride 112 H Carbon Dioxide 21 L BUN 21 Creatinine 1.19 Glucose 95 Calcium 8.5 L - ABG Interpretation ABG results: PT/INR, D-dimer PT 11.2 Seconds (9.4-12.1) 07/29/17 17:00 Consult Discharge Plan - Plan Referrals: Sukhi Prakash MD [Primary Care Provider] - 08/04/17 10:00 am ([phone] follow up as schedule...)
[2017-08-02] MEDS: *HR* Heparin 5,000 UNIT/ML VIAL SQ SCH ×2 (05:19→17:29)
[2017-08-02] MEDS: Aspirin Enteric Coated 325 MG Tablet PO SCH ×2 (08:45→20:05)
[2017-08-02] MEDS: Ranolazine 500 MG TAB.ER.12H PO SCH ×2 (08:45→20:05)
[2017-08-02] MEDS: Sucralfate 1 GM TABLET PO SCH ×2 (08:45→17:29)
[2017-08-02] MEDS: Cholecalciferol (D-3) 1,000 UNIT TABLET PO SCH (08:45)
[2017-08-02] MEDS: Cyanocobalamin (B-12) 1,000 MCG TABLET PO SCH (08:45)
[2017-08-02] MEDS: Mag Hydrox/Al Hydrox/Simeth 30 ML UDC PO SCH ×4 (08:45→20:05)
[2017-08-02] MEDS: Isosorbide MONOnitrate (24 HR) 60 MG TAB.ER.24H PO SCH (08:46)
[2017-08-02] MEDS: Loratadine 10 MG TABLET PO SCH (08:46)
[2017-08-02] MEDS: Ipratropium/Albuterol Neb 3 ML IH SCH ×3 (10:33→22:07)
[2017-08-02] MEDS: *HR* OxyCODONE Immed Rel 5 MG TABLET PO PRN (11:08)
--- NOTE | 2017-08-02 16:06 | Internal Med Progress Note ---
Date of Encounter: 08/02/17 Time of Encounter: 09:15 - Assessment and plan (1) Fall Current Visit: Yes Status: Acute Assessment and plan: Patient with recurrent falls. Likely deconditioning. Physical and occupational therapy evaluation noted, recommended ECF placement. rehabilitation services aide on board. Supportive care, fall precautions. Medically stable, awaiting rehabilitation placement. Qualifiers: Encounter type: initial encounter Qualified Code(s): W19.XXXA - Unspecified fall, initial encounter (2) Compression fracture Current Visit: Yes Status: Acute Assessment and plan: CT thoracic and lumbar spine shows superior endplate fracture of T11. Appreciate Spine surgery/pain management consult; patient received TLSO brace when out of bed; pain control as needed, patient has not needed narcotics; continue supportive care, PT; (3) UTI (urinary tract infection) Current Visit: Yes Status: Ruled-out Qualifiers: Urinary tract infection type: acute cystitis Hematuria presence: without hematuria Qualified Code(s): N30.00 - Acute cystitis without hematuria (4) [id number]-[id number] renal failure Current Visit: Yes Status: Resolved Qualifiers: Acute renal failure type: unspecified Chronic kidney disease stage: stage 3 (moderate) Qualified Code(s): N17.9 - Acute kidney failure, unspecified; N18.3 - Chronic kidney disease, stage 3 (moderate); N18.3 - Chronic kidney disease, stage 3 (moderate) (5) Acute encephalopathy Current Visit: Yes Status: Resolved (6) COPD (chronic obstructive pulmonary disease) Current Visit: Yes Status: Chronic Assessment and plan: Not in acute exacerbation, but noted to have some wheezing today. Continue scheduled bronchodilators and supplemental oxygen. Qualifiers: COPD type: emphysema Emphysema type: unspecified Qualified Code(s): J43.9 - Emphysema, unspecified (7) HTN (hypertension) Current Visit: Yes Status: Chronic Qualifiers: Hypertension type: essential hypertension Qualified Code(s): I10 - Essential (primary) hypertension (8) CAD (coronary artery disease) Current Visit: Yes Status: Chronic Qualifiers: Coronary Disease-Associated Artery/Lesion type: bypass graft [place] vs. transplanted heart: [place] heart Associated angina: without angina Qualified Code(s): I25.810 - Atherosclerosis of coronary artery bypass graft(s) without angina pectoris (9) Atrial fibrillation Current Visit: Yes Status: Chronic Assessment and plan: Not noted to be on anticoagulation as outpatient, probably due to fall risk. Continue full dose aspirin. Currently rate controlled. Qualifiers: Atrial fibrillation type: unspecified Qualified Code(s): I48.91 - Unspecified atrial fibrillation - Subjective Interval history: Reports having some shortness of breath early this morning, feels better currently. Denies fever, chills, cough, chest pain. Awaiting rehabilitation placement, however reports that she would like to go home. - Constitutional Vitals: Temp Pulse Resp BP Pulse Ox 97.5 F L 62 16 104/58 90 08/02/17 15:47 08/02/17 15:47 08/02/17 15:47 08/02/17 15:47 08/02/17 15:47 General appearance: Present: A&O X 2, answers questions appropriately - Respiratory Respiratory exam: Present: CTAB (Coarse breath sounds bilaterally), wheezes ( Intermittent wheezing at bilateral bases). Absent: accessory muscle use, rales , rhonchi - Cardiovascular Cardiovascular exam: Present: RRR, +S1, +S2. Absent: diastolic murmur, gallop, rubs, systolic murmur - GI/Abdominal GI/Abdominal exam: Present: normal bowel sounds, soft, no peritoneal signs. Absent: distended, tenderness - Extremities Exam Extremities exam: Present: full ROM, warm, radial pulses palpable and symmetrical. Absent: calf tenderness, cyanotic, pedal edema Internal Medicine: Result - Labs CBC & Chem 7: 08/01/17 03:06 08/01/17 03:06 - ABG Interpretation ABG results: PT/INR, D-dimer PT 11.2 Seconds (9.4-12.1) 07/29/17 17:00 Consult Discharge Plan - Plan Referrals: Sukhi Prakash MD [Primary Care Provider] - 08/04/17 10:00 am ([phone] follow up as schedule...)
[2017-08-03] MEDS: Ipratropium/Albuterol Neb 3 ML IH SCH ×4 (03:46→21:43)
[2017-08-03] MEDS: *HR* Heparin 5,000 UNIT/ML VIAL SQ SCH ×2 (05:34→17:24)
[2017-08-03] MEDS: Loratadine 10 MG TABLET PO SCH (08:37)
[2017-08-03] MEDS: Aspirin Enteric Coated 325 MG Tablet PO SCH ×2 (08:37→21:36)
[2017-08-03] MEDS: Sucralfate 1 GM TABLET PO SCH ×2 (08:37→17:24)
[2017-08-03] MEDS: Mag Hydrox/Al Hydrox/Simeth 30 ML UDC PO SCH ×3 (08:37→21:32)
[2017-08-03] MEDS: Isosorbide MONOnitrate (24 HR) 60 MG TAB.ER.24H PO SCH (08:37)
[2017-08-03] MEDS: Ranolazine 500 MG TAB.ER.12H PO SCH ×2 (08:38→21:37)
[2017-08-03] MEDS: Cholecalciferol (D-3) 1,000 UNIT TABLET PO SCH (08:38)
[2017-08-03] MEDS: Cyanocobalamin (B-12) 1,000 MCG TABLET PO SCH (13:11)
--- NOTE | 2017-08-03 15:05 | Internal Med Progress Note ---
Date of Encounter: 08/03/17 Time of Encounter: 09:45 - Assessment and plan (1) Fall Current Visit: Yes Status: Acute Assessment and plan: Patient with recurrent falls and deconditioning. Physical and occupational therapy evaluation noted, recommended ECF placement. caseworker protective services on board. Supportive care, fall precautions. Medically stable, awaiting rehabilitation placement. Qualifiers: Encounter type: initial encounter Qualified Code(s): W19.XXXA - Unspecified fall, initial encounter (2) Compression fracture Current Visit: Yes Status: Acute Assessment and plan: CT thoracic and lumbar spine shows superior endplate fracture of T11. Appreciate Spine surgery/pain management consult; patient received TLSO brace for when out of bed; pain control as needed, patient has not needed narcotics; continue supportive care, PT; (3) UTI (urinary tract infection) Current Visit: Yes Status: Ruled-out Qualifiers: Urinary tract infection type: acute cystitis Hematuria presence: without hematuria Qualified Code(s): N30.00 - Acute cystitis without hematuria (4) Hwlva-xt-xkcfrsr renal failure Current Visit: Yes Status: Resolved Qualifiers: Acute renal failure type: unspecified Chronic kidney disease stage: stage 3 (moderate) Qualified Code(s): N17.9 - Acute kidney failure, unspecified; N18.3 - Chronic kidney disease, stage 3 (moderate); N18.3 - Chronic kidney disease, stage 3 (moderate) (5) Acute encephalopathy Current Visit: Yes Status: Resolved (6) COPD (chronic obstructive pulmonary disease) Current Visit: Yes Status: Chronic Assessment and plan: Not in acute exacerbation, improved wheezing. Continue scheduled bronchodilators and supplemental oxygen. Qualifiers: COPD type: emphysema Emphysema type: unspecified Qualified Code(s): J43.9 - Emphysema, unspecified (7) HTN (hypertension) Current Visit: Yes Status: Chronic Qualifiers: Hypertension type: essential hypertension Qualified Code(s): I10 - Essential (primary) hypertension (8) CAD (coronary artery disease) Current Visit: Yes Status: Chronic Qualifiers: Coronary Disease-Associated Artery/Lesion type: bypass graft [place] vs. transplanted heart: [place] heart Associated angina: without angina Qualified Code(s): I25.810 - Atherosclerosis of coronary artery bypass graft(s) without angina pectoris (9) Atrial fibrillation Current Visit: Yes Status: Chronic Qualifiers: Atrial fibrillation type: unspecified Qualified Code(s): I48.91 - Unspecified atrial fibrillation - Subjective Interval history: Feels better; improved wheezing and shortness of breath; no chest pain, palpitations; good appetite; - Constitutional Vitals: Temp Pulse Resp BP Pulse Ox 98 F 61 17 110/59 91 08/03/17 07:00 08/03/17 07:00 08/03/17 10:57 08/03/17 07:00 08/03/17 10:57 General appearance: Present: A&O X 2, answers questions appropriately - Respiratory Respiratory exam: Present: CTAB (coarse breath sounds B/L). Absent: accessory muscle use, rales, rhonchi, wheezes - Cardiovascular Cardiovascular exam: Present: RRR, +S1, +S2. Absent: diastolic murmur, gallop, rubs, systolic murmur - GI/Abdominal GI/Abdominal exam: Present: normal bowel sounds, soft, no peritoneal signs. Absent: distended, tenderness Internal Medicine: Result - Labs CBC & Chem 7: 08/01/17 03:06 08/01/17 03:06 - ABG Interpretation ABG results: PT/INR, D-dimer PT 11.2 Seconds (9.4-12.1) 07/29/17 17:00 Consult Discharge Plan - Plan Referrals: Sukhi Prakash MD [Primary Care Provider] - 08/04/17 10:00 am ([phone] follow up as schedule...)
[2017-08-04] MEDS: Ipratropium/Albuterol Neb 3 ML IH SCH ×4 (03:49→22:41)
[2017-08-04] MEDS: *HR* Heparin 5,000 UNIT/ML VIAL SQ SCH ×2 (06:02→16:52)
[2017-08-04] MEDS: Cyanocobalamin (B-12) 1,000 MCG TABLET PO SCH (08:55)
[2017-08-04] MEDS: Aspirin Enteric Coated 325 MG Tablet PO SCH ×2 (08:55→21:20)
[2017-08-04] MEDS: Cholecalciferol (D-3) 1,000 UNIT TABLET PO SCH (08:55)
[2017-08-04] MEDS: Mag Hydrox/Al Hydrox/Simeth 30 ML UDC PO SCH ×4 (08:55→21:20)
[2017-08-04] MEDS: Ranolazine 500 MG TAB.ER.12H PO SCH ×2 (08:56→21:20)
[2017-08-04] MEDS: Isosorbide MONOnitrate (24 HR) 60 MG TAB.ER.24H PO SCH (08:56)
[2017-08-04] MEDS: Sucralfate 1 GM TABLET PO SCH ×2 (08:57→16:48)
[2017-08-04] MEDS: Loratadine 10 MG TABLET PO SCH (08:57)
[2017-08-04] MEDS: Acetaminophen 325 MG TABLET PO PRN (12:01)
--- NOTE | 2017-08-04 12:53 | Discharge Summary ---
Date of Encounter: 08/04/17 Time of Encounter: 12:51 - Discharge Diagnosis (1) Fall Priority: Primary Status: Acute Qualifiers: Encounter type: initial encounter Qualified Code(s): W19.XXXA - Unspecified fall, initial encounter (2) Compression fracture Priority: Primary Status: Acute (3) UTI (urinary tract infection) Priority: Primary Status: Ruled-out Qualifiers: Urinary tract infection type: acute cystitis Hematuria presence: without hematuria Qualified Code(s): N30.00 - Acute cystitis without hematuria (4) Mcsqv-ea-qckvgsd renal failure Priority: Primary Status: Resolved Qualifiers: Acute renal failure type: unspecified Chronic kidney disease stage: stage 3 (moderate) Qualified Code(s): N17.9 - Acute kidney failure, unspecified; N18.3 - Chronic kidney disease, stage 3 (moderate); N18.3 - Chronic kidney disease, stage 3 (moderate) (5) Acute encephalopathy Priority: Primary Status: Resolved (6) COPD (chronic obstructive pulmonary disease) Priority: Secondary Status: Chronic Qualifiers: COPD type: emphysema Emphysema type: unspecified Qualified Code(s): J43.9 - Emphysema, unspecified (7) HTN (hypertension) Priority: Secondary Status: Chronic Qualifiers: Hypertension type: essential hypertension Qualified Code(s): I10 - Essential (primary) hypertension (8) CAD (coronary artery disease) Priority: Secondary Status: Chronic Qualifiers: Coronary Disease-Associated Artery/Lesion type: bypass graft [place] vs. 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 pectoris (9) Atrial fibrillation Priority: Secondary Status: Chronic Qualifiers: Atrial fibrillation type: unspecified Qualified Code(s): I48.91 - Unspecified atrial fibrillation (10) Dementia Priority: Secondary Status: Chronic Qualifiers: Dementia type: Alzheimer's disease Alzheimer's disease onset: late-onset Dementia behavioral disturbance: without behavioral disturbance Qualified Code (s): G30.1 - Alzheimer's disease with late onset; F02.80 - Dementia in other diseases classified elsewhere without behavioral disturbance; F02.80 - Dementia in other diseases classified elsewhere without behavioral disturbance; F02.80 - Dementia in other diseases classified elsewhere without behavioral disturbance - Discharge Medications Home Medications: Clopidogrel [Plavix] 75 mg PO DAILY 08/23/15 [History] Isosorbide MONOnitrate (24 HR) [Imdur] 180 mg PO DAILY 08/23/15 [History] Potassium Chloride [K-Tab ER] 10 meq PO BID 08/23/15 [History] Pravastatin Sodium [Pravachol] 80 mg PO HS 08/23/15 [History] Cyanocobalamin (Vitamin B-12) [Vitamin B-12] 100 mcg PO DAILY 03/14/16 [History] Docusate [Colace] 100 mg PO BID PRN 03/14/16 [History] Ergocalciferol (VITAMIN D2) [Vitamin D] 800 unit PO DAILY 03/14/16 [History] Loratadine [Claritin] 10 mg PO DAILY 03/14/16 [History] Losartan/Hydrochlorothiazide [Losartan-Hctz 100-12.5 mg Tab] 1 tab PO DAILY 02/19 [History] Nitroglycerin [Nitrostat] 0.4 mg SL Q5M PRN 03/31/16 [History] Ranolazine [Ranexa] 1,000 mg PO BID 03/31/16 [History] Sertraline [Zoloft] 75 mg PO DAILY 10/28/16 [History] Aspirin Enteric Coated [Aspirin EC] 325 mg PO BID tablet. 11/02/16 [Rx] Carvedilol 12.5 mg PO BID 01/10/17 [History] Loperamide [Imodium] 2 mg PO QID PRN 01/10/17 [History] Mag Hydrox/Al Hydrox/Simeth [Antacid Suspension] 30 ml PO ACHS 01/10/17 [History ] Ranitidine HCl [Zantac] 150 mg PO HS 01/10/17 [History] Sucralfate [Carafate] 1 gm PO BID 01/10/17 [History] Collagenase Oint [Santyl] 1 appl TP BID #1 tube 01/14/17 [Rx] Lidocaine Patch [Lidoderm 5% patch] 1 each TP DAILY PRN #3 adh..patch 03/25/17 [ Rx] Pantoprazole Sodium [Protonix] 20 mg PO DAILY 07/29/17 [History] Ipratropium/Albuterol Neb [Duoneb] 3 ml IH [id number] PRN inhsol 08/04/17 [Rx] Allergies/Adverse Reactions: 3 Allergy/AdvReac Type Severity Reaction Status Date / Time simvastatin [From Zocor] Allergy Anaphylaxis Verified 01/10/17 16:51 atorvastatin [From Lipitor] AdvReac Anxiety Verified 01/10/17 16:51 enalaprilat [From Vasotec] AdvReac Hives Verified 01/10/17 16:51 Date of admission: 07/29/17 19:59 Primary care physician: Sukhi Prakash MD Consults: 07/30/17 03:20 Consult to Physical Therapy [CONS] Routine Comment: Evaluate, develop and implement POC Reason for Consult: frequent falls OT [Consult to Occupational Therapy] [CONS] Routine Comment: Evaluate, develop and implement POC Reason for Consult: frequent falls 08/01/17 07:12 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 to Pilot Boat Operator [CONS] Routine Reason for SW Consult: needs ecf 08/01/17 08:39 Consult to Wound Care [CONS] Routine Reason for Consult: Questionable wound to L heel Call Completed: No Discharging clinician: Jenelle Scott Anticipated date of discharge: 08/04/17 - Patient Status Disposition: Transfer SNF Condition: Good Functional capacity at discharge: uses cane/walker Overall status at discharge: patient is progressing back to baseline - Discharge Instructions Follow Up With: Sukhi Prakash MD [Primary Care Provider] - 08/04/17 10:00 am ([phone] follow up as schedule...) Additional Instructions: F/up with PCP in 1-2 weeks - Diet and Activity Activity: as per physical therapy, wear oxygen at all times Diet: low fat, low cholesterol, low salt diet Hospital course: Ms. Duke is a 86 year old female with the above medical problems, who was admitted s/p recurrent falls and back pain. She was noted to have physical deconditioning. CT head showed no acute trauma or stroke. CT thoracolumbar spine showed compression fracture in T11 superior endplate. Spine surgery evaluation recommended supportive care with TLSO brace and PT. PT/OT evaluation was done, recommend ECF placement. Patient has underlying dementia with intermittent confusion and would benefit from rehab placement until 24hour home supervision was available. She is currently medically stable for discharge, pending rehab placement. - Time Spent with Patient Total time spent providing and/or coordinating discharge services: Greater than 30 minutes (45 min) - Constitutional Vitals: Temp Pulse Resp BP Pulse Ox 97.3 F L 60 16 116/68 95 08/04/17 11:30 08/04/17 11:30 08/04/17 11:30 08/04/17 11:30 08/04/17 11:30 General appearance: Present: A&O X 2. Absent: answers questions appropriately - Respiratory Respiratory exam: Present: CTAB (coarse breath sounds with mild wheezing B/L). Absent: accessory muscle use, rales, rhonchi, wheezes
--- NOTE | 2017-08-04 12:59 | Physician Discharge Referral ---
Extended[facility] Referral Info Provider in Charge: Jenelle Scott Provider in Charge after Transfer: PCP Institutional Level of Care: Skilled - Diagnosis (1) Fall Priority: Primary Status: Acute (2) Compression fracture Priority: Primary Status: Acute (3) UTI (urinary tract infection) Priority: Primary Status: Ruled-out (4) Awimk-yv-axmzshc renal failure Priority: Primary Status: Resolved (5) Acute encephalopathy Priority: Primary Status: Resolved (6) COPD (chronic obstructive pulmonary disease) Priority: Secondary Status: Chronic (7) HTN (hypertension) Priority: Secondary Status: Chronic (8) CAD (coronary artery disease) Priority: Secondary Status: Chronic (9) Atrial fibrillation Priority: Secondary Status: Chronic (10) Dementia Priority: Secondary Status: Chronic Expected Duration of Placement: 3 weeks Prognosis: Fair Aware of Diagnosis: Family Aware of Prognosis: Family - Transfer Medications Home Medications: Clopidogrel [Plavix] 75 mg PO DAILY 08/23/15 [History] Isosorbide MONOnitrate (24 HR) [Imdur] 180 mg PO DAILY 08/23/15 [History] Potassium Chloride [K-Tab ER] 10 meq PO BID 08/23/15 [History] Pravastatin Sodium [Pravachol] 80 mg PO HS 08/23/15 [History] Cyanocobalamin (Vitamin B-12) [Vitamin B-12] 100 mcg PO DAILY 03/14/16 [History] Docusate [Colace] 100 mg PO BID PRN 03/14/16 [History] Ergocalciferol (VITAMIN D2) [Vitamin D] 800 unit PO DAILY 03/14/16 [History] Loratadine [Claritin] 10 mg PO DAILY 03/14/16 [History] Losartan/Hydrochlorothiazide [Losartan-Hctz 100-12.5 mg Tab] 1 tab PO DAILY 02/19 [History] Nitroglycerin [Nitrostat] 0.4 mg SL Q5M PRN 03/31/16 [History] Ranolazine [Ranexa] 1,000 mg PO BID 03/31/16 [History] Sertraline [Zoloft] 75 mg PO DAILY 10/28/16 [History] Aspirin Enteric Coated [Aspirin EC] 325 mg PO BID tablet. 11/02/16 [Rx] Carvedilol 12.5 mg PO BID 01/10/17 [History] Loperamide [Imodium] 2 mg PO QID PRN 01/10/17 [History] Mag Hydrox/Al Hydrox/Simeth [Antacid Suspension] 30 ml PO ACHS 01/10/17 [History ] Ranitidine HCl [Zantac] 150 mg PO HS 01/10/17 [History] Sucralfate [Carafate] 1 gm PO BID 01/10/17 [History] Collagenase Oint [Santyl] 1 appl TP BID #1 tube 01/14/17 [Rx] Lidocaine Patch [Lidoderm 5% patch] 1 each TP DAILY PRN #3 adh..patch 03/25/17 [ Rx] Pantoprazole Sodium [Protonix] 20 mg PO DAILY 07/29/17 [History] Ipratropium/Albuterol Neb [Duoneb] 3 ml IH [id number] PRN inhsol 08/04/17 [Rx] Allergies/Adverse Reactions: 3 Allergy/AdvReac Type Severity Reaction Status Date / Time simvastatin [From Zocor] Allergy Anaphylaxis Verified 01/10/17 16:51 atorvastatin [From Lipitor] AdvReac Anxiety Verified 01/10/17 16:51 enalaprilat [From Vasotec] AdvReac Hives Verified 01/10/17 16:51 - Respiratory Orders Oxygen / L per min (2L/min via NC) Smoking Cessation: Smoking cessation has been advised. For more information, call the [place] Tobacco Quit Line at 0-572-PKRX-NOW. - Advance Directives Code Status: Full Code - Mobility Orders Ambulate - Rehabiliation Orders Rehab Potential: Fair Rehab Orders: ROM Exercises, Evaluation for Physical Therapy, Evaluation for Occupational Therapy - Diet Orders Cardiac CERTIFICATION: I certify that the transfer of the above named patient to an Extended Care Facility is necessary for the continuing treatment of the diagnosis listed. The above information is true and accurate reflection of patient's current condition. Confidential - Redisclosure prohibited without a patient's written consent.
[2017-08-04] MEDS: *HR* OxyCODONE Immed Rel 5 MG TABLET PO PRN (23:56)
[2017-08-05] MEDS: Ipratropium/Albuterol Neb 3 ML IH SCH ×3 (04:42→15:39)
[2017-08-05] MEDS: *HR* Heparin 5,000 UNIT/ML VIAL SQ SCH (05:54)
[2017-08-05] MEDS: Cholecalciferol (D-3) 1,000 UNIT TABLET PO SCH (08:33)
[2017-08-05] MEDS: Sucralfate 1 GM TABLET PO SCH (08:33)
[2017-08-05] MEDS: Cyanocobalamin (B-12) 1,000 MCG TABLET PO SCH (08:33)
[2017-08-05] MEDS: Mag Hydrox/Al Hydrox/Simeth 30 ML UDC PO SCH ×2 (08:33→12:15)
[2017-08-05] MEDS: Loratadine 10 MG TABLET PO SCH (08:33)
[2017-08-05] MEDS: Isosorbide MONOnitrate (24 HR) 60 MG TAB.ER.24H PO SCH (08:34)
[2017-08-05] MEDS: Ranolazine 500 MG TAB.ER.12H PO SCH (08:34)
[2017-08-05] MEDS: Aspirin Enteric Coated 325 MG Tablet PO SCH (08:34)
--- NOTE | 2017-08-05 09:57 | Internal Med Progress Note ---
Date of Encounter: 08/05/17 Time of Encounter: 09:55 - Assessment and plan (1) Compression fracture Current Visit: Yes Status: Acute (2) HTN (hypertension) Current Visit: Yes Status: Chronic Qualifiers: Hypertension type: essential hypertension Qualified Code(s): I10 - Essential (primary) hypertension (3) History of coronary artery bypass graft x 2 Current Visit: No Status: Chronic (4) Hyperlipemia Current Visit: Yes Status: Chronic Qualifiers: Hyperlipidemia type: unspecified Qualified Code(s): E78.5 - Hyperlipidemia , unspecified (5) Altered mental status Current Visit: Yes Status: Acute Qualifiers: Altered mental status type: unspecified Qualified Code(s): R41.82 - Altered mental status, unspecified (6) UTI (urinary tract infection) Current Visit: Yes Status: Ruled-out Qualifiers: Urinary tract infection type: acute cystitis Hematuria presence: without hematuria Qualified Code(s): N30.00 - Acute cystitis without hematuria (7) Dementia Current Visit: Yes Status: Chronic Qualifiers: Dementia type: Alzheimer's disease Alzheimer's disease onset: late-onset Dementia behavioral disturbance: without behavioral disturbance Qualified Code (s): G30.1 - Alzheimer's disease with late onset; F02.80 - Dementia in other diseases classified elsewhere without behavioral disturbance; F02.80 - Dementia in other diseases classified elsewhere without behavioral disturbance; F02.80 - Dementia in other diseases classified elsewhere without behavioral disturbance - Subjective Interval history: Patient was seen and examined. She is admitted with a T11 fracture. Managed conservatively. She is awaiting placement. Pain is well controlled. She has been afebrile. - Constitutional Vitals: Temp Pulse Resp BP Pulse Ox 97.4 F L 63 16 121/56 97 08/05/17 06:39 08/05/17 06:39 08/05/17 06:39 08/05/17 06:39 08/05/17 06:39 Exam: GEN: NAD CVS: RRR. S1, S2, No m/r/g RESP: CTAB ABD: Soft, NT, ND, +BS EXT: No edema. 2+ DP. No rashes NEURO: Nonfocal Internal Medicine: Result - Labs CBC & Chem 7: 08/01/17 03:06 08/01/17 03:06 - ABG Interpretation ABG results: PT/INR, D-dimer PT 11.2 Seconds (9.4-12.1) 07/29/17 17:00 Consult Discharge Plan - Plan Additional Instructions: F/up with PCP in 1-2 weeks Referrals: Sukhi Prakash MD [Primary Care Provider] - (Patient will follow up with ECF PCP )
[2017-08-05 15:28] VITALS: BP 120/68
== END 2017-08-05 18:02 ==
LOC: EMEROO 16:26 → INTOOBSV 19:59 → ICNU 19:59 → SUATTDRO 19:59 → 2ANU 20:14
PROVIDERS: ADMIT Internal Medicine; ATTEND Internal Medicine

== ENCOUNTER 2018-03-11 12:54 | Inpatient (IN) ==
--- NOTE | 2018-03-11 13:37 | Emergency Department Note ---
Disposition Clinical Impression: Fall Qualifiers: Encounter type: initial encounter Qualified Code(s): W19.XXXA - Unspecified fall, initial encounter Fracture of femoral neck, right, closed Qualifiers: Encounter type: initial encounter Qualified Code(s): S72.001A - Fracture of unspecified part of neck of right femur, initial encounter for closed fracture Disposition: Admitted As Inpatient Condition: Fair Referrals: NONE,PCP [Primary Care Provider] - Forms: ED Satisfaction Letter, Work/School Release Time of Disposition: 16:04 General Adult HPI - General Chief complaint: ED General Medical Stated complaint: General Time Seen by Provider: 03/11/18 12:59 Source: patient, EMS Mode of arrival: EMS Limitations: no limitations Nursing Notes Reviewed: Yes Vital Signs Reviewed: Yes - History of Present Illness HPI Narrative: Patient is an 87-year-old female presenting with a fall. Patient has past medical history significant for CAD S/P CABG and stenting, hypertension, hyperlipidemia, pacemaker. Patient states that yesterday she was walking in her room when she turned a corner by her bed and slipped and fell on her right side. She states that she hit her head without loss of consciousness and currently has right hip pain to palpation and when walking. She states that she was on the ground for an unknown period of time, was found by her daughter relatively soon and was placed in her bed. She denies blurry vision, weakness or sensation changes, headache, nausea or vomiting. She states that the EMS was called today due to continued pain. Family is not in the room at this time to discuss the circumstances of fall. Patient is unaware of what medications she currently takes. She states that she is currently in hospice living in her daughter's home, the reason for hospice is unknown at this time. Discussed patient history with daughter, he states the patient has history of heart failure, currently on an hospice for continued degeneration. Has history of CABG and stenting. Pain Scale: 0 - Related Data Home Medications Medication Instructions Recorded Confirmed Clopidogrel [Plavix] 75 mg PO DAILY 08/23/15 03/11/18 Isosorbide MONOnitrate (24 HR) 180 mg PO DAILY 08/23/15 03/11/18 [Imdur] Potassium Chloride [K-Tab ER] 10 meq PO BID 08/23/15 03/11/18 Pravastatin Sodium [Pravachol] 80 mg PO HS 08/23/15 03/11/18 Cyanocobalamin (Vitamin B-12) 100 mcg PO DAILY 03/14/16 03/11/18 [Vitamin B-12] Ergocalciferol (VITAMIN D2) 800 unit PO DAILY 03/14/16 03/11/18 [Vitamin D] Loratadine [Claritin] 10 mg PO DAILY 03/14/16 03/11/18 Nitroglycerin [Nitrostat] 0.4 mg SL Q5M PRN 03/31/16 03/11/18 Ranolazine [Ranexa] 1,000 mg PO BID 03/31/16 03/11/18 Sertraline [Zoloft] 75 mg PO DAILY 10/28/16 03/11/18 Carvedilol 12.5 mg PO BID 01/10/17 03/11/18 Loperamide [Imodium] 2 mg PO QID PRN 01/10/17 03/11/18 Mag Hydrox/Al Hydrox/Simeth 30 ml PO ACHS 01/10/17 03/11/18 [Antacid Suspension] Sucralfate [Carafate] 1 gm PO BID 01/10/17 03/11/18 Pantoprazole Sodium [Protonix] 20 mg PO DAILY 07/29/17 03/11/18 Acetaminophen [Pain Relief 8Hr] 650 mg PO Q4H PRN 03/11/18 03/11/18 Calcium Carbonate [Calcium] 600 mg PO DAILY 03/11/18 03/11/18 Losartan/Hydrochlorothiazide 1 tab PO DAILY 03/11/18 03/11/18 [Losartan-Hctz 100-12.5 mg Tab] Ranitidine HCl [Acid Counter Stitcher] 75 mg PO HS 03/11/18 03/11/18 Previous Rx's Medication Instructions Recorded Aspirin Enteric Coated [Aspirin EC] 325 mg PO BID tablet. 11/02/16 Collagenase Oint [Santyl] 1 appl TP BID #1 tube 01/14/17 Lidocaine Patch [Lidoderm 5% patch] 1 each TP DAILY PRN #3 adh..patch 03/25/17 Allergies Allergy/AdvReac Type Severity Reaction Status Date / Time simvastatin [From Zocor] Allergy Anaphylaxis Verified 01/10/17 16:51 atorvastatin [From Lipitor] AdvReac Anxiety Verified 01/10/17 16:51 enalaprilat [From Vasotec] AdvReac Hives Verified 01/10/17 16:51 All systems ED: reviewed and negative except as stated. Review of Systems: As Per HPI Constitutional: Denies: fever, chills ENT ED: Denies: congestion Cardiovascular: Denies: chest pain, palpitations, dyspnea on exertion, syncope Respiratory: Denies: cough, dyspnea, wheezes, hemoptysis, sputum production Gastrointestinal: Reports: abdominal pain. Denies: nausea, vomiting, diarrhea, constipation, hematemesis, melena, hematochezia Genitourinary: Denies: urgency Musculoskeletal: Reports: other (Pain to the right hip and upper leg, right upper arm). 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 Absent: tenderness - Chest Chest inspection: Present: normal inspection, symmetric chest wall rise. Absent : tenderness - Respiratory Respiratory exam: Present: normal lung sounds bilaterally. Absent: wheezes - Cardiovascular Cardiovascular exam: Present: regular rate, normal rhythm - Abdominal Exam Abdominal exam: Present: soft, tenderness (Throughout the right lower quadrant) . Absent: distention, guarding, rebound, rigidity - Extremities Exam Extremities exam: Present: normal inspection, normal capillary refill. Absent: tenderness, calf tenderness - Expanded Lower Extremity Exam Hip/Pelvis exam: Present: tenderness (Palpation and rocking on the right hip), external rotation (Of the right leg). Absent: abrasion, ecchymosis, deformity Upper leg exam: Absent: tenderness Knee exam: Absent: tenderness Lower leg exam: Absent: tenderness Ankle exam: Absent: tenderness Foot/toe exam: Absent: tenderness Neurovascular/Tendon exam: Present: normal capillary refill. Absent: pulse deficit, motor deficit, sensory deficit - Back Exam Back exam: Present: normal inspection. Absent: tenderness - Neurological Exam Neurological exam: Present: alert, oriented X3, CN II-XII intact - Psychiatric Psychiatric exam: Present: normal affect - Skin Skin exam: Present: warm, dry, intact Course Course Narrative: Patient will have full workup including x-ray of the humerus, femur, AP pelvis , hip and laboratory work. - Consultations Consultation #1: Spoke with Dr. Velez regarding patient, will consult for femoral neck fracture , no recommendations at this time. Time: 14:39 Vital Signs Temperature 97.7 F 03/11/18 13:00 Pulse Rate 62 03/11/18 13:00 Respiratory Rate 16 03/11/18 13:00 Blood Pressure 106/50 03/11/18 13:00 O2 Sat by Pulse Oximetry 91 03/11/18 13:00 Temperature 97.7 F 03/11/18 13:00 Pulse Rate 62 03/11/18 13:00 Respiratory Rate 16 03/11/18 13:00 Blood Pressure 106/50 03/11/18 13:00 O2 Sat by Pulse Oximetry 91 03/11/18 13:00 Oxygen Delivery Oxygen Delivery Room Air Medical Decision Making - [facility] Narrative Medical decision making narrative: Patient is an 87-year-old female presenting with fall. Upon initial evaluation , patient reported fall yesterday with right hip and leg pain. Physical exam revealed externally rotated right leg and pain to palpation of the right lateral hip and proximal femur. Upon further evaluation x-ray revealed a right femoral neck fracture no sign of pelvic fracture or femur fracture. Chest x- ray is negative for acute. CT of the head revealed no acute intracranial process, no acute bleed. Laboratory evaluation revealed no leukocytosis, hemoglobin is at baseline at 10.6, creatinine is slightly elevated at 1.46, BUN/ creatinine is 20, mostly secondary to dehydration. Low likelihood of rhabdomyolysis. Did give 1 L normal saline bolus. We will give fentanyl for pain. Patient has remained stable while in the emergency department, afebrile. Blood pressure has been around 110s over 70s and heart rate has been stable. At this point in time, spoke with orthopedics and they will consult for further evaluation and recommendations. Recommended admission at this point in time to hospitalist for right femoral neck fracture. Patient and family and is in understanding and agreeable to this disposition at this point in time. Spoke with hospitalist, Dr. Bedoya at 1600 and is accepted patient. - Medical Records Medical records reviewed: Yes I reviewed the patient's medical records. - Lab Data Lab results reviewed: Yes I reviewed the patient's lab results. Result diagrams: 03/11/18 14:04 03/11/18 14:04 Lab Results 03/11/18 03/11/18 03/11/18 Range/Units 14:04 14:04 14:04 WBC 6.5 (4.3-11.1) K/mcL RBC 3.03 L (3.82-4.97) M/mcL Hgb 10.6 L (11.5-15.4) g/dL Hct 31.8 L (35.3-44.9) % MCV 105.0 H (83.0-100.0) fL MCH 35.0 H (28.0-33.3) pg MCHC 33.3 (31.6-35.5) g/dL RDW 13.6 (11.5-14.5) % Plt Count 147 (140-400) K/mcL MPV 9.5 (9.4-12.4) fL Immature Gran % 0.3 (0-4) % Seg Neutrophils % 61.0 % Lymphocytes % 24.8 % Monocytes % 7.4 % Eosinophils % 6.0 % Basophils % 0.5 % Neutrophils # 3.9 (1.6-8.9) K/mcL Lymphocytes # 1.6 (0.6-4.6) K/mcL Monocytes # 0.5 (0.0-1.3) K/mcL Eosinophils # 0.4 (0.0-0.6) K/mcL Basophils # 0.0 (0.0-0.2) K/mcL PT 11.9 (9.4-12.1) Seconds INR 1.1 APTT 31.1 (26.0-36.0) Seconds Sodium 139 (136-145) mEq/L Potassium 4.3 (3.5-5.1) mEq/L Chloride 107 (98-107) mEq/L Carbon Dioxide 26 (23-29) mEq/L BUN 29 H (8-23) mg/dL Creatinine 1.47 H (0.60-1.20) mg/dL Est GFR ( Amer) 41 L (> 60) Est GFR (Non-Af Amer) 34 L (> 60) BUN/Creatinine Ratio 20 (6-26) Glucose 118 H (70-105) mg/dL Calculated Osmolality 295 (280-300) Lactic Acid (0.5-2.2) mmol/L Calcium 9.0 (8.6-10.3) mg/dL Total Bilirubin (0.3-1.0) mg/dL Direct Bilirubin (0.0-0.2) mg/dL Indirect Bilirubin (0.0-1.2) mg/dL AST (13-39) Units/L ALT (7-52) Units/L Alkaline Phosphatase (34-104) Units/L Ammonia (16-53) mcmol/L Creatine Kinase (30-223) Units/L Serum Total Protein (6.4-8.9) g/dL Albumin (3.5-5.7) g/dL Globulin (2.4-3.5) g/dL Albumin/Globulin Ratio (1.1-2.2) 03/11/18 03/11/18 03/11/18 Range/Units 14:04 14:04 14:04 WBC (4.3-11.1) K/mcL RBC (3.82-4.97) M/mcL Hgb (11.5-15.4) g/dL Hct (35.3-44.9) % MCV (83.0-100.0) fL MCH (28.0-33.3) pg MCHC (31.6-35.5) g/dL RDW (11.5-14.5) % Plt Count (140-400) K/mcL MPV (9.4-12.4) fL Immature Gran % (0-4) % Seg Neutrophils % % Lymphocytes % % Monocytes % % Eosinophils % % Basophils % % Neutrophils # (1.6-8.9) K/mcL Lymphocytes # (0.6-4.6) K/mcL Monocytes # (0.0-1.3) K/mcL Eosinophils # (0.0-0.6) K/mcL Basophils # (0.0-0.2) K/mcL PT (9.4-12.1) Seconds INR APTT (26.0-36.0) Seconds Sodium (136-145) mEq/L Potassium (3.5-5.1) mEq/L Chloride (98-107) mEq/L Carbon Dioxide (23-29) mEq/L BUN (8-23) mg/dL Creatinine (0.60-1.20) mg/dL Est GFR ( Amer) (> 60) Est GFR (Non-Af Amer) (> 60) BUN/Creatinine Ratio (6-26) Glucose (70-105) mg/dL Calculated Osmolality (280-300) Lactic Acid 1.8 (0.5-2.2) mmol/L Calcium (8.6-10.3) mg/dL Total Bilirubin 0.8 (0.3-1.0) mg/dL Direct Bilirubin 0.2 (0.0-0.2) mg/dL Indirect Bilirubin 0.6 (0.0-1.2) mg/dL AST 14 (13-39) Units/L ALT 14 (7-52) Units/L Alkaline Phosphatase 47 (34-104) Units/L Ammonia 31 (16-53) mcmol/L Creatine Kinase (30-223) Units/L Serum Total Protein 5.4 L (6.4-8.9) g/dL Albumin 3.3 L (3.5-5.7) g/dL Globulin 2.1 L (2.4-3.5) g/dL Albumin/Globulin Ratio 1.6 (1.1-2.2) 03/11/18 Range/Units 14:04 WBC (4.3-11.1) K/mcL RBC (3.82-4.97) M/mcL Hgb (11.5-15.4) g/dL Hct (35.3-44.9) % MCV (83.0-100.0) fL MCH (28.0-33.3) pg MCHC (31.6-35.5) g/dL RDW (11.5-14.5) % Plt Count (140-400) K/mcL MPV (9.4-12.4) fL Immature Gran % (0-4) % Seg Neutrophils % % Lymphocytes % % Monocytes % % Eosinophils % % Basophils % % Neutrophils # (1.6-8.9) K/mcL Lymphocytes # (0.6-4.6) K/mcL Monocytes # (0.0-1.3) K/mcL Eosinophils # (0.0-0.6) K/mcL Basophils # (0.0-0.2) K/mcL PT (9.4-12.1) Seconds INR APTT (26.0-36.0) Seconds Sodium (136-145) mEq/L Potassium (3.5-5.1) mEq/L Chloride (98-107) mEq/L Carbon Dioxide (23-29) mEq/L BUN (8-23) mg/dL Creatinine (0.60-1.20) mg/dL Est GFR ( Amer) (> 60) Est GFR (Non-Af Amer) (> 60) BUN/Creatinine Ratio (6-26) Glucose (70-105) mg/dL Calculated Osmolality (280-300) Lactic Acid (0.5-2.2) mmol/L Calcium (8.6-10.3) mg/dL Total Bilirubin (0.3-1.0) mg/dL Direct Bilirubin (0.0-0.2) mg/dL Indirect Bilirubin (0.0-1.2) mg/dL AST (13-39) Units/L ALT (7-52) Units/L Alkaline Phosphatase (34-104) Units/L Ammonia (16-53) mcmol/L Creatine Kinase 19 L (30-223) Units/L Serum Total Protein (6.4-8.9) g/dL Albumin (3.5-5.7) g/dL Globulin (2.4-3.5) g/dL Albumin/Globulin Ratio (1.1-2.2) - Radiology Data Radiology results reviewed: Yes I reviewed the patient's radiology results. Hip X-Ray 03/11/18 13:14 IMPRESSION: Right femoral neck fracture. D/ / Mk Blankenship MD / Mk Blankenship MD Interpreting Provider: Mk Blankenship MD Humerus X-Ray 03/11/18 13:14 IMPRESSION: No acute bony or joint abnormality D/ / Fransisco Sharma MD / Fransisco Sharma MD Interpreting Provider: Fransisco Sharma MD Head CT 03/11/18 13:18 IMPRESSION: No acute intracranial abnormality. Senescent changes with parenchymal volume loss and sequela of mild to moderate chronic microvascular ischemic changes. D/ / Yen Brown MD / Yen Brown MD Interpreting Provider: Yen Brown MD Chest X-Ray 03/11/18 13:22 IMPRESSION: No acute cardiopulmonary disease D/ / Mk Martinez MD / Mk Martinez MD Interpreting Provider: Mk Martinez MD Orly - Orly Situation: Demographics, MOA Background: Presenting Complaint, Relevant PMH, Meds, & Allergies Assessment: Vital Signs, Course and respsone to treatment, Exam Concerns, Patient/Family Expectation, Pertinant Lab Results, Outstanding Labs Recommendation: Recommendation based on pending studies, treatments, or consults Orly Report Given to: hospitalist Orly Repor Time: 16:06 (accepted)
--- NOTE | 2018-03-11 14:19 | Emergency Department Note ---
Disposition Clinical Impression: Fall, Fracture of femoral neck, right, closed Disposition: Admitted As Inpatient Forms: ED Satisfaction Letter, Work/School Release General Adult HPI - General Chief complaint: ED General Medical Stated complaint: General Time Seen by Provider: 03/11/18 12:59 Source: patient, EMS Mode of arrival: EMS Limitations: no limitations - History of Present Illness Pain Scale: 0 - Related Data Home Medications Medication Instructions Recorded Confirmed Clopidogrel [Plavix] 75 mg PO DAILY 08/23/15 07/29/17 Isosorbide MONOnitrate (24 HR) 180 mg PO DAILY 08/23/15 07/29/17 [Imdur] Potassium Chloride [K-Tab ER] 10 meq PO BID 08/23/15 07/29/17 Pravastatin Sodium [Pravachol] 80 mg PO HS 08/23/15 07/29/17 Cyanocobalamin (Vitamin B-12) 100 mcg PO DAILY 03/14/16 07/29/17 [Vitamin B-12] Docusate [Colace] 100 mg PO BID PRN 03/14/16 07/29/17 Ergocalciferol (VITAMIN D2) 800 unit PO DAILY 03/14/16 07/29/17 [Vitamin D] Loratadine [Claritin] 10 mg PO DAILY 03/14/16 07/29/17 Losartan/Hydrochlorothiazide 1 tab PO DAILY 03/14/16 07/29/17 [Losartan-Hctz 100-12.5 mg Tab] Nitroglycerin [Nitrostat] 0.4 mg SL Q5M PRN 03/31/16 07/29/17 Ranolazine [Ranexa] 1,000 mg PO BID 03/31/16 07/29/17 Sertraline [Zoloft] 75 mg PO DAILY 10/28/16 07/29/17 Carvedilol 12.5 mg PO BID 01/10/17 07/29/17 Loperamide [Imodium] 2 mg PO QID PRN 01/10/17 07/29/17 Mag Hydrox/Al Hydrox/Simeth 30 ml PO ACHS 01/10/17 07/29/17 [Antacid Suspension] Sucralfate [Carafate] 1 gm PO BID 01/10/17 07/29/17 raNITIdine HCl [Zantac] 150 mg PO HS 01/10/17 07/29/17 Pantoprazole Sodium [Protonix] 20 mg PO DAILY 07/29/17 07/29/17 Previous Rx's Medication Instructions Recorded Aspirin Enteric Coated [Aspirin EC] 325 mg PO BID tablet. 11/02/16 Collagenase Oint [Santyl] 1 appl TP BID #1 tube 01/14/17 Lidocaine Patch [Lidoderm 5% patch] 1 each TP DAILY PRN #3 adh..patch 03/25/17 Ipratropium/Albuterol Neb [Duoneb] 3 ml IH [id number] PRN inhsol 08/04/17 Allergies Allergy/AdvReac Type Severity Reaction Status Date / Time simvastatin [From Zocor] Allergy Anaphylaxis Verified 01/10/17 16:51 atorvastatin [From Lipitor] AdvReac Anxiety Verified 01/10/17 16:51 enalaprilat [From Vasotec] AdvReac Hives Verified 01/10/17 16:51 Constitutional: Denies: fever, chills ENT ED: Denies: congestion Cardiovascular: Denies: chest pain, palpitations, dyspnea on exertion, syncope Respiratory: Denies: cough, dyspnea, wheezes, hemoptysis, sputum production Gastrointestinal: Reports: abdominal pain. Denies: nausea, vomiting, diarrhea, constipation, hematemesis, melena, hematochezia Genitourinary: Denies: urgency Musculoskeletal: Reports: other (Pain to the right hip and upper leg, right upper arm). 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 - Social History Smoking Status: Former smoker Smokeless Tobacco Status: No Alcohol use: Reports: none Drug use: Reports: none Physical Exam - General Limitations: no limitations General appearance: alert, in no apparent distress Course Vital Signs Temperature 97.7 F 03/11/18 13:00 Pulse Rate 62 03/11/18 13:00 Respiratory Rate 16 03/11/18 13:00 Blood Pressure 106/50 03/11/18 13:00 O2 Sat by Pulse Oximetry 91 03/11/18 13:00 Temperature 97.7 F 03/11/18 13:00 Pulse Rate 62 03/11/18 13:00 Respiratory Rate 16 03/11/18 13:00 Blood Pressure 106/50 03/11/18 13:00 O2 Sat by Pulse Oximetry 91 03/11/18 13:00 Oxygen Delivery Oxygen Delivery Room Air Attestation Statement - Attestation Attestation: I examined this patient and my medical decision-making was reviewed with the Resident Physician. I agree with the documented findings, disposition and treatment plan as described except to the extent set forth below. 87-year-old female presented to [facility] for a fall. States she fell yesterday will walk around the bed. She is able to get herself up. She did hit her head. Her CT of the head today was negative. However, she does have a right femoral neck fracture. She is a history of a left sided hip fracture in the past. She follows with Dr. Velez's group. She is complaining of right hip pain. We will start the preop workup for her. Patient will need to be admitted to the hospitalist for surgical clearance in consultation with orthopedic.
[2018-03-11 14:28] LABS: Basophils % 0.5 %; Eosinophils # 0.4 K/mcL (0.0-0.6); Hematocrit 31.8 % (35.3-44.9); Hemoglobin 10.6 g/dL (11.5-15.4); Immature Granulocytes % 0.3 % (0-4); Lymphocytes # 1.6 K/mcL (0.6-4.6); Lymphocytes % 24.8 %; Mean Corpuscular HGB Conc 33.3 g/dL (31.6-35.5); Mean Platelet Volume 9.5 fL (9.4-12.4); Monocytes # 0.5 K/mcL (0.0-1.3); Monocytes % 7.4 %; Neutrophils # 3.9 K/mcL (1.6-8.9); Platelet Count 147 K/mcL (140-400); Red Blood Count 3.03 M/mcL (3.82-4.97); Red Cell Distribution Width 13.6 % (11.5-14.5)
[2018-03-11 14:32] LABS: INR 1.1; Prothrombin Time 11.9 Seconds (9.4-12.1)
[2018-03-11 14:50] LABS: Albumin 3.3 g/dL (3.5-5.7); Albumin/Globulin Ratio 1.6 (1.1-2.2); Bilirubin,Direct 0.2 mg/dL (0.0-0.2); Bilirubin,Indirect 0.6 mg/dL (0.0-1.2); Bilirubin,Total 0.8 mg/dL (0.3-1.0); Globulin 2.1 g/dL (2.4-3.5); Total Protein 5.4 g/dL (6.4-8.9)
[2018-03-11 14:51] LABS: Potassium 4.3 mEq/L (3.5-5.1)
[2018-03-11] MEDS ORDERED: *HR* FentaNYL (PF) 100 MCG/2 ML VIAL IVP ONE (15:04)
[2018-03-11 15:53] LABS: Activated Partial Thrombo Time 31.1 Seconds (26.0-36.0)
--- NOTE | 2018-03-11 16:24 | Internal Med History&Physical ---
Date of Encounter: 03/11/18 Time of Encounter: 17:00 Internal Medicine - H&P: HPI Chief complaint: fall Admitted From: Home Plans for Post Hospital Care: Hospice - Home History of present illness: Ms. Duke is a 87 year old female who presented via EMS after fall. Fell one day prior to presentation and described mechanical fall while walking around her bed. She did hit her head. Denies loc. She is drowsy from pain meds in ED. Daughter Lakisha is at bedside. Notes that she lives at home with pt other daughter Rey where she is under the care of home hospice. Hospice revoked for ED eval for fall and treatment of hip fx. She notes pt has recurrent falls from ambulatory dysfunction. Pt denies preceding lightheadedness, dizziness, chest pain, plapitations or sob. Currently mild right hip pain and mild right shoulder pain. Trauma imaging revealed normal CT head and Right femoral neck fracture. Ortho consulted from ED. Cards has been consulted for pre op clearance given extensive cad hx and has been cleared by them for last hip fx as wel as case discussed. Will see pt. denies recent cough, congestion, sob, wheezing denies recent chest pain, pressure, palpitations, presyncope, syncope, orthopnea , le edema denies abd pain, nausea, emesis, constipation or diarrhea admits to sensation of bladder fullness and urinary retention, denies dysuria, hematuria. daughter notes history of recurrent utis Past Med Surg Social Fam HX - Past Medical History Medical history: arthritis, atrial fibrillation, COPD, coronary artery disease, DVT, GERD, hyperlipidemia, hypertension, myocardial infarction, syncope Additional medical history: broken left hip Psychiatric history: anxiety, depression - Past Surgical History Surgical History: angioplasty/stent, appendectomy, cataract, cholecystectomy, coronary bypass (CABG), orthopedic, other, pacemaker/AICD Additional surgical history: shoulder surgery - Social History Smoking Status: Former smoker Smokeless Tobacco Status: No Alcohol use: none Drug use: none - Family History Father Living Status: Hx Family Cardiac Disorders: Yes (HEART PROBEMS, [place]) Mother Living Status: Hx Family Respiratory Disorders: Yes ( of pneumonia) Internal Medicine - H&P: Meds Clopidogrel [Plavix] 75 mg PO DAILY 08/23/15 [History] Isosorbide MONOnitrate (24 HR) [Imdur] 180 mg PO DAILY 08/23/15 [History] Potassium Chloride [K-Tab ER] 10 meq PO BID 08/23/15 [History] Pravastatin Sodium [Pravachol] 80 mg PO HS 08/23/15 [History] Cyanocobalamin (Vitamin B-12) [Vitamin B-12] 100 mcg PO DAILY 03/14/16 [History] Ergocalciferol (VITAMIN D2) [Vitamin D] 800 unit PO DAILY 03/14/16 [History] Loratadine [Claritin] 10 mg PO DAILY 03/14/16 [History] Nitroglycerin [Nitrostat] 0.4 mg SL Q5M PRN 03/31/16 [History] Ranolazine [Ranexa] 1,000 mg PO BID 03/31/16 [History] Sertraline [Zoloft] 75 mg PO DAILY 10/28/16 [History] Aspirin Enteric Coated [Aspirin EC] 325 mg PO BID tablet. 11/02/16 [Rx] Carvedilol 12.5 mg PO BID 01/10/17 [History] Loperamide [Imodium] 2 mg PO QID PRN 01/10/17 [History] Mag Hydrox/Al Hydrox/Simeth [Antacid Suspension] 30 ml PO ACHS 01/10/17 [History ] Sucralfate [Carafate] 1 gm PO BID 01/10/17 [History] Collagenase Oint [Santyl] 1 appl TP BID #1 tube 01/14/17 [Rx] Lidocaine Patch [Lidoderm 5% patch] 1 each TP DAILY PRN #3 adh..patch 03/25/17 [ Rx] Pantoprazole Sodium [Protonix] 20 mg PO DAILY 07/29/17 [History] Acetaminophen [Pain Relief 8Hr] 650 mg PO Q4H PRN 03/11/18 [History] Calcium Carbonate [Calcium] 600 mg PO DAILY 03/11/18 [History] Losartan/Hydrochlorothiazide [Losartan-Hctz 100-12.5 mg Tab] 1 tab PO DAILY 11/21 [History] Ranitidine HCl [Acid Shingle Weaver] 75 mg PO HS 03/11/18 [History] 3 Allergy/AdvReac Type Severity Reaction Status Date / Time simvastatin [From Zocor] Allergy Anaphylaxis Verified 01/10/17 16:51 atorvastatin [From Lipitor] AdvReac Anxiety Verified 01/10/17 16:51 enalaprilat [From Vasotec] AdvReac Hives Verified 01/10/17 16:51 All Systems PM: A 10-system review of systems was performed and is negative for pertinent findings except as documented above in the HPI. - Constitutional Vitals: Temp Pulse Resp BP Pulse Ox 97.7 F 62 16 106/50 91 03/11/18 13:00 03/11/18 13:00 03/11/18 13:00 03/11/18 13:00 03/11/18 13:00 Exam: General: awake, drowsy post pain meds but can maintain attention, appears stated age HEENT:EOM intact, pupils equal, round, moist mucus membranes, clear oropharynx , no conjunctival pallor Neck: supple, trachea midline Cardiovascular:regular rate and rhythm, normal S1 & S2, no rubs, murmurs or gallops. No JVD. radial pulses 2+ and regular, no lower extremity edema, DP/PT pulses intact and equal Lungs:Normal breath sounds, no wheezes, or crackles. Normal respiratory effort on o2 nc Abdomen:Soft, non-tender, non-distended, + bowel sounds Extremities:right LE ankle and toes rom intact and painless, right hip rom not tested, ext rotation of leg, LLE rom intact and painless, right UE no pain with rom Neurological: AAOx3, CN grossly intact, no focal deficits, sensation to BL LE intact to light touch and equal Skin:Normal color, no rash, no pallor, no jaundice , no ecchymosis of right hip or shoulder, no hematoma on palpation Internal Med - H&P Results - Labs CBC & Chem 7: 03/11/18 14:04 03/11/18 14:04 Labs: Short CBC 03/11/18 Range/Units 14:04 WBC 6.5 (4.3-11.1) K/mcL Hgb 10.6 L (11.5-15.4) g/dL Hct 31.8 L (35.3-44.9) % Plt Count 147 (140-400) K/mcL Neutrophils # 3.9 (1.6-8.9) K/mcL BMP 03/11/18 14:04 Sodium 139 Potassium 4.3 Chloride 107 Carbon Dioxide 26 BUN 29 H Creatinine 1.47 H Glucose 118 H Calcium 9.0 Liver Function 03/11/18 Range/Units 14:04 Total Bilirubin 0.8 (0.3-1.0) mg/dL Direct Bilirubin 0.2 (0.0-0.2) mg/dL AST 14 (13-39) Units/L ALT 14 (7-52) Units/L Alkaline Phosphatase 47 (34-104) Units/L Albumin 3.3 L (3.5-5.7) g/dL - Impressions ITS Impressions Hip X-Ray 03/11/18 13:14 IMPRESSION: Right femoral neck fracture. D/ / 03/11/2018 14:36:46 Mk Blankenship MD / maya Interpreting Provider: Mk Blankenship MD Humerus X-Ray 03/11/18 13:14 IMPRESSION: No acute bony or joint abnormality D/ / Fransisco Sharma MD / Fransisco Sharma MD Interpreting Provider: Fransisco Sharma MD Head CT 03/11/18 13:18 IMPRESSION: No acute intracranial abnormality. Senescent changes with parenchymal volume loss and sequela of mild to moderate chronic microvascular ischemic changes. D/ / Yen Brown MD / Yen Brown MD Interpreting Provider: Yen Brown MD Chest X-Ray 03/11/18 13:22 IMPRESSION: No acute cardiopulmonary disease D/ / Mk Martinez MD / Mk Martinez MD Interpreting Provider: Mk Martinez MD Femur X-Ray 03/11/18 14:10 IMPRESSION: Acute traumatic right subcapital femoral neck fracture with impaction of fracture fragments. Reference can be made to dedicated right hip x-rays performed today for additional information. No additional acute abnormalities are seen. D/ / 03/11/2018 16:09:51 Genaro Muro MD / aspen Interpreting Provider: Genaro Muro MD - Assessment and plan (1) Fracture of femoral neck, right, closed Current Visit: Yes Status: Acute Assessment and plan: Acute Traumatic Right Femoral Neck Fracture -prn pain control, monitor for over sedation as d/w daughter -Ortho consulted in ED -will keep npo now in case to OR tonight, otherwise npo p mn ordered with sips with meds- particularly BB pre op -cards has cleared her for ortho surg in past given extensive CVD. D/w cards and will see her for pre op clearance--obtian trops, ekg, bnp -pre op management as per ortho -bedrest -holding pharm vte ppx, scds ordered, will cont ranexa, plavix and asa at this time Qualifiers: Encounter type: initial encounter Qualified Code(s): S72.001A - Fracture of unspecified part of neck of right femur, initial encounter for closed fracture (2) Right shoulder pain Current Visit: Yes Status: Acute Assessment and plan: s/p fall Right humerus xray neg conservative care- prn pain control, lidocaine patch Qualifiers: Chronicity: acute Qualified Code(s): M25.511 - Pain in right shoulder (3) Fall Current Visit: Yes Status: Acute Assessment and plan: Mechanical fall with Hx of same 2/2 Ambulatory Dysfunction bedrest at this time, but PT/OT eval post op may resume home vit d when not npo Qualifiers: Encounter type: initial encounter Qualified Code(s): W19.XXXA - Unspecified fall, initial encounter (4) GHADA (acute kidney injury) Current Visit: Yes Status: Acute Assessment and plan: baseline creat appears to be about 1.1 (july 2017) Admit creat 1.47 Acute Urinary Retention Suspect UTI -CK low -History of UTIs, and current sxs, UA with +nitrates and LE, 15-30 WBC -will empirically treat with rocphein -ucx ordered -required straight cath for urine and was retaining in ED -insert esteves cath, devan in operative setting -avoid nephro toxic agents -hold home hctz, losartan 12.5/100 mg -i/os -gentle IVFs (5) Anemia due to acute blood loss Current Visit: Yes Status: Chronic Assessment and plan: baseline hgb appears to be about 10s, most recently in July 2017, previously as high as 13 earlier that month Admitting hgb 10.6 -cont to monitor with acute hip fracture -transfuse if hgb<7 (6) DVT prophylaxis Current Visit: No Status: Acute Assessment and plan: scds while awaiting ortho plan, cont home anti platelet agents (7) Atrial fibrillation Current Visit: No Status: Chronic Assessment and plan: currently NSR -cont home asa, coreg -tele -monitor lytes Qualifiers: Atrial fibrillation type: unspecified Qualified Code(s): I48.91 - Unspecified atrial fibrillation (8) CAD (coronary artery disease) Current Visit: No Status: Chronic Assessment and plan: stable, asx -check trop and ekg -cards for pre op clearance -cont home asa, statin, coreg, hold arb given ghada, nitro prn, plavix and ranexa Qualifiers: Coronary Disease-Associated Artery/Lesion type: bypass graft [place] vs. transplanted heart: [place] heart Associated angina: without angina Qualified Code(s): I25.810 - Atherosclerosis of coronary artery bypass graft(s) without angina pectoris (9) COPD (chronic obstructive pulmonary disease) Current Visit: No Status: Chronic Assessment and plan: stable not on home meds prn o2 Qualifiers: COPD type: emphysema Emphysema type: unspecified Qualified Code(s): J43.9 - Emphysema, unspecified (10) Dementia Current Visit: No Status: Chronic Assessment and plan: Pt AAOx3 and daughter at bedside -daughter lakisha [phone] and rey (with whom she lives) [phone] are her medical decision makers if she cannot make decisions on her own -not on home meds Qualifiers: Dementia type: Alzheimer's disease Alzheimer's disease onset: late-onset Dementia behavioral disturbance: without behavioral disturbance Qualified Code (s): G30.1 - Alzheimer's disease with late onset; F02.80 - Dementia in other diseases classified elsewhere without behavioral disturbance (11) HTN (hypertension) Current Visit: No Status: Chronic Assessment and plan: Bp low normotensive with fentanyl in ED -cont home meds, with exception noted above -cont to monitor bp trends Qualifiers: Hypertension type: essential hypertension Qualified Code(s): I10 - Essential (primary) hypertension (12) Hyperlipemia Current Visit: No Status: Chronic Assessment and plan: cont statin Qualifiers: Hyperlipidemia type: unspecified Qualified Code(s): E78.5 - Hyperlipidemia , unspecified - Time Spent With Patient Total time spent is greater than 50% in coordination of care (as documented) at patient's floor/unit and/or counseling patient: Greater than 35 minutes - VTE Documentation of Mechanical Device: Intermittent pneumatic compression device ( awaiting OR for hip fracture, hold pharm vte ppx)
[2018-03-11 16:33] LABS: Bilirubin,Urine Small (Negative); Blood,Urine Negative (Negative); Clarity,Urine Cloudy (Clear); Color,Urine Orange (Yellow); Glucose,Urine (UA) Normal (Normal); Ketones,Urine Trace mg/dL (Negative); Leukocyte Esterase,Urine Small (Negative); Nitrite,Urine Positive (Negative); Protein,Urine Trace mg/dL (Neg-Trace); Specific Gravity,Urine > 1.030 (1.010-1.025); Urobilinogen,Urine Normal (Normal)
[2018-03-11 16:35] LABS: Bacteria,Urine Many per hpf (None-Few); Hyaline Casts,Urine Moderate per lpf (None-Few); Squamous Epithelial Cell,Urine Many per lpf (None-Few)
[2018-03-11] MEDS ORDERED: traMADol 50 MG TABLET PO PRN (16:38)
[2018-03-11] MEDS ORDERED: Naloxone 0.4 MG/ML INJ IVP PRN (16:38)
[2018-03-11] MEDS ORDERED: Acetaminophen 325 MG TABLET PO PRN (16:38)
[2018-03-11] MEDS ORDERED: *HR* OxyCODONE Immed Rel 5 MG TABLET PO PRN (16:38)
--- NOTE | 2018-03-11 16:54 | Orthopedic Consult Note ---
Date of Encounter: 03/11/18 Time of Encounter: 17:16 Assessment and Plan (1) Fracture of femoral neck, right, closed Current Visit: Yes Status: Acute Plan for Right Hip Pinning, 03/12. Consent reviewed and discussed with patient and PREMA Banuelos. Risks versus benfits discussed in depth. She did well with Left Hip surgery in 2017. Will treat UTI pre-operatively. Continue pain control, DVT orphylaxis, NPO after midnight. Awaiting medical optimization. Qualifiers: Encounter type: initial encounter Qualified Code(s): S72.001A - Fracture of unspecified part of neck of right femur, initial encounter for closed fracture (2) Fall Current Visit: Yes Status: Acute Qualifiers: Encounter type: initial encounter Qualified Code(s): W19.XXXA - Unspecified fall, initial encounter (3) Abnormal urinalysis Current Visit: No Status: Acute History of Present Illness Chief complaint: Right Hip Fracture, Fall HPI: Ms. Duke is a 87 year old female who presented via EMS after fall, unwitnessed. Fell one day prior to presentation and described mechanical fall while walking around her bed. She did hit her head. Denies loc. She is drowsy from pain meds in ED. Daughter Lakisha is at bedside, primary historian. Notes that she lives at home with pt other daughter Rey where she is under the care of home hospice. Hospice revoked for ED eval for fall and treatment of hip fx. She notes pt has recurrent falls from ambulatory dysfunction. Pt denies preceding lightheadedness, dizziness, chest pain, plapitations or sob. Currently mild right hip pain and mild right shoulder pain. Trauma imaging revealed normal CT head and Right femoral neck fracture. Ortho consulted from ED. Cardio consulted for pre op clearance given extensive cad hx and has been cleared by them for last hip fx as wel as case discussed. Past Med Surg Social Fam HX - Past Medical History Medical history: arthritis, atrial fibrillation, COPD, coronary artery disease, DVT, GERD, hyperlipidemia, hypertension, myocardial infarction, syncope Additional medical history: broken left hip Psychiatric history: anxiety, depression - Past Surgical History Surgical History: angioplasty/stent, appendectomy, cataract, cholecystectomy, coronary bypass (CABG), orthopedic, other, pacemaker/AICD Additional surgical history: shoulder surgery - Social History Smoking Status: Former smoker Smokeless Tobacco Status: No Alcohol use: none Drug use: none - Family History Father Living Status: Hx Family Cardiac Disorders: Yes (HEART PROBEMS, [place]) Mother Living Status: Hx Family Respiratory Disorders: Yes ( of pneumonia) Medications and Allergies Clopidogrel [Plavix] 75 mg PO DAILY 08/23/15 [History] Isosorbide MONOnitrate (24 HR) [Imdur] 180 mg PO DAILY 08/23/15 [History] Potassium Chloride [K-Tab ER] 10 meq PO BID 08/23/15 [History] Pravastatin Sodium [Pravachol] 80 mg PO HS 08/23/15 [History] Cyanocobalamin (Vitamin B-12) [Vitamin B-12] 100 mcg PO DAILY 03/14/16 [History] Ergocalciferol (VITAMIN D2) [Vitamin D] 800 unit PO DAILY 03/14/16 [History] Loratadine [Claritin] 10 mg PO DAILY 03/14/16 [History] Nitroglycerin [Nitrostat] 0.4 mg SL Q5M PRN 03/31/16 [History] Ranolazine [Ranexa] 1,000 mg PO BID 03/31/16 [History] Sertraline [Zoloft] 75 mg PO DAILY 10/28/16 [History] Aspirin Enteric Coated [Aspirin EC] 325 mg PO BID tablet. 11/02/16 [Rx] Carvedilol 12.5 mg PO BID 01/10/17 [History] Loperamide [Imodium] 2 mg PO QID PRN 01/10/17 [History] Mag Hydrox/Al Hydrox/Simeth [Antacid Suspension] 30 ml PO ACHS 01/10/17 [History ] Sucralfate [Carafate] 1 gm PO BID 01/10/17 [History] Collagenase Oint [Santyl] 1 appl TP BID #1 tube 01/14/17 [Rx] Lidocaine Patch [Lidoderm 5% patch] 1 each TP DAILY PRN #3 adh..patch 03/25/17 [ Rx] Pantoprazole Sodium [Protonix] 20 mg PO DAILY 07/29/17 [History] Acetaminophen [Pain Relief 8Hr] 650 mg PO Q4H PRN 03/11/18 [History] Calcium Carbonate [Calcium] 600 mg PO DAILY 03/11/18 [History] Losartan/Hydrochlorothiazide [Losartan-Hctz 100-12.5 mg Tab] 1 tab PO DAILY 11/21 [History] Ranitidine HCl [Acid Waste Specialist] 75 mg PO HS 03/11/18 [History] 3 Allergy/AdvReac Type Severity Reaction Status Date / Time simvastatin [From Zocor] Allergy Anaphylaxis Verified 01/10/17 16:51 atorvastatin [From Lipitor] AdvReac Anxiety Verified 01/10/17 16:51 enalaprilat [From Vasotec] AdvReac Hives Verified 01/10/17 16:51 All Systems Reviewed: The remainder of the systems were reviewed and are negative - Constitutional Constitutional: as per HPI - Cardiovascular Cardiovascular: no chest pain, no syncope - Respiratory Respiratory: no cough - Musculoskeletal Musculoskeletal: as per HPI Physical Exam - Constitutional Vitals: Temp Pulse Resp BP Pulse Ox 97.7 F 62 16 106/50 91 03/11/18 13:00 03/11/18 13:00 03/11/18 13:00 03/11/18 13:00 03/11/18 13:00 - Fracture right hip Compartments: soft Distal extremity neurovascularly intact: Yes Proximal joint involvement: No Distal joint involvement: No Other injury: muscle injury: no, tendon injury: no, ligament injury: no, vascular injury: no, nerve injury: no Results - Labs Result Diagrams: 03/12/18 05:04 03/12/18 05:04 Labs: Abnormal lab results RBC 3.03 M/mcL (3.82-4.97) L 03/11/18 14:04 Hgb 10.6 g/dL (11.5-15.4) L 03/11/18 14:04 Hct 31.8 % (35.3-44.9) L 03/11/18 14:04 MCV 105.0 fL (83.0-100.0) H 03/11/18 14:04 MCH 35.0 pg (28.0-33.3) H 03/11/18 14:04 BUN 29 mg/dL (8-23) H 03/11/18 14:04 Creatinine 1.47 mg/dL (0.60-1.20) H 03/11/18 14:04 Est GFR ( Amer) 41 (> 60) L 03/11/18 14:04 Est GFR (Non-Af Amer) 34 (> 60) L 03/11/18 14:04 Glucose 118 mg/dL (70-105) H 03/11/18 14:04 Creatine Kinase 19 Units/L (30-223) L 03/11/18 14:04 Serum Total Protein 5.4 g/dL (6.4-8.9) L 03/11/18 14:04 Albumin 3.3 g/dL (3.5-5.7) L 03/11/18 14:04 Globulin 2.1 g/dL (2.4-3.5) L 03/11/18 14:04 Urine Color [place] (Yellow) A 03/11/18 16:16 Urine Clarity Cloudy (Clear) A 03/11/18 16:16 Ur Specific [place] > 1.030 (1.010-1.025) H 03/11/18 16:16 Urine Ketones Trace mg/dL (Negative) H 03/11/18 16:16 Urine Nitrite Positive (Negative) A 03/11/18 16:16 Urine Bilirubin Small (Negative) H 03/11/18 16:16 Ur Leukocyte Esterase Small (Negative) H 03/11/18 16:16 H & H 03/11/18 Range/Units 14:04 Hgb 10.6 L (11.5-15.4) g/dL Hct 31.8 L (35.3-44.9) % All other labs normal. - Diagnostic results Hip x-ray: report reviewed, image reviewed Consult Discharge Plan - Plan Referrals: NONE,PCP [Primary Care Provider] -
[2018-03-11 16:55] LABS: WBC,Urine 15-30 per hpf (0-3)
[2018-03-11] MEDS ORDERED: Nitroglycerin 0.4 MG TAB.SUBL SL PRN (17:23)
[2018-03-11] MEDS ORDERED: cefTRIAXone 1,000 MG in Water for inj. (sterile) 20 ML 10 ML IVP ONE (17:48)
[2018-03-11 18:30] LABS: Troponin I 0.03 ng/mL (< 0.04)
[2018-03-11] MEDS: Pantoprazole 40 MG VIAL IVP SCH (20:30)
[2018-03-11] MEDS: Sucralfate 1 GM TABLET PO SCH (20:30)
[2018-03-11] MEDS: Ranolazine 500 MG TAB.ER.12H PO SCH (20:32)
[2018-03-11] MEDS: 0.9 % Sodium Chloride 1,000 ML IVC SCH (20:33)
[2018-03-11] MEDS ORDERED: (Pravastatin Sodium [Pravachol] 80 MG) PO SCH (21:00)
--- NOTE | 2018-03-11 21:02 | Anesthesia Evaluation PreOp ---
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 TECHNICIAN History: Syncope, Other (Dementia, anxiety/depression) Other Medical History: GERD, Other (RA) Anesthesia History: No Prior Anesthetic Complications, Past Anesthesia (shoulder , angioplasty/stent, appendectomy, cataract, cholecystectomy, coronary bypass ( CABG), orthopedic, other, pacemaker/AICD) : No Alcohol Use: none Drug use: none Medications and Allergies Clopidogrel [Plavix] 75 mg PO DAILY 08/23/15 [History] Isosorbide MONOnitrate (24 HR) [Imdur] 180 mg PO DAILY 08/23/15 [History] Potassium Chloride [K-Tab ER] 10 meq PO BID 08/23/15 [History] Pravastatin Sodium [Pravachol] 80 mg PO HS 08/23/15 [History] Cyanocobalamin (Vitamin B-12) [Vitamin B-12] 100 mcg PO DAILY 03/14/16 [History] Ergocalciferol (VITAMIN D2) [Vitamin D] 800 unit PO DAILY 03/14/16 [History] Loratadine [Claritin] 10 mg PO DAILY 03/14/16 [History] Nitroglycerin [Nitrostat] 0.4 mg SL Q5M PRN 03/31/16 [History] Ranolazine [Ranexa] 1,000 mg PO BID 03/31/16 [History] Sertraline [Zoloft] 75 mg PO DAILY 10/28/16 [History] Aspirin Enteric Coated [Aspirin EC] 325 mg PO BID tablet. 11/02/16 [Rx] Carvedilol 12.5 mg PO BID 01/10/17 [History] Loperamide [Imodium] 2 mg PO QID PRN 01/10/17 [History] Mag Hydrox/Al Hydrox/Simeth [Antacid Suspension] 30 ml PO ACHS 01/10/17 [History ] Sucralfate [Carafate] 1 gm PO BID 01/10/17 [History] Collagenase Oint [Santyl] 1 appl TP BID #1 tube 01/14/17 [Rx] Lidocaine Patch [Lidoderm 5% patch] 1 each TP DAILY PRN #3 adh..patch 03/25/17 [ Rx] Pantoprazole Sodium [Protonix] 20 mg PO DAILY 07/29/17 [History] Acetaminophen [Pain Relief 8Hr] 650 mg PO Q4H PRN 03/11/18 [History] Calcium Carbonate [Calcium] 600 mg PO DAILY 03/11/18 [History] Losartan/Hydrochlorothiazide [Losartan-Hctz 100-12.5 mg Tab] 1 tab PO DAILY 11/21 [History] Ranitidine HCl [Acid Metal Baler] 75 mg PO HS 03/11/18 [History] 3 Allergy/AdvReac Type Severity Reaction Status Date / Time simvastatin [From Zocor] Allergy Anaphylaxis Verified 01/10/17 16:51 atorvastatin [From Lipitor] AdvReac Anxiety Verified 01/10/17 16:51 enalaprilat [From Vasotec] AdvReac Hives Verified 01/10/17 16:51 - Meds/Allergy Pre-op Review Medications Reviewed: Yes Allergies Reviewed: Yes Beta Blockers on Current Med List: Yes If Beta Blockers taken, Date/Time (Last Dose taken): last dose 03/11 20:33 Anesthesia Results - Labs 03/11/18 14:04 03/11/18 14:04 03/15/2016 Echo LVEF 55-60% atypical septal motion c/w paced rhythm this was a limited study for LV function 12/07/2015 Echo LVEF 55-60% atypical septal motion c/w prior cardiac surgery mildly dilated LA aneurysmal interatrial septum is noted with intermittent bowing of the septum into the LA 08/24/2015 Stress perfusion imaging was negative for ischemia or infarct EF 69% 09/07/2014 Echo Impressions: Normal LV systolic function, LVEF 60%. There is atypical septal motion consistent with prior cardiac surgery. Mild left ventricular diastolic dysfunction. Normal right ventricular structure and function. There is a device lead seen in the right atrium and right ventricle. Mildly dilated left atrium. Mildly dilated right atrium. Severe tricuspid regurgitation. Mild pulmonary hypertension. Estimated RVSP = 41 mmHg. 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) Anesthesia Exam Vital Signs/O2 Sat, Most Current Temp Pulse Resp BP Pulse Ox 98.2 F 82 14 169/65 92 03/11/18 18:22 03/11/18 18:22 03/11/18 18:22 03/11/18 18:22 03/11/18 18:22 NPO (# of Hours): > 8 hrs Pain Scale: 0 Pain Scale Used: Numeric (1 - 10) - HEENT Pupil (Motor): Pupils equal, EOMI Mallampati: III Teeth: Normal Oral Opening: Greater than 3 - ERGONOMICS TECHNICIAN LOC: Oriented ERGONOMICS TECHNICIAN Motor: Normal RUE, Normal LUE, Normal RLE, Normal LLE, Normal Face ERGONOMICS TECHNICIAN Sensory: Normal: RUE, LUE, RLE, LLE, Face - Cardiac Rhythm: Regular Murmur: None JVD: No Carotid Bruit: No - Pulmonary Breath Sounds: bilateral Clear Respiratory Effort: Symmetrical - Additional Findings Awaiting Cardiac Clearance Anesthesia Assess/Plan ASA Score: 3 Modified [place] Scale for Level of Consciousness: Cooperative, oriented, and tranquil Anesthetic Plan: General Autologous Blood: Yes Monitoring Plan: Standard Monitors Recovery Plan: PACU
[2018-03-12 06:25] LABS: Basophils % 0.3 %; Eosinophils # 0.4 K/mcL (0.0-0.6); Eosinophils % 6.9 %; Hematocrit 30.2 % (35.3-44.9); Hemoglobin 10.3 g/dL (11.5-15.4); Immature Granulocytes % 0.3 % (0-4); Lymphocytes # 1.4 K/mcL (0.6-4.6); Lymphocytes % 21.7 %; Mean Corpuscular HGB Conc 34.1 g/dL (31.6-35.5); Mean Corpuscular Hemoglobin 35.2 pg (28.0-33.3); Mean Corpuscular Volume 103.1 fL (83.0-100.0); Mean Platelet Volume 10.1 fL (9.4-12.4); Monocytes # 0.3 K/mcL (0.0-1.3); Monocytes % 5.2 %; Neutrophils # 4.1 K/mcL (1.6-8.9); Platelet Count 122 K/mcL (140-400); Red Blood Count 2.93 M/mcL (3.82-4.97); Red Cell Distribution Width 13.3 % (11.5-14.5); Segmented Neutrophils % 65.6 %
[2018-03-12 06:30] LABS: Prothrombin Time 11.8 Seconds (9.4-12.1)
--- NOTE | 2018-03-12 06:30 | Orthopedics Progress Note ---
Date of Encounter: 03/12/18 Time of Encounter: 06:29 Subjective Interval history: Patient with nondisplaced femoral neck fracture for right hip pinning today. Objective Vital signs: Vital Signs Temp Pulse Resp BP Pulse Ox 03/12/18 03:58 99.3 F 62 16 102/48 96 03/12/18 00:40 98.8 F 61 18 147/72 95 - Labs CBC & BMP: 03/11/18 14:04 03/11/18 14:04 Labs: Abnormal lab results RBC 3.03 M/mcL (3.82-4.97) L 03/11/18 14:04 Hgb 10.6 g/dL (11.5-15.4) L 03/11/18 14:04 Hct 31.8 % (35.3-44.9) L 03/11/18 14:04 MCV 105.0 fL (83.0-100.0) H 03/11/18 14:04 MCH 35.0 pg (28.0-33.3) H 03/11/18 14:04 BUN 29 mg/dL (8-23) H 03/11/18 14:04 Creatinine 1.47 mg/dL (0.60-1.20) H 03/11/18 14:04 Est GFR ( Amer) 41 (> 60) L 03/11/18 14:04 Est GFR (Non-Af Amer) 34 (> 60) L 03/11/18 14:04 Glucose 118 mg/dL (70-105) H 03/11/18 14:04 Creatine Kinase 19 Units/L (30-223) L 03/11/18 14:04 B-Natriuretic Peptide 328 pg/mL (Less than 100) H 03/11/18 14:04 Serum Total Protein 5.4 g/dL (6.4-8.9) L 03/11/18 14:04 Albumin 3.3 g/dL (3.5-5.7) L 03/11/18 14:04 Globulin 2.1 g/dL (2.4-3.5) L 03/11/18 14:04 Urine Color [place] (Yellow) A 03/11/18 16:16 Urine Clarity Cloudy (Clear) A 03/11/18 16:16 Ur Specific [place] > 1.030 (1.010-1.025) H 03/11/18 16:16 Urine Ketones Trace mg/dL (Negative) H 03/11/18 16:16 Urine Nitrite Positive (Negative) A 03/11/18 16:16 Urine Bilirubin Small (Negative) H 03/11/18 16:16 Ur Leukocyte Esterase Small (Negative) H 03/11/18 16:16 Urine Microscopic RBC 3-5 per hpf (0-3) H 03/11/18 16:16 Urine Microscopic WBC 15-30 per hpf (0-3) H 03/11/18 16:16 Ur Squamous Epith Cells Many per lpf (None-Few) H 03/11/18 16:16 Urine Bacteria Many per hpf (None-Few) H 03/11/18 16:16 Hyaline Casts Moderate per lpf (None-Few) H 03/11/18 16:16 - VTE Documentation of Mechanical Device: Graduated compression elastic hosiery Consult Discharge Plan - Plan Referrals: NONE,PCP [Primary Care Provider] -
[2018-03-12 06:32] LABS: Activated Partial Thrombo Time 28.6 Seconds (26.0-36.0)
[2018-03-12 08:34] LABS: Calcium 8.5 mg/dL (8.6-10.3); Magnesium 1.9 mg/dL (1.6-2.6)
[2018-03-12] MEDS ORDERED: cefTRIAXone 1,000 MG in Water for inj. (sterile) 20 ML 10 ML IVP SCH ×2 (09:00→17:55)
[2018-03-12] MEDS ORDERED: Cholecalciferol (D-3) 1,000 UNIT TABLET PO SCH (09:00)
[2018-03-12] MEDS ORDERED: Aspirin 81 MG TAB.CHEW PO SCH (09:00)
[2018-03-12] MEDS ORDERED: Isosorbide MONOnitrate (24 HR) 60 MG TAB.ER.24H PO SCH (09:00)
[2018-03-12] MEDS ORDERED: Cyanocobalamin (B-12) 1,000 MCG TABLET PO SCH (09:00)
[2018-03-12] MEDS: Sucralfate 1 GM TABLET PO SCH ×2 (09:46→22:22)
[2018-03-12] MEDS: Ranolazine 500 MG TAB.ER.12H PO SCH ×2 (09:46→22:21)
[2018-03-12] MEDS: 0.9 % Sodium Chloride 1,000 ML IVC SCH (09:55)
[2018-03-12] MEDS: Pantoprazole 40 MG VIAL IVP SCH (09:56)
--- NOTE | 2018-03-12 10:35 | Cardiology Consult Note ---
<Chavez Wiley - Last Filed: 03/12/18 11:09> Date of Encounter: 03/12/18 Time of Encounter: 10:32 Assessment and Plan (1) Pre-operative cardiovascular examination Current Visit: No Status: Acute Pre-operative cardiovascular risk assessment prior hip surgery after mechanical fall. Known h/o prior CABG and PCI. PPM checked and no events seen. Normal functioning device. TTE 2016- EF 55-60%, mild mitral regurgitation, moderate tricuspid regurgitation. EKG shows atrial pacing, no acute ST/T wave changes. Currently stable from cardiac standpoint. Currently NSR and no CHF seen on exam. Per reports no chest pain. No further cardiac testing recommended. Intermediate risk from cardiac standpoint. (2) Altered mental status Current Visit: No Status: Resolved Noted to have AMS and slight facial droop. Hospitalist notified to see if findings were new. Noted to have IV pain medication. CT head negative for acute event on admit. Stroke alert called by primary team. Qualifiers: Altered mental status type: unspecified Qualified Code(s): R41.82 - Altered mental status, unspecified (3) Atrial fibrillation Current Visit: No Status: Chronic H/o PAF. Not on AC. H/o frequent falls. On home hospice. Currently atrail paced. No afib seen on device check. Qualifiers: Atrial fibrillation type: paroxysmal Qualified Code(s): I48.0 - Paroxysmal atrial fibrillation (4) CAD (coronary artery disease) Current Visit: No Status: Chronic H/o CABG and PCI. Continue asa, statin, and bb. Ok to hold plavix for surgery if needed. Qualifiers: Coronary Disease-Associated Artery/Lesion type: bypass graft [place] vs. transplanted heart: [place] heart Associated angina: without angina Qualified Code(s): I25.810 - Atherosclerosis of coronary artery bypass graft(s) without angina pectoris Discussion w patient/family: The assessment and plan as outlined above was discussed with the patient and/or family members who expressed understanding and agreement. All questions were answered. Thank you for involving us in the care of your patient. Please call with any questions. History of Present Illness Consult date: 03/12/18 Requesting physician: Nimco Young Consult reason: Pre-operative risk assessment Chief complaint: fall History of present illness: Ms. Duke is a 87 year old female with past medical history of CAD s/p CABG and multiple PCI, paroxysmal atrial fibrillation, hypertension, PPM, and COPD on home hospice. She presents after fall at home. Reported to have mechanical fall at home and fractured her hip. Cardiology consulted for pre-operative risk assessment. On my exam she is confused and not answering questions only saying yes to everything . She is also not following commands. Slight facial droop noted. Nurse at bedside states that she is intermittently confused and night sift nurse noted that she had difficulty swallowing. Records reviewed. Patient was previously talkative on admit. Hospitalsist Dr. Fabian notified of findings and she will also evaluate changes in mental status and discuss with family. Patient is a DNRCCA. Hospice was revoked for treatment of hip fracture. Past Med Surg Social Fam HX - Past Medical History Medical history: arthritis, atrial fibrillation, COPD, coronary artery disease, DVT, GERD, hyperlipidemia, hypertension, myocardial infarction, syncope Additional medical history: broken left hip Psychiatric history: anxiety, depression - Past Surgical History Surgical History: angioplasty/stent, appendectomy, cataract, cholecystectomy, coronary bypass (CABG), orthopedic, other, pacemaker/AICD Additional surgical history: shoulder surgery - Social History Smoking Status: Former smoker Smokeless Tobacco Status: No Alcohol use: none Drug use: none - Family History Father Living Status: Hx Family Cardiac Disorders: Yes (HEART PROBEMS, [place]) Mother Living Status: Hx Family Respiratory Disorders: Yes ( of pneumonia) Medications and Allergies Clopidogrel [Plavix] 75 mg PO DAILY 08/23/15 [History] Isosorbide MONOnitrate (24 HR) [Imdur] 180 mg PO DAILY 08/23/15 [History] Potassium Chloride [K-Tab ER] 10 meq PO BID 08/23/15 [History] Pravastatin Sodium [Pravachol] 80 mg PO HS 08/23/15 [History] Cyanocobalamin (Vitamin B-12) [Vitamin B-12] 100 mcg PO DAILY 03/14/16 [History] Ergocalciferol (VITAMIN D2) [Vitamin D] 800 unit PO DAILY 03/14/16 [History] Loratadine [Claritin] 10 mg PO DAILY 03/14/16 [History] Nitroglycerin [Nitrostat] 0.4 mg SL Q5M PRN 03/31/16 [History] Ranolazine [Ranexa] 1,000 mg PO BID 03/31/16 [History] Sertraline [Zoloft] 75 mg PO DAILY 10/28/16 [History] Aspirin Enteric Coated [Aspirin EC] 325 mg PO BID tablet. 11/02/16 [Rx] Carvedilol 12.5 mg PO BID 01/10/17 [History] Loperamide [Imodium] 2 mg PO QID PRN 01/10/17 [History] Mag Hydrox/Al Hydrox/Simeth [Antacid Suspension] 30 ml PO ACHS 01/10/17 [History ] Sucralfate [Carafate] 1 gm PO BID 01/10/17 [History] Collagenase Oint [Santyl] 1 appl TP BID #1 tube 01/14/17 [Rx] Lidocaine Patch [Lidoderm 5% patch] 1 each TP DAILY PRN #3 adh..patch 03/25/17 [ Rx] Pantoprazole Sodium [Protonix] 20 mg PO DAILY 07/29/17 [History] Acetaminophen [Pain Relief 8Hr] 650 mg PO Q4H PRN 03/11/18 [History] Calcium Carbonate [Calcium] 600 mg PO DAILY 03/11/18 [History] Losartan/Hydrochlorothiazide [Losartan-Hctz 100-12.5 mg Tab] 1 tab PO DAILY 11/21 [History] Ranitidine HCl [Acid Excellence Manager] 75 mg PO HS 03/11/18 [History] 3 Allergy/AdvReac Type Severity Reaction Status Date / Time simvastatin [From Zocor] Allergy Anaphylaxis Verified 01/10/17 16:51 atorvastatin [From Lipitor] AdvReac Anxiety Verified 01/10/17 16:51 enalaprilat [From Vasotec] AdvReac Hives Verified 01/10/17 16:51 All Systems Review: The remainder of the systems were reviewed and are negative Physical Examination Vital Signs, Last 4 Hours Temp Pulse Resp BP Pulse Ox 03/12/18 07:40 98.2 F 66 20 114/63 85 General: No Apparent Distress, Other (Confused and unable to follow commands) HEENT: Atraumatic, Normocephaly, Mucus Membranes Moist Neck: No JVD, Normal carotid pulses Cardiac: Reg Rate and Rhythm, Normal S1 and S2, No Murmur Lungs: Normal Breath Sounds, No Wheeze, Rales, Rhonchi Neuro: Other (Drowsy, pupils pinpoint but appears slightly larger on left, slight left facial droop) Abdomen: Soft, Non-Tender Skin: No rashes noted on visualized skin Musculoskeletal: No Chest Wall Tenderness Extremities: No Clubbing, No Cyanosis, No Edema, Normal Pulses Results 03/12/18 05:04 03/12/18 05:04 Lab Results 03/11/18 03/12/18 03/12/18 23:06 05:04 05:04 WBC 6.2 Hgb 10.3 L Hct 30.2 L Plt Count 122 L INR 1.0 APTT 28.6 Sodium Potassium Chloride Carbon Dioxide BUN Creatinine Glucose Calcium Magnesium Troponin I 0.03 03/12/18 03/12/18 05:04 05:04 WBC Hgb Hct Plt Count INR APTT Sodium 139 Potassium 4.0 Chloride 111 H Carbon Dioxide 20 L BUN 23 Creatinine 1.18 Glucose 110 H Calcium 8.5 L Magnesium 1.9 Troponin I < 0.03 - Imaging and Cardiology Echo: report reviewed - EKG Interpretation EKG results cardiology: personally reviewed Consult Discharge Plan - Plan Referrals: NONE,PCP [Primary Care Provider] - <Gold Pritchard - Last Filed: 03/12/18 11:33> Date of Encounter: 03/12/18 - Attending Attestation I have personally performed a face to face evaluation on this patient. I have reviewed and agree with the care plan. History and Exam by me shows: Moderate risk for surgery due to known history. No further cardiac testing needed. Assessment and Plan Discussion w patient/family: The assessment and plan as outlined above was discussed with the patient and/or family members who expressed understanding and agreement. All questions were answered. Thank you for involving us in the care of your patient. Please call with any questions. History of Present Illness History of present illness: Ms. Duke is a 87 year old female All Systems Review: The remainder of the systems were reviewed and are negative Physical Examination Vital Signs, Last 4 Hours Temp Pulse Resp BP Pulse Ox 03/12/18 07:40 98.2 F 66 20 114/63 85 Results 03/12/18 05:04 03/12/18 05:04 Lab Results 03/11/18 03/12/18 03/12/18 23:06 05:04 05:04 WBC 6.2 Hgb 10.3 L Hct 30.2 L Plt Count 122 L INR 1.0 APTT 28.6 Sodium Potassium Chloride Carbon Dioxide BUN Creatinine Glucose Calcium Magnesium Troponin I 0.03 03/12/18 03/12/18 05:04 05:04 WBC Hgb Hct Plt Count INR APTT Sodium 139 Potassium 4.0 Chloride 111 H Carbon Dioxide 20 L BUN 23 Creatinine 1.18 Glucose 110 H Calcium 8.5 L Magnesium 1.9 Troponin I < 0.03
[2018-03-12] MEDS ORDERED: Isovue-370 500 ML INFUS..BTL IV ONE (11:35)
--- NOTE | 2018-03-12 11:55 | Event Note ---
Date of Encounter: 03/12/18 Time of Encounter: 10:44 Notified by cardiology team and pt RN that pt appeared confused and not speaking or following commands. Pt seen and examined. Stroke alert called. Last known well is documented by nursing 2124 last night Baseline mental status is AAOx3 with normal neuro exam. awake, alert, aphasic, attempts to speak, mumbling incomprehensibly. she follows no commands to test long term care pharmacist strength or close eyes. Pupils equal round and pinpoint No facial droop appreciated she appears to be a paced regular rhythm on tele bedside accu check 117 VS- HR 78, spo2 94 2L, 135/55, RR [address] head- as d/w Dr Miranda of radiology--negative am labs reviewed without significant abnormalities vs reviewed without significant abnormalities Discussed with Dr Martinez, [facility]: Pt is NOT a tpa candidate due to being outside time window. If there is large vessel occlusion she would be candidate for intravascular procedure. Given pt is home hospice which was revoked to treat hip fracture, she recommends stat CTA head and neck at [place], discussion with family regarding wishes. Stat CTA head/neck was obtained Discussed with pt daughter Lakisha Hernandez condition and plan--she WOULD want invasive procedure if [facility] felt candidate pending CTA results. Would remain DNR CCA code status. Would be agreeable to transfer to [facility] if appropriate. There was delay in uploading of CTA head/neck results and [place] radiology could not initially review. Dr Martinez of [facility] could see imaging and reviewed them as negative for clot. Pt is NOT a thrombectomy candidate given unremarkable CTA head neck On exam by Dr Martinez findings more consistent with encephalopathy likely from infection (uti) and pain (hip fx) On her exam pt was alert, able to answer questions and improved ability to follow commands Pt daughter updated Ortho team updated
--- NOTE | 2018-03-12 14:21 | Internal Med Progress Note ---
Hospitalist Progress Note - Encounter Date of Encounter: 03/12/18 Time of Encounter: 10:40 - Subjective Interval History: Pt awake, alert and with mumbling speech. Not following commands. Able to shake head yes/no and denied any pain in chest, sob or pain in hip. RN at bedside. pt has not had pain meds. Last seen normal last 2124. Stroke alert called and family updated. See event notes for full details. - Exam Vitals: Temp Pulse Resp BP Pulse Ox 98.3 F 72 16 115/70 97 03/12/18 11:57 03/12/18 11:57 03/12/18 11:57 03/12/18 11:57 03/12/18 11:57 Exam: General: awake, alert, but confused HEENT:EOM intact, pupils equal, round, pinpoint, moist mucus membranes Neck: supple, trachea midline Cardiovascular:regular rate and rhythm, normal S1 & S2, no rubs, murmurs or gallops. No JVD. radial pulses 2+ and regular, no lower extremity edema, DP/PT pulses intact and equal Lungs:Normal breath sounds, no wheezes, or crackles. Normal respiratory effort on o2 nc Abdomen:Soft, no apparent tenderness, no guarding, non-distended, + bowel sounds Extremities:does not follow commands to assess joints Neurological: AAO x0 cannot give name, location, situation. She appears to attempt to speak but mumbles incomprehensibly, no facial droop can be appreciated when pt head turned to center, does not follow commands to coal washer finger or close eyes, no spontaneous movement of any extremity Skin:Normal color, no rash, no pallor, no jaundice , no ecchymosis of right hip or shoulder - Assessment and Plan (1) Acute metabolic encephalopathy Current Visit: Yes Status: Acute Assessment and Plan: Most likely multifactorial 2/2 UTI, pain, hx dementia, pain medication -stroke alert called 03/12 for confusion and aphasia which improved without treatment -CT head neg -CTA head and neck neg -as d/w Dr Martinez [facility] she was not a tpa or thrombectomy candidate given outside window for tpa and CTA head/neck negative; she beleives this is not CVA or TIA but rather encephalopathy most likely from infectious process -on further discussion with pt daughter Lakisha she reports identical symptoms in past with UTI -treating UTI as above, at this time no other suspected infectious process -no lab abnormalities to account for findings -limit pain medications re orientation as needed -neuro checks -will consider neuro consult if does not cont to improve (2) Fracture of femoral neck, right, closed Current Visit: Yes Status: Acute Assessment and Plan: Acute Traumatic Right Femoral Neck Fracture -prn pain control, monitor for over sedation -Ortho following -cards has cleared her for ortho surg in past given extensive CVD. D/w cards and will see her for pre op clearance -pre op management as per ortho -bedrest -holding pharm vte ppx, scds ordered, will cont ranexa, plavix and asa at this time -OR this am delayed by stroke alert, pending cards clearance ok for or today (3) Right shoulder pain Current Visit: Yes Status: Acute Assessment and Plan: s/p fall Right humerus xray neg conservative care- prn pain control, lidocaine patch (4) Fall Current Visit: Yes Status: Acute Assessment and Plan: Mechanical fall with Hx of same 2/2 Ambulatory Dysfunction bedrest at this time, but PT/OT eval post op may resume home vit d when not npo (5) GHADA (acute kidney injury) Current Visit: Yes Status: Resolved Assessment and Plan: Most likely combination pre renal and obstructive with acute urinary retention with UTI baseline creat appears to be about 1.1 (july 2017) Admit creat 1.47, resolved to 0.18 Acute Urinary Retention Suspect UTI on UA -CK low -History of UTIs, and current sxs, UA with +nitrates and LE, 15-30 WBC -will empirically treat with rocephin -ucx pending -required straight cath for urine and was retaining in ED -insert esteves cath, devan in operative setting -avoid nephro toxic agents -hold home hctz, losartan 12.5/100 mg -i/os -gentle IVFs -cont to monitor as emergently received contrast dye for stat CTA head/neck during stroke alert, when resume pharm vte ppx will use heparin not lovenox (6) Anemia due to acute blood loss Current Visit: Yes Status: Chronic Assessment and Plan: baseline hgb appears to be about 10s, most recently in July 2017, previously as high as 13 earlier that month Admitting hgb 10.6 -cont to monitor with acute hip fracture -transfuse if hgb<7 -has remained stable (7) DVT prophylaxis Current Visit: No Status: Acute Assessment and Plan: scds, asa, plavix, ranexa cont, to OR today, resume post op (8) Atrial fibrillation Current Visit: No Status: Chronic Assessment and Plan: currently NSR -cont home asa, coreg -not on ac outpt due to multiple falls and not good candidate -tele -monitor lytes (9) CAD (coronary artery disease) Current Visit: No Status: Chronic Assessment and Plan: stable, asx -trops neg -cards for pre op clearance -cont home asa, statin, coreg, hold arb given ghada, nitro prn, plavix and ranexa (10) COPD (chronic obstructive pulmonary disease) Current Visit: No Status: Chronic Assessment and Plan: stable not on home meds prn o2 (11) Dementia Current Visit: No Status: Chronic Assessment and Plan: Pt AAOx3 at baseline as per family -daughter lakisha [phone] and kevin (with whom she lives) [phone] are her medical decision makers if she cannot make decisions on her own -not on home meds (12) HTN (hypertension) Current Visit: No Status: Chronic Assessment and Plan: stable bps -cont home meds, with exception noted above -cont to monitor bp trends (13) Hyperlipemia Current Visit: No Status: Chronic Assessment and Plan: cont statin - Time Spent with Patient Total time spent is greater than 50% in coordination of care (as documented) at patient's floor/unit and/or counseling patient: Greater than 35 minutes Plan of Care Discussed with: family Internal Medicine: Result - Labs CBC & Chem 7: 03/12/18 05:04 03/12/18 05:04 Labs: Short CBC 03/12/18 Range/Units 05:04 WBC 6.2 (4.3-11.1) K/mcL Hgb 10.3 L (11.5-15.4) g/dL Hct 30.2 L (35.3-44.9) % Plt Count 122 L (140-400) K/mcL Neutrophils # 4.1 (1.6-8.9) K/mcL BMP 03/12/18 05:04 Sodium 139 Potassium 4.0 Chloride 111 H Carbon Dioxide 20 L BUN 23 Creatinine 1.18 Glucose 110 H Calcium 8.5 L Cardiac Enzymes 03/11/18 03/12/18 Range/Units 23:06 05:04 Troponin I 0.03 < 0.03 (< 0.04) ng/mL - ABG Interpretation ABG results: PT/INR, D-dimer PT 11.8 Seconds (9.4-12.1) 03/12/18 05:04 - Impressions Impressions Head CT 03/12/18 00:00 IMPRESSION: 1. No acute intracranial abnormality. 2. Cerebral and cerebellar parenchymal volume loss with chronic microvascular white matter ischemic disease. 3. 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 These results were discussed with Dr. Olivera at 11:20 a.m. on 03/12/2018. D/ / 03/12/2018 11:47:48 Jose Marrero MD / Hemalatha Motta Interpreting Provider: Jose Marrero MD Head CTA 03/12/18 11:35 IMPRESSION: Motion artifacts, particularly at the level of the proximal internal carotid arteries. Otherwise, no acute abnormality or flow-limiting stenosis of the major arteries of the head and neck. D/ / Nino Bose MD / Nino Bose MD Interpreting Provider: Nino Bose MD Neck CTA 03/12/18 11:35 IMPRESSION: Motion artifacts, particularly at the level of the proximal internal carotid arteries. Otherwise, no acute abnormality or flow-limiting stenosis of the major arteries of the head and neck. D/ / Nino Bose MD / Nino Bose MD Interpreting Provider: Nino Bose MD - VTE Documentation of Mechanical Device: Intermittent pneumatic compression device Consult Discharge Plan - Plan Referrals: NONE,PCP [Primary Care Provider] - (2) Fracture of femoral neck, right, closed Qualifiers: Encounter type: initial encounter Qualified Code(s): S72.001A - Fracture of unspecified part of neck of right femur, initial encounter for closed fracture (3) Right shoulder pain Qualifiers: Chronicity: acute Qualified Code(s): M25.511 - Pain in right shoulder (4) Fall Qualifiers: Encounter type: initial encounter Qualified Code(s): W19.XXXA - Unspecified fall, initial encounter (8) Atrial fibrillation Qualifiers: Atrial fibrillation type: paroxysmal Qualified Code(s): I48.0 - Paroxysmal atrial fibrillation (9) CAD (coronary artery disease) Qualifiers: Coronary Disease-Associated Artery/Lesion type: bypass graft [place] vs. transplanted heart: [place] heart Associated angina: without angina Qualified Code(s): I25.810 - Atherosclerosis of coronary artery bypass graft(s) without angina pectoris (10) COPD (chronic obstructive pulmonary disease) Qualifiers: COPD type: emphysema Emphysema type: unspecified Qualified Code(s): J43.9 - Emphysema, unspecified (11) Dementia Qualifiers: Dementia type: Alzheimer's disease Alzheimer's disease onset: late-onset Dementia behavioral disturbance: without behavioral disturbance Qualified Code( s): G30.1 - Alzheimer's disease with late onset; F02.80 - Dementia in other diseases classified elsewhere without behavioral disturbance (12) HTN (hypertension) Qualifiers: Hypertension type: essential hypertension Qualified Code(s): I10 - Essential (primary) hypertension (13) Hyperlipemia Qualifiers: Hyperlipidemia type: unspecified Qualified Code(s): E78.5 - Hyperlipidemia, unspecified
[2018-03-12] MEDS ORDERED: traMADol 50 MG TABLET PO PRN (14:24)
[2018-03-12] MEDS ORDERED: Ondansetron 4 MG/2 ML VIAL ONE (15:22)
[2018-03-12] MEDS ORDERED: Dexamethasone 4 MG/ML VIAL ONE (15:22)
[2018-03-12] MEDS ORDERED: Lidocaine -MPF 2% 2 ML VIAL ONE (15:22)
[2018-03-12] MEDS ORDERED: *HR* FentaNYL (PF) 100 MCG/2 ML VIAL ONE (15:22)
[2018-03-12] MEDS ORDERED: *HR* Propofol 200 MG/20 ML VIAL IVP ONE (15:22)
[2018-03-12] MEDS ORDERED: EPHEDrine 50 MG/ML VIAL ONE (17:27)
[2018-03-12] MEDS ORDERED: *HR* PHENYLEPHRINE 1,000 MCG/10 ML SYRINGE IVP ONE (17:27)
--- NOTE | 2018-03-12 17:41 | Orthopedic Operative Note ---
Date of procedure: 03/12/18 Pre-op diagnosis: Nondisplaced right femoral neck fracture Procedure: Procedure: Right hip open pinning Estimated blood loss: 10 cc Hardware:Synthes 2 7.3 cannulated metal screws Operative procedure: The patient was brought to the operating room and placed on the operating room table. After general anesthesia was administered the well leg was place in the well leg monique and the operative leg was placed in the fracture leg monique. All pressure points were padded appropriately. The operative extremity was prepped and draped in the sterile surgical fashion patient received IV antibiotic prior to skin incision. Using fluoroscopic assistance a guidepin was placed through a small stab incision on the lateral aspect of the femur. Placed through the lateral femur across the fracture site into the femoral head addition of the guidepin was found to be acceptable in AP and lateral planes. A second guidepin was placed in an appropriate position and confirmed with fluoroscopy. Two 7.3 cannulated screws were placed over the guidepins, and their position was confirmed with fluoroscopy as well. Hardware as well as fracture site was well reduced and well positioned. Wound was irrigated and closed with a 2-0 Monocryl suture The patient was placed in a sterile dressing The patient was extubated and transferred to the recovery room in stable condition. Anesthesia: GETA Surgeon: Simon Velez Was there an product development assistant present: No Estimated blood loss (cc): 10 Condition: stable Disposition: PACU
[2018-03-12] MEDS ORDERED: Acetaminophen IV 1,000 MG/100 ML INFUS..BTL ONE (18:39)
[2018-03-12] MEDS ORDERED: Acetaminophen IV 1,000 MG/100 ML INFUS..BTL IVPB ONE (18:45)
[2018-03-12] MEDS ORDERED: Acetaminophen 325 MG TABLET PO PRN (19:40)
[2018-03-12] MEDS ORDERED: Naloxone 0.4 MG/ML INJ IVP PRN ×2 (19:40)
[2018-03-12] MEDS ORDERED: Nitroglycerin 0.4 MG TAB.SUBL SL PRN (19:40)
[2018-03-12] MEDS: (Pravastatin Sodium [Pravachol] 80 MG) PO SCH (22:22)
[2018-03-13 07:44] LABS: BUN/Creatinine Ratio 19 (6-26); Blood Urea Nitrogen 19 mg/dL (8-23); Calcium 8.6 mg/dL (8.6-10.3); Carbon Dioxide 18 mEq/L (23-29); Glucose 133 mg/dL (70-105); eGFR For Non-African Americans 54 (> 60)
[2018-03-13 08:18] LABS: Chloride 111 mEq/L (98-107); Osmolality,Calculated 292 (280-300); Potassium 4.1 mEq/L (3.5-5.1); Sodium 139 mEq/L (136-145)
[2018-03-13 09:17] LABS: Basophils % 0.2 %; Hematocrit 33.3 % (35.3-44.9); Hemoglobin 11.1 g/dL (11.5-15.4); Immature Granulocytes % 0.5 % (0-4); Mean Corpuscular HGB Conc 33.3 g/dL (31.6-35.5); Mean Corpuscular Hemoglobin 35.1 pg (28.0-33.3); Mean Platelet Volume 10.1 fL (9.4-12.4); Monocytes # 0.2 K/mcL (0.0-1.3); Monocytes % 2.8 %; Neutrophils # 5.2 K/mcL (1.6-8.9); Platelet Count 134 K/mcL (140-400); Red Blood Count 3.16 M/mcL (3.82-4.97); Red Cell Distribution Width 13.4 % (11.5-14.5); Segmented Neutrophils % 80.5 %
[2018-03-13 09:23] LABS: Mean Corpuscular Volume 105.4 fL (83.0-100.0)
[2018-03-13] MEDS: Sucralfate 1 GM TABLET PO SCH ×2 (10:07→22:54)
[2018-03-13] MEDS: Aspirin 81 MG TAB.CHEW PO SCH (10:07)
[2018-03-13] MEDS: Cholecalciferol (D-3) 1,000 UNIT TABLET PO SCH (10:08)
[2018-03-13] MEDS: Isosorbide MONOnitrate (24 HR) 60 MG TAB.ER.24H PO SCH (10:08)
[2018-03-13] MEDS: Cyanocobalamin (B-12) 1,000 MCG TABLET PO SCH (10:08)
[2018-03-13] MEDS: cefTRIAXone 1,000 MG in Water for inj. (sterile) 20 ML 10 ML IVP SCH (10:09)
[2018-03-13] MEDS: Pantoprazole 40 MG VIAL IVP SCH (10:09)
[2018-03-13] MEDS: Ranolazine 500 MG TAB.ER.12H PO SCH ×2 (10:09→22:54)
[2018-03-13] MEDS: traMADol 50 MG TABLET PO PRN ×2 (10:11→16:26)
--- NOTE | 2018-03-13 11:27 | Anesthesia Evaluation Post Op ---
Date of Encounter: 03/13/18 Time of Encounter: 11:27 - Vital Signs Vital Signs: Vital Signs/O2 Sat, Most Current Temp Pulse Resp BP Pulse Ox 97.7 F 63 18 138/61 98 03/13/18 07:03/13/18 07:03/13/18 07:03/13/18 07:03/13/18 07:29 - Lungs Lungs: Clear Ascult./Percussion - Airway Airway: Non-obstructed - Cardiovascular Baseline Rhythm - Mental Status Mental Status: Baseline Status - Nausea Vomiting Nausea Vomiting: Not Present - Discharge PostOp Status: Transfer Patient to floor
--- NOTE | 2018-03-13 18:43 | Orthopedics Progress Note ---
Date of Encounter: 03/13/18 Time of Encounter: 16:40 - Assessment and Plan (1) Fracture of femoral neck, right, closed Current Visit: Yes Status: Acute POD#1 s/p right hip pinning 03/12/18 Dressings c/d/i. afebrile, vital signs stable H/H - 11.1/33.3 Continue with PT, partial weight bearing status Apply ice as needed to hip. Continue pain control and DVT prophylaxis Will follow up in office at [facility] in [facility] office stroke alert was called 03/12 for confusion and aphasia which improved without treatment (CT head negative) Receiving rocephin for UTI currently Plan: DC to [facility] on 03/16 or 03/17 Qualifiers: Encounter type: initial encounter Qualified Code(s): S72.001A - Fracture of unspecified part of neck of right femur, initial encounter for closed fracture Subjective Principal diagnosis: POD#1 s/p right hip pinning 03/12/18 Interval history: Patient doing well with no concerns at this time. Hip pain tolerable. She just transferred to an air bed and is feeling much more comfortable. States she is sore after therapy worked with her. Objective Vital signs: Vital Signs Temp Pulse Resp BP Pulse Ox 03/13/18 16:56 97.6 F 65 20 118/39 90 03/13/18 11:44 97.6 F 61 18 126/56 94 03/13/18 10:22 98 03/13/18 07:29 97.7 F 63 18 138/61 98 03/13/18 04:28 98.9 F 61 16 146/78 92 03/13/18 00:01 98.9 F 60 14 128/65 95 03/12/18 22:20 98.7 F 60 16 135/70 94 03/12/18 21:28 97.5 F L 60 16 134/55 94 03/12/18 20:05 98.8 F 60 20 153/72 90 03/12/18 19:42 99.8 F H 60 18 135/68 91 03/12/18 19:00 98.2 F 60 16 144/64 92 03/12/18 18:45 97.6 F 60 20 139/77 93 Intake and Output 03/13/18 03/13/18 03/13/18 07:59 15:59 23:59 Intake Total 1000 / 1000 1600 / 1600 Output Total 150 / 150 Balance 850 / 850 1600 / 1600 Intake: IV Fluids 1000 / 1000 120 / 120 0.9 % Sodium Chloride 1,000 ML 1000 / 1000 @ 75 mls/hr IVC .[id number] [facility] Rx #:[id number] Rocephin 1,000 MG In Water for inj. (sterile) 10 ML @ 600 mls/ hr IVP DAILY [facility] Rx#:[id number] Oral 1480 / 1480 Output: Catheter 150 / 150 Other: Meal Lunch Percent of Meal Consumed 50% Incision: clean and dry (dressings to right hip were c/d/i with no visible drainage or erythema. no calf tenderness, good dorsiflexion of foot. grossly NV intact. ) - Labs CBC & BMP: 03/13/18 09:02 03/13/18 06:57 Labs: Abnormal lab results RBC 3.16 M/mcL (3.82-4.97) L 03/13/18 09:02 Hgb 11.1 g/dL (11.5-15.4) L 03/13/18 09:02 Hct 33.3 % (35.3-44.9) L 03/13/18 09:02 MCV 105.4 fL (83.0-100.0) H 03/13/18 09:02 MCH 35.1 pg (28.0-33.3) H 03/13/18 09:02 Plt Count 134 K/mcL (140-400) L 03/13/18 09:02 Chloride 111 mEq/L (98-107) H 03/13/18 06:57 Carbon Dioxide 18 mEq/L (23-29) L 03/13/18 06:57 Est GFR (Non-Af Amer) 54 (> 60) L 03/13/18 06:57 Glucose 133 mg/dL (70-105) H 03/13/18 06:57 POC Glucose 117 mg/dL (70-99) H 03/12/18 10:48 Creatine Kinase 19 Units/L (30-223) L 03/11/18 14:04 B-Natriuretic Peptide 328 pg/mL (Less than 100) H 03/11/18 14:04 Serum Total Protein 5.4 g/dL (6.4-8.9) L 03/11/18 14:04 Albumin 3.3 g/dL (3.5-5.7) L 03/11/18 14:04 Globulin 2.1 g/dL (2.4-3.5) L 03/11/18 14:04 Urine Color [place] (Yellow) A 03/11/18 16:16 Urine Clarity Cloudy (Clear) A 03/11/18 16:16 Ur Specific [place] > 1.030 (1.010-1.025) H 03/11/18 16:16 Urine Ketones Trace mg/dL (Negative) H 03/11/18 16:16 Urine Nitrite Positive (Negative) A 03/11/18 16:16 Urine Bilirubin Small (Negative) H 03/11/18 16:16 Ur Leukocyte Esterase Small (Negative) H 03/11/18 16:16 Urine Microscopic RBC 3-5 per hpf (0-3) H 03/11/18 16:16 Urine Microscopic WBC 15-30 per hpf (0-3) H 03/11/18 16:16 Ur Squamous Epith Cells Many per lpf (None-Few) H 03/11/18 16:16 Urine Bacteria Many per hpf (None-Few) H 03/11/18 16:16 Hyaline Casts Moderate per lpf (None-Few) H 03/11/18 16:16 - VTE Documentation of Mechanical Device: Intermittent pneumatic compression device Consult Discharge Plan - Plan Referrals: NONE,PCP [Primary Care Provider] -
--- NOTE | 2018-03-13 18:46 | Internal Med Progress Note ---
Hospitalist Progress Note - Encounter Date of Encounter: 03/13/18 Time of Encounter: 08:45 - Subjective Interval History: Pt awake, alert and back to baseline. no hip pain, no confusion. denies sob, cp , palpitations. + flatus - Exam Vitals: Temp Pulse Resp BP Pulse Ox 97.6 F 65 20 118/39 90 03/13/18 16:56 03/13/18 16:56 03/13/18 16:56 03/13/18 16:56 03/13/18 16:56 Exam: General: awake, alert, nad Cardiovascular:regular rate and rhythm, normal S1 & S2, no rubs, murmurs or gallops. No JVD. radial pulses 2+ and regular, no lower extremity edema, DP/PT pulses intact and equal Lungs:Normal breath sounds, no wheezes, or crackles. Normal respiratory effort on o2 nc Abdomen:Soft, no apparent tenderness, no guarding, non-distended, + bowel sounds Extremities:hip incision dressing clean dry intact Neurological: AAO x3, cn grossly intact, sensation to light touch intact in bl le Skin:Normal color, no rash, no pallor, no jaundice , no ecchymosis of right hip or shoulder - Assessment and Plan (1) Acute metabolic encephalopathy Current Visit: Yes Status: Acute Assessment and Plan: Most likely multifactorial 2/2 UTI, pain, hx dementia, pain medication- resolved -stroke alert called 03/12 for confusion and aphasia which improved without treatment -CT head neg -CTA head and neck neg -treating UTI as above -no lab abnormalities to account for findings -limit pain medications re orientation as needed (2) Fracture of femoral neck, right, closed Current Visit: Yes Status: Acute Assessment and Plan: Acute Traumatic Right Femoral Neck Fracture -prn pain control, monitor for over sedation -Ortho following -cards has cleared her for ortho surg in past given extensive CVD. D/w cards and will see her for pre op clearance -OR 03/12 -post op care per ortho vte ppx per ortho (3) Right shoulder pain Current Visit: Yes Status: Acute Assessment and Plan: s/p fall Right humerus xray neg conservative care- prn pain control, lidocaine patch (4) Fall Current Visit: Yes Status: Acute Assessment and Plan: Mechanical fall with Hx of same 2/2 Ambulatory Dysfunction pt/ot (5) GHADA (acute kidney injury) Current Visit: Yes Status: Resolved Assessment and Plan: Most likely combination pre renal and obstructive with acute urinary retention with UTI baseline creat appears to be about 1.1 (july 2017) Admit creat 1.47, resolved to 0.18 Acute Urinary Retention Suspect UTI on UA -CK low -History of UTIs, and current sxs, UA with +nitrates and LE, 15-30 WBC -will empirically treat with rocephin -ucx pending -required straight cath for urine and was retaining in ED -insert esteves cath, devan in operative setting -avoid nephro toxic agents -hold home hctz, losartan 12.5/100 mg -i/os -gentle IVFs -cont to monitor as emergently received contrast dye for stat CTA head/neck during stroke alert (6) Anemia due to acute blood loss Current Visit: Yes Status: Chronic Assessment and Plan: baseline hgb appears to be about 10s, most recently in July 2017, previously as high as 13 earlier that month Admitting hgb 10.6 -cont to monitor with acute hip fracture -transfuse if hgb<7 -has remained stable (7) DVT prophylaxis Current Visit: No Status: Acute (8) Atrial fibrillation Current Visit: No Status: Chronic Assessment and Plan: currently NSR -cont home asa, coreg -not on ac outpt due to multiple falls and not good candidate -tele -monitor lytes (9) CAD (coronary artery disease) Current Visit: No Status: Chronic Assessment and Plan: stable, asx -trops neg -cards for pre op clearance -cont home asa, statin, coreg, hold arb given ghada, nitro prn, plavix and ranexa (10) COPD (chronic obstructive pulmonary disease) Current Visit: No Status: Chronic Assessment and Plan: stable not on home meds prn o2 (11) Dementia Current Visit: No Status: Chronic Assessment and Plan: Pt AAOx3 at baseline as per family -daughter ernie [phone] and kevin (with whom she lives) [phone] are her medical decision makers if she cannot make decisions on her own -not on home meds (12) HTN (hypertension) Current Visit: No Status: Chronic Assessment and Plan: stable bps -cont home meds, with exception noted above -cont to monitor bp trends (13) Hyperlipemia Current Visit: No Status: Chronic Assessment and Plan: cont statin - Time Spent with Patient Total time spent is greater than 50% in coordination of care (as documented) at patient's floor/unit and/or counseling patient: 25 - 35 minutes Plan of Care Discussed with: patient Internal Medicine: Result - Labs CBC & Chem 7: 03/13/18 09:02 03/13/18 06:57 Labs: Short CBC 03/13/18 Range/Units 09:02 WBC 6.5 (4.3-11.1) K/mcL Hgb 11.1 L (11.5-15.4) g/dL Hct 33.3 L (35.3-44.9) % Plt Count 134 L (140-400) K/mcL Neutrophils # 5.2 (1.6-8.9) K/mcL BMP 03/13/18 06:57 Sodium 139 Potassium 4.1 Chloride 111 H Carbon Dioxide 18 L BUN 19 Creatinine 0.98 Glucose 133 H Calcium 8.6 - ABG Interpretation ABG results: PT/INR, D-dimer PT 11.8 Seconds (9.4-12.1) 03/12/18 05:04 - Impressions Impressions Chest X-Ray 03/13/18 08:25 IMPRESSION: Mild left basilar atelectasis. D/ / Kelsie Estrella MD / Kelsie Estrella MD Interpreting Provider: Kelsie Estrella MD - VTE Documentation of Mechanical Device: Intermittent pneumatic compression device Consult Discharge Plan - Plan Referrals: NONE,PCP [Primary Care Provider] - (2) Fracture of femoral neck, right, closed Qualifiers: Qualified Code(s): S72.001A - Fracture of unspecified part of neck of right femur, initial encounter for closed fracture (3) Right shoulder pain Qualifiers: Qualified Code(s): M25.511 - Pain in right shoulder (4) Fall Qualifiers: Qualified Code(s): W19.XXXA - Unspecified fall, initial encounter (8) Atrial fibrillation Qualifiers: Qualified Code(s): I48.0 - Paroxysmal atrial fibrillation (9) CAD (coronary artery disease) Qualifiers: Qualified Code(s): I25.810 - Atherosclerosis of coronary artery bypass graft(s ) without angina pectoris (10) COPD (chronic obstructive pulmonary disease) Qualifiers: Qualified Code(s): 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
[2018-03-13] MEDS: (Pravastatin Sodium [Pravachol] 80 MG) PO SCH (22:59)
[2018-03-14 00:55] LABS: Basophils % 0.3 %; Eosinophils # 0.4 K/mcL (0.0-0.6); Eosinophils % 5.8 %; Hematocrit 27.8 % (35.3-44.9); Immature Granulocytes % 0.2 % (0-4); Lymphocytes # 1.6 K/mcL (0.6-4.6); Lymphocytes % 26.1 %; Mean Corpuscular HGB Conc 32.7 g/dL (31.6-35.5); Mean Corpuscular Hemoglobin 34.1 pg (28.0-33.3); Mean Corpuscular Volume 104.1 fL (83.0-100.0); Mean Platelet Volume 10.1 fL (9.4-12.4); Monocytes # 0.4 K/mcL (0.0-1.3); Monocytes % 6.1 %; Neutrophils # 3.7 K/mcL (1.6-8.9); Platelet Count 120 K/mcL (140-400); Red Blood Count 2.67 M/mcL (3.82-4.97); Red Cell Distribution Width 13.7 % (11.5-14.5); Segmented Neutrophils % 61.5 %
[2018-03-14 00:57] LABS: Hemoglobin 9.1 g/dL (11.5-15.4)
[2018-03-14] MEDS: traMADol 50 MG TABLET PO PRN ×3 (03:36→19:55)
[2018-03-14] MEDS: Pantoprazole 40 MG VIAL IVP SCH (09:51)
[2018-03-14] MEDS: cefTRIAXone 1,000 MG in Water for inj. (sterile) 20 ML 10 ML IVP SCH (09:51)
[2018-03-14] MEDS: Cholecalciferol (D-3) 1,000 UNIT TABLET PO SCH (09:52)
[2018-03-14] MEDS: Sucralfate 1 GM TABLET PO SCH ×2 (09:52→19:54)
[2018-03-14] MEDS: Ranolazine 500 MG TAB.ER.12H PO SCH ×2 (09:52→19:53)
[2018-03-14] MEDS: Aspirin 81 MG TAB.CHEW PO SCH (09:53)
[2018-03-14] MEDS: Cyanocobalamin (B-12) 1,000 MCG TABLET PO SCH (09:53)
[2018-03-14] MEDS: Isosorbide MONOnitrate (24 HR) 60 MG TAB.ER.24H PO SCH (09:53)
--- NOTE | 2018-03-14 10:19 | Orthopedics Progress Note ---
Date of Encounter: 03/14/18 Time of Encounter: 10:17 Subjective Principal diagnosis: POD#1 s/p right hip pinning 03/12/18 Interval history: S: Resting in bed comfortably O: Afebrile on the vital signs are stable Dressing is clean, dry, and intact Neurovascularly intact distally A: Post-pinning of the right hip P: Resume postoperative care Anticipate discharge to [place] on Friday Objective Vital signs: Vital Signs Temp Pulse Resp BP Pulse Ox 03/14/18 06:44 98.2 F 68 16 101/67 97 03/13/18 23:31 98.5 F 64 16 96/64 95 03/13/18 19:28 98.5 F 64 17 110/55 89 03/13/18 16:56 97.6 F 65 20 118/39 90 03/13/18 11:44 97.6 F 61 18 126/56 94 03/13/18 10:22 98 Intake and Output 03/13/18 03/14/18 03/14/18 23:59 07:59 15:59 Other: # Urine Diapers 1 1 Weight 67 kg Patient Weight 03/14/18 23:59 Weight 67 kg - Labs CBC & BMP: 03/14/18 00:27 03/13/18 06:57 Labs: Abnormal lab results RBC 2.67 M/mcL (3.82-4.97) L 03/14/18 00:27 Hgb 9.1 g/dL (11.5-15.4) L D 03/14/18 00:27 Hct 27.8 % (35.3-44.9) L 03/14/18 00:27 MCV 104.1 fL (83.0-100.0) H 03/14/18 00:27 MCH 34.1 pg (28.0-33.3) H 03/14/18 00:27 Plt Count 120 K/mcL (140-400) L 03/14/18 00:27 Chloride 111 mEq/L (98-107) H 03/13/18 06:57 Carbon Dioxide 18 mEq/L (23-29) L 03/13/18 06:57 Est GFR (Non-Af Amer) 54 (> 60) L 03/13/18 06:57 Glucose 133 mg/dL (70-105) H 03/13/18 06:57 POC Glucose 117 mg/dL (70-99) H 03/12/18 10:48 Creatine Kinase 19 Units/L (30-223) L 03/11/18 14:04 B-Natriuretic Peptide 328 pg/mL (Less than 100) H 03/11/18 14:04 Serum Total Protein 5.4 g/dL (6.4-8.9) L 03/11/18 14:04 Albumin 3.3 g/dL (3.5-5.7) L 03/11/18 14:04 Globulin 2.1 g/dL (2.4-3.5) L 03/11/18 14:04 Urine Color [place] (Yellow) A 03/11/18 16:16 Urine Clarity Cloudy (Clear) A 03/11/18 16:16 Ur Specific [place] > 1.030 (1.010-1.025) H 03/11/18 16:16 Urine Ketones Trace mg/dL (Negative) H 03/11/18 16:16 Urine Nitrite Positive (Negative) A 03/11/18 16:16 Urine Bilirubin Small (Negative) H 03/11/18 16:16 Ur Leukocyte Esterase Small (Negative) H 03/11/18 16:16 Urine Microscopic RBC 3-5 per hpf (0-3) H 03/11/18 16:16 Urine Microscopic WBC 15-30 per hpf (0-3) H 03/11/18 16:16 Ur Squamous Epith Cells Many per lpf (None-Few) H 03/11/18 16:16 Urine Bacteria Many per hpf (None-Few) H 03/11/18 16:16 Hyaline Casts Moderate per lpf (None-Few) H 03/11/18 16:16 - VTE Documentation of Mechanical Device: Intermittent pneumatic compression device Consult Discharge Plan - Plan Referrals: NONE,PCP [Primary Care Provider] -
[2018-03-14] MEDS ORDERED: MOM Conc 10 ML UD.LIQ PO ONE (13:43)
--- NOTE | 2018-03-14 13:44 | Internal Med Progress Note ---
Hospitalist Progress Note - Encounter Date of Encounter: 03/14/18 Time of Encounter: 12:00 - Subjective Interval History: Pt awake, alert. no current hip pain. + flatus, no bm post op yet. denies fevers , chills, sob or cough - Exam Vitals: Temp Pulse Resp BP Pulse Ox 97.9 F 74 16 105/68 95 03/14/18 09:53 03/14/18 09:53 03/14/18 09:53 03/14/18 09:53 03/14/18 09:53 Exam: General: awake, alert, nad Cardiovascular:regular rate and rhythm, normal S1 & S2, no rubs, murmurs or gallops. No JVD. no lower extremity edema, DP/PT pulses intact and equal Lungs:Normal breath sounds, no wheezes, or crackles. Normal respiratory effort on o2 nc Abdomen:Soft, no apparent tenderness, no guarding, non-distended, + bowel sounds Extremities:hip incision dressing clean dry intact Neurological: AAO x3, cn grossly intact Skin:Normal color, no rash, no pallor - Assessment and Plan (1) Fracture of femoral neck, right, closed Current Visit: Yes Status: Acute Assessment and Plan: Acute Traumatic Right Femoral Neck Fracture s/p right hip pinning 03/12/18 -prn pain control, monitor for over sedation -cards provided pre op [place] -OR 03/12 -post op care per ortho vte ppx per ortho -currently asa on given drops in hgb (2) Right shoulder pain Current Visit: Yes Status: Resolved Assessment and Plan: s/p fall Right humerus xray neg conservative care- prn pain control, lidocaine patch (3) Fall Current Visit: Yes Status: Acute Assessment and Plan: Mechanical fall with Hx of same 2/2 Ambulatory Dysfunction pt/ot dc to [place] likely friday (4) GHADA (acute kidney injury) Current Visit: Yes Status: Resolved Assessment and Plan: Most likely combination pre renal and obstructive with acute urinary retention with UTI Acute Ecoli UTI baseline creat appears to be about 1.1 (july 2017) Admit creat 1.47, resolved to 0.18 Acute Urinary Retention Suspect UTI on UA -History of UTIs, and current sxs, UA with +nitrates and LE, 15-30 WBC -empirically treat with rocephin -ucx ecoli pansensitive--change to macrobid PO on dc -esteves for retnetion, voiding trial prior to dc -avoid nephro toxic agents -hold home hctz, losartan 12.5/100 mg -i/os (5) Anemia due to acute blood loss Current Visit: Yes Status: Acute Assessment and Plan: baseline hgb appears to be about 10s, most recently in July 2017, previously as high as 13 earlier that month Admitting hgb 10.6 now down trended post op to 9.1 Acute anemia, post hemorrhagic 2/2 acute bone fracture -transfuse if hgb<7 -cont to follow hgb -platelets down trending, [id number]--aiy is not on pharm vte ppx, only home asa, rnexa plavix, no overt bleeding, will cont to monitor (6) DVT prophylaxis Current Visit: No Status: Acute Assessment and Plan: scds, asa, plavix, ranexa--cannot give pharm vte ppx given anemai and thrombocytopenia at this time (7) Atrial fibrillation Current Visit: No Status: Chronic Assessment and Plan: currently NSR -cont home asa, coreg -not on ac outpt due to multiple falls and not good candidate (8) CAD (coronary artery disease) Current Visit: No Status: Chronic Assessment and Plan: stable, asx -cont home asa, statin, coreg, hold arb given ghada, nitro prn, plavix and ranexa (9) COPD (chronic obstructive pulmonary disease) Current Visit: No Status: Chronic Assessment and Plan: stable not on home meds prn o2 CXR 03/14 with bibasilar atelectasis, post op incentive spirometry, increase activity (10) Dementia Current Visit: No Status: Chronic Assessment and Plan: Pt AAOx3 at baseline as per family -daughter ernie [phone] and kevin (with whom she lives) [phone] are her medical decision makers if she cannot make decisions on her own -not on home meds (11) HTN (hypertension) Current Visit: No Status: Chronic Assessment and Plan: stable bps -cont home meds, with exception noted above -cont to monitor bp trends (12) Hyperlipemia Current Visit: No Status: Chronic Assessment and Plan: cont statin (13) Acute metabolic encephalopathy Current Visit: Yes Status: Resolved Assessment and Plan: Most likely multifactorial 2/2 UTI, pain, hx dementia, pain medication- resolved -stroke alert called 03/12 for confusion and aphasia which improved without treatment -CT head neg -CTA head and neck neg -treating UTI as above -no lab abnormalities to account for findings -limit pain medications re orientation as needed - Time Spent with Patient Total time spent is greater than 50% in coordination of care (as documented) at patient's floor/unit and/or counseling patient: 25 - 35 minutes Plan of Care Discussed with: patient Internal Medicine: Result - Labs CBC & Chem 7: 03/14/18 00:27 03/13/18 06:57 Labs: Short CBC 03/14/18 Range/Units 00:27 WBC 6.1 (4.3-11.1) K/mcL Hgb 9.1 L D (11.5-15.4) g/dL Hct 27.8 L (35.3-44.9) % Plt Count 120 L (140-400) K/mcL Neutrophils # 3.7 (1.6-8.9) K/mcL - ABG Interpretation ABG results: PT/INR, D-dimer PT 11.8 Seconds (9.4-12.1) 03/12/18 05:04 - VTE Documentation of Mechanical Device: Intermittent pneumatic compression device Consult Discharge Plan - Plan Referrals: NONE,PCP [Primary Care Provider] - (1) Fracture of femoral neck, right, closed Qualifiers: Encounter type: initial encounter Qualified Code(s): S72.001A - Fracture of unspecified part of neck of right femur, initial encounter for closed fracture (2) Right shoulder pain Qualifiers: Chronicity: acute Qualified Code(s): M25.511 - Pain in right shoulder (3) Fall Qualifiers: Encounter type: initial encounter Qualified Code(s): W19.XXXA - Unspecified fall, initial encounter (7) Atrial fibrillation Qualifiers: Atrial fibrillation type: paroxysmal Qualified Code(s): I48.0 - Paroxysmal atrial fibrillation (8) CAD (coronary artery disease) Qualifiers: Coronary Disease-Associated Artery/Lesion type: bypass graft [place] vs. 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
--- NOTE | 2018-03-14 15:10 | Electrocardiograph Report ---
[place] [id number] Test Date: 2018-03-12 Pat Name: Martha Duke Department: 114 Room: [facility] Gender: F [employer]: : 1930 Requested By: Nimco Young Order Number: [id number] Reading MD: Sara Bautista Measurements Intervals [place] Rate: 61 P: 268 CO: 222 QRS: 45 QRSD: 94 T: 9 QT: 421 QTc: 425 Interpretive Statements ELECTRONIC ATRIAL PACEMAKER NONSPECIFIC T-WAVE ABNORMALITY INTERPRETATION BASED ON A DEFAULT AGE OF 40 YEARS Electronically Signed On 03-14-2018 15:09:11 EDT by Sara Bautista
[2018-03-14 18:38] LABS: Hematocrit 30.3 % (35.3-44.9)
[2018-03-14] MEDS: (Pravastatin Sodium [Pravachol] 80 MG) PO SCH (19:55)
[2018-03-15 00:59] LABS: Hematocrit 29.3 % (35.3-44.9); Hemoglobin 9.9 g/dL (11.5-15.4); Mean Corpuscular HGB Conc 33.8 g/dL (31.6-35.5); Mean Corpuscular Volume 103.5 fL (83.0-100.0); Mean Platelet Volume 9.5 fL (9.4-12.4); Platelet Count 135 K/mcL (140-400); Red Blood Count 2.83 M/mcL (3.82-4.97); Red Cell Distribution Width 13.5 % (11.5-14.5)
--- NOTE | 2018-03-15 07:11 | Internal Med Progress Note ---
Hospitalist Progress Note - Encounter Date of Encounter: 03/15/18 Time of Encounter: 10:00 - Subjective Interval History: awake in bed, family at bedside. No hip pain. Family notes she is having incontinence since esteves removed and sensation she is not fully emptying bladder. Pt deneis bladder discomfort, dysuria. No sob, cough or cp. RN at bedside notes pt o2 sats drop when being moved to chair but otherwise stable when lying in bed. Pt has not had bowel movement, feeling abd is slightly distended today. No abd pain, n/v. - Exam Vitals: Temp Pulse Resp BP Pulse Ox 97.9 F 60 16 139/69 95 03/15/18 07:08 03/15/18 07:08 03/15/18 07:08 03/15/18 07:08 03/15/18 07:08 Exam: General: awake, alert, nad Cardiovascular:regular rate and rhythm, normal S1 & S2, no rubs, murmurs or gallops. no lower extremity edema Lungs:Normal breath sounds, no wheezes, or crackles. Normal respiratory effort on o2 nc Abdomen:Soft, no apparent tenderness, no guarding, mildly distended, + bowel sounds Extremities:hip incision dressing clean dry intact Neurological: AAO x3, cn grossly intact Skin:Normal color, no rash, no pallor - Assessment and Plan (1) Fracture of femoral neck, right, closed Current Visit: Yes Status: Acute Assessment and Plan: Acute Traumatic Right Femoral Neck Fracture s/p right hip pinning 03/12/18 -prn pain control, monitor for over sedation -cards provided pre op clearance -OR 03/12 -post op care per ortho -currently asa 162 mg BID then may resume home 81mg daily after ten days post op -03/15 check PVR to assess if retaining with esteves removal, checked KUB and mild distension of bowel, no obstruction -miralax + dulcolax supp- monitor for bms, if failing voiding trial will replace esteves cath -pt/ot and awaiting ECF placement (2) Fall Current Visit: Yes Status: Acute Assessment and Plan: Mechanical fall with Hx of same 2/2 Ambulatory Dysfunction pt/ot dc to [place] likely friday (3) GHADA (acute kidney injury) Current Visit: Yes Status: Resolved Assessment and Plan: Most likely combination pre renal and obstructive with acute urinary retention with UTI Acute Ecoli UTI baseline creat appears to be about 1.1 (july 2017) Admit creat 1.47, resolved to 0.98 Acute Urinary Retention Suspect UTI on UA -History of UTIs, and current sxs, UA with +nitrates and LE, 15-30 WBC -empirically treat with rocephin -esteves for retention -avoid nephro toxic agents -hold home hctz, losartan 12.5/100 mg (bps have been at goal without them -i/os -remove esteves cath, voiding trial -ucx ecoli pansensitive--change to macrobid PO on dc (4) Anemia due to acute blood loss Current Visit: Yes Status: Acute Assessment and Plan: baseline hgb appears to be about 10s, most recently in July 2017, previously as high as 13 earlier that month Admitting hgb 10.6 now down trended post op to 9.1, NOW BACK TO BASELINE Acute anemia, post hemorrhagic 2/2 acute bone fracture -no transfusion required -platelets down trended to 120s--now up trending -stable on home anti platelets, ranexa and plavix (5) DVT prophylaxis Current Visit: No Status: Acute Assessment and Plan: scds, asa, plavix, ranexa (6) Atrial fibrillation Current Visit: No Status: Chronic Assessment and Plan: currently NSR -cont home asa, coreg -not on ac outpt due to multiple falls and not good candidate (7) CAD (coronary artery disease) Current Visit: No Status: Chronic Assessment and Plan: stable, asx -cont home asa, statin, coreg, hold arb given ghada, nitro prn, plavix and ranexa (8) COPD (chronic obstructive pulmonary disease) Current Visit: No Status: Chronic Assessment and Plan: stable not on home meds prn o2 CXR 03/14 with bibasilar atelectasis, post op incentive spirometry, increase activity (9) Dementia Current Visit: No Status: Chronic Assessment and Plan: Pt AAOx3 at baseline as per family -daughter ernie [phone] and kevin (with whom she lives) [phone] are her medical decision makers if she cannot make decisions on her own -not on home meds (10) HTN (hypertension) Current Visit: No Status: Chronic Assessment and Plan: stable bps, at goal -cont home meds, with exception noted above -cont to monitor bp trends (11) Hyperlipemia Current Visit: No Status: Chronic Assessment and Plan: cont statin (12) Acute metabolic encephalopathy Current Visit: Yes Status: Resolved Assessment and Plan: Most likely multifactorial 2/2 UTI, pain, hx dementia, pain medication- resolved -stroke alert called 03/12 for confusion and aphasia which improved without treatment -CT head neg -CTA head and neck neg -treating UTI as above -no lab abnormalities to account for findings -limit pain medications - Time Spent with Patient Total time spent is greater than 50% in coordination of care (as documented) at patient's floor/unit and/or counseling patient: 25 - 35 minutes Plan of Care Discussed with: patient Internal Medicine: Result - Labs CBC & Chem 7: 03/15/18 00:43 03/13/18 06:57 Labs: Short CBC 03/14/18 03/15/18 Range/Units 18:07 00:43 WBC 5.6 (4.3-11.1) K/mcL Hgb 10.0 L 9.9 L (11.5-15.4) g/dL Hct 30.3 L 29.3 L (35.3-44.9) % Plt Count 135 L (140-400) K/mcL - ABG Interpretation ABG results: PT/INR, D-dimer PT 11.8 Seconds (9.4-12.1) 03/12/18 05:04 - VTE Documentation of Mechanical Device: Intermittent pneumatic compression device Consult Discharge Plan - Plan Referrals: NONE,PCP [Primary Care Provider] - (1) Fracture of femoral neck, right, closed Qualifiers: Encounter type: initial encounter Qualified Code(s): S72.001A - Fracture of unspecified part of neck of right femur, initial encounter for closed fracture (2) Fall Qualifiers: Encounter type: initial encounter Qualified Code(s): W19.XXXA - Unspecified fall, initial encounter (6) Atrial fibrillation Qualifiers: Atrial fibrillation type: paroxysmal Qualified Code(s): I48.0 - Paroxysmal atrial fibrillation (7) CAD (coronary artery disease) Qualifiers: Coronary Disease-Associated Artery/Lesion type: bypass graft [place] vs. 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 Qualified Code(s): J43.9 - Emphysema, unspecified (9) Dementia Qualifiers: Dementia type: Alzheimer's disease Alzheimer's disease onset: late-onset Dementia behavioral disturbance: without behavioral disturbance Qualified Code( s): G30.1 - Alzheimer's disease with late onset; F02.80 - Dementia in other diseases classified elsewhere without behavioral disturbance (10) HTN (hypertension) Qualifiers: Hypertension type: essential hypertension Qualified Code(s): I10 - Essential (primary) hypertension (11) Hyperlipemia Qualifiers: Hyperlipidemia type: unspecified Qualified Code(s): E78.5 - Hyperlipidemia, unspecified
[2018-03-15] MEDS: Aspirin 81 MG TAB.CHEW PO SCH ×2 (09:29→19:58)
[2018-03-15] MEDS: Sucralfate 1 GM TABLET PO SCH ×2 (09:29→19:58)
[2018-03-15] MEDS: Cholecalciferol (D-3) 1,000 UNIT TABLET PO SCH (09:29)
[2018-03-15] MEDS: Ranolazine 500 MG TAB.ER.12H PO SCH ×2 (09:30→19:58)
[2018-03-15] MEDS: Isosorbide MONOnitrate (24 HR) 60 MG TAB.ER.24H PO SCH (09:30)
[2018-03-15] MEDS: cefTRIAXone 1,000 MG in Water for inj. (sterile) 20 ML 10 ML IVP SCH (09:31)
[2018-03-15] MEDS: Cyanocobalamin (B-12) 1,000 MCG TABLET PO SCH (09:31)
[2018-03-15] MEDS: Pantoprazole 40 MG VIAL IVP SCH (09:32)
--- NOTE | 2018-03-15 09:56 | Orthopedics Progress Note ---
Date of Encounter: 03/15/18 Time of Encounter: 09:55 Subjective Principal diagnosis: POD#1 s/p right hip pinning 03/12/18 Interval history: S: Resting in bed comfortably O: Afebrile on the vital signs are stable Dressing is clean, dry, and intact Neurovascularly intact distally A: Post-pinning of the right hip P: Resume postoperative care Anticipate discharge to [facility] on Friday Objective Vital signs: Vital Signs Temp Pulse Resp BP Pulse Ox 03/15/18 07:08 97.9 F 60 16 139/69 95 03/15/18 04:09 97.7 F 60 16 121/69 93 03/14/18 23:46 98.1 F 62 16 139/83 93 03/14/18 20:35 97.9 F 60 16 169/68 93 03/14/18 14:08 98.2 F 68 16 104/63 94 Intake and Output 03/14/18 03/15/18 03/15/18 23:59 07:59 15:59 Output Total 150 / 150 Balance -150 / -150 Output: Urine 150 / 150 Other: # Voids 1 # Urine Diapers 1 1 - Labs CBC & BMP: 03/15/18 00:43 03/13/18 06:57 Labs: Abnormal lab results RBC 2.83 M/mcL (3.82-4.97) L 03/15/18 00:43 Hgb 9.9 g/dL (11.5-15.4) L 03/15/18 00:43 Hct 29.3 % (35.3-44.9) L 03/15/18 00:43 MCV 103.5 fL (83.0-100.0) H 03/15/18 00:43 MCH 35.0 pg (28.0-33.3) H 03/15/18 00:43 Plt Count 135 K/mcL (140-400) L 03/15/18 00:43 Chloride 111 mEq/L (98-107) H 03/13/18 06:57 Carbon Dioxide 18 mEq/L (23-29) L 03/13/18 06:57 Est GFR (Non-Af Amer) 54 (> 60) L 03/13/18 06:57 Glucose 133 mg/dL (70-105) H 03/13/18 06:57 POC Glucose 117 mg/dL (70-99) H 03/12/18 10:48 Creatine Kinase 19 Units/L (30-223) L 03/11/18 14:04 B-Natriuretic Peptide 328 pg/mL (Less than 100) H 03/11/18 14:04 Serum Total Protein 5.4 g/dL (6.4-8.9) L 03/11/18 14:04 Albumin 3.3 g/dL (3.5-5.7) L 03/11/18 14:04 Globulin 2.1 g/dL (2.4-3.5) L 03/11/18 14:04 Urine Color [place] (Yellow) A 03/11/18 16:16 Urine Clarity Cloudy (Clear) A 03/11/18 16:16 Ur Specific [place] > 1.030 (1.010-1.025) H 03/11/18 16:16 Urine Ketones Trace mg/dL (Negative) H 03/11/18 16:16 Urine Nitrite Positive (Negative) A 03/11/18 16:16 Urine Bilirubin Small (Negative) H 03/11/18 16:16 Ur Leukocyte Esterase Small (Negative) H 03/11/18 16:16 Urine Microscopic RBC 3-5 per hpf (0-3) H 03/11/18 16:16 Urine Microscopic WBC 15-30 per hpf (0-3) H 03/11/18 16:16 Ur Squamous Epith Cells Many per lpf (None-Few) H 03/11/18 16:16 Urine Bacteria Many per hpf (None-Few) H 03/11/18 16:16 Hyaline Casts Moderate per lpf (None-Few) H 03/11/18 16:16 - VTE Documentation of Mechanical Device: Intermittent pneumatic compression device Consult Discharge Plan - Plan Referrals: NONE,PCP [Primary Care Provider] -
[2018-03-15] MEDS ORDERED: Bisacodyl 10 MG RECTAL SUPPOSITORY RC ONE (10:47)
[2018-03-15] MEDS: (Pravastatin Sodium [Pravachol] 80 MG) PO SCH (19:58)
[2018-03-16] MEDS: traMADol 50 MG TABLET PO PRN (05:36)
--- NOTE | 2018-03-16 08:52 | Internal Med Progress Note ---
Hospitalist Progress Note - Encounter Date of Encounter: 03/16/18 Time of Encounter: 10:25 - Subjective Interval History: no current hip apin. + flatus, + bm last night. no abd pain or bloating. no cp, sob, fatigue or confusion - Exam Vitals: Temp Pulse Resp BP Pulse Ox 98.0 F 61 16 131/63 93 03/16/18 08:08 03/16/18 08:08 03/16/18 08:08 03/16/18 08:08 03/16/18 08:08 Exam: General: awake, alert, nad Cardiovascular:regular rate and rhythm, normal S1 & S2, no rubs, murmurs or gallops. no lower extremity edema Lungs:Normal breath sounds, no wheezes, or crackles. Normal respiratory effort on o2 nc Abdomen:Soft, no apparent tenderness, no guarding, non distended, + bowel sounds Extremities:hip incision dressing clean dry intact Neurological: AAO x3, cn grossly intact Skin:Normal color, no rash, no pallor - Assessment and Plan (1) Fracture of femoral neck, right, closed Current Visit: Yes Status: Acute Assessment and Plan: Acute Traumatic Right Femoral Neck Fracture s/p right hip pinning 03/12/18 -prn pain control, monitor for over sedation -cards provided pre op clearance -OR 03/12 -post op care per ortho -currently asa 162 mg BID then may resume home 81mg daily after ten days post op -03/15 check PVR to assess if retaining with esteves removal, checked KUB and mild distension of bowel, no obstruction -miralax + dulcolax supp- monitor for bms,voiding trial -pt/ot and awaiting ECF placement (2) Fall Current Visit: Yes Status: Acute Assessment and Plan: Mechanical fall with Hx of same 2/2 Ambulatory Dysfunction pt/ot dc to [place] likely friday (3) GHADA (acute kidney injury) Current Visit: Yes Status: Resolved Assessment and Plan: Most likely combination pre renal and obstructive with acute urinary retention with UTI Acute Ecoli UTI baseline creat appears to be about 1.1 (july 2017) Admit creat 1.47, resolved to 0.98 Acute Urinary Retention Suspect UTI on UA -History of UTIs, and current sxs, UA with +nitrates and LE, 15-30 WBC -empirically treat with rocephin -esteves for retention -avoid nephro toxic agents -hold home hctz, losartan 12.5/100 mg (bps have been at goal without them -i/os -remove esteves cath, voiding trial -ucx ecoli pansensitive--change to macrobid PO on dc (4) Anemia due to acute blood loss Current Visit: Yes Status: Acute Assessment and Plan: baseline hgb appears to be about 10s, most recently in July 2017, previously as high as 13 earlier that month Admitting hgb 10.6 now down trended post op to 9.1, NOW BACK TO BASELINE Acute anemia, post hemorrhagic 2/2 acute bone fracture -no transfusion required -platelets down trended to 120s--now up trending -stable on home anti platelets, ranexa and plavix (5) DVT prophylaxis Current Visit: No Status: Acute Assessment and Plan: scds, asa, plavix, ranexa (6) Atrial fibrillation Current Visit: No Status: Chronic Assessment and Plan: currently NSR -cont home asa, coreg -not on ac outpt due to multiple falls and not good candidate (7) CAD (coronary artery disease) Current Visit: No Status: Chronic Assessment and Plan: stable, asx -cont home asa, statin, coreg, hold arb given ghada, nitro prn, plavix and ranexa (8) COPD (chronic obstructive pulmonary disease) Current Visit: No Status: Chronic Assessment and Plan: stable not on home meds prn o2 CXR 03/14 with bibasilar atelectasis, post op incentive spirometry, increase activity (9) Dementia Current Visit: No Status: Chronic Assessment and Plan: Pt AAOx3 at baseline as per family -daughter ernie [phone] and kevin (with whom she lives) [phone] are her medical decision makers if she cannot make decisions on her own -not on home meds (10) HTN (hypertension) Current Visit: No Status: Chronic Assessment and Plan: stable bps, at goal -cont home meds, with exception noted above -cont to monitor bp trends (11) Hyperlipemia Current Visit: No Status: Chronic Assessment and Plan: cont statin (12) Acute metabolic encephalopathy Current Visit: Yes Status: Resolved Assessment and Plan: Most likely multifactorial 2/2 UTI, pain, hx dementia, pain medication- resolved -stroke alert called 03/12 for confusion and aphasia which improved without treatment -CT head neg -CTA head and neck neg -treating UTI as above -no lab abnormalities to account for findings -limit pain medications - Time Spent with Patient Total time spent is greater than 50% in coordination of care (as documented) at patient's floor/unit and/or counseling patient: 25 - 35 minutes Plan of Care Discussed with: patient Internal Medicine: Result - Labs CBC & Chem 7: 03/15/18 00:43 03/13/18 06:57 - ABG Interpretation ABG results: PT/INR, D-dimer PT 11.8 Seconds (9.4-12.1) 03/12/18 05:04 - Impressions Impressions KUB X-Ray 03/15/18 10:04 IMPRESSION: No acute abnormality. Specifically, there are no findings to suggest obstruction. D/ / Eleazar Webb / Eleazar Webb Interpreting Provider: Eleazar Webb - VTE Documentation of Mechanical Device: Intermittent pneumatic compression device Consult Discharge Plan - Plan Referrals: NONE,PCP [Primary Care Provider] - (1) Fracture of femoral neck, right, closed Qualifiers: Encounter type: initial encounter Qualified Code(s): S72.001A - Fracture of unspecified part of neck of right femur, initial encounter for closed fracture (2) Fall Qualifiers: Encounter type: initial encounter Qualified Code(s): W19.XXXA - Unspecified fall, initial encounter (6) Atrial fibrillation Qualifiers: Atrial fibrillation type: paroxysmal Qualified Code(s): I48.0 - Paroxysmal atrial fibrillation (7) CAD (coronary artery disease) Qualifiers: Coronary Disease-Associated Artery/Lesion type: bypass graft [place] vs. transplanted heart: 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 Qualified Code(s): J43.9 - Emphysema, unspecified (9) Dementia Qualifiers: Dementia type: Alzheimer's disease Alzheimer's disease onset: late-onset Dementia behavioral disturbance: without behavioral disturbance Qualified Code( s): G30.1 - Alzheimer's disease with late onset; F02.80 - Dementia in other diseases classified elsewhere without behavioral disturbance (10) HTN (hypertension) Qualifiers: Hypertension type: essential hypertension Qualified Code(s): I10 - Essential (primary) hypertension (11) Hyperlipemia Qualifiers: Hyperlipidemia type: unspecified Qualified Code(s): E78.5 - Hyperlipidemia, unspecified
[2018-03-16] MEDS: Aspirin 81 MG TAB.CHEW PO SCH ×2 (09:07→20:42)
[2018-03-16] MEDS: Isosorbide MONOnitrate (24 HR) 60 MG TAB.ER.24H PO SCH (09:07)
[2018-03-16] MEDS: Cholecalciferol (D-3) 1,000 UNIT TABLET PO SCH (09:08)
[2018-03-16] MEDS: Cyanocobalamin (B-12) 1,000 MCG TABLET PO SCH (09:08)
[2018-03-16] MEDS: Ranolazine 500 MG TAB.ER.12H PO SCH ×2 (09:08→20:42)
[2018-03-16] MEDS: Sucralfate 1 GM TABLET PO SCH ×2 (09:08→20:42)
[2018-03-16] MEDS: cefTRIAXone 1,000 MG in Water for inj. (sterile) 20 ML 10 ML IVP SCH (09:13)
[2018-03-16] MEDS: Pantoprazole 40 MG VIAL IVP SCH (09:13)
[2018-03-16] MEDS: (Pravastatin Sodium [Pravachol] 80 MG) PO SCH (20:43)
[2018-03-17] MEDS ORDERED: NON-FORMULARY MEDICATION 1 EACH EACH (Pantoprazole Sodium [Protonix] 20 MG) PO SCH (09:00)
[2018-03-17] MEDS: traMADol 50 MG TABLET PO PRN ×2 (10:42→23:49)
[2018-03-17] MEDS: Ranolazine 500 MG TAB.ER.12H PO SCH ×2 (11:12→21:53)
[2018-03-17] MEDS: Isosorbide MONOnitrate (24 HR) 60 MG TAB.ER.24H PO SCH (11:13)
[2018-03-17] MEDS: Aspirin 81 MG TAB.CHEW PO SCH ×2 (11:13→21:53)
[2018-03-17] MEDS: Cyanocobalamin (B-12) 1,000 MCG TABLET PO SCH (11:13)
[2018-03-17] MEDS: Loratadine 10 MG TABLET PO SCH (11:14)
[2018-03-17] MEDS: Sucralfate 1 GM TABLET PO SCH ×2 (11:14→21:53)
[2018-03-17] MEDS: Cholecalciferol (D-3) 1,000 UNIT TABLET PO SCH (11:14)
[2018-03-17] MEDS: cefTRIAXone 1,000 MG in Water for inj. (sterile) 20 ML 10 ML IVP SCH (11:15)
[2018-03-17] MEDS: Pantoprazole 40 MG VIAL IVP SCH (11:15)
--- NOTE | 2018-03-17 17:56 | Internal Med Progress Note ---
Hospitalist Progress Note - Encounter Date of Encounter: 03/17/18 Time of Encounter: 11:00 - Subjective Interval History: Patient with no issues or complaints this morning. She is postop day 5 for right hip pinning for right femoral fracture repair Awaiting precertification for ECF placement. - Exam Vitals: Temp Pulse Resp BP Pulse Ox 97.8 F 62 16 148/70 96 03/17/18 15:52 03/17/18 15:52 03/17/18 15:52 03/17/18 15:52 03/17/18 15:52 Exam: Gen.: Nonacute distress, alert and oriented 3 ENT: Mucosal membranes moist Respiratory: Lungs are clear to auscultation bilaterally without any wheezing rhonchi or rales Cardiovascular: Normal S1 and S2 regular rate rhythm no murmurs rubs or gallops Abdomen: Soft, nontender and nondistended with positive bowel sounds Extremities: No lower extremity edema Skin: Normal color - Assessment and Plan (1) Fracture of femoral neck, right, closed Current Visit: Yes Status: Acute Assessment and Plan: Acute Traumatic Right Femoral Neck Fracture s/p right hip pinning 03/12/18 Awaiting ECF placement (2) Fall Current Visit: Yes Status: Acute Assessment and Plan: Mechanical fall with Hx of same 2/2 Ambulatory Dysfunction pt/ot with recommendations for alf facility placement. (3) HTN (hypertension) Current Visit: No Status: Chronic Assessment and Plan: cont home meds (4) Hyperlipemia Current Visit: No Status: Chronic Assessment and Plan: cont statin (5) CAD (coronary artery disease) Current Visit: No Status: Chronic Assessment and Plan: stable, asx -cont home asa, statin, coreg, hold arb given ghada, nitro prn, plavix and ranexa (6) GHADA (acute kidney injury) Current Visit: Yes Status: Resolved Assessment and Plan: Resolved; continue to monitor (7) Atrial fibrillation Current Visit: No Status: Chronic Assessment and Plan: currently NSR; cont home asa, coreg not on ac outpt due to multiple falls and not good candidate (8) Anemia due to acute blood loss Current Visit: Yes Status: Acute Assessment and Plan: Stable; continue to monitor (9) Dementia Current Visit: No Status: Chronic Assessment and Plan: Daughter ernie [phone] and kevin (with whom she lives) [phone] are her medical decision makers if she cannot make decisions on her own -not on home meds (10) Acute metabolic encephalopathy Current Visit: Yes Status: Resolved Assessment and Plan: Most likely multifactorial 2/2 UTI, pain, hx dementia, pain medication- resolved -stroke alert called 03/12 for confusion and aphasia which improved without treatment -CT head neg -CTA head and neck neg -treating UTI as above (11) DVT prophylaxis Current Visit: No Status: Acute Assessment and Plan: scds, asa, plavix, ranexa - Time Spent with Patient Total time spent is greater than 50% in coordination of care (as documented) at patient's floor/unit and/or counseling patient: Internal Medicine: Result - Labs CBC & Chem 7: 03/15/18 00:43 03/13/18 06:57 - ABG Interpretation ABG results: PT/INR, D-dimer PT 11.8 Seconds (9.4-12.1) 03/12/18 05:04 - VTE Documentation of Mechanical Device: Intermittent pneumatic compression device Consult Discharge Plan - Plan Referrals: NONE,PCP [Primary Care Provider] - (1) Fracture of femoral neck, right, closed Qualifiers: Encounter type: initial encounter Qualified Code(s): S72.001A - Fracture of unspecified part of neck of right femur, initial encounter for closed fracture (2) Fall Qualifiers: Encounter type: initial encounter Qualified Code(s): W19.XXXA - Unspecified fall, initial encounter (3) HTN (hypertension) Qualifiers: Hypertension type: essential hypertension Qualified Code(s): I10 - Essential (primary) hypertension (4) Hyperlipemia Qualifiers: Hyperlipidemia type: unspecified Qualified Code(s): E78.5 - Hyperlipidemia, unspecified (5) CAD (coronary artery disease) Qualifiers: Coronary Disease-Associated Artery/Lesion type: bypass graft [place] vs. transplanted heart: [place] heart Associated angina: without angina Qualified Code(s): I25.810 - Atherosclerosis of coronary artery bypass graft(s) without angina pectoris (7) Atrial fibrillation Qualifiers: Atrial fibrillation type: paroxysmal Qualified Code(s): I48.0 - Paroxysmal atrial fibrillation (9) Dementia Qualifiers: Dementia type: Alzheimer's disease Alzheimer's disease onset: late-onset Dementia behavioral disturbance: without behavioral disturbance Qualified Code( s): G30.1 - Alzheimer's disease with late onset; F02.80 - Dementia in other diseases classified elsewhere without behavioral disturbance
[2018-03-17] MEDS: (Pravastatin Sodium [Pravachol] 80 MG) PO SCH (21:54)
[2018-03-18] MEDS ORDERED: OXYCODONE Oral CONC 10 MG/0.5 ML ORAL.SYG SL ONE (01:15)
[2018-03-18] MEDS: Sucralfate 1 GM TABLET PO SCH (08:59)
[2018-03-18] MEDS: Cyanocobalamin (B-12) 1,000 MCG TABLET PO SCH (08:59)
[2018-03-18] MEDS: Aspirin 81 MG TAB.CHEW PO SCH (08:59)
[2018-03-18] MEDS: Isosorbide MONOnitrate (24 HR) 60 MG TAB.ER.24H PO SCH (08:59)
[2018-03-18] MEDS: Pantoprazole 40 MG VIAL IVP SCH (09:00)
[2018-03-18] MEDS: cefTRIAXone 1,000 MG in Water for inj. (sterile) 20 ML 10 ML IVP SCH (09:00)
[2018-03-18] MEDS: Ranolazine 500 MG TAB.ER.12H PO SCH (09:00)
[2018-03-18] MEDS: Loratadine 10 MG TABLET PO SCH (09:00)
[2018-03-18] MEDS: Cholecalciferol (D-3) 1,000 UNIT TABLET PO SCH (09:00)
[2018-03-18] MEDS: traMADol 50 MG TABLET PO PRN ×2 (09:13→19:01)
--- NOTE | 2018-03-18 10:37 | Discharge Summary ---
- NOTES TO OUTPATIENT PROVIDER Notes to Outpatient Provider: none Orders not resulted at time of discharge: Pending orders 03/12/18 17:25 XR hip complete RT [XR] Routine Date of Encounter: 03/18/18 Time of Encounter: 11:00 - Discharge Diagnosis (1) Fracture of femoral neck, right, closed Priority: Primary Status: Acute Qualifiers: Encounter type: initial encounter Qualified Code(s): S72.001A - Fracture of unspecified part of neck of right femur, initial encounter for closed fracture (2) Fall Priority: Primary Status: Acute Qualifiers: Encounter type: initial encounter Qualified Code(s): W19.XXXA - Unspecified fall, initial encounter (3) HTN (hypertension) Priority: Secondary Status: Chronic Qualifiers: Hypertension type: essential hypertension Qualified Code(s): I10 - Essential (primary) hypertension (4) Hyperlipemia Priority: Secondary Status: Chronic Qualifiers: Hyperlipidemia type: unspecified Qualified Code(s): E78.5 - Hyperlipidemia , unspecified (5) CAD (coronary artery disease) Priority: Secondary Status: Chronic Qualifiers: Coronary Disease-Associated Artery/Lesion type: bypass graft [place] vs. transplanted heart: [place] heart Associated angina: without angina Qualified Code(s): I25.810 - Atherosclerosis of coronary artery bypass graft(s) without angina pectoris (6) GHADA (acute kidney injury) Priority: Secondary Status: Resolved (7) Atrial fibrillation Priority: Secondary Status: Chronic Qualifiers: Atrial fibrillation type: paroxysmal Qualified Code(s): I48.0 - Paroxysmal atrial fibrillation (8) Anemia due to acute blood loss Priority: Secondary Status: Acute (9) Dementia Priority: Secondary Status: Chronic Qualifiers: Dementia type: Alzheimer's disease Alzheimer's disease onset: late-onset Dementia behavioral disturbance: without behavioral disturbance Qualified Code (s): G30.1 - Alzheimer's disease with late onset; F02.80 - Dementia in other diseases classified elsewhere without behavioral disturbance (10) Acute metabolic encephalopathy Priority: Secondary Status: Resolved Hospital course: Patient is a 77-year-old female with past medical history significant for atrial fibrillation, COPD, coronary artery disease, DVT, GERD, hyperlipidemia, hypertension, myocardial infarction and syncope who presented to the ER on status post mechanical fall. She reported of falling while walking around her bed. She denied losing consciousness. Patient was brought into the ER by EMS for further evaluation. In the ER, patient was found to have right femoral neck fracture on imaging. Patient was admitted to the medical surgical floor for further evaluation. During patients hospital stay orthopedics was consulted with recommendations for a right hip pinning of right femoral fracture. Physical therapy was also consult with recommendations for SNF placement. Patient is medically stable to be discharged to this halfway facility for strengthening conditioning. Patient does have a history of atrial fibrillation but is not a current candidate for oral anticoagulation therapy due to multiple falls. - Time Spent with Patient Total time spent providing and/or coordinating discharge services: Less than 30 minutes - Discharge Medications Home Medications: Clopidogrel [Plavix] 75 mg PO DAILY 08/23/15 [History] Isosorbide MONOnitrate (24 HR) [Imdur] 180 mg PO DAILY 08/23/15 [History] Potassium Chloride [K-Tab ER] 10 meq PO BID 08/23/15 [History] Pravastatin Sodium [Pravachol] 80 mg PO HS 08/23/15 [History] Cyanocobalamin (Vitamin B-12) [Vitamin B-12] 100 mcg PO DAILY 03/14/16 [History] Ergocalciferol (VITAMIN D2) [Vitamin D] 800 unit PO DAILY 03/14/16 [History] Loratadine [Claritin] 10 mg PO DAILY 03/14/16 [History] Nitroglycerin [Nitrostat] 0.4 mg SL Q5M PRN 03/31/16 [History] Ranolazine [Ranexa] 1,000 mg PO BID 03/31/16 [History] Sertraline [Zoloft] 75 mg PO DAILY 10/28/16 [History] Aspirin Enteric Coated [Aspirin EC] 325 mg PO BID tablet. 11/02/16 [Rx] Carvedilol 12.5 mg PO BID 01/10/17 [History] Loperamide [Imodium] 2 mg PO QID PRN 01/10/17 [History] Mag Hydrox/Al Hydrox/Simeth [Antacid Suspension] 30 ml PO ACHS 01/10/17 [History ] Sucralfate [Carafate] 1 gm PO BID 01/10/17 [History] Collagenase Oint [Santyl] 1 appl TP BID #1 tube 01/14/17 [Rx] Lidocaine Patch [Lidoderm 5% patch] 1 each TP DAILY PRN #3 adh..patch 03/25/17 [ Rx] Pantoprazole Sodium [Protonix] 20 mg PO DAILY 07/29/17 [History] Acetaminophen [Pain Relief 8Hr] 650 mg PO Q4H PRN 03/11/18 [History] Calcium Carbonate [Calcium] 600 mg PO DAILY 03/11/18 [History] Losartan/Hydrochlorothiazide [Losartan-Hctz 100-12.5 mg Tab] 1 tab PO DAILY 11/21 [History] Ranitidine HCl [Acid Firer Diesel Locomotive] 75 mg PO HS 03/11/18 [History] Allergies/Adverse Reactions: 3 Allergy/AdvReac Type Severity Reaction Status Date / Time simvastatin [From Zocor] Allergy Anaphylaxis Verified 01/10/17 16:51 atorvastatin [From Lipitor] AdvReac Anxiety Verified 01/10/17 16:51 enalaprilat [From Vasotec] AdvReac Hives Verified 01/10/17 16:51 Date of admission: 03/11/18 18:23 Primary care physician: PCP NONE Consults: 03/12/18 19:40 Consult to Occupational Therapy [CONS] Routine Comment: Evaluate, develop and implement POC Reason for Consult: post hip surgery Does patient have active BEDREST order?: No Is patient medically & hemodynamically stable?: Yes Patient assessed for mobility or mobilized this visit?: Yes Consult to Orthopedic Navigator [CONS] [CONS] Routine Consult to Physical Therapy [CONS] Routine Comment: Evaluate, develop and implement POC Reason for Consult: post hip surgery Does patient have active BEDREST order?: No Is patient medically & hemodynamically stable?: Yes Patient assessed for mobility or mobilized this visit?: Yes Consult to Tube Cutter Operator [CONS] Routine Reason for SW Consult: post -op hip fracture RT Post Op Consult [CONS] Routine - Constitutional Vitals: Temp Pulse Resp BP Pulse Ox 98.2 F 60 16 163/76 91 03/18/18 06:26 03/18/18 06:26 03/18/18 06:26 03/18/18 06:26 03/18/18 06:26 Exam: Gen.: Nonacute distress Cardiovascular: Normal S1 and S2 regular rate rhythm no murmurs rubs or gallops Skin: Normal color - Patient Status Disposition: Transfer SNF Condition: Fair - Discharge Instructions Follow Up With: NONE,PCP [Primary Care Provider] - - VTE Documentation of Mechanical Device: Intermittent pneumatic compression device
--- NOTE | 2018-03-18 10:37 | Physician Discharge Referral ---
ExtendedCare Referral Info Institutional Level of Care: Skilled - Diagnosis (1) Fracture of femoral neck, right, closed Status: Acute (2) Fall Status: Acute (3) HTN (hypertension) Status: Chronic (4) Hyperlipemia Status: Chronic (5) CAD (coronary artery disease) Status: Chronic (6) GHADA (acute kidney injury) Status: Resolved (7) Atrial fibrillation Status: Chronic (8) Anemia due to acute blood loss Status: Acute (9) Dementia Status: Chronic (10) Acute metabolic encephalopathy Status: Resolved (11) DVT prophylaxis Status: Acute - Transfer Medications Home Medications: Clopidogrel [Plavix] 75 mg PO DAILY 08/23/15 [History] Isosorbide MONOnitrate (24 HR) [Imdur] 180 mg PO DAILY 08/23/15 [History] Potassium Chloride [K-Tab ER] 10 meq PO BID 08/23/15 [History] Pravastatin Sodium [Pravachol] 80 mg PO HS 08/23/15 [History] Cyanocobalamin (Vitamin B-12) [Vitamin B-12] 100 mcg PO DAILY 03/14/16 [History] Ergocalciferol (VITAMIN D2) [Vitamin D] 800 unit PO DAILY 03/14/16 [History] Loratadine [Claritin] 10 mg PO DAILY 03/14/16 [History] Nitroglycerin [Nitrostat] 0.4 mg SL Q5M PRN 03/31/16 [History] Ranolazine [Ranexa] 1,000 mg PO BID 03/31/16 [History] Sertraline [Zoloft] 75 mg PO DAILY 10/28/16 [History] Aspirin Enteric Coated [Aspirin EC] 325 mg PO BID tablet. 11/02/16 [Rx] Carvedilol 12.5 mg PO BID 01/10/17 [History] Loperamide [Imodium] 2 mg PO QID PRN 01/10/17 [History] Mag Hydrox/Al Hydrox/Simeth [Antacid Suspension] 30 ml PO ACHS 01/10/17 [History ] Sucralfate [Carafate] 1 gm PO BID 01/10/17 [History] Collagenase Oint [Santyl] 1 appl TP BID #1 tube 01/14/17 [Rx] Lidocaine Patch [Lidoderm 5% patch] 1 each TP DAILY PRN #3 adh..patch 03/25/17 [ Rx] Pantoprazole Sodium [Protonix] 20 mg PO DAILY 07/29/17 [History] Acetaminophen [Pain Relief 8Hr] 650 mg PO Q4H PRN 03/11/18 [History] Calcium Carbonate [Calcium] 600 mg PO DAILY 03/11/18 [History] Losartan/Hydrochlorothiazide [Losartan-Hctz 100-12.5 mg Tab] 1 tab PO DAILY 11/21 [History] Ranitidine HCl [Acid Hearse Driver] 75 mg PO HS 03/11/18 [History] Allergies/Adverse Reactions: 3 Allergy/AdvReac Type Severity Reaction Status Date / Time simvastatin [From Zocor] Allergy Anaphylaxis Verified 01/10/17 16:51 atorvastatin [From Lipitor] AdvReac Anxiety Verified 01/10/17 16:51 enalaprilat [From Vasotec] AdvReac Hives Verified 01/10/17 16:51 - Respiratory Orders Smoking Cessation: Smoking cessation has been advised. For more information, call the [place] Tobacco Quit Line at 6-512-CHVG-NOW. CERTIFICATION: I certify that the transfer of the above named patient to an Extended Care Facility is necessary for the continuing treatment of the diagnosis listed. The above information is true and accurate reflection of patient's current condition. Confidential - Redisclosure prohibited without a patient's written consent.
[2018-03-18 15:43] VITALS: BP 149/77
== END 2018-03-18 19:16 | DRG 480 ==
LOC: EMEROOARM 12:54 → 3NENU 12:54 → SUATTDRO 18:23
PROVIDERS: ADMIT Internal Medicine; ATTEND Hospitalist

== ENCOUNTER 2018-04-13 10:37 | Inpatient (IN) ==
[2018-04-13] MEDS ORDERED: 0.9 % Sodium Chloride 1,000 ML IVC SCH (10:45)
[2018-04-13] MEDS ORDERED: 0.9 % Sodium Chloride 1,000 ML IVC ONE (10:46)
[2018-04-13] MEDS ORDERED: Cefepime HCl 2,000 MG in Water for inj. (sterile) 20 ML 20 ML IVP ONE (10:46)
[2018-04-13 11:15] LABS: Basophils % 0.2 %; Hematocrit 33.2 % (35.3-44.9); Immature Granulocytes % 0.9 % (0-4); Lymphocytes # 1.6 K/mcL (0.6-4.6); Mean Corpuscular HGB Conc 33.1 g/dL (31.6-35.5); Mean Corpuscular Hemoglobin 32.9 pg (28.0-33.3); Mean Corpuscular Volume 99.4 fL (83.0-100.0); Mean Platelet Volume 9.7 fL (9.4-12.4); Monocytes # 0.9 K/mcL (0.0-1.3); Monocytes % 5.1 %; Neutrophils # 15.5 K/mcL (1.6-8.9); Platelet Count 215 K/mcL (140-400); Red Blood Count 3.34 M/mcL (3.82-4.97); Red Cell Distribution Width 13.2 % (11.5-14.5); Segmented Neutrophils % 84.8 %
[2018-04-13 11:21] LABS: Albumin 3.2 g/dL (3.5-5.7); Bilirubin,Direct 0.3 mg/dL (0.0-0.2); Bilirubin,Indirect 0.5 mg/dL (0.0-1.2); Bilirubin,Total 0.8 mg/dL (0.3-1.0); Calcium 9.8 mg/dL (8.6-10.3); Globulin 3.1 g/dL (2.4-3.5); Phosphorous 2.3 mg/dL (2.7-4.5); Total Protein 6.3 g/dL (6.4-8.9); Troponin I 0.03 ng/mL (< 0.04)
[2018-04-13 11:27] LABS: INR 1.2; Prothrombin Time 13.9 Seconds (9.4-12.1)
[2018-04-13 11:29] LABS: Activated Partial Thrombo Time 29.8 Seconds (26.0-36.0)
[2018-04-13 11:52] LABS: Bilirubin,Urine Small (Negative); Blood,Urine Small (Negative); Clarity,Urine Turbid (Clear); Color,Urine Red (Yellow); Glucose,Urine (UA) Normal (Normal); Ketones,Urine Trace mg/dL (Negative); Leukocyte Esterase,Urine Large (Negative); Nitrite,Urine Positive (Negative); PH,Urine 5.5 pH Units (5.0-8.0); Protein,Urine 100 mg/dL (Neg-Trace); Specific Gravity,Urine 1.016 (1.010-1.025); Urobilinogen,Urine Normal (Normal)
[2018-04-13 11:57] LABS: Bacteria,Urine Many per hpf (None-Few); Hyaline Casts,Urine Few per lpf (None-Few); Squamous Epithelial Cell,Urine Many per lpf (None-Few); WBC,Urine TNTC per hpf (0-3)
[2018-04-13] MEDS ORDERED: Aminoglycoside Consult 1 EACH MC ONE (12:17)
--- NOTE | 2018-04-13 12:30 | Emergency Department Note ---
Disposition Clinical Impression: Sepsis Qualifiers: Sepsis type: sepsis due to unspecified organism Qualified Code(s): A41.9 - Sepsis, unspecified organism Disposition: Admitted As Inpatient Condition: Undetermined General Adult HPI - General Chief complaint: ED Altered Mental Status Stated complaint: low BP/AMS Time Seen by Provider: 04/13/18 10:44 Source: EMS Limitations: altered mental status Nursing Notes Reviewed: Yes Vital Signs Reviewed: Yes - History of Present Illness HPI Narrative: This is an 87 -year-old female who presents from the [facility]. She has baseline dementia, apparently was being treated for urinary tract infection. She was started on Bactrim at the nursing facility. Apparently today she was found unresponsive. When EMS arrived she did arouse to sternal rub. A blood glucose was found to be normal. On arrival here she was found to be hypotensive. There was concern with sepsis related to underlying urinary tract infection. She has no focal neurological deficit. She is minimally verbal and confused to baseline. Her airway is patent. General: No acute distress HEENT: Pupils equal and reactive to light, extraoccular muscle movement is normal, TMS are clear bilaterally. Heart: RRR, No murmor rub or gallop Lungs: lungs clear, no wheezing, rales or ronchi. ABD: SNT, no focal areas or tenderness, no guarding or rebound tenderness. Extremities: No cyanosis, clubbing or edema Neuro: Confused, moves all extremities A 12 point review of systems was not obtained as the patient is nonverbal and confused to baseline. Medical decision making Findings consistent with possible septic shock. The patient has hypotensive with findings of urinary tract infection. Urine is nitrite positive. Cefepime and vancomycin were started on arrival. She was given a fluid bolus. She was given 1 L of fluid due to her underlying heart failure. Lactate was actually normal. Potassium was found to be low and subsequently replaced. The patient be admitted for further management of sepsis. I discussed the case with the hospitalist. Pancultures were sent prior to admission. dowel pin worker was consult in the emergency department to clarify her CODE STATUS and she is a DNR [facility] at this time. Family was notified that she is in the department. She does subsequent improvement with IV fluid administration with normalization of blood pressure. Consultation was placed for midline catheter insertion due to caustic nature of peripheral medications including potassium and potential need for vasopressors. Pain Scale: 0 - Related Data Home Medications Medication Instructions Recorded Confirmed Clopidogrel [Plavix] 75 mg PO DAILY 08/23/15 04/13/18 Isosorbide MONOnitrate (24 HR) 180 mg PO DAILY 08/23/15 04/13/18 [Imdur] Potassium Chloride [K-Tab ER] 10 meq PO BID 08/23/15 04/13/18 Pravastatin Sodium [Pravachol] 80 mg PO HS 08/23/15 04/13/18 Cyanocobalamin (Vitamin B-12) 100 mcg PO DAILY 03/14/16 04/13/18 [Vitamin B-12] Ergocalciferol (VITAMIN D2) 800 unit PO DAILY 03/14/16 04/13/18 [Vitamin D] Loratadine [Claritin] 10 mg PO DAILY 03/14/16 04/13/18 Nitroglycerin [Nitrostat] 0.4 mg SL Q5M PRN 03/31/16 04/13/18 Ranolazine [Ranexa] 1,000 mg PO BID 03/31/16 04/13/18 Sertraline [Zoloft] 75 mg PO DAILY 10/28/16 04/13/18 Carvedilol 12.5 mg PO BID 01/10/17 04/13/18 Sucralfate [Carafate] 1 gm PO BID 01/10/17 04/13/18 Acetaminophen [Pain Relief 8Hr] 650 mg PO Q4H PRN 03/11/18 04/13/18 Calcium Carbonate [Calcium] 600 mg PO DAILY 03/11/18 04/13/18 Losartan/Hydrochlorothiazide 1 tab PO DAILY 03/11/18 04/13/18 [Losartan-Hctz 100-12.5 mg Tab] Ranitidine HCl [Acid Courtesy Bus Driver] 75 mg PO HS 03/11/18 04/13/18 Omeprazole [PriLOSEC] 20 mg PO DAILY 04/13/18 04/13/18 Sulfamethoxazole/Trimeth DS 1 tab PO BID 04/13/18 04/13/18 [Bactrim DS] Previous Rx's Medication Instructions Recorded Lidocaine Patch [Lidoderm 5% patch] 1 each TP DAILY PRN #3 adh..patch 03/25/17 Allergies Allergy/AdvReac Type Severity Reaction Status Date / Time simvastatin [From Zocor] Allergy Anaphylaxis Verified 01/10/17 16:51 atorvastatin [From Lipitor] AdvReac Anxiety Verified 01/10/17 16:51 enalaprilat [From Vasotec] AdvReac Hives Verified 01/10/17 16:51 Past Medical History - Past Medical History Medical history: Reports: arthritis, atrial fibrillation, COPD, coronary artery disease, DVT, GERD, hyperlipidemia, hypertension, myocardial infarction, syncope Surgical history: Reports: angioplasty/stent, appendectomy, cataract, cholecystectomy, coronary bypass (CABG), orthopedic, other, pacemaker/AICD Psychiatric history: Reports: anxiety, depression WEAPONS ENGINEER history: Reports: non-contributory - Social History Smoking Status: Former smoker Smokeless Tobacco Status: No Alcohol use: Reports: none Drug use: Reports: none Physical Exam - General Limitations: altered mental status General appearance: alert, in no apparent distress Course Vital Signs Temperature 98.2 F 04/13/18 10:40 Pulse Rate 61 04/13/18 10:40 Respiratory Rate 14 04/13/18 10:40 Blood Pressure 79/43 04/13/18 10:40 O2 Sat by Pulse Oximetry 94 04/13/18 10:40 Temperature 98.2 F 04/13/18 10:40 Pulse Rate 61 04/13/18 12:18 Respiratory Rate 14 04/13/18 12:18 Blood Pressure 106/49 04/13/18 12:18 O2 Sat by Pulse Oximetry 99 04/13/18 12:18 Oxygen Delivery Oxygen Delivery Room Air Medical Decision Making - Lab Data Result diagrams: 04/13/18 10:47 04/13/18 10:47 Lab Results 04/13/18 04/13/18 04/13/18 Range/Units 10:47 10:47 10:47 WBC 18.2 H (4.3-11.1) K/mcL RBC 3.34 L (3.82-4.97) M/mcL Hgb 11.0 L (11.5-15.4) g/dL Hct 33.2 L (35.3-44.9) % MCV 99.4 (83.0-100.0) fL MCH 32.9 (28.0-33.3) pg MCHC 33.1 (31.6-35.5) g/dL RDW 13.2 (11.5-14.5) % Plt Count 215 (140-400) K/mcL MPV 9.7 (9.4-12.4) fL Immature Gran % 0.9 (0-4) % Seg Neutrophils % 84.8 % Lymphocytes % 9.0 % Monocytes % 5.1 % Eosinophils % 0.0 % Basophils % 0.2 % Neutrophils # 15.5 H (1.6-8.9) K/mcL Lymphocytes # 1.6 (0.6-4.6) K/mcL Monocytes # 0.9 (0.0-1.3) K/mcL Eosinophils # 0.0 (0.0-0.6) K/mcL Basophils # 0.0 (0.0-0.2) K/mcL PT 13.9 H (9.4-12.1) Seconds INR 1.2 APTT 29.8 (26.0-36.0) Seconds Sodium 142 (136-145) mEq/L Potassium 3.0 L (3.5-5.1) mEq/L Chloride 112 H (98-107) mEq/L Carbon Dioxide 19 L (23-29) mEq/L BUN 38 H (8-23) mg/dL Creatinine 1.64 H (0.60-1.20) mg/dL Est GFR ( Amer) 36 L (> 60) Est GFR (Non-Af Amer) 30 L (> 60) BUN/Creatinine Ratio 23 (6-26) Glucose 158 H (70-105) mg/dL Calculated Osmolality 306 H (280-300) Lactic Acid (0.5-2.2) mmol/L Calcium 9.8 (8.6-10.3) mg/dL Phosphorus 2.3 L (2.7-4.5) mg/dL Magnesium 2.0 (1.6-2.6) mg/dL Total Bilirubin 0.8 (0.3-1.0) mg/dL Direct Bilirubin 0.3 H (0.0-0.2) mg/dL Indirect Bilirubin 0.5 (0.0-1.2) mg/dL AST 13 (13-39) Units/L ALT 9 (7-52) Units/L Alkaline Phosphatase 62 (34-104) Units/L Troponin I 0.03 (< 0.04) ng/mL B-Natriuretic Peptide (Less than 100) pg/mL Serum Total Protein 6.3 L (6.4-8.9) g/dL Albumin 3.2 L (3.5-5.7) g/dL Globulin 3.1 (2.4-3.5) g/dL Albumin/Globulin Ratio 1.0 L (1.1-2.2) Urine Color (Yellow) Urine Clarity (Clear) Urine pH (5.0-8.0) pH Units Ur Specific [place] (1.010-1.025) Urine Protein (Neg-Trace) mg/dL Urine Glucose (UA) (Normal) mg/dL Urine Ketones (Negative) mg/dL Urine Blood (Negative) Urine Nitrite (Negative) Urine Bilirubin (Negative) Urine Urobilinogen (Normal) mg/dL Ur Leukocyte Esterase (Negative) Urine Microscopic RBC (0-3) per hpf Urine Microscopic WBC (0-3) per hpf Ur Squamous Epith Cells (None-Few) per lpf Urine Bacteria (None-Few) per hpf Hyaline Casts (None-Few) per lpf Ur Culture Indicated? (NO) 04/13/18 04/13/18 04/13/18 Range/Units 10:47 11:00 11:42 WBC (4.3-11.1) K/mcL RBC (3.82-4.97) M/mcL Hgb (11.5-15.4) g/dL Hct (35.3-44.9) % MCV (83.0-100.0) fL MCH (28.0-33.3) pg MCHC (31.6-35.5) g/dL RDW (11.5-14.5) % Plt Count (140-400) K/mcL MPV (9.4-12.4) fL Immature Gran % (0-4) % Seg Neutrophils % % Lymphocytes % % Monocytes % % Eosinophils % % Basophils % % Neutrophils # (1.6-8.9) K/mcL Lymphocytes # (0.6-4.6) K/mcL Monocytes # (0.0-1.3) K/mcL Eosinophils # (0.0-0.6) K/mcL Basophils # (0.0-0.2) K/mcL PT (9.4-12.1) Seconds INR APTT (26.0-36.0) Seconds Sodium (136-145) mEq/L Potassium (3.5-5.1) mEq/L Chloride (98-107) mEq/L Carbon Dioxide (23-29) mEq/L BUN (8-23) mg/dL Creatinine (0.60-1.20) mg/dL Est GFR ( Amer) (> 60) Est GFR (Non-Af Amer) (> 60) BUN/Creatinine Ratio (6-26) Glucose (70-105) mg/dL Calculated Osmolality (280-300) Lactic Acid 1.6 (0.5-2.2) mmol/L Calcium (8.6-10.3) mg/dL Phosphorus (2.7-4.5) mg/dL Magnesium (1.6-2.6) mg/dL Total Bilirubin (0.3-1.0) mg/dL Direct Bilirubin (0.0-0.2) mg/dL Indirect Bilirubin (0.0-1.2) mg/dL AST (13-39) Units/L ALT (7-52) Units/L Alkaline Phosphatase (34-104) Units/L Troponin I (< 0.04) ng/mL B-Natriuretic Peptide 552 H (Less than 100) pg/mL Serum Total Protein (6.4-8.9) g/dL Albumin (3.5-5.7) g/dL Globulin (2.4-3.5) g/dL Albumin/Globulin Ratio (1.1-2.2) Urine Color Red A (Yellow) Urine Clarity Turbid A (Clear) Urine pH 5.5 (5.0-8.0) pH Units Ur Specific [place] 1.016 (1.010-1.025) Urine Protein 100 H (Neg-Trace) mg/dL Urine Glucose (UA) Normal (Normal) mg/dL Urine Ketones Trace H (Negative) mg/dL Urine Blood Small H (Negative) Urine Nitrite Positive A (Negative) Urine Bilirubin Small H (Negative) Urine Urobilinogen Normal (Normal) mg/dL Ur Leukocyte Esterase Large H (Negative) Urine Microscopic RBC 5-15 H (0-3) per hpf Urine Microscopic WBC TNTC H (0-3) per hpf Ur Squamous Epith Cells Many H (None-Few) per lpf Urine Bacteria Many H (None-Few) per hpf Hyaline Casts Few (None-Few) per lpf Ur Culture Indicated? NO. A (NO) Critical Care Time Critical Care Time: Yes Total Critical Care Time: 35 Attestation: I spent greater than 35 minutes critical care time resuscitating this acutely ill patient suffering from septic shock. This was including billable procedures.
[2018-04-13] MEDS ORDERED: Naloxone 0.4 MG/ML INJ IVP PRN (13:16)
[2018-04-13] MEDS ORDERED: D5% in Water 1,000 ML IVC PRN (13:24)
[2018-04-13] MEDS ORDERED: *HR* Dextrose 50 % in Water (Syg) 50 ML SYRINGE IVP PRN (13:24)
[2018-04-13] MEDS ORDERED: Dextrose Gel 15 GM/37.5 ML TUBE PO PRN ×2 (13:24)
[2018-04-13] MEDS ORDERED: Ipratropium/Albuterol Neb 3 ML IH SCH (13:30)
--- NOTE | 2018-04-13 13:50 | Internal Med History&Physical ---
Date of Encounter: 04/13/18 Time of Encounter: 13:49 Internal Medicine - H&P: HPI Chief complaint: unresponsiveness. hypotension. Admitted From: Long-term Nursing Facility Plans for Post Hospital Care: Transfer [facility] History of present illness: Ms. Duke is a 87 year old female PMH significant for right femoral neck fracture, COPD, A.fib, and HTN. Patient was sent to the emergency room from a halfway facility due to hypotension and unresponsiveness. Patient was being treated with Bactrim for a UTI in the custodial. In the ED patient found to be hypotensive in the 70s, resuscitated with IV fluids. And the medicine team call for further management. Unable to obtain more information. regarding fever or chills. Information obtain from what the patient's daughters were told and the ED note. Past Med Surg Social Fam HX - Past Medical History Medical history: arthritis, atrial fibrillation, COPD, coronary artery disease, DVT, GERD, hyperlipidemia, hypertension, myocardial infarction, syncope Additional medical history: broken left hip Psychiatric history: anxiety, depression - Past Surgical History Surgical History: angioplasty/stent, appendectomy, cataract, cholecystectomy, coronary bypass (CABG), orthopedic, other, pacemaker/AICD Additional surgical history: shoulder surgery - Social History Smoking Status: Former smoker Smokeless Tobacco Status: No Alcohol use: none Drug use: none - Family History Father Living Status: Hx Family Cardiac Disorders: Yes (HEART PROBEMS, [place]) Mother Living Status: Hx Family Respiratory Disorders: Yes ( of pneumonia) Internal Medicine - H&P: Meds Clopidogrel [Plavix] 75 mg PO DAILY 08/23/15 [History] Isosorbide MONOnitrate (24 HR) [Imdur] 180 mg PO DAILY 08/23/15 [History] Potassium Chloride [K-Tab ER] 10 meq PO BID 08/23/15 [History] Pravastatin Sodium [Pravachol] 80 mg PO HS 08/23/15 [History] Cyanocobalamin (Vitamin B-12) [Vitamin B-12] 100 mcg PO DAILY 03/14/16 [History] Ergocalciferol (VITAMIN D2) [Vitamin D] 800 unit PO DAILY 03/14/16 [History] Loratadine [Claritin] 10 mg PO DAILY 03/14/16 [History] Nitroglycerin [Nitrostat] 0.4 mg SL Q5M PRN 03/31/16 [History] Ranolazine [Ranexa] 1,000 mg PO BID 03/31/16 [History] Sertraline [Zoloft] 75 mg PO DAILY 10/28/16 [History] Carvedilol 12.5 mg PO BID 01/10/17 [History] Sucralfate [Carafate] 1 gm PO BID 01/10/17 [History] Lidocaine Patch [Lidoderm 5% patch] 1 each TP DAILY PRN #3 adh..patch 03/25/17 [ Rx] Acetaminophen [Pain Relief 8Hr] 650 mg PO Q4H PRN 03/11/18 [History] Calcium Carbonate [Calcium] 600 mg PO DAILY 03/11/18 [History] Losartan/Hydrochlorothiazide [Losartan-Hctz 100-12.5 mg Tab] 1 tab PO DAILY 11/21 [History] Ranitidine HCl [Acid Returned Materials Inspector] 75 mg PO HS 03/11/18 [History] Omeprazole [PriLOSEC] 20 mg PO DAILY 04/13/18 [History] Sulfamethoxazole/Trimeth DS [Bactrim DS] 1 tab PO BID 04/13/18 [History] 3 Allergy/AdvReac Type Severity Reaction Status Date / Time simvastatin [From Zocor] Allergy Anaphylaxis Verified 01/10/17 16:51 atorvastatin [From Lipitor] AdvReac Anxiety Verified 01/10/17 16:51 enalaprilat [From Vasotec] AdvReac Hives Verified 01/10/17 16:51 ROS unobtainable: due to mental status (Baseline dementia. Change in mental status due to sepsis. ) All Systems PM: A 10-system review of systems was performed and is negative for pertinent findings except as documented above in the HPI. - Constitutional Vitals: Temp Pulse Resp BP Pulse Ox 98.2 F 61 14 106/49 99 04/13/18 10:40 04/13/18 12:18 04/13/18 12:18 04/13/18 12:18 04/13/18 12:18 Exam: General: Patient is alert, oriented to person and place, Head: atraumatic, normocephalic, ENT: mucous membrane dry, normal external ear exam Respiratory: Good respiratory effort. Clear lung harrell to auscultation bilaterally, no wheezing, rales or crackles. Cardiovascular: irregularly irregular, normal s1 and s2, No rubs, gallops, or murmors. Abdomen: Bowel sounds present normoactive x-4 quadrants. Abdomen is soft, nondistended. No guarding or rebound. No organomegaly noted Musculoskeletal: Spontaneously moving all extremities. no edema, no calf tenderness Neuro: Alert and oriented x2. following simple commands. Psych: Patient's affect is normal Internal Med - H&P Results - Labs CBC & Chem 7: 04/13/18 10:47 04/13/18 10:47 - Assessment and plan (1) Sepsis Current Visit: Yes Status: Acute Assessment and plan: due to a UTI. chest CT: no acute process. UA and urine culture blood culture started on broad spectrum antibiotics with cefepime and vancomycin NS@125mls/hr strict intake and output NS boluses as needed for BP support NPO until mental status has improved Head CT done: no acute intracranial abnormalities seen Accu-checks Q6HRs, lispro sliding scale Q6HRs. Qualifiers: Sepsis type: sepsis due to unspecified organism Qualified Code(s): A41.9 - Sepsis, unspecified organism (2) Acute encephalopathy Current Visit: No Status: Acute Assessment and plan: Most likely metabolic due to sepsis. plan of care as above. (3) GHADA (acute kidney injury) Current Visit: No Status: Resolved Assessment and plan: Most likely due to low preload due to sepsis patient started on IV hydration if no improvement on renal function with IV hydration will consider Nephrology consult. CPK urine electrolytes Uric acid (4) Fracture of femoral neck, right, closed Current Visit: No Status: Acute Assessment and plan: consider PT/OT when patient hemodynamically stable Qualifiers: Encounter type: initial encounter Qualified Code(s): S72.001A - Fracture of unspecified part of neck of right femur, initial encounter for closed fracture (5) Anemia Current Visit: No Status: Chronic Assessment and plan: H&H stable. Will monitor. Will consider transfusing if Hc <7, Hct <23 or patient hemodynamically unstable. Qualifiers: Anemia type: unspecified type Qualified Code(s): D64.9 - Anemia, unspecified (6) Atrial fibrillation Current Visit: No Status: Chronic Assessment and plan: Patient no on anticoagulation due to falls. Patient on carvedilol for rate control. Will hold medication due to hypotension. Qualifiers: Atrial fibrillation type: paroxysmal Qualified Code(s): I48.0 - Paroxysmal atrial fibrillation (7) CAD (coronary artery disease) Current Visit: No Status: Chronic Assessment and plan: Continue Plavix. Qualifiers: Coronary Disease-Associated Artery/Lesion type: bypass graft [place] vs. transplanted heart: [place] heart Associated angina: without angina Qualified Code(s): I25.810 - Atherosclerosis of coronary artery bypass graft(s) without angina pectoris (8) COPD (chronic obstructive pulmonary disease) Current Visit: No Status: Chronic Assessment and plan: Started on Duo-Nebs Q4RT PRN for Wheezing Qualifiers: COPD type: emphysema Emphysema type: unspecified Qualified Code(s): J43.9 - Emphysema, unspecified (9) Hyperlipemia Current Visit: No Status: Chronic Assessment and plan: Will resume lipid lowering medication when patient more clinically stable. Qualifiers: Hyperlipidemia type: unspecified Qualified Code(s): E78.5 - Hyperlipidemia , unspecified (10) Hypokalemia Current Visit: Yes Status: Acute Assessment and plan: electrolyte replaced. - Time Spent With Patient Total time spent is greater than 50% in coordination of care (as documented) at patient's floor/unit and/or counseling patient: Greater than 35 minutes
[2018-04-13] MEDS ORDERED: Vancomycin 1 EACH in 0.9 % Sodium Chloride 250 ML IVPB SCH (14:00)
[2018-04-13] MEDS: Ipratropium/Albuterol Neb 3 ML IH SCH ×4 (14:59→23:46)
[2018-04-13] MEDS: Insulin LISPRO 300 UNITS/3 ML VIAL SQ SCH (19:40)
[2018-04-13] MEDS ORDERED: Acetaminophen IV 500 MG/50 ML INFUS..BTL IVPB ONE (19:55)
[2018-04-13] MEDS ORDERED: 0.9 % Sodium Chloride 250 ML IVC ONE (20:05)
[2018-04-13] MEDS: D5% in 0.9% NACL 1,000 ML IVC SCH (20:22)
[2018-04-13] MEDS: *HR* Heparin 5,000 UNIT/ML VIAL SQ SCH (20:22)
[2018-04-13] MEDS: Cefepime HCl 1,000 MG in Water for inj. (sterile) 20 ML 10 ML IVP SCH (20:22)
[2018-04-13] MEDS: Famotidine 20 MG TABLET PO SCH (20:31)
[2018-04-13] MEDS ORDERED: Famotidine 20 MG TABLET PO SCH (21:00)
[2018-04-13] MEDS ORDERED: 0.9 % Sodium Chloride 500 ML IVC ONE (22:10)
[2018-04-13 23:47] LABS: Acinetobacter baumannii by PCR Not Detected (Not Detect); Candida albicans by PCR Not Detected (Not Detect); Candida glabrata by PCR Not Detected (Not Detect); Candida krusei by PCR Not Detected (Not Detect); Candida parapsilosis by PCR Not Detected (Not Detect); Candida tropicalis by PCR Not Detected (Not Detect); Enterobacter cloacae Cmplx PCR Not Detected (Not Detect); Enterobacteriaceae by PCR DETECTED (Not Detect); Enterococcus by PCR Not Detected (Not Detect); Escherichia coli by PCR DETECTED (Not Detect); Klebsiella oxytoca by PCR Not Detected (Not Detect); Klebsiella pneumoniae by PCR Not Detected (Not Detect); Proteus by PCR Not Detected (Not Detect); Pseudomonas aeruginosa by PCR Not Detected (Not Detect); Serratia marcescens by PCR Not Detected (Not Detect); Staphylococcus aureus by PCR Not Detected (Not Detect); Staphylococcus by PCR Not Detected (Not Detect); Streptococcus agalactiae(B)PCR Not Detected (Not Detect); Streptococcus by PCR Not Detected (Not Detect); Streptococcus pneumoniae PCR Not Detected (Not Detect); Streptococcus pyogenes (A) PCR Not Detected (Not Detect); blaKPC Carbapenem-Resist Gene Not Detected (Not Detect); mecA Methicillin-Resist Gene Not Detected (Not Detect); vanA/B Vancomycin-Resist Genes Not Detected (Not Detect)
[2018-04-14] MEDS: Insulin LISPRO 300 UNITS/3 ML VIAL SQ SCH ×4 (00:13→18:23)
[2018-04-14] MEDS: Ipratropium/Albuterol Neb 3 ML IH SCH ×6 (03:48→23:33)
[2018-04-14 04:09] LABS: Basophils % 0.1 %; Hematocrit 25.6 % (35.3-44.9); Immature Granulocytes % 2.2 % (0-4); Lymphocytes # 1.1 K/mcL (0.6-4.6); Lymphocytes % 7.6 %; Mean Corpuscular HGB Conc 32.8 g/dL (31.6-35.5); Mean Corpuscular Hemoglobin 33.2 pg (28.0-33.3); Mean Corpuscular Volume 101.2 fL (83.0-100.0); Mean Platelet Volume 9.7 fL (9.4-12.4); Monocytes # 0.4 K/mcL (0.0-1.3); Monocytes % 2.7 %; Platelet Count 132 K/mcL (140-400); Red Blood Count 2.53 M/mcL (3.82-4.97); Red Cell Distribution Width 13.5 % (11.5-14.5); Segmented Neutrophils % 87.4 %
[2018-04-14 04:15] LABS: Hemoglobin 8.4 g/dL (11.5-15.4); Neutrophils # 12.2 K/mcL (1.6-8.9)
[2018-04-14 04:31] LABS: Calcium 8.5 mg/dL (8.6-10.3); Magnesium 1.7 mg/dL (1.6-2.6); Phosphorous 2.5 mg/dL (2.7-4.5)
[2018-04-14 04:37] LABS: Platelet Estimate Slight Decrease (Normal)
[2018-04-14] MEDS: Cefepime HCl 1,000 MG in Water for inj. (sterile) 20 ML 10 ML IVP SCH (04:48)
[2018-04-14] MEDS: *HR* Heparin 5,000 UNIT/ML VIAL SQ SCH ×2 (05:05→17:39)
[2018-04-14] MEDS: D5% in 0.9% NACL 1,000 ML IVC SCH (06:40)
[2018-04-14] MEDS ORDERED: Potassium Chloride 40 MEQ, Lidocaine 1% 2 ML in D5% in Water 500 ML IVPB ONE (07:33)
[2018-04-14] MEDS ORDERED: 0.9 % Sodium Chloride 1,000 ML IVC SCH (07:45)
[2018-04-14] MEDS ORDERED: Acetaminophen 325 MG TABLET PO PRN (09:41)
[2018-04-14] MEDS ORDERED: Acetaminophen 650 MG RECTAL SUPP RC PRN (09:41)
[2018-04-14] MEDS ORDERED: Cefepime HCl 2,000 MG in Water for inj. (sterile) 20 ML 20 ML IVP SCH (11:00)
--- NOTE | 2018-04-14 12:11 | Internal Med Progress Note ---
Hospitalist Progress Note - Encounter Date of Encounter: 04/14/18 Time of Encounter: 09:00 - Subjective Interval History: Pt is awake, alert now, c/o cold and chills, in mild-moderate distress. Oriented x 1 (knows her name and she is in [facility]). - Exam Vitals: Temp Pulse Resp BP Pulse Ox 97.5 F L 68 18 104/52 93 04/14/18 10:37 04/14/18 10:37 04/14/18 11:39 04/14/18 10:37 04/14/18 11:39 Exam: General: Patient is alert, oriented to place, Head: atraumatic, normocephalic, ENT: mucous membrane dry, normal external ear exam Respiratory: Good respiratory effort. Clear lung harrell to auscultation bilaterally, no wheezing, rales or crackles. Cardiovascular: irregularly irregular, normal s1 and s2, No rubs, gallops, or murmors. Abdomen: Bowel sounds present normoactive x-4 quadrants. Abdomen is soft, nondistended. No guarding or rebound. No organomegaly noted Musculoskeletal: Spontaneously moving all extremities. no edema, no calf tenderness Neuro: Alert and oriented x1. following simple commands. Psych: Patient's affect is normal - Assessment and Plan (1) COPD (chronic obstructive pulmonary disease) Current Visit: No Status: Chronic Assessment and Plan: No signs of exacerbation. Started on Duo-Nebs Q4RT PRN for Wheezing (2) Hyperlipemia Current Visit: No Status: Chronic Assessment and Plan: Will resume lipid lowering medication when patient more clinically stable. (3) CAD (coronary artery disease) Current Visit: No Status: Chronic Assessment and Plan: Pt denies chest pain, will resume home meds after resuming diet. (4) GHADA (acute kidney injury) Current Visit: No Status: Resolved Assessment and Plan: Most likely due to low preload due to sepsis patient started on IV hydration Cont f/u renal function and avoid nephrotoxic meds. (5) Atrial fibrillation Current Visit: No Status: Chronic Assessment and Plan: Patient no on anticoagulation due to falls. Patient on carvedilol for rate control. Will hold medication due to hypotension. (6) Anemia Current Visit: No Status: Chronic Assessment and Plan: H&H low probably delusional as pt received IVF. Will monitor. Will consider transfusing if Hc <7, Hct <23 or patient hemodynamically unstable. (7) Acute encephalopathy Current Visit: No Status: Acute Assessment and Plan: Most likely metabolic due to sepsis. plan of care as above. (8) Fracture of femoral neck, right, closed Current Visit: No Status: Acute Assessment and Plan: Had surgery on last admission. consider PT/OT when patient hemodynamically stable (9) Sepsis Current Visit: Yes Status: Acute Assessment and Plan: Most likely due to a UTI. chest CT: no acute process. UA and urine culture blood culture positive for Enterobacteria and E coli Cont cefepime. D/C vanco NS@80mls/hr now strict intake and output NPO so far, swallow evaluation to consider start diet. Head CT done: no acute intracranial abnormalities seen Accu-checks Q6HRs, lispro sliding scale Q6HRs. (10) Hypokalemia Current Visit: Yes Status: Acute Assessment and Plan: Still low potassium. Will cont supplement. Mg 1.7. DVT Prophylaxis: heparin SC - Time Spent with Patient Total time spent is greater than 50% in coordination of care (as documented) at patient's floor/unit and/or counseling patient: 30min 25 - 35 minutes Plan of Care Discussed with: nurse Internal Medicine: Result - Labs CBC & Chem 7: 04/14/18 03:45 04/14/18 09:37 Labs: Short CBC 04/14/18 Range/Units 03:45 WBC 13.9 H (4.3-11.1) K/mcL Hgb 8.4 L D (11.5-15.4) g/dL Hct 25.6 L (35.3-44.9) % Plt Count 132 L (140-400) K/mcL Neutrophils # 12.2 H (1.6-8.9) K/mcL BMP 04/14/18 04/14/18 03:45 09:37 Sodium 145 Potassium 3.0 L 2.6 L Chloride 122 H Carbon Dioxide 15 L BUN 38 H Creatinine 1.68 H Glucose 127 H Calcium 8.5 L - ABG Interpretation ABG results: PT/INR, D-dimer PT 13.9 Seconds (9.4-12.1) H 04/13/18 10:47 Consult Discharge Plan - Plan Referrals: Ruksenas,Audrius, MD [Primary Care Provider] - (1) COPD (chronic obstructive pulmonary disease) Qualifiers: COPD type: emphysema Emphysema type: unspecified Qualified Code(s): J43.9 - Emphysema, unspecified (2) Hyperlipemia Qualifiers: Hyperlipidemia type: unspecified Qualified Code(s): E78.5 - Hyperlipidemia, unspecified (3) CAD (coronary artery disease) Qualifiers: Coronary Disease-Associated Artery/Lesion type: bypass graft [place] vs. transplanted heart: [place] heart Associated angina: without angina Qualified Code(s): I25.810 - Atherosclerosis of coronary artery bypass graft(s) without angina pectoris (5) Atrial fibrillation Qualifiers: Atrial fibrillation type: paroxysmal Qualified Code(s): I48.0 - Paroxysmal atrial fibrillation (6) Anemia Qualifiers: Anemia type: unspecified type Qualified Code(s): D64.9 - Anemia, unspecified (8) Fracture of femoral neck, right, closed Qualifiers: Encounter type: initial encounter Qualified Code(s): S72.001A - Fracture of unspecified part of neck of right femur, initial encounter for closed fracture (9) Sepsis Qualifiers: Sepsis type: sepsis due to unspecified organism Qualified Code(s): A41.9 - Sepsis, unspecified organism
[2018-04-14] MEDS ORDERED: Potassium Chloride 40 MEQ in D5% in 0.45% NACL 1,000 ML IVC SCH (12:30)
[2018-04-14] MEDS ORDERED: Acetaminophen IV 500 MG/50 ML INFUS..BTL IVPB ONE (12:53)
[2018-04-14] MEDS ORDERED: Potassium Chloride Elixir 20 MEQ/15 ML UDC PO ONE (16:18)
--- NOTE | 2018-04-14 16:35 | Event Note ---
Date of Encounter: 04/14/18 Time of Encounter: 16:00 Pt's daughter (Also POA) states that pt's code status should be DNR/DNI as she doesn't want CPR or intubation. Code status changed per family wishes. RN is witnessed the discussion.
[2018-04-14] MEDS: Potassium Chloride 40 MEQ in D5% in 0.45% NACL 1,000 ML IVC SCH (17:00)
[2018-04-14] MEDS: traMADol 50 MG TABLET PO PRN (17:39)
[2018-04-14] MEDS: Piperacillin/Tazobactam 3.375 GM in 0.9 % Sodium Chloride Mini Bag 100 ML IVPB SCH (17:39)
--- NOTE | 2018-04-14 18:39 | Electrocardiograph Report ---
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
[2018-04-14] MEDS: Famotidine 20 MG TABLET PO SCH (20:23)
[2018-04-15] MEDS: Ipratropium/Albuterol Neb 3 ML IH SCH ×5 (03:48→20:49)
[2018-04-15] MEDS: Piperacillin/Tazobactam 3.375 GM in 0.9 % Sodium Chloride Mini Bag 100 ML IVPB SCH (05:29)
[2018-04-15 05:34] LABS: Basophils % 0.1 %; Eosinophils # 0.1 K/mcL (0.0-0.6); Eosinophils % 1.5 %; Hematocrit 23.6 % (35.3-44.9); Hemoglobin 7.9 g/dL (11.5-15.4); Immature Granulocytes % 0.7 % (0-4); Lymphocytes % 13.1 %; Mean Corpuscular HGB Conc 33.5 g/dL (31.6-35.5); Mean Corpuscular Hemoglobin 33.2 pg (28.0-33.3); Mean Corpuscular Volume 99.2 fL (83.0-100.0); Mean Platelet Volume 10.2 fL (9.4-12.4); Monocytes # 0.3 K/mcL (0.0-1.3); Monocytes % 4.3 %; Platelet Count 114 K/mcL (140-400); Red Blood Count 2.38 M/mcL (3.82-4.97); Red Cell Distribution Width 14.4 % (11.5-14.5); Segmented Neutrophils % 80.3 %
[2018-04-15] MEDS: Insulin LISPRO 300 UNITS/3 ML VIAL SQ SCH ×4 (05:36→17:58)
[2018-04-15 05:45] LABS: Calcium 8.6 mg/dL (8.6-10.3); Magnesium 1.7 mg/dL (1.6-2.6)
[2018-04-15 05:55] LABS: Platelet Estimate Slight Decrease (Normal); Toxic Granulation Present (Not Present)
[2018-04-15] MEDS: *HR* Heparin 5,000 UNIT/ML VIAL SQ SCH ×2 (07:04→18:02)
[2018-04-15] MEDS: Potassium Chloride 40 MEQ in D5% in 0.45% NACL 1,000 ML IVC SCH (07:04)
[2018-04-15] MEDS ORDERED: Ertapenem 1,000 MG in 0.9 % Sodium Chloride Mini Bag 100 ML IVPB ONE (11:09)
--- NOTE | 2018-04-15 12:15 | Internal Med Progress Note ---
Hospitalist Progress Note - Encounter Date of Encounter: 04/15/18 Time of Encounter: 09:00 - Subjective Interval History: Pt still confused. c/o discomfort with Castillo. - Exam Vitals: Temp Pulse Resp BP Pulse Ox 98.2 F 68 18 106/49 98 04/15/18 06:41 04/15/18 06:41 04/15/18 11:05 04/15/18 06:41 04/15/18 11:05 Exam: General: Patient is alert, oriented to place, Head: atraumatic, normocephalic, ENT: mucous membrane dry, normal external ear exam Respiratory: Good respiratory effort. Clear lung harrell to auscultation bilaterally, no wheezing, rales or crackles. Cardiovascular: irregularly irregular, normal s1 and s2, No rubs, gallops, or murmors. Abdomen: Bowel sounds present normoactive x-4 quadrants. Abdomen is soft, nondistended. No guarding or rebound. No organomegaly noted Musculoskeletal: Spontaneously moving all extremities. no edema, no calf tenderness Neuro: Alert and oriented x1. following simple commands. - Assessment and Plan (1) COPD (chronic obstructive pulmonary disease) Current Visit: No Status: Chronic Assessment and Plan: No signs of exacerbation. Started on Duo-Nebs Q4RT PRN for Wheezing (2) Hyperlipemia Current Visit: No Status: Chronic Assessment and Plan: Will resume lipid lowering medication when patient more clinically stable. (3) CAD (coronary artery disease) Current Visit: No Status: Chronic Assessment and Plan: Pt denies chest pain, will resume home meds after resuming diet. (4) GHADA (acute kidney injury) Current Visit: No Status: Resolved Assessment and Plan: Most likely due to low preload due to sepsis patient started on IV hydration Cont f/u renal function and avoid nephrotoxic meds. (5) Atrial fibrillation Current Visit: No Status: Chronic Assessment and Plan: Patient no on anticoagulation due to falls. Patient on carvedilol for rate control. Will hold medication due to hypotension. (6) Anemia Current Visit: No Status: Chronic Assessment and Plan: H&H low probably delusional as pt received IVF. Will monitor. Will consider transfusing if Hc <7, Hct <23 or patient hemodynamically unstable. - Check anemia workup. - No melena so far. (7) Acute encephalopathy Current Visit: No Status: Acute Assessment and Plan: Most likely metabolic due to sepsis. plan of care as above. (8) Fracture of femoral neck, right, closed Current Visit: No Status: Acute Assessment and Plan: Had surgery on last admission. consider PT/OT when patient hemodynamically stable (9) Sepsis Current Visit: Yes Status: Acute Assessment and Plan: Most likely due to a UTI. chest CT: no acute process. UA and urine culture blood culture positive for ESBL Deescalte abx to Ertapenem per sensitivity strict intake and output Diet restarted per speech therapy recommendation. Head CT done: no acute intracranial abnormalities seen WBC get down, no further fever in last 24 hours. (10) Hypokalemia Current Visit: Yes Status: Acute Assessment and Plan: Improved after supplement. (11) Bacteremia Current Visit: Yes Status: Acute Assessment and Plan: Gram negative bacteremia, culture positive for ESBL. Possibly due to UTI. Will repeat blood culture, may need 14 days abx. DVT Prophylaxis: heparin SC - Time Spent with Patient Total time spent is greater than 50% in coordination of care (as documented) at patient's floor/unit and/or counseling patient: 25 - 35 minutes Plan of Care Discussed with: nurse Internal Medicine: Result - Labs CBC & Chem 7: 04/15/18 05:03 04/15/18 05:03 Labs: Short CBC 04/15/18 Range/Units 05:03 WBC 7.5 (4.3-11.1) K/mcL Hgb 7.9 L (11.5-15.4) g/dL Hct 23.6 L (35.3-44.9) % Plt Count 114 L (140-400) K/mcL Neutrophils # 6.0 (1.6-8.9) K/mcL BMP 04/15/18 05:03 Sodium 145 Potassium 4.0 Chloride 126 H Carbon Dioxide 14 L BUN 35 H Creatinine 1.52 H Glucose 134 H Calcium 8.6 - ABG Interpretation ABG results: PT/INR, D-dimer PT 13.9 Seconds (9.4-12.1) H 04/13/18 10:47 - Impressions Impressions Videofluoroscopic Swallow 04/15/18 00:01 IMPRESSION: Mild laryngeal penetration with thin liquid. No fredrick aspiration. Please see separate speech pathology report for full discussion of findings and recommendations. D/ / Nino Bose MD / Nino Bose MD Interpreting Provider: Nino Bose MD Consult Discharge Plan - Plan Referrals: Marco Sow MD [Primary Care Provider] - (1) COPD (chronic obstructive pulmonary disease) Qualifiers: COPD type: emphysema Emphysema type: unspecified Qualified Code(s): J43.9 - Emphysema, unspecified (2) Hyperlipemia Qualifiers: Hyperlipidemia type: unspecified Qualified Code(s): E78.5 - Hyperlipidemia, unspecified (3) CAD (coronary artery disease) Qualifiers: Coronary Disease-Associated Artery/Lesion type: bypass graft [place] vs. transplanted heart: [place] heart Associated angina: without angina Qualified Code(s): I25.810 - Atherosclerosis of coronary artery bypass graft(s) without angina pectoris (5) Atrial fibrillation Qualifiers: Atrial fibrillation type: paroxysmal Qualified Code(s): I48.0 - Paroxysmal atrial fibrillation (6) Anemia Qualifiers: Anemia type: unspecified type Qualified Code(s): D64.9 - Anemia, unspecified (8) Fracture of femoral neck, right, closed Qualifiers: Encounter type: initial encounter Qualified Code(s): S72.001A - Fracture of unspecified part of neck of right femur, initial encounter for closed fracture (9) Sepsis Qualifiers: Sepsis type: sepsis due to unspecified organism Qualified Code(s): A41.9 - Sepsis, unspecified organism
[2018-04-15] MEDS ORDERED: Nitroglycerin 0.4 MG TAB.SUBL SL PRN (16:09)
[2018-04-15] MEDS ORDERED: D5% in 0.45% NACL 1,000 ML IVC SCH (19:15)
[2018-04-15] MEDS: Sucralfate 1 GM TABLET PO SCH (20:40)
[2018-04-15] MEDS: Ranolazine 500 MG TAB.ER.12H PO SCH (20:40)
[2018-04-15] MEDS: Famotidine 20 MG TABLET PO SCH (20:40)
[2018-04-16] MEDS: Ipratropium/Albuterol Neb 3 ML IH SCH ×7 (00:06→23:48)
[2018-04-16] MEDS: Insulin LISPRO 300 UNITS/3 ML VIAL SQ SCH ×4 (01:35→16:44)
[2018-04-16 03:40] LABS: Basophils % 0.2 %; Eosinophils # 0.2 K/mcL (0.0-0.6); Eosinophils % 3.6 %; Hematocrit 22.9 % (35.3-44.9); Hemoglobin 7.6 g/dL (11.5-15.4); Immature Granulocytes % 0.2 % (0-4); Lymphocytes % 19.8 %; Mean Corpuscular HGB Conc 33.2 g/dL (31.6-35.5); Mean Corpuscular Hemoglobin 33.3 pg (28.0-33.3); Mean Corpuscular Volume 100.4 fL (83.0-100.0); Mean Platelet Volume 10.5 fL (9.4-12.4); Monocytes # 0.2 K/mcL (0.0-1.3); Monocytes % 4.2 %; Neutrophils # 3.6 K/mcL (1.6-8.9); Platelet Count 119 K/mcL (140-400); Red Blood Count 2.28 M/mcL (3.82-4.97); Red Cell Distribution Width 14.4 % (11.5-14.5)
[2018-04-16 03:58] LABS: Calcium 8.8 mg/dL (8.6-10.3); Potassium 3.6 mEq/L (3.5-5.1)
[2018-04-16 03:59] LABS: % Iron Saturation 26 % (15-50); Iron 44 mcg/dL (50-170); Transferrin 119 mg/dL (203-362)
[2018-04-16 04:12] LABS: Platelet Estimate Slight Decrease (Normal)
[2018-04-16 04:18] LABS: Ferritin 446 ng/mL (10-120)
[2018-04-16 04:23] LABS: Folate 10.3 ng/mL (3.0-16.0)
[2018-04-16 04:28] LABS: Vitamin B12 > 1500 pg/mL (250-1100)
[2018-04-16] MEDS: *HR* Heparin 5,000 UNIT/ML VIAL SQ SCH ×2 (05:11→16:44)
[2018-04-16] MEDS: Ranolazine 500 MG TAB.ER.12H PO SCH ×2 (10:29→22:38)
[2018-04-16] MEDS: Cholecalciferol (D-3) 1,000 UNIT TABLET PO SCH (10:29)
[2018-04-16] MEDS: Lactobacillus 1 EACH CAP.SPRINK PO SCH (10:29)
[2018-04-16] MEDS: Isosorbide MONOnitrate (24 HR) 60 MG TAB.ER.24H PO SCH (10:29)
[2018-04-16] MEDS: Sucralfate 1 GM TABLET PO SCH ×2 (10:30→22:38)
[2018-04-16] MEDS: D5% in Water 1,000 ML IVC SCH ×2 (10:31→22:35)
--- NOTE | 2018-04-16 11:24 | Internal Med Progress Note ---
Hospitalist Progress Note - Encounter Date of Encounter: 04/16/18 Time of Encounter: 09:00 - Subjective Interval History: Pt still confused. Denies pain. Poor intake. - Exam Vitals: Temp Pulse Resp BP Pulse Ox 98.9 F 67 19 155/69 95 04/16/18 11:10 04/16/18 11:10 04/16/18 11:10 04/16/18 11:10 04/16/18 11:10 Exam: General: Patient is alert, oriented to place, Head: atraumatic, normocephalic, ENT: mucous membrane dry, normal external ear exam Respiratory: Good respiratory effort. Clear lung harrell to auscultation bilaterally, no wheezing, rales or crackles. Cardiovascular: irregularly irregular, normal s1 and s2, No rubs, gallops, or murmors. Abdomen: Bowel sounds present normoactive x-4 quadrants. Abdomen is soft, nondistended. No guarding or rebound. No organomegaly noted Musculoskeletal: Spontaneously moving all extremities. no edema, no calf tenderness Neuro: Alert and oriented x1. following simple commands. - Assessment and Plan (1) COPD (chronic obstructive pulmonary disease) Current Visit: No Status: Chronic Assessment and Plan: No signs of exacerbation. Started on Duo-Nebs Q4RT PRN for Wheezing (2) Hyperlipemia Current Visit: No Status: Chronic Assessment and Plan: Cont home meds. (3) CAD (coronary artery disease) Current Visit: No Status: Chronic Assessment and Plan: Pt denies chest pain, Cont home meds. (4) GHADA (acute kidney injury) Current Visit: No Status: Resolved Assessment and Plan: Most likely due to low preload due to sepsis/dehydration/poor intake Cont IVF with D5 only as pt has high sodium and chloride level. Cont f/u renal function and avoid nephrotoxic meds. (5) Atrial fibrillation Current Visit: No Status: Chronic Assessment and Plan: Patient no on anticoagulation due to falls. Patient on carvedilol for rate control. (6) Anemia Current Visit: No Status: Chronic Assessment and Plan: H&H still low. No melena per nurse record. Will consider transfusing if Hc <7, Hct <23 or patient hemodynamically unstable. - Anemia work up shows low iron and high feritin, suggest anemia caused by inflammatory disease. - No melena so far, will check FOBT, if positive, consider GI consult. (7) Acute encephalopathy Current Visit: No Status: Acute Assessment and Plan: Most likely metabolic due to sepsis/dehydration. Cont abx for UTI/sepsis. Cont IVF (8) Fracture of femoral neck, right, closed Current Visit: No Status: Acute Assessment and Plan: Had surgery on last admission. consider PT/OT when patient hemodynamically stable (9) Sepsis Current Visit: Yes Status: Acute Assessment and Plan: Most likely due to a UTI. chest CT: no acute process. UA and urine culture blood culture positive for ESBL Deescalte abx to Ertapenem per sensitivity strict intake and output Diet restarted per speech therapy recommendation. Head CT done: no acute intracranial abnormalities seen WBC get down, no further fever in last 24 hours. (10) Hypokalemia Current Visit: Yes Status: Acute Assessment and Plan: Improved after supplement. (11) Bacteremia Current Visit: Yes Status: Acute Assessment and Plan: Gram negative bacteremia, culture positive for ESBL. Possibly due to UTI. Will repeat blood culture, may need 14 days abx. DVT Prophylaxis: heparin SC - Time Spent with Patient Total time spent is greater than 50% in coordination of care (as documented) at patient's floor/unit and/or counseling patient: 30 min 25 - 35 minutes Plan of Care Discussed with: nurse Internal Medicine: Result - Labs CBC & Chem 7: 04/16/18 03:11 04/16/18 03:11 Labs: Short CBC 04/16/18 Range/Units 03:11 WBC 5.0 (4.3-11.1) K/mcL Hgb 7.6 L (11.5-15.4) g/dL Hct 22.9 L (35.3-44.9) % Plt Count 119 L (140-400) K/mcL Neutrophils # 3.6 (1.6-8.9) K/mcL BMP 04/16/18 03:11 Sodium 147 H Potassium 3.6 Chloride 125 H Carbon Dioxide 14 L BUN 31 H Creatinine 1.33 H Glucose 121 H Calcium 8.8 - ABG Interpretation ABG results: PT/INR, D-dimer PT 13.9 Seconds (9.4-12.1) H 04/13/18 10:47 Consult Discharge Plan - Plan Referrals: Marco Sow MD [Primary Care Provider] - (1) COPD (chronic obstructive pulmonary disease) Qualifiers: COPD type: emphysema Emphysema type: unspecified Qualified Code(s): J43.9 - Emphysema, unspecified (2) Hyperlipemia Qualifiers: Hyperlipidemia type: unspecified Qualified Code(s): E78.5 - Hyperlipidemia, unspecified (3) CAD (coronary artery disease) Qualifiers: Coronary Disease-Associated Artery/Lesion type: bypass graft [place] vs. transplanted heart: [place] heart Associated angina: without angina Qualified Code(s): I25.810 - Atherosclerosis of coronary artery bypass graft(s) without angina pectoris (5) Atrial fibrillation Qualifiers: Atrial fibrillation type: paroxysmal Qualified Code(s): I48.0 - Paroxysmal atrial fibrillation (6) Anemia Qualifiers: Anemia type: unspecified type Qualified Code(s): D64.9 - Anemia, unspecified (8) Fracture of femoral neck, right, closed Qualifiers: Encounter type: initial encounter Qualified Code(s): S72.001A - Fracture of unspecified part of neck of right femur, initial encounter for closed fracture (9) Sepsis Qualifiers: Sepsis type: sepsis due to unspecified organism Qualified Code(s): A41.9 - Sepsis, unspecified organism
[2018-04-16] MEDS: Famotidine 20 MG TABLET PO SCH (22:37)
[2018-04-17] MEDS: Ipratropium/Albuterol Neb 3 ML IH SCH ×6 (03:40→23:52)
[2018-04-17] MEDS: Insulin LISPRO 300 UNITS/3 ML VIAL SQ SCH ×4 (05:01→18:18)
[2018-04-17 05:42] LABS: Hematocrit 23.4 % (35.3-44.9); Hemoglobin 7.7 g/dL (11.5-15.4); Mean Corpuscular HGB Conc 32.9 g/dL (31.6-35.5); Mean Corpuscular Hemoglobin 32.6 pg (28.0-33.3); Mean Corpuscular Volume 99.2 fL (83.0-100.0); Mean Platelet Volume 10.6 fL (9.4-12.4); Platelet Count 145 K/mcL (140-400); Red Blood Count 2.36 M/mcL (3.82-4.97)
[2018-04-17 06:18] LABS: Calcium 8.5 mg/dL (8.6-10.3); Potassium 3.3 mEq/L (3.5-5.1)
[2018-04-17] MEDS: *HR* Heparin 5,000 UNIT/ML VIAL SQ SCH ×2 (06:23→18:17)
[2018-04-17] MEDS: D5% in Water 1,000 ML IVC SCH ×2 (06:23→18:58)
[2018-04-17 06:44] LABS: Lymphocytes # 1.1 K/mcL (0.6-4.6); Monocytes # 0.3 K/mcL (0.0-1.3); Neutrophils # 5.3 K/mcL (1.6-8.9)
[2018-04-17 06:45] LABS: Platelet Estimate Normal (Normal)
[2018-04-17] MEDS ORDERED: Potassium Chloride Elixir 20 MEQ/15 ML UDC PO ONE (07:09)
[2018-04-17] MEDS: Ranolazine 500 MG TAB.ER.12H PO SCH ×2 (10:18→22:24)
[2018-04-17] MEDS: Sucralfate 1 GM TABLET PO SCH ×2 (10:18→22:24)
[2018-04-17] MEDS: Cholecalciferol (D-3) 1,000 UNIT TABLET PO SCH (10:18)
[2018-04-17] MEDS: Lactobacillus 1 EACH CAP.SPRINK PO SCH (10:18)
[2018-04-17] MEDS: Isosorbide MONOnitrate (24 HR) 60 MG TAB.ER.24H PO SCH (10:19)
--- NOTE | 2018-04-17 12:08 | Internal Med Progress Note ---
Hospitalist Progress Note - Encounter Date of Encounter: 04/17/18 Time of Encounter: 08:00 - Subjective Interval History: Pt still confused. Poor intake. No fever. - Exam Vitals: Temp Pulse Resp BP Pulse Ox 97.8 F 68 16 149/76 93 04/17/18 08:07 04/17/18 08:07 04/17/18 11:59 04/17/18 08:07 04/17/18 11:59 Exam: General: Patient is alert, oriented to place, Head: atraumatic, normocephalic, ENT: mucous membrane dry, normal external ear exam Respiratory: Good respiratory effort. Clear lung harrell to auscultation bilaterally, no wheezing, rales or crackles. Cardiovascular: irregularly irregular, normal s1 and s2, No rubs, gallops, or murmors. Abdomen: Bowel sounds present normoactive x-4 quadrants. Abdomen is soft, nondistended. No guarding or rebound. No organomegaly noted Musculoskeletal: Spontaneously moving all extremities. no edema, no calf tenderness Neuro: Alert and oriented x1. following simple commands. - Assessment and Plan (1) COPD (chronic obstructive pulmonary disease) Current Visit: No Status: Chronic Assessment and Plan: No signs of exacerbation. Started on Duo-Nebs Q4RT PRN for Wheezing (2) Hyperlipemia Current Visit: No Status: Chronic Assessment and Plan: Cont home meds. (3) CAD (coronary artery disease) Current Visit: No Status: Chronic Assessment and Plan: Pt denies chest pain, Cont home meds. (4) GHADA (acute kidney injury) Current Visit: No Status: Resolved Assessment and Plan: Most likely due to low preload due to sepsis/dehydration/poor intake Cont IVF with D5. Cont f/u renal function and avoid nephrotoxic meds. (5) Atrial fibrillation Current Visit: No Status: Chronic Assessment and Plan: Patient no on anticoagulation due to falls. Patient on carvedilol for rate control. (6) Anemia Current Visit: No Status: Chronic Assessment and Plan: H&H still low. No melena per nurse record. Will consider transfusing if Hc <7, Hct <23 or patient hemodynamically unstable. - Anemia work up shows low iron and high feritin, suggest anemia caused by inflammatory disease. - No melena so far, will check FOBT, if positive, consider GI consult. (7) Acute encephalopathy Current Visit: No Status: Acute Assessment and Plan: Most likely metabolic due to sepsis/dehydration. Cont abx for UTI/sepsis. Cont IVF Check TSH. Vit B12 and folate is not low. (8) Fracture of femoral neck, right, closed Current Visit: No Status: Acute Assessment and Plan: Had surgery on last admission. consider PT/OT when patient hemodynamically stable (9) Sepsis Current Visit: Yes Status: Acute Assessment and Plan: Most likely due to a UTI. chest CT: no acute process. Urine culture shows ESBL blood culture positive for ESBL Deescalte abx to Ertapenem per sensitivity strict intake and output Diet restarted per speech therapy recommendation. Head CT done: no acute intracranial abnormalities seen WBC get down, no further fever in last 24 hours. (10) Hypokalemia Current Visit: Yes Status: Acute Assessment and Plan: Improved after supplement. (11) Bacteremia Current Visit: Yes Status: Acute Assessment and Plan: Gram negative bacteremia, culture positive for ESBL. Possibly due to UTI. Will repeat blood culture, may need 14 days abx. DVT Prophylaxis: heparin SC - Time Spent with Patient Total time spent is greater than 50% in coordination of care (as documented) at patient's floor/unit and/or counseling patient: 30min 25 - 35 minutes Plan of Care Discussed with: nurse Internal Medicine: Result - Labs CBC & Chem 7: 04/17/18 05:21 04/17/18 05:21 Labs: Short CBC 04/17/18 Range/Units 05:21 WBC 6.6 (4.3-11.1) K/mcL Hgb 7.7 L (11.5-15.4) g/dL Hct 23.4 L (35.3-44.9) % Plt Count 145 (140-400) K/mcL Neutrophils # 5.3 (1.6-8.9) K/mcL BMP 04/17/18 05:21 Sodium 138 Potassium 3.3 L Chloride 117 H Carbon Dioxide 15 L BUN 25 H Creatinine 1.26 H Glucose 142 H Calcium 8.5 L - ABG Interpretation ABG results: PT/INR, D-dimer PT 13.9 Seconds (9.4-12.1) H 04/13/18 10:47 Consult Discharge Plan - Plan Referrals: Marco Sow MD [Primary Care Provider] - (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 transplanted heart: [place] heart Associated angina: without angina Qualified Code(s): I25.810 - Atherosclerosis of coronary artery bypass graft(s) without angina pectoris (5) Atrial fibrillation Qualifiers: Atrial fibrillation type: paroxysmal Qualified Code(s): I48.0 - Paroxysmal atrial fibrillation (6) Anemia Qualifiers: Anemia type: unspecified type Qualified Code(s): D64.9 - Anemia, unspecified (8) Fracture of femoral neck, right, closed Qualifiers: Encounter type: initial encounter Qualified Code(s): S72.001A - Fracture of unspecified part of neck of right femur, initial encounter for closed fracture (9) Sepsis Qualifiers: Sepsis type: sepsis due to unspecified organism Qualified Code(s): A41.9 - Sepsis, unspecified organism
[2018-04-17] MEDS: Famotidine 20 MG TABLET PO SCH (22:24)
[2018-04-18] MEDS: Ipratropium/Albuterol Neb 3 ML IH SCH ×5 (03:54→20:17)
[2018-04-18 05:03] LABS: Basophils % 0.1 %; Eosinophils # 0.1 K/mcL (0.0-0.6); Eosinophils % 1.6 %; Hematocrit 22.1 % (35.3-44.9); Hemoglobin 7.7 g/dL (11.5-15.4); Immature Granulocytes % 0.6 % (0-4); Lymphocytes # 1.4 K/mcL (0.6-4.6); Lymphocytes % 20.8 %; Mean Corpuscular HGB Conc 34.8 g/dL (31.6-35.5); Mean Corpuscular Hemoglobin 33.5 pg (28.0-33.3); Mean Corpuscular Volume 96.1 fL (83.0-100.0); Mean Platelet Volume 10.2 fL (9.4-12.4); Monocytes # 0.4 K/mcL (0.0-1.3); Monocytes % 5.8 %; Neutrophils # 4.9 K/mcL (1.6-8.9); Nucleated Red Blood Cells 0.3 /100 WBC (0); Platelet Count 153 K/mcL (140-400); Red Cell Distribution Width 13.4 % (11.5-14.5); Segmented Neutrophils % 71.1 %
[2018-04-18 05:25] LABS: Calcium 8.5 mg/dL (8.6-10.3); Potassium 3.2 mEq/L (3.5-5.1)
[2018-04-18 05:33] LABS: Anisocytosis 1+ (Not Present); Platelet Estimate Normal (Normal); Polychromasia 1+ (Not Present)
[2018-04-18] MEDS: Insulin LISPRO 300 UNITS/3 ML VIAL SQ SCH ×3 (06:16→18:10)
[2018-04-18] MEDS: D5% in Water 1,000 ML IVC SCH ×2 (06:17→16:33)
[2018-04-18] MEDS ORDERED: Potassium Chloride 40 MEQ, Lidocaine 1% 2 ML in D5% in Water 500 ML IVPB ONE (07:19)
[2018-04-18] MEDS: Ranolazine 500 MG TAB.ER.12H PO SCH ×2 (08:43→20:36)
[2018-04-18] MEDS: Isosorbide MONOnitrate (24 HR) 60 MG TAB.ER.24H PO SCH (08:44)
[2018-04-18] MEDS: Sucralfate 1 GM TABLET PO SCH ×2 (08:44→20:37)
[2018-04-18] MEDS: Lactobacillus 1 EACH CAP.SPRINK PO SCH (08:44)
[2018-04-18] MEDS: Cholecalciferol (D-3) 1,000 UNIT TABLET PO SCH (08:45)
--- NOTE | 2018-04-18 11:38 | Internal Med Progress Note ---
Hospitalist Progress Note - Encounter Date of Encounter: 04/18/18 Time of Encounter: 09:00 - Subjective Interval History: Pt still confused, only knows her name. Poor intake need IVF. Looks dry. No fever. - Exam Vitals: Temp Pulse Resp BP Pulse Ox 97.7 F 73 18 147/72 97 04/18/18 08:23 04/18/18 08:23 04/18/18 08:23 04/18/18 08:23 04/18/18 09:37 Exam: General: Patient is alert, knows her name only Head: atraumatic, normocephalic, ENT: mucous membrane dry, normal external ear exam Respiratory: Good respiratory effort. Clear lung harrell to auscultation bilaterally, no wheezing, rales or crackles. Cardiovascular: irregularly irregular, normal s1 and s2, No rubs, gallops, or murmors. Abdomen: Bowel sounds present normoactive x-4 quadrants. Abdomen is soft, nondistended. No guarding or rebound. No organomegaly noted Musculoskeletal: Spontaneously moving all extremities. no edema, no calf tenderness Neuro: Alert and oriented x1. following simple commands. - Assessment and Plan (1) COPD (chronic obstructive pulmonary disease) Current Visit: No Status: Chronic Assessment and Plan: No signs of exacerbation. Started on Duo-Nebs Q4RT PRN for Wheezing (2) Hyperlipemia Current Visit: No Status: Chronic Assessment and Plan: Cont home meds. (3) CAD (coronary artery disease) Current Visit: No Status: Chronic Assessment and Plan: Pt denies chest pain, Cont home meds. (4) GHADA (acute kidney injury) Current Visit: No Status: Resolved Assessment and Plan: Most likely due to low preload due to sepsis/dehydration/poor intake Cont IVF with D5. Cont f/u renal function and avoid nephrotoxic meds. Renal function has improved. (5) Atrial fibrillation Current Visit: No Status: Chronic Assessment and Plan: Patient no on anticoagulation due to falls. Patient on carvedilol for rate control. (6) Anemia Current Visit: No Status: Chronic Assessment and Plan: H&H still low but stable. No melena per nurse record. Will consider transfusing if Hc <7, Hct <23 or patient hemodynamically unstable. - Anemia work up shows low iron and high feritin, suggest anemia caused by inflammatory disease. - No melena so far. (7) Acute encephalopathy Current Visit: No Status: Acute Assessment and Plan: Most likely metabolic due to sepsis/dehydration. Not improve so far although no further fever and renal function improved. Cont abx for UTI/sepsis. Cont IVF TSH wnl. Vit B12 and folate is not low. Review her CT, which shows diffuse cerebral atrophy with chronic small vessel ischemic disease. Consider pt's age, pt may have early dementia which is worsening because recent illness (famoral fracture, severe UTI, etc.) Pt has poor intake, will consult corporate event planner. Will consult palliative care as well to determine goal of care and see if family want aggressive management like tube feeding. (8) Fracture of femoral neck, right, closed Current Visit: No Status: Acute Assessment and Plan: Had surgery on last admission. consider PT/OT when patient hemodynamically stable and mental status improves. (9) Sepsis Current Visit: Yes Status: Acute Assessment and Plan: Most likely due to a UTI. Urine culture shows ESBL blood culture positive for ESBL Deescalte abx to Ertapenem per sensitivity strict intake and output Diet restarted per speech therapy recommendation. Head CT done: no acute intracranial abnormalities seen WBC get down, no further fever. Mental status and intake still poor. (10) Hypokalemia Current Visit: Yes Status: Acute Assessment and Plan: Still low, due to poor intake, will give IV potassium. (11) Bacteremia Current Visit: Yes Status: Acute Assessment and Plan: Gram negative bacteremia, culture positive for ESBL. Most likely due to UTI. Will repeat blood culture, may need 14 days abx. DVT Prophylaxis: heparin SC - Time Spent with Patient Total time spent is greater than 50% in coordination of care (as documented) at patient's floor/unit and/or counseling patient: 25 - 35 minutes Plan of Care Discussed with: nurse Internal Medicine: Result - Labs CBC & Chem 7: 04/18/18 04:51 04/18/18 04:51 Labs: Short CBC 04/18/18 Range/Units 04:51 WBC 6.9 (4.3-11.1) K/mcL Hgb 7.7 L (11.5-15.4) g/dL Hct 22.1 L (35.3-44.9) % Plt Count 153 (140-400) K/mcL Neutrophils # 4.9 (1.6-8.9) K/mcL BMP 04/18/18 04:51 Sodium 135 L Potassium 3.2 L Chloride 109 H Carbon Dioxide 19 L BUN 21 Creatinine 1.10 Glucose 148 H Calcium 8.5 L - ABG Interpretation ABG results: PT/INR, D-dimer PT 13.9 Seconds (9.4-12.1) H 04/13/18 10:47 Consult Discharge Plan - Plan Referrals: Marco Sow MD [Primary Care Provider] - (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 transplanted heart: [place] heart Associated angina: without angina Qualified Code(s): I25.810 - Atherosclerosis of coronary artery bypass graft(s) without angina pectoris (5) Atrial fibrillation Qualifiers: Atrial fibrillation type: paroxysmal Qualified Code(s): I48.0 - Paroxysmal atrial fibrillation (6) Anemia Qualifiers: Anemia type: unspecified type Qualified Code(s): D64.9 - Anemia, unspecified (8) Fracture of femoral neck, right, closed Qualifiers: Encounter type: initial encounter Qualified Code(s): S72.001A - Fracture of unspecified part of neck of right femur, initial encounter for closed fracture (9) Sepsis Qualifiers: Sepsis type: sepsis due to unspecified organism Qualified Code(s): A41.9 - Sepsis, unspecified organism
--- NOTE | 2018-04-18 12:59 | Palliative - Consult Note ---
Date of Encounter: 04/18/18 Time of Encounter: 12:55 - Assessment and Plan (1) Generalized pain Current Visit: Yes Status: Acute Assessment and plan: She has Tramadol available for PRN use. Has not utilized. Does not appear uncomfortable at this time. Monitor (2) Goals of care, counseling/discussion Current Visit: Yes Status: Acute Assessment and plan: Hospitalist spoke with daughter Lakisha this am - I cannot reach her at time of visit - left my contact information on her voicemail. It does appear that family has conveyed that they are not interested in artificial nutrition. Have asked that albumin/prealbumin be added to next labwork to establish possible protein calorie malnutrition. She sarah currently under a Medicare skilled bed at [facility]. Does not appear she has Medicaid in place. If she were to transition to hospice, there is likely no coverage for [facility] equipment [employer], and would be private pay, unless family would want to care for her at home. Will have to discuss with family. (3) Bacteremia Current Visit: Yes Status: Acute (4) Sepsis Current Visit: Yes Status: Acute Assessment and plan: Treatment with IV antibiotics/fluids continue. Qualifiers: Sepsis type: sepsis due to unspecified organism Qualified Code(s): A41.9 - Sepsis, unspecified organism (5) Atrial fibrillation Current Visit: No Status: Chronic Qualifiers: Atrial fibrillation type: paroxysmal Qualified Code(s): I48.0 - Paroxysmal atrial fibrillation (6) COPD (chronic obstructive pulmonary disease) Current Visit: No Status: Chronic Qualifiers: COPD type: emphysema Emphysema type: unspecified Qualified Code(s): J43.9 - Emphysema, unspecified (7) Dementia Current Visit: No Status: Chronic Qualifiers: Dementia type: Alzheimer's disease Alzheimer's disease onset: late-onset Dementia behavioral disturbance: without behavioral disturbance Qualified Code (s): G30.1 - Alzheimer's disease with late onset; F02.80 - Dementia in other diseases classified elsewhere without behavioral disturbance (8) Altered mental status Current Visit: No Status: Resolved Qualifiers: Altered mental status type: unspecified Qualified Code(s): R41.82 - Altered mental status, unspecified Palliative-CN HPI - Data of Consult Requesting Physician: Piter Paul MD Primary Care Provider: Marco Sow MD - Consult Narrative History of present illness: Ms. Duke is a 87 year old female who was admitted from [facility] r/t decreased mental status and hypotension. She was found to have e coli bacteremia, and is being treated with IV fluids and antibiotics. Her Leukocytosis has improved and hemodynamically stable, however, her mental status remains altered, and she is having very little po intake. She was admitted in Mar after a fall and right femoral neck fracture, and was receiving rehab at [facility]. She has other pertinent medical history of COPD, Afib, HTN. She has living will noted on file here at [facility]. 2 daughters noted as next of kin. Upon my visit, she is nonverbal, and does not communicate with me. Keeps eyes tightly closed, and resists when I try to open them. Does not follow commands. No family is present. WBC has returned to normal at 6.9. Hgb 7.7. Renal function has improved with fluids. She is currently DNR/DNI. CC: Piter Paul MD - Time Spent with Patient Time: Total time spent is greater than 50% in coordination of care (as documented) at patient's floor/unit and/or counseling patient: Past Med Surg Social Fam HX - Past Medical History Medical history: arthritis, atrial fibrillation, COPD, coronary artery disease, DVT, GERD, hyperlipidemia, hypertension, myocardial infarction, syncope Additional medical history: broken left hip Psychiatric history: anxiety, depression - Past Surgical History Surgical History: angioplasty/stent, appendectomy, cataract, cholecystectomy, coronary bypass (CABG), orthopedic, other, pacemaker/AICD Additional surgical history: shoulder surgery - Social History Smoking Status: Former smoker Smokeless Tobacco Status: No Alcohol use: none Drug use: none - Family History Father Living Status: Hx Family Cardiac Disorders: Yes (HEART PROBEMS, [place]) Mother Living Status: Hx Family Respiratory Disorders: Yes ( of pneumonia) Medications and Allergies Clopidogrel [Plavix] 75 mg PO DAILY 08/23/15 [History] Isosorbide MONOnitrate (24 HR) [Imdur] 180 mg PO DAILY 08/23/15 [History] Potassium Chloride [K-Tab ER] 10 meq PO BID 08/23/15 [History] Pravastatin Sodium [Pravachol] 80 mg PO HS 08/23/15 [History] Cyanocobalamin (Vitamin B-12) [Vitamin B-12] 100 mcg PO DAILY 03/14/16 [History] Ergocalciferol (VITAMIN D2) [Vitamin D] 800 unit PO DAILY 03/14/16 [History] Loratadine [Claritin] 10 mg PO DAILY 03/14/16 [History] Nitroglycerin [Nitrostat] 0.4 mg SL Q5M PRN 03/31/16 [History] Ranolazine [Ranexa] 1,000 mg PO BID 03/31/16 [History] Sertraline [Zoloft] 75 mg PO DAILY 10/28/16 [History] Carvedilol 12.5 mg PO BID 01/10/17 [History] Sucralfate [Carafate] 1 gm PO BID 01/10/17 [History] Lidocaine Patch [Lidoderm 5% patch] 1 each TP DAILY PRN #3 adh..patch 03/25/17 [ Rx] Acetaminophen [Pain Relief 8Hr] 650 mg PO Q4H PRN 03/11/18 [History] Calcium Carbonate [Calcium] 600 mg PO DAILY 03/11/18 [History] Losartan/Hydrochlorothiazide [Losartan-Hctz 100-12.5 mg Tab] 1 tab PO DAILY 11/21 [History] Ranitidine HCl [Acid Pizzamaker] 75 mg PO HS 03/11/18 [History] Omeprazole [PriLOSEC] 20 mg PO DAILY 04/13/18 [History] Sulfamethoxazole/Trimeth DS [Bactrim DS] 1 tab PO BID 04/13/18 [History] 3 Allergy/AdvReac Type Severity Reaction Status Date / Time simvastatin [From Zocor] Allergy Anaphylaxis Verified 01/10/17 16:51 atorvastatin [From Lipitor] AdvReac Anxiety Verified 01/10/17 16:51 enalaprilat [From Vasotec] AdvReac Hives Verified 01/10/17 16:51 ROS unobtainable: due to mental status Palliative Care-Exam - Constitutional Vitals: Temp Pulse Resp BP Pulse Ox 97.7 F 72 20 105/63 96 04/18/18 11:50 04/18/18 11:50 04/18/18 11:50 04/18/18 11:50 04/18/18 11:50 General appearance: Present: no acute distress - Head Head Exam: Present: normal inspection, normocephalic - Eye Eye exam: Present: PERRL - Respiratory Additional comments: Faint Expiratory wheezes throughout - Cardiovascular Cardiovascular exam: Present: irregular rhythm - GI/Abdominal Exam GI/Abdominal exam: Present: normal bowel sounds, soft - Extremities Exam Extremities exam: Present: normal capillary refill, normal inspection - Neurological Exam Additional comments: Patient not answering questions for me. Makes grunting noise occasionally throughout assessement. Keeps eyes tightly closed and resists exam. Moves bilateral arms. REsists me moving lower extremities - Skin Skin exam: Present: dry, pallor, warm Internal Medicine - CN: Reslt - Labs CBC & Chem 7: 04/18/18 04:51 04/18/18 04:51 Labs: Short CBC 04/18/18 Range/Units 04:51 WBC 6.9 (4.3-11.1) K/mcL Hgb 7.7 L (11.5-15.4) g/dL Hct 22.1 L (35.3-44.9) % Plt Count 153 (140-400) K/mcL Neutrophils # 4.9 (1.6-8.9) K/mcL BMP 04/18/18 04:51 Sodium 135 L Potassium 3.2 L Chloride 109 H Carbon Dioxide 19 L BUN 21 Creatinine 1.10 Glucose 148 H Calcium 8.5 L - ABG Interpretation ABG results: PT/INR, D-dimer PT 13.9 Seconds (9.4-12.1) H 04/13/18 10:47 Consult Discharge Plan - Plan Referrals: Marco Sow MD [Primary Care Provider] - Palliative Quality Palliative Quality: Screen for Code Status: Yes, Screen for Goals of Care: NA, Screen for Pain: Yes, If Pain Regimen Started, Initiate Bowel Regimen: NA, Screen for Nausea/Vomitting: Yes
[2018-04-18] MEDS: traMADol 50 MG TABLET PO PRN (16:46)
[2018-04-18] MEDS: *HR* Heparin 5,000 UNIT/ML VIAL SQ SCH ×2 (16:47→23:34)
[2018-04-18] MEDS: Famotidine 20 MG TABLET PO SCH (20:36)
--- NOTE | 2018-04-18 21:56 | Event Note ---
Date of Encounter: 04/18/18 Time of Encounter: 17:26 Alerted by pts. nurse Suman RN that the pt. was sounding gurgly w/rhonchi in lungs. IV fluids running @ 100 mLs/HR. Palliative consult had been ordered and current CODE STATUS is DNRCC. Family wishes to continue IV fluids and antibiotics. Went to see pt. who had audible gurgling. Nurse also showed aspirate from the back of pts. mouth. IV fluids decreased to 60 mLs/HR. SL atropine drops ordered for excess secretions. Aspiration precautions. Elevate HOB. 1V CXR ordered to assess for aspiration. XR showed non-specific left basilar consolidation and pleural effusion which may reflect pneumonia. Aspiration pneumonitis is also a consideration. Pt. currently on Ertapenem w/ renal dosing d/t renal dysfunction. Discussed pt. w/Pharmacist Nicholas for possible antibiotic switch to Unasyn for aspiration. Recommendation was to add IVPB Vancomycin w/Pharmacy pulse dosing for coverage for aspiration pneumonitis. Airway suctioning ordered as well. Pt. to be monitored closely.
[2018-04-18] MEDS: Atropine 1% Opth Drops 100 DROP/5 ML BOTTLE SL PRN (22:49)
[2018-04-19] MEDS: Ipratropium/Albuterol Neb 3 ML IH SCH ×6 (00:23→19:58)
[2018-04-19] MEDS: Insulin LISPRO 300 UNITS/3 ML VIAL SQ SCH ×4 (00:52→20:27)
[2018-04-19] MEDS ORDERED: OXYCODONE Oral CONC 10 MG/0.5 ML ORAL.SYG SL ONE (02:32)
[2018-04-19] MEDS: *HR* Heparin 5,000 UNIT/ML VIAL SQ SCH (06:32)
[2018-04-19 07:15] LABS: Basophils % 0.3 %; Eosinophils % 0.3 %; Hemoglobin 8.3 g/dL (11.5-15.4); Immature Granulocytes % 0.5 % (0-4); Immature Platelets 3.9 % (1.1-6.1); Lymphocytes # 2.6 K/mcL (0.6-4.6); Lymphocytes % 19.8 %; Mean Corpuscular HGB Conc 34.6 g/dL (31.6-35.5); Mean Corpuscular Hemoglobin 32.8 pg (28.0-33.3); Mean Corpuscular Volume 94.9 fL (83.0-100.0); Monocytes # 0.6 K/mcL (0.0-1.3); Monocytes % 4.7 %; Neutrophils # 9.8 K/mcL (1.6-8.9); Nucleated Red Blood Cells 0.2 /100 WBC (0); Red Blood Count 2.53 M/mcL (3.82-4.97); Red Cell Distribution Width 13.4 % (11.5-14.5); Segmented Neutrophils % 74.4 %
[2018-04-19 07:34] LABS: Platelet Count 242 K/mcL (140-400)
[2018-04-19 08:03] LABS: Calcium 8.9 mg/dL (8.6-10.3); Potassium 4.2 mEq/L (3.5-5.1)
[2018-04-19 08:05] LABS: Platelet Estimate Normal (Normal)
[2018-04-19] MEDS: Ranolazine 500 MG TAB.ER.12H PO SCH ×2 (08:42→20:28)
[2018-04-19] MEDS: Sucralfate 1 GM TABLET PO SCH (08:43)
[2018-04-19] MEDS: Lactobacillus 1 EACH CAP.SPRINK PO SCH (08:43)
[2018-04-19] MEDS: Cholecalciferol (D-3) 1,000 UNIT TABLET PO SCH (08:43)
[2018-04-19] MEDS: Isosorbide MONOnitrate (24 HR) 60 MG TAB.ER.24H PO SCH (08:43)
[2018-04-19] MEDS ORDERED: Aminoglycoside Consult 1 EACH MC ONE (09:16)
--- NOTE | 2018-04-19 09:55 | Palliative Progress Note ---
Date of Encounter: 04/19/18 Time of Encounter: 09:45 - Assessment and plan (1) Generalized pain Current Visit: Yes Status: Acute Assessment and plan: Most likely aspirating. She has Tramadol ordered for pain, will change to sublingual Morphine for pain or dyspnea (2) Goals of care, counseling/discussion Current Visit: Yes Status: Acute Assessment and plan: Left message for daughter Lakisha to update on last night events. Will add addendum to note after speaking with her. I assume they will likely desire to proceed with hospice care. She was previous [facility], so suspect they will want transition back to [facility] with [facility] hospice but will need to confirm. (3) Bacteremia Current Visit: Yes Status: Acute (4) Sepsis Current Visit: Yes Status: Acute Qualifiers: Sepsis type: sepsis due to unspecified organism Qualified Code(s): A41.9 - Sepsis, unspecified organism (5) Atrial fibrillation Current Visit: No Status: Chronic Qualifiers: Atrial fibrillation type: paroxysmal Qualified Code(s): I48.0 - Paroxysmal atrial fibrillation (6) COPD (chronic obstructive pulmonary disease) Current Visit: No Status: Chronic Qualifiers: COPD type: emphysema Emphysema type: unspecified Qualified Code(s): J43.9 - Emphysema, unspecified (7) Dementia Current Visit: No Status: Chronic Qualifiers: Dementia type: Alzheimer's disease Alzheimer's disease onset: late-onset Dementia behavioral disturbance: without behavioral disturbance Qualified Code (s): G30.1 - Alzheimer's disease with late onset; F02.80 - Dementia in other diseases classified elsewhere without behavioral disturbance (8) Altered mental status Current Visit: No Status: Resolved Qualifiers: Altered mental status type: unspecified Qualified Code(s): R41.82 - Altered mental status, unspecified - Time Spent With Patient Total time spent is greater than 50% in coordination of care (as documented) at patient's floor/unit and/or counseling patient: - Subjective Interval history: Patient with probably aspiration last night, reviewed events from last pm. Patient awake and alert with eyes open, no verbal response. Audible rhonchi throughout anterior chest. No family present as of yet. - Constitutional Vitals: Abnormal lab results WBC 13.2 K/mcL (4.3-11.1) H D 04/19/18 06:59 RBC 2.53 M/mcL (3.82-4.97) L 04/19/18 06:59 Hgb 8.3 g/dL (11.5-15.4) L 04/19/18 06:59 Hct 24.0 % (35.3-44.9) L 04/19/18 06:59 Neutrophils # 9.8 K/mcL (1.6-8.9) H 04/19/18 06:59 Nucleated RBCs/100 WBC 0.2 /100 WBC (0) H 04/19/18 06:59 Toxic Granulation Present (Not Present) A 04/15/18 05:03 Polychromasia 1+ (Not Present) A 04/18/18 04:51 Anisocytosis 1+ (Not Present) A 04/18/18 04:51 PT 13.9 Seconds (9.4-12.1) H 04/13/18 10:47 Sodium 130 mEq/L (136-145) L 04/19/18 06:59 Carbon Dioxide 17 mEq/L (23-29) L 04/19/18 06:59 BUN 31 mg/dL (8-23) H 04/19/18 06:59 Est GFR ( Amer) 56 (> 60) L 04/19/18 06:59 Est GFR (Non-Af Amer) 46 (> 60) L 04/19/18 06:59 BUN/Creatinine Ratio 28 (6-26) H 04/19/18 06:59 Glucose 139 mg/dL (70-105) H 04/19/18 06:59 POC Glucose 139 mg/dL (70-99) H 04/19/18 05:56 Calculated Osmolality 279 (280-300) L 04/19/18 06:59 Phosphorus 2.5 mg/dL (2.7-4.5) L 04/14/18 03:45 Iron 44 mcg/dL (50-170) L 04/16/18 03:11 Transferrin 119 mg/dL (203-362) L 04/16/18 03:11 Ferritin 446 ng/mL (10-120) H 04/16/18 03:11 Direct Bilirubin 0.3 mg/dL (0.0-0.2) H 04/13/18 10:47 Creatine Kinase 21 Units/L (30-223) L 04/13/18 10:47 B-Natriuretic Peptide 552 pg/mL (Less than 100) H 04/13/18 10:47 Serum Total Protein 6.3 g/dL (6.4-8.9) L 04/13/18 10:47 Albumin 2.2 g/dL (3.5-5.7) L 04/18/18 13:36 Albumin/Globulin Ratio 1.0 (1.1-2.2) L 04/13/18 10:47 Prealbumin 11.3 mg/dL (17.0-34.0) L 04/18/18 13:36 Vitamin B12 > 1500 pg/mL (250-1100) H 04/16/18 03:11 Urine Color Red (Yellow) A 04/13/18 11:42 Urine Clarity Turbid (Clear) A 04/13/18 11:42 Urine Protein 100 mg/dL (Neg-Trace) H 04/13/18 11:42 Urine Ketones Trace mg/dL (Negative) H 04/13/18 11:42 Urine Blood Small (Negative) H 04/13/18 11:42 Urine Nitrite Positive (Negative) A 04/13/18 11:42 Urine Bilirubin Small (Negative) H 04/13/18 11:42 Ur Leukocyte Esterase Large (Negative) H 04/13/18 11:42 Urine Microscopic RBC 5-15 per hpf (0-3) H 04/13/18 11:42 Urine Microscopic WBC TNTC per hpf (0-3) H 04/13/18 11:42 Ur Squamous Epith Cells Many per lpf (None-Few) H 04/13/18 11:42 Urine Bacteria Many per hpf (None-Few) H 04/13/18 11:42 Ur Culture Indicated? NO. (NO) A 04/13/18 11:42 Enterobacteriac sp PCR DETECTED (Not Detect) A 04/13/18 11:00 E. coli (PCR) DETECTED (Not Detect) A 04/13/18 11:00 General appearance: Present: no acute distress - Respiratory Respiratory exam: Present: rhonchi Additional comments: Rhonchi and expiratory wheezes throughout anterior chest - Cardiovascular Cardiovascular exam: Present: irregular rhythm - GI/Abdominal GI/Abdominal exam: Present: normal bowel sounds, soft - Extremities Exam Additional comments: Resists when I try and move arms/legs. - Neurological Exam Additional comments: Eyes open - follows me around room. Does not follow commands, no verbal response. - Skin Skin exam: Present: dry, pallor, warm Palliative Quality Palliative Quality: Screen for Code Status: Yes, Screen for Goals of Care: NA, Screen for Pain: Yes, If Pain Regimen Started, Initiate Bowel Regimen: NA, Screen for Nausea/Vomitting: Yes Code Status: 04/18/18 13:44 DNR [Resuscitation Status: Active] [RES] Routine Comment: Resuscitation Status: DNR-Comfort Care - Labs CBC & Chem 7: 04/19/18 06:59 04/19/18 06:59 Labs: Laboratory Results - last 24 hr 04/17/18 04/18/18 04/18/18 12:15 05:58 11:46 WBC RBC Hgb Hct MCV MCH MCHC RDW Plt Count MPV Immature Gran % Seg Neutrophils % Lymphocytes % Monocytes % Eosinophils % Basophils % Neutrophils # Lymphocytes # Monocytes # Eosinophils # Basophils # Nucleated RBCs/100 WBC Platelet Estimate Immature Plt Fraction Sodium Potassium Chloride Carbon Dioxide BUN Creatinine Est GFR ( Amer) Est GFR (Non-Af Amer) BUN/Creatinine Ratio Glucose POC Glucose 175 H 114 H 170 H Calculated Osmolality Calcium Albumin Prealbumin 04/18/18 04/18/18 04/18/18 13:36 13:36 17:50 WBC RBC Hgb Hct MCV MCH MCHC RDW Plt Count MPV Immature Gran % Seg Neutrophils % Lymphocytes % Monocytes % Eosinophils % Basophils % Neutrophils # Lymphocytes # Monocytes # Eosinophils # Basophils # Nucleated RBCs/100 WBC Platelet Estimate Immature Plt Fraction Sodium Potassium Chloride Carbon Dioxide BUN Creatinine Est GFR ( Amer) Est GFR (Non-Af Amer) BUN/Creatinine Ratio Glucose POC Glucose 162 H Calculated Osmolality Calcium Albumin 2.2 L Prealbumin 11.3 L 04/19/18 04/19/18 04/19/18 00:28 05:56 06:59 WBC 13.2 H D RBC 2.53 L Hgb 8.3 L Hct 24.0 L MCV 94.9 MCH 32.8 MCHC 34.6 RDW 13.4 Plt Count 242 D MPV 10.0 Immature Gran % 0.5 Seg Neutrophils % 74.4 Lymphocytes % 19.8 Monocytes % 4.7 Eosinophils % 0.3 Basophils % 0.3 Neutrophils # 9.8 H Lymphocytes # 2.6 Monocytes # 0.6 Eosinophils # 0.0 Basophils # 0.0 Nucleated RBCs/100 WBC 0.2 H Platelet Estimate Normal Immature Plt Fraction 3.9 Sodium Potassium Chloride Carbon Dioxide BUN Creatinine Est GFR ( Amer) Est GFR (Non-Af Amer) BUN/Creatinine Ratio Glucose POC Glucose 128 H 139 H Calculated Osmolality Calcium Albumin Prealbumin 04/19/18 06:59 WBC RBC Hgb Hct MCV MCH MCHC RDW Plt Count MPV Immature Gran % Seg Neutrophils % Lymphocytes % Monocytes % Eosinophils % Basophils % Neutrophils # Lymphocytes # Monocytes # Eosinophils # Basophils # Nucleated RBCs/100 WBC Platelet Estimate Immature Plt Fraction Sodium 130 L Potassium 4.2 Chloride 107 Carbon Dioxide 17 L BUN 31 H Creatinine 1.12 Est GFR ( Amer) 56 L Est GFR (Non-Af Amer) 46 L BUN/Creatinine Ratio 28 H Glucose 139 H POC Glucose Calculated Osmolality 279 L Calcium 8.9 Albumin Prealbumin - Impressions Impressions Chest X-Ray 04/18/18 20:08 IMPRESSION: Nonspecific left basilar consolidation and pleural effusion may reflect pneumonia. Aspiration pneumonitis is a consideration. Calcific atherosclerotic disease aorta. D/ / Huan Curry / Huan Curry Interpreting Provider: Huan Curry - ABG Interpretation ABG results: PT/INR, D-dimer PT 13.9 Seconds (9.4-12.1) H 04/13/18 10:47 Consult Discharge Plan - Plan Referrals: Marco Sow MD [Primary Care Provider] -
[2018-04-19] MEDS ORDERED: Atropine 1% Opth Drops 100 DROP/5 ML BOTTLE SL PRN (09:59)
--- NOTE | 2018-04-19 10:18 | Internal Med Progress Note ---
Hospitalist Progress Note - Encounter Date of Encounter: 04/19/18 Time of Encounter: 09:00 - Subjective Interval History: Pt still confused, open eyes but not talk. Overnight event noticed. On NC O2 now. Poor intake need IVF. Looks dry. low fever this AM. - Exam Vitals: Temp Pulse Resp BP Pulse Ox 98.3 F 83 16 102/71 90 04/19/18 06:52 04/19/18 06:52 04/19/18 07:47 04/19/18 06:52 04/19/18 07:47 Exam: General: Patient is alert, knows her name only Head: atraumatic, normocephalic, ENT: mucous membrane dry, normal external ear exam Respiratory: Rhochi b/l, Rt > Lt Cardiovascular: irregularly irregular, normal s1 and s2, No rubs, gallops, or murmors. Abdomen: Bowel sounds present normoactive x-4 quadrants. Abdomen is soft, nondistended. No guarding or rebound. No organomegaly noted Musculoskeletal: Spontaneously moving all extremities. no edema, no calf tenderness Neuro: Alert and oriented x1. following simple commands. - Assessment and Plan (1) COPD (chronic obstructive pulmonary disease) Current Visit: No Status: Chronic Assessment and Plan: Has Rhonchi now due to PNA. Cont abx and Duo-Nebs Q4RT PRN for Wheezing/SOB (2) Hyperlipemia Current Visit: No Status: Chronic Assessment and Plan: Cont home meds. (3) CAD (coronary artery disease) Current Visit: No Status: Chronic Assessment and Plan: S/P CABG, Cont home meds. (4) GHADA (acute kidney injury) Current Visit: No Status: Resolved Assessment and Plan: Most likely due to low preload due to sepsis/dehydration/poor intake Cont IVF with D5. Cont f/u renal function and avoid nephrotoxic meds. Renal function has improved. (5) Atrial fibrillation Current Visit: No Status: Chronic Assessment and Plan: Patient no on anticoagulation due to falls. Patient on carvedilol for rate control. HR 83. (6) Anemia Current Visit: No Status: Chronic Assessment and Plan: H&H still low but stable. No melena per nurse record. Will consider transfusing if Hc <7, Hct <23 or patient hemodynamically unstable. - Anemia work up shows low iron and high feritin, suggest anemia caused by inflammatory disease. - No melena so far. (7) Acute encephalopathy Current Visit: No Status: Acute Assessment and Plan: Most likely metabolic due to sepsis/dehydration. Not improve so far although no further fever and renal function improved. Cont abx for UTI/sepsis/pneumonia. Cont IVF,, slightly decrease rate as pt's lungs sounds not clear. TSH wnl. Vit B12 and folate is not low. Review her CT, which shows diffuse cerebral atrophy with chronic small vessel ischemic disease. Consider pt's age, pt may have early dementia which is worsening because recent illness (famoral fracture, severe UTI, etc.) Pt has poor intake, will consult cushion installer. Family would like comfort care and not considering tube feeding. Palliative care on case, Code status DNRCC now. (8) Fracture of femoral neck, right, closed Current Visit: No Status: Acute Assessment and Plan: Had surgery on last admission. consider PT/OT when patient hemodynamically stable and mental status improves. (9) Sepsis Current Visit: Yes Status: Acute Assessment and Plan: Most likely due to a UTI. Urine culture shows ESBL blood culture positive for ESBL Deescalte abx to Ertapenem per sensitivity strict intake and output Diet restarted per speech therapy recommendation. Head CT done: no acute intracranial abnormalities seen WBC get down, no further fever. Mental status and intake still poor. (10) Hypokalemia Current Visit: Yes Status: Acute Assessment and Plan: Improved.. (11) Bacteremia Current Visit: Yes Status: Acute Assessment and Plan: Gram negative bacteremia, culture positive for ESBL. Most likely due to UTI. Will repeat blood culture, may need 14 days abx. (12) Pneumonia Current Visit: Yes Status: Acute Assessment and Plan: Overnight difficult breathing and new rhonchi. CXR shows pneumonia. - Most likely aspiration but hospital acquired pneumonia is also possible considering pt's poor nutrition status and long time bedbound. - Place pt on Vanco and zosyn now to cover HAP and aspiration PNA and also her UTI with ESBL sentitive to zosyn too. - Cont supportive care. Palliative care will fiurther d/w family to consider hospice option. DVT Prophylaxis: Heparin SC - Time Spent with Patient Total time spent is greater than 50% in coordination of care (as documented) at patient's floor/unit and/or counseling patient: 25 - 35 minutes Plan of Care Discussed with: nurse Internal Medicine: Result - Labs CBC & Chem 7: 04/19/18 06:59 04/19/18 06:59 Labs: Short CBC 04/19/18 Range/Units 06:59 WBC 13.2 H D (4.3-11.1) K/mcL Hgb 8.3 L (11.5-15.4) g/dL Hct 24.0 L (35.3-44.9) % Plt Count 242 D (140-400) K/mcL Neutrophils # 9.8 H (1.6-8.9) K/mcL BMP 04/19/18 06:59 Sodium 130 L Potassium 4.2 Chloride 107 Carbon Dioxide 17 L BUN 31 H Creatinine 1.12 Glucose 139 H Calcium 8.9 Liver Function 04/18/18 Range/Units 13:36 Albumin 2.2 L (3.5-5.7) g/dL - ABG Interpretation ABG results: PT/INR, D-dimer PT 13.9 Seconds (9.4-12.1) H 04/13/18 10:47 - Impressions Impressions Chest X-Ray 04/18/18 20:08 IMPRESSION: Nonspecific left basilar consolidation and pleural effusion may reflect pneumonia. Aspiration pneumonitis is a consideration. Calcific atherosclerotic disease aorta. D/ / Huan Curry / Huan Curry Interpreting Provider: Huan Curry Consult Discharge Plan - Plan Referrals: Marco Sow MD [Primary Care Provider] - (1) COPD (chronic obstructive pulmonary disease) Qualifiers: COPD type: emphysema Emphysema type: unspecified Qualified Code(s): J43.9 - Emphysema, unspecified (2) Hyperlipemia Qualifiers: Hyperlipidemia type: unspecified Qualified Code(s): E78.5 - Hyperlipidemia, unspecified (3) CAD (coronary artery disease) Qualifiers: Coronary Disease-Associated Artery/Lesion type: bypass graft [place] vs. transplanted heart: [place] heart Associated angina: without angina Qualified Code(s): I25.810 - Atherosclerosis of coronary artery bypass graft(s) without angina pectoris (5) Atrial fibrillation Qualifiers: Atrial fibrillation type: paroxysmal Qualified Code(s): I48.0 - Paroxysmal atrial fibrillation (6) Anemia Qualifiers: Anemia type: unspecified type Qualified Code(s): D64.9 - Anemia, unspecified (8) Fracture of femoral neck, right, closed Qualifiers: Encounter type: initial encounter Qualified Code(s): S72.001A - Fracture of unspecified part of neck of right femur, initial encounter for closed fracture (9) Sepsis Qualifiers: Sepsis type: sepsis due to unspecified organism Qualified Code(s): A41.9 - Sepsis, unspecified organism (12) Pneumonia Qualifiers: Pneumonia type: aspiration pneumonia Laterality: left Lung location: lower lobe of lung
[2018-04-19] MEDS: D5% in Water 1,000 ML IVC SCH ×2 (10:30→16:12)
[2018-04-19] MEDS: Atropine 1% Opth Drops 100 DROP/5 ML BOTTLE SL PRN (12:01)
[2018-04-19] MEDS: MORPHINE SUL Oral CONC 10 MG/0.5 ML ORAL.SYG SL PRN ×2 (12:02→20:49)
[2018-04-19] MEDS ORDERED: Piperacillin/Tazobactam 3.375 GM in 0.9 % Sodium Chloride Mini Bag 100 ML IVPB SCH (16:00)
[2018-04-19] MEDS: Atropine Sulfate 1% 40 DROP/2 ML BOTTLE SL PRN ×2 (16:09→20:43)
[2018-04-19] MEDS: Famotidine 20 MG TABLET PO SCH (20:27)
[2018-04-20] MEDS: Ipratropium/Albuterol Neb 3 ML IH SCH ×4 (00:49→11:18)
[2018-04-20] MEDS: Atropine Sulfate 1% 40 DROP/2 ML BOTTLE SL PRN ×2 (01:01→05:43)
[2018-04-20] MEDS: Insulin LISPRO 300 UNITS/3 ML VIAL SQ SCH ×2 (01:07→04:04)
[2018-04-20 05:19] LABS: Acinetobacter baumannii by PCR Not Detected (Not Detect); Enterobacter cloacae Cmplx PCR Not Detected (Not Detect); Enterobacteriaceae by PCR DETECTED (Not Detect); Enterococcus by PCR Not Detected (Not Detect); Escherichia coli by PCR DETECTED (Not Detect); Staphylococcus aureus by PCR Not Detected (Not Detect); Staphylococcus by PCR Not Detected (Not Detect); Streptococcus agalactiae(B)PCR Not Detected (Not Detect); Streptococcus by PCR Not Detected (Not Detect); Streptococcus pneumoniae PCR Not Detected (Not Detect); Streptococcus pyogenes (A) PCR Not Detected (Not Detect); blaKPC Carbapenem-Resist Gene Not Detected (Not Detect)
[2018-04-20 05:20] LABS: Candida albicans by PCR Not Detected (Not Detect); Candida glabrata by PCR Not Detected (Not Detect); Candida krusei by PCR Not Detected (Not Detect); Candida parapsilosis by PCR Not Detected (Not Detect); Candida tropicalis by PCR Not Detected (Not Detect); Klebsiella oxytoca by PCR Not Detected (Not Detect); Klebsiella pneumoniae by PCR Not Detected (Not Detect); Proteus by PCR Not Detected (Not Detect); Pseudomonas aeruginosa by PCR Not Detected (Not Detect); Serratia marcescens by PCR Not Detected (Not Detect)
[2018-04-20] MEDS: MORPHINE SUL Oral CONC 10 MG/0.5 ML ORAL.SYG SL PRN ×2 (05:43→10:21)
[2018-04-20 06:37] VITALS: BP 112/63
[2018-04-20] MEDS ORDERED: Scopolamine Patch 1.5 MG PATCH.TD72 TD SCH (09:30)
--- NOTE | 2018-04-20 09:43 | Palliative Progress Note ---
Date of Encounter: 04/20/18 Time of Encounter: 09:00 - Assessment and plan (1) Generalized pain Current Visit: Yes Status: Acute Assessment and plan: Patient moaning with facial grimacing. Repositioned with discomfort. Patient had 3 doses of Roxanol in past 24 hrs with slight relief. Continue as needed for comfort. Position for comfort. (2) Difficulty clearing secretions Current Visit: Yes Status: Acute Assessment and plan: Patient with possible aspiration over the weekend. Light oral suction as needed for comfort. Sats 91% with 3L. Discussed removal of O2 with daughter and she agrees to DC. HOB up 30 degrees. Scopolomine patch ordered and atropine gtts in place. (3) Dyspnea Current Visit: Yes Status: Acute Assessment and plan: Patient with secretions from possible aspiration over the weekend. Patient sats 91% and now with low grade 99.3 temp. Position for optimal breathing and comfort. Duonebs scheduled. Suction for airway clearance as needed. (4) Goals of care, counseling/discussion Current Visit: Yes Status: Acute Assessment and plan: Daughter at bedside. Discussed transition to inpatient hospice. Patient with excessive secretions from possible aspiration. Altered level consciousness and nonverbal. Patient with generalized edema. Admit patient to inpatient GIP. Patient will not likely survive transport. PO meds DCd, comfort Roxanol and scopolomine ordered. Call placed to [facility] and patient has only Pacer no AICD. - Time Spent With Patient Total time spent is greater than 50% in coordination of care (as documented) at patient's floor/unit and/or counseling patient: 25 - 35 minutes - Subjective Interval history: Patient lethargic, gurgling respirations, SOB. Sats 91% with 3L NC O2. Daughter Lakisha at bedside. Patient with generalized edema with bilateral hands and feet 4+ pitting edema. Patient with noted event of possible aspiration over the weekend. Patient doesn't respond to name but applied cold cloth to head and patient opened eyes. Patient nonverbal. Scattered rhonchi throughout lung har[place]. Discussed DC of all po meds, no fluids and transition to inpatient hospice. Patient with low grade temp 99.3 and moaning at times. - Constitutional Vitals: Abnormal lab results WBC 13.2 K/mcL (4.3-11.1) H D 04/19/18 06:59 RBC 2.53 M/mcL (3.82-4.97) L 04/19/18 06:59 Hgb 8.3 g/dL (11.5-15.4) L 04/19/18 06:59 Hct 24.0 % (35.3-44.9) L 04/19/18 06:59 Neutrophils # 9.8 K/mcL (1.6-8.9) H 04/19/18 06:59 Nucleated RBCs/100 WBC 0.2 /100 WBC (0) H 04/19/18 06:59 Toxic Granulation Present (Not Present) A 04/15/18 05:03 Polychromasia 1+ (Not Present) A 04/18/18 04:51 Anisocytosis 1+ (Not Present) A 04/18/18 04:51 PT 13.9 Seconds (9.4-12.1) H 04/13/18 10:47 Sodium 130 mEq/L (136-145) L 04/19/18 06:59 Carbon Dioxide 17 mEq/L (23-29) L 04/19/18 06:59 BUN 31 mg/dL (8-23) H 04/19/18 06:59 Est GFR ( Amer) 56 (> 60) L 04/19/18 06:59 Est GFR (Non-Af Amer) 46 (> 60) L 04/19/18 06:59 BUN/Creatinine Ratio 28 (6-26) H 04/19/18 06:59 Glucose 139 mg/dL (70-105) H 04/19/18 06:59 POC Glucose 138 mg/dL (70-99) H 04/19/18 11:12 Calculated Osmolality 279 (280-300) L 04/19/18 06:59 Phosphorus 2.5 mg/dL (2.7-4.5) L 04/14/18 03:45 Iron 44 mcg/dL (50-170) L 04/16/18 03:11 Transferrin 119 mg/dL (203-362) L 04/16/18 03:11 Ferritin 446 ng/mL (10-120) H 04/16/18 03:11 Direct Bilirubin 0.3 mg/dL (0.0-0.2) H 04/13/18 10:47 Creatine Kinase 21 Units/L (30-223) L 04/13/18 10:47 B-Natriuretic Peptide 552 pg/mL (Less than 100) H 04/13/18 10:47 Serum Total Protein 6.3 g/dL (6.4-8.9) L 04/13/18 10:47 Albumin 2.2 g/dL (3.5-5.7) L 04/18/18 13:36 Albumin/Globulin Ratio 1.0 (1.1-2.2) L 04/13/18 10:47 Prealbumin 11.3 mg/dL (17.0-34.0) L 04/18/18 13:36 Vitamin B12 > 1500 pg/mL (250-1100) H 04/16/18 03:11 Urine Color Red (Yellow) A 04/13/18 11:42 Urine Clarity Turbid (Clear) A 04/13/18 11:42 Urine Protein 100 mg/dL (Neg-Trace) H 04/13/18 11:42 Urine Ketones Trace mg/dL (Negative) H 04/13/18 11:42 Urine Blood Small (Negative) H 04/13/18 11:42 Urine Nitrite Positive (Negative) A 04/13/18 11:42 Urine Bilirubin Small (Negative) H 04/13/18 11:42 Ur Leukocyte Esterase Large (Negative) H 04/13/18 11:42 Urine Microscopic RBC 5-15 per hpf (0-3) H 04/13/18 11:42 Urine Microscopic WBC TNTC per hpf (0-3) H 04/13/18 11:42 Ur Squamous Epith Cells Many per lpf (None-Few) H 04/13/18 11:42 Urine Bacteria Many per hpf (None-Few) H 04/13/18 11:42 Ur Culture Indicated? NO. (NO) A 04/13/18 11:42 Enterobacteriac sp PCR DETECTED (Not Detect) A 04/16/18 03:11 E. coli (PCR) DETECTED (Not Detect) A 04/16/18 03:11 - Head Head exam: Present: atraumatic, normal inspection - Eye Eye exam: Present: PERRL - ENT ENT exam: Present: mucous membranes dry - Neck Neck exam: Present: normal inspection - Respiratory Respiratory exam: Present: rhonchi - Expanded Respiratory Exam Location: rhonchi: Left, Right, Upper, Lower - Cardiovascular Cardiovascular exam: Present: irregular rhythm, +S1, +S2 Additional comments: Pacer/AICD - GI/Abdominal GI/Abdominal exam: Present: diminished bowel sounds, soft - Rectal Rectal exam: Present: deferred - Extremities Exam Extremities exam: Present: pedal edema (4+ pitting) - Neurological Exam Neurological exam: Present: altered - Psychiatric Psychiatric exam: Present: flat affect - Skin Skin exam: Present: pallor, warm Palliative Quality Palliative Quality: Screen for Code Status: Yes, Screen for Goals of Care: NA, Screen for Pain: Yes, If Pain Regimen Started, Initiate Bowel Regimen: NA, Screen for Nausea/Vomitting: Yes Code Status: 04/18/18 13:44 DNR [Resuscitation Status: Active] [RES] Routine Comment: Resuscitation Status: DNR-Comfort Care - Labs CBC & Chem 7: 04/19/18 06:59 04/19/18 06:59 Labs: Laboratory Results - last 24 hr 04/16/18 04/19/18 03:11 11:12 POC Glucose 138 H A. baumannii (PCR) Not Detected Miri albicans (PCR) Not Detected C. glabrata (PCR) Not Detected C. krusei (PCR) Not Detected C. parapsilosis (PCR) Not Detected C. tropicalis (PCR) Not Detected Enterobacteriac sp PCR DETECTED A E. cloacae complex PCR Not Detected Enterococcus sp PCR Not Detected E. coli (PCR) DETECTED A H. influenzae (PCR) Not Detected Klebsiella oxytoca PCR Not Detected Klebsiella pneumoniae Not Detected List. monocytogenes PCR Not Detected N. meningitidis (PCR) Not Detected Proteus species (PCR) Not Detected Serratia marcescens PCR Not Detected Staphylococcus sp PCR Not Detected Staph aureus (PCR) Not Detected mecA-Methicil Res Gene N/A Streptococcus sp PCR Not Detected Group A Strep DNA Not Detected Group B Strep (PCR) Not Detected Strep pneumoniae (PCR) Not Detected P. aeruginosa (PCR) Not Detected Maurizio/B-Vanco Res Genes N/A KPC (blaKPC) Detect PCR Not Detected - ABG Interpretation ABG results: PT/INR, D-dimer PT 13.9 Seconds (9.4-12.1) H 04/13/18 10:47 Consult Discharge Plan - Plan Referrals: Marco Sow MD [Primary Care Provider] -
[2018-04-20] MEDS: D5% in Water 1,000 ML IVC SCH (09:53)
[2018-04-20] MEDS: Ranolazine 500 MG TAB.ER.12H PO SCH (10:07)
[2018-04-20] MEDS: Isosorbide MONOnitrate (24 HR) 60 MG TAB.ER.24H PO SCH (10:07)
--- NOTE | 2018-04-20 11:49 | Discharge Summary ---
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 transplanted heart: [place] heart Associated angina: without angina Qualified Code(s): I25.810 - Atherosclerosis of coronary artery bypass graft(s) without angina pectoris (4) GHADA (acute kidney injury) Priority: Primary Status: Resolved (5) Atrial fibrillation Priority: Secondary Status: Chronic Qualifiers: Atrial fibrillation type: paroxysmal Qualified Code(s): I48.0 - Paroxysmal atrial fibrillation (6) Anemia Priority: Secondary Status: Chronic Qualifiers: Anemia type: unspecified type Qualified Code(s): D64.9 - Anemia, unspecified (7) Acute encephalopathy Priority: Primary Status: Acute (8) Fracture of femoral neck, right, closed Priority: Secondary Status: Acute Qualifiers: Encounter type: initial encounter Qualified Code(s): S72.001A - Fracture of unspecified part of neck of right femur, initial encounter for closed fracture (9) Sepsis Priority: Primary Status: Acute Qualifiers: Sepsis type: Escherichia coli Qualified Code(s): A41.51 - Sepsis due to Escherichia coli [E. coli] (10) Hypokalemia Priority: Secondary Status: Acute (11) Bacteremia Priority: Primary Status: Acute (12) Pneumonia Priority: Primary Status: Acute Qualifiers: Pneumonia type: aspiration pneumonia Laterality: left Lung location: lower lobe of lung Qualified Code(s): J69.0 - Pneumonitis due to inhalation of food and vomit Hospital course: Ms. Duke is a 87 year old female was admitted for fever and AMS. UA shows UTI. Pt was started with zosyn. Blood culture and urine culture shows ESBL. Pt' s infection has improved after treatment but mental status not improve. Pt has poor intake need IVF to maintain hydration. Pt also developped pneumonia during hospital stay. D/W family, will persue hospice care. Palliative care consulted and all abx/ivf stopped. Pt will d/c to inpatient hospice for comfort care. I saw and examined this pt, nonresponsive, labor breathing, rhonchi allover. Pt will cont comfort care only per palliative team and discharge to inpatient hospice. - Time Spent with Patient Total time spent providing and/or coordinating discharge services: 30 min Less than 30 minutes - Discharge Medications Home Medications: Clopidogrel [Plavix] 75 mg PO DAILY 08/23/15 [History] Isosorbide MONOnitrate (24 HR) [Imdur] 180 mg PO DAILY 08/23/15 [History] Potassium Chloride [K-Tab ER] 10 meq PO BID 08/23/15 [History] Pravastatin Sodium [Pravachol] 80 mg PO HS 08/23/15 [History] Cyanocobalamin (Vitamin B-12) [Vitamin B-12] 100 mcg PO DAILY 03/14/16 [History] Ergocalciferol (VITAMIN D2) [Vitamin D] 800 unit PO DAILY 03/14/16 [History] Loratadine [Claritin] 10 mg PO DAILY 03/14/16 [History] Nitroglycerin [Nitrostat] 0.4 mg SL Q5M PRN 03/31/16 [History] Ranolazine [Ranexa] 1,000 mg PO BID 03/31/16 [History] Sertraline [Zoloft] 75 mg PO DAILY 10/28/16 [History] Carvedilol 12.5 mg PO BID 01/10/17 [History] Sucralfate [Carafate] 1 gm PO BID 01/10/17 [History] Lidocaine Patch [Lidoderm 5% patch] 1 each TP DAILY PRN #3 adh..patch 03/25/17 [ Rx] Acetaminophen [Pain Relief 8Hr] 650 mg PO Q4H PRN 03/11/18 [History] Calcium Carbonate [Calcium] 600 mg PO DAILY 03/11/18 [History] Losartan/Hydrochlorothiazide [Losartan-Hctz 100-12.5 mg Tab] 1 tab PO DAILY 11/21 [History] Ranitidine HCl [Acid Hearing Aid Assembly Supervisor] 75 mg PO HS 03/11/18 [History] Omeprazole [PriLOSEC] 20 mg PO DAILY 04/13/18 [History] Sulfamethoxazole/Trimeth DS [Bactrim DS] 1 tab PO BID 04/13/18 [History] Allergies/Adverse Reactions: 3 Allergy/AdvReac Type Severity Reaction Status Date / Time simvastatin [From Zocor] Allergy Anaphylaxis Verified 01/10/17 16:51 atorvastatin [From Lipitor] AdvReac Anxiety Verified 01/10/17 16:51 enalaprilat [From Vasotec] AdvReac Hives Verified 01/10/17 16:51 Date of admission: 04/14/18 17:07 Primary care physician: Marco Sow MD Consults: 04/15/18 09:19 Consult to Aircraft Mechanic [CONS] Routine Reason for SW Consult: rtn wmp 04/18/18 07:21 Consult to Nutrition [CONS] Routine Comment: Consulting Provider: NUTRITION Reason for Dietary Consult: PO Supplementation 04/18/18 11:47 Consult to Palliative Care [CONS] Routine Comment: Consulting Provider: Palliative Care [place] Reason for Consult: UTI, AMS, poor intake may need tube feeding Call Completed: No 04/20/18 09:34 Consult to Cardiology [CONS] Routine Comment: Consulting Provider: Cardiology [place] Reason for Consult: Deactivation of Pacer & AICD. Patient to transfer to inpatient hospice care. Time Notified: 09:40 Call Completed: Yes Discharging clinician: Wanda Main Anticipated date of discharge: 04/20/18 - Constitutional Vitals: Temp Pulse Resp BP Pulse Ox 99.3 F 79 22 112/63 91 04/20/18 06:35 04/20/18 06:35 04/20/18 06:35 04/20/18 06:35 04/20/18 06:35 Exam: General: Patient is nonresponsive, labor breathing Head: atraumatic, normocephalic, ENT: mucous membrane dry, normal external ear exam Respiratory: Diffused rhochi b/l, Cardiovascular: irregularly irregular, normal s1 and s2, No rubs, gallops, or murmors. Abdomen: Bowel sounds present normoactive x-4 quadrants. Abdomen is soft, nondistended. No guarding or rebound. No organomegaly noted Musculoskeletal: no edema Neuro: Nonresponsive. - Patient Status Disposition: Hospice - Medical Facility Condition: Critical Functional capacity at discharge: bed bound - Discharge Instructions Follow Up With: Marco Sow MD [Primary Care Provider] - Forms: ED Satisfaction Letter
--- NOTE | 2018-04-20 11:54 | Physician Discharge Referral ---
Home Health/Hosp Referral Info Transfer to: Hospice Provider in Charge Post Discharge: Lithograph Designer - Diagnosis (1) COPD (chronic obstructive pulmonary disease) Status: Chronic (2) Hyperlipemia Status: Chronic (3) CAD (coronary artery disease) Status: Chronic (4) GHADA (acute kidney injury) Status: Resolved (5) Atrial fibrillation Status: Chronic (6) Anemia Status: Chronic (7) Acute encephalopathy Status: Acute (8) Fracture of femoral neck, right, closed Status: Acute (9) Sepsis Status: Acute (10) Hypokalemia Status: Acute (11) Bacteremia Status: Acute (12) Pneumonia Status: Acute - Respiratory Orders Smoking Cessation: Smoking cessation has been advised. For more information, call the [employer] Quit Line at 4-365-GKOX-NOW. - Transfer Medications Home Medications: Clopidogrel [Plavix] 75 mg PO DAILY 08/23/15 [History] Isosorbide MONOnitrate (24 HR) [Imdur] 180 mg PO DAILY 08/23/15 [History] Potassium Chloride [K-Tab ER] 10 meq PO BID 08/23/15 [History] Pravastatin Sodium [Pravachol] 80 mg PO HS 08/23/15 [History] Cyanocobalamin (Vitamin B-12) [Vitamin B-12] 100 mcg PO DAILY 03/14/16 [History] Ergocalciferol (VITAMIN D2) [Vitamin D] 800 unit PO DAILY 03/14/16 [History] Loratadine [Claritin] 10 mg PO DAILY 03/14/16 [History] Nitroglycerin [Nitrostat] 0.4 mg SL Q5M PRN 03/31/16 [History] Ranolazine [Ranexa] 1,000 mg PO BID 03/31/16 [History] Sertraline [Zoloft] 75 mg PO DAILY 10/28/16 [History] Carvedilol 12.5 mg PO BID 01/10/17 [History] Sucralfate [Carafate] 1 gm PO BID 01/10/17 [History] Lidocaine Patch [Lidoderm 5% patch] 1 each TP DAILY PRN #3 adh..patch 03/25/17 [ Rx] Acetaminophen [Pain Relief 8Hr] 650 mg PO Q4H PRN 03/11/18 [History] Calcium Carbonate [Calcium] 600 mg PO DAILY 03/11/18 [History] Losartan/Hydrochlorothiazide [Losartan-Hctz 100-12.5 mg Tab] 1 tab PO DAILY 11/21 [History] Ranitidine HCl [Acid Consumer Insight Analyst] 75 mg PO HS 03/11/18 [History] Omeprazole [PriLOSEC] 20 mg PO DAILY 04/13/18 [History] Sulfamethoxazole/Trimeth DS [Bactrim DS] 1 tab PO BID 04/13/18 [History] Allergies/Adverse Reactions: 3 Allergy/AdvReac Type Severity Reaction Status Date / Time simvastatin [From Zocor] Allergy Anaphylaxis Verified 01/10/17 16:51 atorvastatin [From Lipitor] AdvReac Anxiety Verified 01/10/17 16:51 enalaprilat [From Vasotec] AdvReac Hives Verified 01/10/17 16:51 Certification: Further, I certify that my clinical findings support that this patient is homebound (i.e. absences from home require considerable and taxing effort and are for medical reasons or taoist services or infrequently or short duration when for other reasons) because: Homebound Reason: Patient requires assistance of a person or device to safely leave home, Altered mental status requiring supervision when leaving home Attestation: My signature below is to certify that this patient is under my care and that I, or nurse practitioner, or a physician's assistant professor of education working with me, has a face-to -face encounter with this patient.
== END 2018-04-20 11:55 | disposition hospice, inpatient (51) | DRG 871 ==
LOC: EMEROOARM 10:37 → 2ANU 10:37 → SUATTDRO 04-14 17:07
PROVIDERS: ADMIT Internal Medicine; ATTEND Internal Medicine

== ENCOUNTER 2018-04-20 11:11 | Inpatient (IN) ==
[2018-04-20] MEDS ORDERED: Ipratropium/Albuterol Neb 3 ML IH PRN (11:39)
[2018-04-20] MEDS ORDERED: Haloperidol Oral Conc 10 MG/5 ML UDC PO PRN (11:39)
[2018-04-20] MEDS ORDERED: Scopolamine Patch 1.5 MG PATCH.TD72 TD SCH (11:45)
[2018-04-20] MEDS: Atropine Sulfate 1% 40 DROP/2 ML BOTTLE SL PRN ×2 (14:58→22:25)
[2018-04-20] MEDS: MORPHINE SUL Oral CONC 10 MG/0.5 ML ORAL.SYG PO PRN ×3 (15:15→22:28)
[2018-04-20] MEDS: *HR* LORazepam Oral Conc 2 MG/ML PO PRN (19:52)
[2018-04-20 22:00] VITALS: BP 103/63
[2018-04-21] MEDS: *HR* LORazepam Oral Conc 2 MG/ML PO PRN ×2 (01:35→05:44)
[2018-04-21] MEDS: Atropine Sulfate 1% 40 DROP/2 ML BOTTLE SL PRN ×2 (01:35→05:36)
--- NOTE | 2018-04-21 09:16 | Death Note ---
Discharge Sum: Summary - Date and Time Date of admission: 04/20/18 11:57 Date of : 04/21/18 Time of : 08:22 - Summary Details: Patient was admitted to general inpatient hospice yesterday, after a hospital stay for sepsis. She was initially treated with IV fluid/atb, and labwork did improve, however, she had little to no oral intake, and altered mental status. She was aspirating - discussions were held with family and they did not want to pursue any artificial nutrition. Plan was to discharge back to [facility] with hospice yesterday, however, she continued to decline and deemed not safe to transport, so was transitioned to [facility] yesterday. She this am prior to palliative seeing her. - Additional Data Confirmation of as documented by pronouncing clinician: no pulse, no respirations, no heart sounds Family: at bedside Attending physician: Melita Garcia MD Was code activated?: No Autopsy requested?: No Organ bank notified?: Yes Hospice patient?: Yes Discharge Sum: Diag - PCOD Probable Cause of : Respiratory arrest Discharge Sum: Prov - Provider Primary care physician: Marco Sow MD Admitting clinician: Melita Garcia Consults: 04/20/18 11:39 Consult to Palliative Care [CONS] Routine Comment: Consulting Provider: Palliative Care [place] Reason for Consult: Symptom management Time Notified: 11:45 Call Completed: No
--- NOTE | 2018-04-21 22:22 | Pallative History & Physical ---
Date of Encounter: 04/21/18 Time of Encounter: 09:00 Internal Medicine - H&P: HPI Chief complaint: Altered mental status Admitted From: Intrahospital Transfer Plans for Post Hospital Care: at Medical Facility History of present illness: Ms. Duke is a 87 year old female who was admitted from ECF r/t decreased mental status and hypotension. She was found to have e coli bacteremia, and was being treated with IV fluids and antibiotics. Her Leukocytosis improved, however, her mental status remains altered, and she was having very little po intake. Discussions were held with family and they did not want to pursue any artificial nutrition. Plan was to discharge back to [facility] with hospice yesterday , however, she continued to decline and deemed not safe to transport, so was transitioned to [facility] yesterday. She this am prior to palliative seeing her. Past Med Surg Social Fam HX - Past Medical History Medical history: arthritis, atrial fibrillation, COPD, coronary artery disease, DVT, GERD, hyperlipidemia, hypertension, myocardial infarction, syncope Additional medical history: broken left hip Psychiatric history: anxiety, depression - Past Surgical History Surgical History: angioplasty/stent, appendectomy, cataract, cholecystectomy, coronary bypass (CABG), orthopedic, other, pacemaker/AICD Additional surgical history: shoulder surgery - Social History Smoking Status: Former smoker Smokeless Tobacco Status: No Alcohol use: none Drug use: none - Family History Father Living Status: Hx Family Cardiac Disorders: Yes (HEART PROBEMS, [place]) Mother Living Status: Hx Family Respiratory Disorders: Yes ( of pneumonia) Internal Medicine - H&P: Meds Clopidogrel [Plavix] 75 mg PO DAILY 08/23/15 [History] Isosorbide MONOnitrate (24 HR) [Imdur] 180 mg PO DAILY 08/23/15 [History] Potassium Chloride [K-Tab ER] 10 meq PO BID 08/23/15 [History] Pravastatin Sodium [Pravachol] 80 mg PO HS 08/23/15 [History] Cyanocobalamin (Vitamin B-12) [Vitamin B-12] 100 mcg PO DAILY 03/14/16 [History] Ergocalciferol (VITAMIN D2) [Vitamin D] 800 unit PO DAILY 03/14/16 [History] Loratadine [Claritin] 10 mg PO DAILY 03/14/16 [History] Nitroglycerin [Nitrostat] 0.4 mg SL Q5M PRN 03/31/16 [History] Ranolazine [Ranexa] 1,000 mg PO BID 03/31/16 [History] Sertraline [Zoloft] 75 mg PO DAILY 10/28/16 [History] Carvedilol 12.5 mg PO BID 01/10/17 [History] Sucralfate [Carafate] 1 gm PO BID 01/10/17 [History] Lidocaine Patch [Lidoderm 5% patch] 1 each TP DAILY PRN #3 adh..patch 03/25/17 [ Rx] Acetaminophen [Pain Relief 8Hr] 650 mg PO Q4H PRN 03/11/18 [History] Calcium Carbonate [Calcium] 600 mg PO DAILY 03/11/18 [History] Losartan/Hydrochlorothiazide [Losartan-Hctz 100-12.5 mg Tab] 1 tab PO DAILY 11/21 [History] Ranitidine HCl [Acid Horticultural Services Supervisor] 75 mg PO HS 03/11/18 [History] Omeprazole [PriLOSEC] 20 mg PO DAILY 04/13/18 [History] 3 Allergy/AdvReac Type Severity Reaction Status Date / Time simvastatin [From Zocor] Allergy Anaphylaxis Verified 01/10/17 16:51 atorvastatin [From Lipitor] AdvReac Anxiety Verified 01/10/17 16:51 enalaprilat [From Vasotec] AdvReac Hives Verified 01/10/17 16:51 ROS unobtainable: other Palliative Care-Exam - Constitutional Vitals: Temp Pulse Resp BP Pulse Ox 100.7 F H 82 14 103/63 80 04/20/18 21:30 04/20/18 21:30 04/20/18 21:30 04/20/18 21:30 04/20/18 21:30 Exam: Patient prior to palliative care exam. Palliative Quality Palliative Quality: Screen for Code Status: NA, Screen for Goals of Care: NA, Screen for Pain: NA, If Pain Regimen Started, Initiate Bowel Regimen: NA, Screen for Nausea/Vomitting: NA
== END 2018-04-21 08:22 | disposition expired | DRG 951 ==
LOC: 2ANU 11:57
PROVIDERS: ADMIT Internal Medicine Hospice and Palliative Medicine; ATTEND Internal Medicine Hospice and Palliative Medicine